=== PATIENT | female | born 1975 | race African-American/Black ===

== ENCOUNTER 2016-09-07 11:21 | Inpatient (IN) ==
[2016-09-07] MEDS ORDERED: ACETAMINOPHEN 325 MG TABLET PO PRN (13:03)
[2016-09-07] MEDS ORDERED: ONDANSETRON 4 MG/2 ML VIAL IV PRN (13:03)
[2016-09-07] MEDS ORDERED: GLUCAGON 1 MG VIAL IM PRN (13:03)
[2016-09-07] MEDS ORDERED: DEXTROSE 50% 25 GM/50 ML VIAL IV PRN (13:03)
--- NOTE | 2016-09-07 13:55 | EKG Report ---
Stationary ECG Study [facility] Test Date: 09/07/2016 1:55:47 PM Pat Name: RENETTA RIBEIRO Department: Room: 124 Gender: F Principal Research Economist: KEVIN : 1975 Requested by: Derek Valentino Order Number: [id number] Reading MD: EDUARDO NOONAN Intervals [place] Rate: 91 P: 63 IA: 141 QRS: 58 QRSD: 77 T: 97 QT: 361 QTc: 410 Interpretive Statements SINUS RHYTHM Electronically Signed On 09-08-16 11:18:14 ROUNDHOUSE FIRER/FIREMAN by EDUARDO NOONAN [email or web address]
--- NOTE | 2016-09-07 14:15 | XRay Report ---
XR chest 1V portable Indication: Shortness of breath Comparison: 21 June 2009 Findings: The heart and mediastinum are stable in size and configuration. The pulmonary vascularity is slightly increased with bilateral increased interstitial lung density. No other lung infiltrates, effusions, pneumothorax or other abnormality is demonstrated. Impression: Findings suggest mild cardiac decompensation. PROCEDURE INTERPRETED AT [facility] DEPARTMENT OF RADIOLOGY Final Report Signed by: Dr. Yemi Navas
[2016-09-07 14:29] LABS: Basophils % 0.3 % (0.0-0.8); Eosinophils # 0.8 10*3/uL (0.0-0.87); Eosinophils % 5.5 % (0.00-10.9); Hematocrit 32.2 VOL% (35.7-47.0); Hemoglobin 10.1 GM/DL (12.0-16.0); Immature Granulocytes % 0.6 %; Immature Granulocytes Absolute 0.08 #; Lymphocytes # 2.5 10*3/uL (1.4-4.0); Lymphocytes % 18.1 % (21.3-54.2); Mean Corpuscular HGB Conc 31.4 GM/DL (32-36); Mean Corpuscular Hemoglobin 25 PG (27-34); Mean Corpuscular Volume 80.5 FL (87-102); Mean Platelet Volume 10.4 FL (9.6-12.0); Monocytes # 0.9 10*3/uL (0.11-0.8); Monocytes % 6.6 % (1.7-12.7); Neutrophils # 9.5 10*3/uL (1.4-7.4); Neutrophils % 68.9 % (38.7-73.9); Platelet Count 279 T/CUMM (130-400); Red Cell Distribution Width 17.7 % (9.3-17.3); White Blood Count 13.7 T/CUMM (4-12)
--- NOTE | 2016-09-07 14:39 | Hospitalist History & Physical ---
<Derek Valentino - Last Filed: 09/07/16 16:48> Assessment and Plan (1) ESRD (end stage renal disease) Status: Acute Assessment and plan: Will monitor lab work. consult to renal for recs. Pt will most likely be dialyzed. Bun/creatinine 46/7.9 Current Visit: Yes (2) Hyperkalemia Status: Acute Assessment and plan: Continue to monitor labs. Pt given kayexalate at previous facility. K decreased from 6.6 to 5.1 Current Visit: Yes (3) Hypertension Status: Acute Assessment and plan: Monitor blood pressure. Start medications for treatment. Current Visit: Yes History of Present Illness Chief complaint: chronic kidney disease History of present illness: Ms. Slater is a 41 year old female Allergies Allergy/AdvReac Type Severity Reaction Status Date / Time Penicillins Allergy Severe ITCHING Verified 09/07/16 16:02 aspirin Allergy Intermediate ITCHING Verified 09/07/16 16:04 Medical,Surgical,& Family Hx - Medical History Cardio: History of: Hypertension Psychological: History of: Bipolar Disorder Neurology: History of: Migraine Endocrine: History of: Diabetes Mellitus (IDDM) Respiratory: History of: Asthma, Bronchitis Renal: No history of: Dialysis Gastrointestinal: History of: GERD Hematology: History of: Sickle Cell Disease (SICKLE CELL TRACE) - Surgical History Cardiac Surgeries: Sugical HX of: Cardiac Catheterization HEENT Surgeries: Surgical HX of: Eye Surgery (RETICAL SURGERY,LASER SURGERY) Reproductive Surgeries: Surgical HX of;: Section, Tubal Ligation Patient denies;: Breast Surgery, Dilation and Curettage, Gynecologic Surgery , Hysterectomy - Family History Family History: Reports;: Family Cancer (GRANDMOTHER), Family Diabetes (MOTHER, FATHER , DAUGHTER), Family Heart Disease (MOTHER), Family Hypertension (MOTHER, FATHER , DAUGHTER), Family Stroke (AUNT) - Social History Smoking Status: Never smoker Frequency of Alcohol Use: None Type of Drug Use: None - Gastrointestinal Gastrointestinal: Present: abdominal pain Exam - Constitutional Vitals: Period Temp Pulse Resp BP Sys/[place] Pulse Ox Last 24 Hr 22 General appearance: no acute distress, over weight - Head Head exam: Present: normal inspection, normocephalic - Eye Eye exam: Present: EOMI Pupils: Present: normal accommodation - GI/Abdominal GI/Abdominal exam: Present: normal bowel sounds, tenderness, soft - Extremities Exam Extremities exam: Present: normal capillary refill, full ROM - Neurological Exam Neurological exam: Present: alert, oriented X3 - Psychiatric Psychiatric exam: Present: normal affect, normal mood - Skin Skin exam: Present: normal color, warm, dry Results - Labs CBC & BMP: 09/07/16 14:13 09/07/16 14:13 Lab Results: I have reviewed the past 24 hour labs Quality Measures - Stroke Symptom Onset Unknown: No <Iesha Puentes - Last Filed: 09/07/16 18:00> History of Present Illness Chief complaint: chest pain History of present illness: Ms. Slater is a 41 year old female with a history of asthma, pneumonia, coronary artery disease, congestive heart failure (unknown type) and chronic kidney disease stage V presented to an outside hospital with a chief complaint of worsening chest pain 1 week. Patient reports that she is noticed that over the last week she has had intermittent sharp chest pain that lasts a few seconds. She reports that he can occur while she is resting or sleeping or when she is in the middle of activities. She says that it does wake her up from sleep. She reports that the pain is usually in the middle of her chest and radiates to her left arm most of the time. Patient reports that it is associated with shortness of breath, nausea, and diaphoresis. no vomiting. She reports it is not associated with lightheadedness or dizziness though she does report feeling that sometimes her heart races or skips a beat. Patient reports that the chest pain is relieved with a nitro patch. She reports that the chest pain worsens with movement, taking a deep breath and seems to be worse with leaning forward. It is not associated with eating. she does report a subjective fever and dry cough. She does report she has had a decreased appetite that has progressively worsened over the last month. She reports she has nausea and vomiting most of the time with eating. Yesterday afternoon, her son went to see her and brought her something to eat. She was feeling better so he left to go home she went to lie down when she developed worsening chest pain that persisted and was associated with nausea. It concerned her due to the increased intensity so she told her boyfriend who called her daughter and she was brought to the outside hospital for further evaluation and treatment. Patient denies any recent long trips. She has not had any recent surgery. She denies any lower extremity swelling. She does report that she has had some increasing in her weight. Son reports her blood sugars are usually in the 2-300s and admits to her being noncompliant with her diet and medication. She was transferred as a direct admit from the outside hospital to the ICU due to a potassium of 6 and reports of increasing respiratory distress due to shortness of breath suspected to be congestive heart failure exacerbation. We were asked to admit the patient. A 10 point review of systems was reviewed with the patient and was otherwise unremarkable. Past medical history: Congestive heart failure (type unknown) chronic kidney disease stage V, diabetes mellitus type 2, hypertension, glaucoma, cataracts, retinal detachment, coronary artery disease (mild), asthma, pneumonia, chronic UTIs, GERD, questionable hiatal hernia versus diabetic gastroparesis Past surgical history: Multiple eye laser surgeries, retinal surgery, cardiac cath, 4 Medications unknown: She gets her meds from [facility] in [facility] Allergies: Penicillin causes a rash and itch, aspirin causes an itch Family history: Parents and daughter -diabetes; parents- CHF; Mother- myocardial infarction; Social history: Patient denies any tobacco or illicit drug use. She occasionally drinks alcohol. She is single and lives alone, but her children are involved in her care. She is a full code. Physical exam: Vitals were reviewed. Patient is afebrile, BP: 162/89, HR: 86, RR: 20 sats 98% RA GEN: Patient is awake alert and oriented 3 lying in hospital bed in no acute distress HEENT: Pupils are equal round and reactive to light, extraocular muscles are intact, sclerae clear, extraocular muscles are intact, conjunctivae pink, nares are patent, no discharge or epistaxis noted. Oropharynx is clear with slightly dry mucous membranes. NECK: Supple, no lymphadenopathy or thyromegaly appreciated. No JVD. CV: Regular rate and rhythm, normal S1-S2. No obvious murmurs rubs or gallops LUNGS: Clear to auscultation bilaterally, with good aeration, nonlabored breathing noted. Slightly diminished equal breath sounds ABD: Soft, nontender, nondistended, positive bowel sounds. No organomegaly or masses appreciated though difficult to assess given her body habitus. EXT: Warm and well-perfused. No clubbing cyanosis or edema NEURO: Cranial nerves II through XII are intact. 5 out of 5 upper and lower extremities bilaterally. Normal finger nose exam. Gait was not assessed. Sensory exam was grossly intact. Labs/ investigative studies reviewed. Assessment and plan: * Hyperkalemia likely due to progressive chronic kidney disease-improved status post Kayexalate * Possible acute bronchitis versus pneumonia (bacterial /community-acquired ) possibly chest pain in a patient with known coronary artery disease * Mild congestive heart failure likely due to fluid overload due to chronic kidney disease * Chronic kidney disease stage unknown suspect stage V * Diabetes mellitus type 2 uncontrolled currently with hypoglycemia * Recurrent nausea and vomiting with leukocytosis-possibly related to diabetic gastroparesis or gastroparesis due to end-stage renal disease. Rule out pancreatitis. Rule out infection. For plans, please see the orders. Discussed with Dr. Monterroso. We will transfer to the floor since she is not severely acidotic, her potassium has improved, she does not appear to be in overt congestive heart failure, and does not appear to have uremia at this time. GI and DVT prophylaxis Exam - Constitutional Vitals: Period Temp Pulse Resp BP Sys/[place] Pulse Ox Last 24 Hr 22 Results - Labs CBC & BMP: 09/07/16 14:13 09/07/16 14:13
[2016-09-07 14:56] LABS: Alanine Aminotransferase 36 U/L (13-56); Albumin 2.2 G/DL (3.4-5.0); Alkaline Phosphatase 346 U/L (45-117); Aspartate Amino Transferase 26 U/L (0-37); Bilirubin,Total < 0.39 MG/DL (0.2-1.0); Blood Urea Nitrogen 46 MG/DL (7-18); Calcium 7.6 MG/DL (8.5-10.1); Glucose 74 MG/DL (74-106); Magnesium 2.2 MG/DL (1.8-2.4); Osmolality,Calculated 296.8 MOS/KG (273-304); Potassium 5.1 MMOL/L (3.5-5.1); Sodium 144 MMOL/L (136-145); Total Protein 5.9 G/DL (6.4-8.3)
[2016-09-07] MEDS: INSULIN LISPRO 100 UNIT/ML SUBCUT SCH ×2 (16:55→20:55)
[2016-09-07] MEDS ORDERED: ALBUTEROL 2.5 MG/3 ML NEB RESP TX PRN (17:29)
[2016-09-07] MEDS ORDERED: LEVOFLOXACIN INJ 500 MG in PREMIX 1 EACH IV SCH (17:30)
--- NOTE | 2016-09-07 18:13 | Nephrology Consult Note ---
History of Present Illness Chief complaint: Chronic kidney disease nearing end-stage History of present illness: Ms. Slater is a 41 year old female patient with history of diabetes and hypertension was admitted to the [facility] for shortness of breath nausea vomiting. At that time patient's serum creatinine was noted to be up above 6. Moreover patient's potassium was above 6.5. She has been transferred from [facility] for further management regarding her kidney disease. Patient was last seen by me over a year ago and at that time patient had significant chronic kidney disease. At present she states her breathing has improved. Blood pressure has been suboptimal. No shortness of breath or chest pain at this time. Have continued to discuss with patient about dialysis options. Allergies Allergy/AdvReac Type Severity Reaction Status Date / Time Penicillins Allergy Severe ITCHING Verified 09/07/16 16:02 aspirin Allergy Intermediate ITCHING Verified 09/07/16 16:04 Medical,Surgical,& Family Hx - Medical History Cardio: History of: Hypertension Psychological: History of: Bipolar Disorder Neurology: History of: Migraine Endocrine: History of: Diabetes Mellitus (IDDM) Respiratory: History of: Asthma, Bronchitis Renal: No history of: Dialysis Gastrointestinal: History of: GERD Hematology: History of: Sickle Cell Disease (SICKLE CELL TRACE) - Surgical History Cardiac Surgeries: Sugical HX of: Cardiac Catheterization HEENT Surgeries: Surgical HX of: Eye Surgery (RETICAL SURGERY,LASER SURGERY) Reproductive Surgeries: Surgical HX of;: Section, Tubal Ligation Patient denies;: Breast Surgery, Dilation and Curettage, Gynecologic Surgery , Hysterectomy - Family History Family History: Reports;: Family Cancer (GRANDMOTHER), Family Diabetes (MOTHER, FATHER , DAUGHTER), Family Heart Disease (MOTHER), Family Hypertension (MOTHER, FATHER , DAUGHTER), Family Stroke (AUNT) - Social History Smoking Status: Never smoker Frequency of Alcohol Use: None Type of Drug Use: None Review of Systems Constitutional: fatigue, no anorexia, no chills Cardiovascular: dyspnea, no chest pain at rest, no chest pain with activity Respiratory: dyspnea Exam - Vital Signs Vital signs: Period Temp Pulse Resp BP Sys/[place] Pulse Ox Last 24 Hr 99.0 F-99.1 F 87-93 13-29 164-181/92-103 98-99 - General Appearance General appearance: well-developed, well-nourished EENT: ATNC Neck: supple Respiratory: clear Cardiology: regular rate, regular rhythm Gastrointestinal: normoactive bowel sounds, no tenderness Integumentary: no rash Neurologic: alert and oriented x3, CN 3-12 intact Musculoskeletal: no clubbing Psychiatric: mood/affect appropriate Results - Labs CBC & BMP: 09/07/16 14:13 09/07/16 14:13 Assessment and Plan (1) Diabetes Status: Chronic Current Visit: Yes Qualifiers: Diabetes mellitus type: type 2 (2) ESRD (end stage renal disease) Status: Acute Assessment and plan: progressive renal failure. Patient will need to start dialysis. Current Visit: Yes (3) Hyperkalemia Status: Resolved Assessment and plan: This issue has now resolved Current Visit: Yes (4) Hypertension Status: Acute Assessment and plan: Clonidine 0.1mg BID Clonidine 0.1mg prn q 4 hour Current Visit: Yes Qualifiers: Hypertension type: essential hypertension Qualified Code(s): I10 - Essential (primary) hypertension (5) Hypoglycemia Status: Acute Assessment and plan: Changing IV fluids to D5 1/4 normal salin at 50cc/hr Current Visit: Yes
--- NOTE | 2016-09-07 18:14 | Ultrasound Report ---
Renal ultrasound Indication: Hydronephrosis Comparison: None available Findings: Kidneys are normal in size with increased parenchymal echogenicity. No hydronephrosis or nephrolithiasis is seen. The right renal length is 10.3 cm. The left renal length is 9.4 cm. No free fluid or other abnormality is seen. Impression: Increased parenchymal echogenicity, consistent with renal parenchymal disease. No other evidence of abnormality demonstrated. Ultrasound images stored and captured. PROCEDURE INTERPRETED AT [facility] DEPARTMENT OF RADIOLOGY Final Report Signed by: Dr. Yemi Navas
[2016-09-07] MEDS: DEXTROSE 5% NACL 0.22% 1,000 ML IV SCH (18:39)
[2016-09-07] MEDS: cloNIDine 0.1 MG TABLET PO PRN ×2 (19:15→23:18)
[2016-09-07] MEDS: ALBUTEROL 2.5 MG/3 ML NEB RESP TX SCH (19:34)
[2016-09-07 20:36] LABS: Apearance,Urine Slightly Hazy (Clear); Bacteria,Urine Occasional /HPF (Few); Bilirubin,Urine Negative (Negative); Blood, Urine Negative (Negative); Glucose,Urine (UA) 150 mg/dL (Negative); Hyaline Casts,Urine 4 /LPF (0-3); Ketones,Urine Negative (Negative); Mucus,Urine Occasional /LPF (Occasional); Nitrite,Urine Negative (Negative); Protein,Urine >=500 MG/DL; RBC,Urine 8 /HPF (0-4); Squamous Epithelial Cell,Urine Occasional /HPF (0-10); Urine Color Yellow (Yellow); Urine Urobilinogen < 2.0 EU/DL (0.2-1.0); WBC,Urine 6 /HPF (0-6)
[2016-09-07] MEDS: cloNIDine 0.1 MG TABLET PO SCH (21:04)
[2016-09-08] MEDS: ALBUTEROL 2.5 MG/3 ML NEB RESP TX SCH ×5 (01:35→23:51)
[2016-09-08] MEDS: cloNIDine 0.1 MG TABLET PO PRN (03:32)
[2016-09-08 04:57] LABS: Basophils % 0.4 % (0.0-0.8); Eosinophils # 0.7 10*3/uL (0.0-0.87); Eosinophils % 6.7 % (0.00-10.9); Hematocrit 29.8 VOL% (35.7-47.0); Hemoglobin 9.6 GM/DL (12.0-16.0); Immature Granulocytes % 0.5 %; Immature Granulocytes Absolute 0.05 #; Lymphocytes % 27.8 % (21.3-54.2); Mean Corpuscular HGB Conc 32.2 GM/DL (32-36); Mean Corpuscular Hemoglobin 25 PG (27-34); Mean Platelet Volume 10.7 FL (9.6-12.0); Monocytes # 0.9 10*3/uL (0.11-0.8); Monocytes % 8.1 % (1.7-12.7); Neutrophils # 6.1 10*3/uL (1.4-7.4); Neutrophils % 56.5 % (38.7-73.9); Platelet Count 262 T/CUMM (130-400); Red Blood Count 3.82 MC/CUMM (3.8-5.5); Red Cell Distribution Width 17.4 % (9.3-17.3); White Blood Count 10.9 T/CUMM (4-12)
[2016-09-08 05:28] LABS: Bilirubin,Total 0.7 MG/DL (0.2-1.0); Calcium 7.7 MG/DL (8.5-10.1); Osmolality,Calculated 297.7 MOS/KG (273-304); Potassium 4.7 MMOL/L (3.5-5.1); Risk Ratio 2.66; Total Protein 5.6 G/DL (6.4-8.3); VLDL CHOLESTEROL 17.6 MG/DL
[2016-09-08 06:19] LABS: Hepatitis A Ab IgM Quant 0.15 Index; Hepatitis A Ab IgM Result Negative (Negative); Hepatitis B Core IgM Quant 0.16 Index; Hepatitis B Core IgM Result Negative (Negative); Hepatitis B Surface Ag Quant < 0.10 Index; Hepatitis B Surface Ag Result Negative (Negative); Hepatitis C Virus Ab Quant 0.14 Index; Hepatitis C Virus Ab Result Negative (Negative)
--- NOTE | 2016-09-08 06:42 | Hospitalist Progress Note ---
Hospitalist: Subjective Interval history: Patient rested comfortably overnight. No fevers or chills. No chest pain or shortness of breath. No palpitations. Urinating well. Tolerating oral intake well. Exam - Constitutional Vitals: Period Temp Pulse Resp BP Sys/[place] Pulse Ox Last 24 Hr 97.6 F-99.1 F 82-95 12-29 134-181/66-103 96-100 Exam: Physical exam: GEN: Patient is awake alert and oriented 3 lying in hospital bed in no acute distress CV: Regular rate and rhythm, normal S1-S2. No obvious murmurs rubs or gallops LUNGS: Clear to auscultation bilaterally, with good aeration, nonlabored breathing noted. Slightly diminished equal breath sounds ABD: Soft, nontender, nondistended, positive bowel sounds. No organomegaly or masses appreciated though difficult to assess given her body habitus. EXT: Warm and well-perfused. No clubbing cyanosis or edema NEURO: nonfocal Results - Labs CBC & BMP: 09/08/16 03:55 09/08/16 03:55 Labs: HgbA1c 6.0 LDL 73 HDL 47 Lipase 110 TSH 2.85 Blood culture x 2- pending Reportedly cardiac markers were negative at the outside hospital. - Impressions Assessment and plan: * Chest pain in a patient with known coronary artery disease-will ask cardiology to evaluate. Her previous heart catheterization per patient revealed blood vessel that was not amendable to PCI. Continue medical management for now. Follow-up echo. * Hyperkalemia likely due to progressive chronic kidney disease-resolved status post Kayexalate. * Possible acute bronchitis versus pneumonia (bacterial /community-acquired ) possibly due to gram-negative rods, gram-positive cocci, or atypical organisms * Chronic congestive heart failure type pwyiorz-sntasp-dm echo. Strict I's and O's. Daily weights. No OLU or Arps at this time due to elevated creatinine. Initiate beta-blockers once her home meds are reevaluated * Chronic kidney disease stage unknown suspect stage V-management per renal * Diabetes mellitus type 2 controlled -I suspect most of the time patient is hypoglycemic on her current regimen as her hemoglobin A1c is less than 6 . Continue insulin sliding scale for now with Accu-Cheks before meals and at bedtime. Pending her blood sugars we may be able to discontinue the dextrose infusion. * Recurrent nausea and vomiting with leukocytosis-possibly related to diabetic gastroparesis or gastroparesis due to end-stage renal disease. Lipase was normal. Rule out infection. Follow-up blood and urine cultures. Continue empiric antibiotics. Patient awaiting bed on telemetry. Update medications once nurse receives home med list from [facility] in [place], [place]. GI and DVT prophylaxis I will be away several days. 1 of my associates will follow in my absence. - Diagnostic Findings Procedure: Chest x-ray: report reviewed by me (CXR mild cardiac decompensation) , Ultrasound: report reviewed by me (Renal U/S showed increased echogenicity) Quality Measures - Stroke Symptom Onset Unknown: No
[2016-09-08] MEDS: cloNIDine 0.1 MG TABLET PO SCH ×2 (09:14→20:48)
[2016-09-08] MEDS: INSULIN LISPRO 100 UNIT/ML SUBCUT SCH ×4 (09:16→20:48)
--- NOTE | 2016-09-08 09:53 | Nephrology Progress Note ---
Nephrology - PN: Subj Interval history: The patient appears much more comfortable at this time. No shortness of breath or chest pain. Serum creatinine is noted to be 7.7. Continuing to talk with patient about renal replacement therapy options. At this time she appears to be more resistant about dialysis. She is interested in more education. The patient is stable to go up to a regular floor. Glucoses have been running low she is on IV fluids. Exam (PN)-Nephrology - Vital Signs Vital signs: Period Temp Pulse Resp BP Sys/[place] Pulse Ox Last 24 Hr 97.6 F-99.1 F 80-95 12-29 134-181/66-103 96-100 - General Appearance General appearance: well-developed, well-nourished EENT: ATNC Neck: supple Respiratory: clear Cardiology: no edema, regular rate, regular rhythm Gastrointestinal: normoactive bowel sounds, no tenderness Neurologic: alert and oriented x3, CN 3-12 intact Musculoskeletal: no deformities, no clubbing Psychiatric: mood/affect appropriate - Lab 09/08/16 03:55 09/08/16 03:55 Most recent lab results Calcium 7.7 MG/DL (8.5-10.1) L 09/08/16 03:55 Magnesium 2.2 MG/DL (1.8-2.4) 09/07/16 14:13 Assessment and Plan (1) Diabetes Status: Chronic Current Visit: Yes Qualifiers: Diabetes mellitus type: type 2 (2) ESRD (end stage renal disease) Status: Acute Assessment and plan: progressive renal failure. Patient will need renal replacement therapy and continuing to discuss her options. Current Visit: Yes (3) Hyperkalemia Status: Resolved Assessment and plan: This issue has now resolved Current Visit: Yes (4) Hypertension Status: Acute Assessment and plan: Clonidine 0.1mg BID Clonidine 0.1mg prn q 4 hour Current Visit: Yes Qualifiers: Hypertension type: essential hypertension Qualified Code(s): I10 - Essential (primary) hypertension (5) Hypoglycemia Status: Acute Assessment and plan: Changing IV fluids to D5 1/4 normal salin at 50cc/hr Current Visit: Yes
[2016-09-08] MEDS: DEXTROSE 5% NACL 0.22% 1,000 ML IV SCH (14:40)
--- NOTE | 2016-09-08 15:39 | ECHO Report ---
Jesus Slater 09/08/2016 Exam Date: 10:07 Referring Physician: Vanessa Reyesnologist: Age: 41 Ht (in): Wt (lb): FExam Location: [facility] Gender: Echo [id number]: Diabetes, ESRD, Hyperkalemia, HTN, Indications:glycemia BP: / HR: SinusRhythm: FairTechnical Quality: IMPRESSIONS Severe concentric left ventricular hypertrophy. Left ventricular ejection fraction is estimated at 55-60 %. Normal segmental wall motion . Normal right ventricular size. Normal right atrial size. Normal left atrial size. Mildly thickened mitral valve with mild mitral regurgitation. Aortic valve sclerosis without stenosis or regurgitation. Morphologically normal tricuspid valve. Wyff-og-rqlpiqiw tricuspid valve regurgitation. Tricuspid regurgitation velocities suggest a PAP of 27.0 mmHg + RAP. Morphologically normal pulmonic valve. No pericardial effusion. Normal size aortic root and proximal ascending aorta. MEASUREMENTS (Male / Female) Normal Values 2D ECHO LV Diastolic Diameter PLAX 3.6 cm 4.2 - 5.9 / 3.9 - 5.3 cm LV Systolic Diameter PLAX 2.0 cm LV Fractional Shortening PLAX 42.9 % IVS Diastolic Thickness 1.3 cm 0.6 - 1.0 / 0.6 - 0.9 cm LVPW Diastolic Thickness 1.3 cm 0.6 - 1.0 / 0.6 - 0.9 cm RV Internal Dim ED PLAX 2.4 cm Aortic Root Diameter 2.6 cm LA Systolic Diameter LX 3.4 cm 3.0 - 4.0 / 2.7 - 3.8 cm FINDINGS Left Ventricle Severe concentric left ventricular hypertrophy. Left ventricular ejection fraction is estimated at 55-60 %. Normal segmental wall motion Right Ventricle Normal right ventricular size. Right Atrium Normal right atrial size. Left Atrium Normal left atrial size. Mitral Valve Mildly thickened mitral valve with mild mitral regurgitation. Aortic Valve Aortic valve sclerosis without stenosis or regurgitation. Tricuspid Valve Morphologically normal tricuspid valve. Ohtw-zw-grpqazpa tricuspid valve regurgitation. Tricuspid regurgitation velocities suggest a PAP of 27.0 mmHg + RAP. Pulmonic Valve Morphologically normal pulmonic valve. Pericardium No pericardial effusion. Aorta Normal size aortic root and proximal ascending aorta. Johny Webb MD (Electronically Signed) 08 September 2016 Final Date: 15:38
[2016-09-08] MEDS: ZALEPLON 5 MG CAPSULE PO PRN (20:48)
[2016-09-09] MEDS: ALBUTEROL 2.5 MG/3 ML NEB RESP TX SCH ×4 (07:20→23:58)
[2016-09-09] MEDS: INSULIN LISPRO 100 UNIT/ML SUBCUT SCH ×4 (08:19→20:57)
[2016-09-09] MEDS: cloNIDine 0.1 MG TABLET PO SCH ×2 (08:24→20:57)
[2016-09-09] MEDS: PROMETHAZINE 25 MG/1 ML VIAL IM PRN (08:25)
[2016-09-09] MEDS: DEXTROSE 5% NACL 0.22% 1,000 ML IV SCH ×2 (09:13→14:43)
--- NOTE | 2016-09-09 13:56 | Hospitalist Progress Note ---
Assessment and Plan (1) ESRD (end stage renal disease) Status: Acute Assessment and plan: The geospatial systems integrator is evaluating Mrs. Slater for renal replacement therapy. The patient has been reluctant to pursue treatment. We will discontinue Levaquin and begin meropenem to treat urinary tract infection Current Visit: Yes (2) Hypertension Status: Acute Current Visit: Yes Qualifiers: Hypertension type: essential hypertension Qualified Code(s): I10 - Essential (primary) hypertension Hospitalist: Subjective Interval history: The patient is admitted to the hospital with generalized weakness. She has stage V renal failure and has been offered hemodialysis. The patient is considering her options for renal replacement therapy. The patient has nausea today. Exam - Constitutional Vitals: Period Temp Pulse Resp BP Sys/[place] Pulse Ox Last 24 Hr 97.9 F-99.9 F 83-91 16-21 111-138/59-74 93-100 Exam: Constitutional System: Mild distress. No tremulousness. The patient is lethargic Head: Normocephalic, atraumatic. Ears, Nose and Throat System: No evidence of Otitis or Mastoiditis. No epistaxis or discharge Eyes System: Pupils equal, round, and reactive. Extraocular muscles intact. Neck: Supple, without adenopathy, No jugular venous distention. No thyromegaly , neck mass, or prior surgery apparent. Respiratory System: Chest clear to auscultation. Cardiovascular System: Heart with regular rate and rhythm. No murmur. GI System: Abdomen soft, nontender. Normoactive bowel sounds present. Musculoskeletal System: limbs with no pedal edema. Full distal pulses. Neurological System: No discernable sensory deficit. No aphasia Psychiatric System: Conversation is rational Results - Labs CBC & BMP: 09/08/16 03:55 09/08/16 03:55 Lab Results: I have reviewed the past 24 hour labs Quality Measures - Stroke Symptom Onset Unknown: No
[2016-09-09] MEDS: MEROPENEM 500 MG in SODIUM CHLORIDE 0.9% 100 ML IV SCH (14:45)
--- NOTE | 2016-09-09 14:56 | Nephrology Progress Note ---
Nephrology - PN: Subj Interval history: Patient is resting. She is visiting with family. Discussed with patient about renal replacement therapy. She voiced understanding. She is now in agreement to start dialysis. Blood pressure is better today. Will repeat BMP in a.m. Exam (PN)-Nephrology - Vital Signs Vital signs: Period Temp Pulse Resp BP Sys/[place] Pulse Ox Last 24 Hr 97.9 F-99.9 F 83-91 16-21 111-138/59-74 93-100 - General Appearance General appearance: well-developed, well-nourished EENT: ATNC Neck: supple Respiratory: clear Cardiology: regular rate, regular rhythm Gastrointestinal: normoactive bowel sounds, no tenderness, no guarding Neurologic: alert and oriented x3, CN 3-12 intact Musculoskeletal: no clubbing Psychiatric: mood/affect appropriate - Lab 09/08/16 03:55 09/08/16 03:55 Most recent lab results Calcium 7.7 MG/DL (8.5-10.1) L 09/08/16 03:55 Magnesium 2.2 MG/DL (1.8-2.4) 09/07/16 14:13 Assessment and Plan (1) Diabetes Status: Chronic Current Visit: Yes Qualifiers: Diabetes mellitus type: type 2 (2) ESRD (end stage renal disease) Status: Acute Assessment and plan: progressive renal failure. Patient will need renal replacement therapy and continuing to discuss her options. Current Visit: Yes (3) Hyperkalemia Status: Resolved Assessment and plan: This issue has now resolved Current Visit: Yes (4) Hypertension Status: Acute Assessment and plan: Clonidine 0.1mg BID Clonidine 0.1mg prn q 4 hour Current Visit: Yes Qualifiers: Hypertension type: essential hypertension Qualified Code(s): I10 - Essential (primary) hypertension (5) Hypoglycemia Status: Acute Assessment and plan: Changing IV fluids to D5 1/4 normal salin at 50cc/hr Current Visit: Yes
[2016-09-10] MEDS: PROMETHAZINE 25 MG/1 ML VIAL IM PRN (04:01)
[2016-09-10] MEDS: DEXTROSE 5% NACL 0.22% 1,000 ML IV SCH ×2 (04:01→06:28)
[2016-09-10 04:19] LABS: Basophils % 0.3 % (0.0-0.8); Eosinophils # 0.5 10*3/uL (0.0-0.87); Eosinophils % 3.8 % (0.00-10.9); Hematocrit 29.5 VOL% (35.7-47.0); Hemoglobin 9.5 GM/DL (12.0-16.0); Immature Granulocytes % 0.8 %; Lymphocytes # 2.6 10*3/uL (1.4-4.0); Lymphocytes % 19.3 % (21.3-54.2); Mean Corpuscular HGB Conc 32.2 GM/DL (32-36); Mean Corpuscular Hemoglobin 25 PG (27-34); Mean Corpuscular Volume 78.2 FL (87-102); Monocytes # 0.9 10*3/uL (0.11-0.8); Monocytes % 6.8 % (1.7-12.7); Neutrophils # 9.2 10*3/uL (1.4-7.4); Platelet Count 292 T/CUMM (130-400); Red Blood Count 3.77 MC/CUMM (3.8-5.5); White Blood Count 13.3 T/CUMM (4-12)
[2016-09-10 04:31] LABS: Partial Thromboplastin Time 29.9 SECS (0-40)
[2016-09-10 04:46] LABS: Calcium 7.7 MG/DL (8.5-10.1); Potassium 5.5 MMOL/L (3.5-5.1)
[2016-09-10 04:51] LABS: Calcium 7.7 MG/DL (8.5-10.1); Magnesium 2.4 MG/DL (1.8-2.4); Osmolality,Calculated 295.8 MOS/KG (273-304); Potassium 5.5 MMOL/L (3.5-5.1)
[2016-09-10] MEDS: ALBUTEROL 2.5 MG/3 ML NEB RESP TX SCH ×3 (08:00→20:11)
[2016-09-10] MEDS: INSULIN LISPRO 100 UNIT/ML SUBCUT SCH ×4 (08:45→20:45)
[2016-09-10] MEDS: cloNIDine 0.1 MG TABLET PO SCH ×2 (08:45→20:45)
--- NOTE | 2016-09-10 08:46 | Hospitalist Progress Note ---
Assessment and Plan (1) ESRD (end stage renal disease) Status: Acute Assessment and plan: The patient has decided to except renal replacement therapy via hemodialysis. Dr. Monterroso is arranging for dialysis access. The patient continues on Meropenem to treat urinary tract infection Current Visit: Yes (2) Hypertension Status: Acute Current Visit: Yes Qualifiers: Hypertension type: essential hypertension Qualified Code(s): I10 - Essential (primary) hypertension Hospitalist: Subjective Interval history: The patient has less nausea today. She is tolerating breakfast. The patient has no shortness of breath today. Exam - Constitutional Vitals: Period Temp Pulse Resp BP Sys/[place] Pulse Ox Last 24 Hr 96.5 F-99.6 F 86-109 18-20 113-151/59-87 94-99 Exam: Constitutional System: No distress. No tremulousness. The patient is alert. Head: Normocephalic, atraumatic. Ears, Nose and Throat System: No evidence of Otitis or Mastoiditis. No epistaxis or discharge Eyes System: Pupils equal, round, and reactive. Extraocular muscles intact. Neck: Supple, without adenopathy, No jugular venous distention. No thyromegaly , neck mass, or prior surgery apparent. Respiratory System: Chest clear to auscultation. Cardiovascular System: Heart with regular rate and rhythm. No murmur. GI System: Abdomen soft, nontender. Normoactive bowel sounds present. Musculoskeletal System: limbs with no pedal edema. Full distal pulses. Neurological System: No discernable sensory deficit. No aphasia Psychiatric System: Conversation is rational Results - Labs CBC & BMP: 09/10/16 04:07 09/10/16 04:07 Lab Results: I have reviewed the past 24 hour labs Quality Measures - Stroke Symptom Onset Unknown: No
[2016-09-10] MEDS: diphenhydrAMINE CAP 25 MG CAPSULE PO PRN ×2 (13:49→22:51)
[2016-09-10] MEDS: MEROPENEM 500 MG in SODIUM CHLORIDE 0.9% 100 ML IV SCH ×2 (14:26→14:32)
--- NOTE | 2016-09-10 18:54 | Nephrology Progress Note ---
Nephrology - PN: Subj Interval history: The patient serum creatinine remains above 8.8. Less nausea today. However renal function continues to be worse. Have discussed with patient about renal replacement therapy and she is in agreement to initiate hemodialysis. At this time will make preparations for dialysis. N.p.o. after midnight and have consulted surgery for access. Exam (PN)-Nephrology - Vital Signs Vital signs: Period Temp Pulse Resp BP Sys/[place] Pulse Ox Last 24 Hr 96.5 F-99.7 F 81-109 17-20 111-151/62-87 93-100 - General Appearance General appearance: well-developed, well-nourished EENT: ATNC Neck: supple Respiratory: clear Cardiology: no edema, regular rate, regular rhythm Gastrointestinal: normoactive bowel sounds, no tenderness Neurologic: CN 3-12 intact Musculoskeletal: no clubbing - Lab 09/10/16 04:07 09/10/16 04:07 Most recent lab results Calcium 7.7 MG/DL (8.5-10.1) L 09/10/16 04:07 Magnesium 2.4 MG/DL (1.8-2.4) 09/10/16 04:07 Assessment and Plan (1) Diabetes Status: Chronic Current Visit: Yes Qualifiers: Diabetes mellitus type: type 2 (2) ESRD (end stage renal disease) Status: Acute Assessment and plan: progressive renal failure. Patient will need renal replacement therapy and continuing to discuss her options. Patient has agreed to start dialysis. Hepatitis panel has been ordered. Current Visit: Yes (3) Hyperkalemia Status: Resolved Assessment and plan: This issue has now resolved Current Visit: Yes (4) Hypertension Status: Acute Assessment and plan: Clonidine 0.1mg BID Clonidine 0.1mg prn q 4 hour Current Visit: Yes Qualifiers: Hypertension type: essential hypertension Qualified Code(s): I10 - Essential (primary) hypertension (5) Hypoglycemia Status: Acute Assessment and plan: Changing IV fluids to D5 1/4 normal salin at 50cc/hr Current Visit: Yes
[2016-09-11] MEDS: DEXTROSE 5% NACL 0.22% 1,000 ML IV SCH ×3 (00:11→23:24)
[2016-09-11] MEDS: ALBUTEROL 2.5 MG/3 ML NEB RESP TX SCH ×4 (01:46→19:03)
--- NOTE | 2016-09-11 07:08 | General Surgery Consult Note ---
Assessment and Plan (1) ESRD (end stage renal disease) Status: Acute Assessment and plan: The patient is in need of a dialysis catheter placement to initiate hemodialysis. I have discussed the risks, benefits, and alternatives of tunneled dialysis catheter placement with the patient and her family. The expected outcomes have been reviewed. She would like to proceed with the operation and this will be scheduled for today Current Visit: Yes History of Present Illness Chief complaint: Nausea and uremic symptoms History of present illness: Ms. Slater is a 41 year old female with chronic renal failure admitted with need for dialysis initiation. I was consulted for catheter placement. The patient is not on any blood thinners and she has never had a dialysis catheter in the past. She was admitted with chest pain but also had hyperkalemia and is now in need of dialysis initiation. Home Medications Medication Instructions Recorded Confirmed Type Unable To Obtain [Unable to Obtain] 09/09/16 09/09/16 History Allergies Allergy/AdvReac Type Severity Reaction Status Date / Time Penicillins Allergy Severe ITCHING Verified 09/07/16 16:02 aspirin Allergy Intermediate ITCHING Verified 09/07/16 16:04 Medical,Surgical,& Family Hx - Medical History Cardio: History of: Hypertension Psychological: History of: Bipolar Disorder Neurology: History of: Migraine Endocrine: History of: Diabetes Mellitus (IDDM) Respiratory: History of: Asthma, Bronchitis Renal: No history of: Dialysis Gastrointestinal: History of: GERD Hematology: History of: Sickle Cell Disease (SICKLE CELL TRACE) - Surgical History Cardiac Surgeries: Sugical HX of: Cardiac Catheterization HEENT Surgeries: Surgical HX of: Eye Surgery (RETICAL SURGERY,LASER SURGERY) Reproductive Surgeries: Surgical HX of;: Section, Tubal Ligation Patient denies;: Breast Surgery, Dilation and Curettage, Gynecologic Surgery , Hysterectomy - Family History Family History: Reports;: Family Cancer (GRANDMOTHER), Family Diabetes (MOTHER, FATHER , DAUGHTER), Family Heart Disease (MOTHER), Family Hypertension (MOTHER, FATHER , DAUGHTER), Family Stroke (AUNT) - Social History Smoking Status: Never smoker Frequency of Alcohol Use: None Type of Drug Use: None - Constitutional Constitutional: Present: as per HPI - EENT Nose, mouth and throat: Present: as per HPI - Cardiovascular Cardiovascular: Present: as per HPI - Respiratory Respiratory: Present: as per HPI - Gastrointestinal Gastrointestinal: Present: as per HPI - Genitourinary Genitourinary: Present: as per HPI - Musculoskeletal Musculoskeletal: Present: as per HPI - Neurological Neurological: Present: as per HPI - Endocrine Endocrine: Present: as per HPI Hematologic/Lymphatic: Present: as per HPI Exam - Constitutional Vitals: Period Temp Pulse Resp BP Sys/[place] Pulse Ox Last 24 Hr 97.3 F-100.2 F 81-106 17-97 111-143/69-88 93-100 General appearance: no acute distress, over weight - Head Head exam: Present: normal inspection, normocephalic - Eye Eye exam: Present: EOMI Pupils: Present: VERO - ENT ENT exam: Present: normal exam Mouth exam: Present: normal external inspection, normal voice - Neck Neck exam: Present: normal inspection, trachea midline - Respiratory Respiratory exam: Present: clear to auscultation bilaterally. Absent: accessory muscle use, chest wall tenderness - Cardiovascular Cardiovascular exam: Present: RRR. Absent: systolic murmur, tachycardia - GI/Abdominal GI/Abdominal exam: Present: soft. Absent: tenderness, rebound - Extremities Exam Extremities exam: Present: normal inspection, normal capillary refill - Back Exam Back exam: Present: normal inspection - Neurological Exam Neurological exam: Present: alert, oriented X3 Speech: Present: normal - Skin Skin exam: Present: normal color, warm Quality Measures - Stroke Symptom Onset Unknown: No Results - Labs CBC & BMP: 09/10/16 04:07 09/10/16 04:07
[2016-09-11] MEDS ORDERED: CLINDAMYCIN INJ 900 MG in PREMIX 1 EACH IV ONE (07:30)
[2016-09-11] MEDS: INSULIN LISPRO 100 UNIT/ML SUBCUT SCH ×4 (07:45→20:22)
[2016-09-11 08:09] LABS: Calcium 8.1 MG/DL (8.5-10.1); Magnesium 2.6 MG/DL (1.8-2.4); Osmolality,Calculated 296.7 MOS/KG (273-304); Potassium 5.9 MMOL/L (3.5-5.1)
[2016-09-11] MEDS: cloNIDine 0.1 MG TABLET PO SCH ×2 (08:26→20:11)
[2016-09-11] MEDS ORDERED: HEPARIN 5,000 UNIT/1 ML VIAL ONE (09:33)
[2016-09-11] MEDS ORDERED: BUPIVACAINE 0.25% 50 ML VIAL ONE (09:33)
[2016-09-11] MEDS ORDERED: LIDOCAINE 2% 5 ML VIAL ONE (10:21)
[2016-09-11] MEDS ORDERED: PROPOFOL 200 MG/20 ML VIAL IV ONE (10:21)
--- NOTE | 2016-09-11 10:46 | Operative Note ---
Date of procedure: 09/11/16 Pre-op diagnosis: Renal failure Post-op diagnosis: same Procedure: Preoperative diagnosis Renal failure with need for hemodialysis access Postoperative diagnosis Same Procedures performed 1. Right internal jugular vein tunneled hemodialysis catheter placement 2. Ultrasound guidance and interpretation of images 3. Fluoroscopic guidance and interpretation of images Findings The right internal jugular vein is compressible and it was accessed for hemodialysis access. The tip of the catheter was place in the right atrium. Patient tolerated procedure well and both ports worked well. Complications none apparent Specimen None Indications Renal failure with need for access for hemodialysis Description of procedure The patient was taken to the operating room and transferred to the operating table in the supine position. Pressure points are padded and SCDs placed lower extremity. Monitored anesthesia was administered and the neck was prepped and draped sterile fashion using chloride same. Preoperative antibiotics were administered and a timeout was performed. Ultrasound was used to identify the internal jugular vein and local anesthetic was infiltrated around the vein. Local anesthetic was also administered around the planned tract site down to the anterior chest wall below the clavicle. The vein was accessed on first stick and nonpulsatile venous blood was obtained. A wire was placed using Seldinger technique. An incision was made alongside the wire using a long blade scalpel and a separate incision below the clavicle was made with an 11 blade scalpel. A 19 cm catheter was tunneled from the chest incision into the neck wound and a dilator peel-away sheath was placed over the wire. The wire and dilator was removed and the catheter was placed to the peel-away sheath. The catheter was secured in place in the right atrium on fluoroscopic images. Both returned blood easily and were flushed with heparin. The catheter was secured in place using 3-0 nylon sutures and the neck incision was closed with 3 -0 nylon suture. Sterile dressings were applied. The patient was awakened from anesthesia and transferred to recovery. Postoperative plan Begin hemodialysis and obtained chest x-ray postop Implants: 19cm tunneled dialysis catheter Anesthesia: MAC, local Surgeon / Physician: Jeffrey De Leon Estimated blood loss: minimal Specimens: none sent Condition: stable Disposition: PACU Results - Labs CBC & BMP: 09/10/16 04:07 09/11/16 07:18 Discharge Plan - Discharge Medications No Action Unable To Obtain [Unable to Obtain] - Follow Up or Referral Follow Up: Jeffrey De Leon MD [Physician] - 2 Weeks (with next available vein mapping) - Forms/Instructions
--- NOTE | 2016-09-11 11:00 | XRay Report ---
History: Dialysis catheter placement Date: 09/11/2016 at 10:41 AM Study: Chest x-ray AP portable Comparison exam: Chest x-ray September 07, 2016 There is cardiomegaly. The pulmonary vasculature is slightly prominent. There is no mediastinal mass. A right IJ dialysis access catheter is positioned with its tip at the atriocaval junction level. There is no pneumothorax. There is some suspected minimal hazy perihilar pulmonary edema. There is no significant pleural effusion. Osseous structures are unremarkable. Impression: Satisfactory positioning of the dialysis access catheter. No pneumothorax. Cardiomegaly and mild CHF PROCEDURE INTERPRETED AT [facility] DEPARTMENT OF RADIOLOGY Final Report Signed by: Dr. Mai Garland
--- NOTE | 2016-09-11 11:24 | Anesthesia ---
Anesthesia Post OP - Post Ansesthetic Evaluation Patient seen in post op: Yes Resp: within normal limits CV: within normal limits Mental: within normal limits Temp: within normal limits [id number]: within normal limits Nausea and Vomiting: within normal limits Pain: within normal limits
[2016-09-11] MEDS ORDERED: fentaNYL 100 MCG/2 ML VIAL ONE (11:27)
[2016-09-11] MEDS ORDERED: SODIUM CHLORIDE 0.9% 250 ML IV ONE (11:27)
[2016-09-11] MEDS ORDERED: SODIUM CHLORIDE 0.9% 100 ML IV ONE (11:27)
[2016-09-11] MEDS ORDERED: HEPARIN 10,000 UNIT/10 ML VIAL IV SCH (16:30)
--- NOTE | 2016-09-11 17:05 | Hospitalist Progress Note ---
Assessment and Plan (1) ESRD (end stage renal disease) Status: Acute Assessment and plan: The patient has decided to except renal replacement therapy via hemodialysis. The patient is having her first hemodialysis treatment now. Current Visit: Yes (2) Hypertension Status: Acute Current Visit: Yes Qualifiers: Hypertension type: essential hypertension Qualified Code(s): I10 - Essential (primary) hypertension Hospitalist: Subjective Interval history: Mrs. Slater had placement of tunneled vascular access catheter today. I examined her while she was on her first dialysis therapy. The patient is not complaining of shortness of breath or chest pain. Exam - Constitutional Vitals: Period Temp Pulse Resp BP Sys/[place] Pulse Ox Last 24 Hr 97.9 F-100.2 F 90-106 14-97 104-143/69-88 95-100 Exam: Constitutional System: No distress. No tremulousness. The patient is alert. Head: Normocephalic, atraumatic. Ears, Nose and Throat System: No evidence of Otitis or Mastoiditis. No epistaxis or discharge Eyes System: Pupils equal, round, and reactive. Extraocular muscles intact. Neck: Supple, without adenopathy, No jugular venous distention. No thyromegaly , neck mass, or prior surgery apparent. Respiratory System: Chest clear to auscultation. Cardiovascular System: Heart with regular rate and rhythm. No murmur. GI System: Abdomen soft, nontender. Normoactive bowel sounds present. Musculoskeletal System: limbs with no pedal edema. Full distal pulses. Neurological System: No discernable sensory deficit. No aphasia Psychiatric System: Conversation is rational Results - Labs CBC & BMP: 09/10/16 04:07 09/11/16 07:18 Lab Results: I have reviewed the past 24 hour labs Quality Measures - Stroke Symptom Onset Unknown: No Specialty Discharge - Follow Up or Referrals Follow up with: Jeffrey De Leon MD [Physician] - 2 Weeks (with next available vein mapping)
[2016-09-11] MEDS: MEROPENEM 500 MG in SODIUM CHLORIDE 0.9% 100 ML IV SCH (18:27)
--- NOTE | 2016-09-11 19:51 | Nephrology Progress Note ---
Nephrology - PN: Subj Interval history: Patient is resting comfortably. She tolerated dialysis. At this time will schedule hemodialysis tomorrow. Making preparations for outpatient hemodialysis. Exam (PN)-Nephrology - Vital Signs Vital signs: Period Temp Pulse Resp BP Sys/[place] Pulse Ox Last 24 Hr 97.9 F-98.9 F 90-108 14-97 104-152/69-86 95-100 - General Appearance General appearance: well-developed, well-nourished EENT: ATNC Neck: supple Respiratory: clear Cardiology: regular rate, regular rhythm Gastrointestinal: normoactive bowel sounds, no tenderness Neurologic: CN 3-12 intact Musculoskeletal: no clubbing - Lab 09/10/16 04:07 09/11/16 07:18 Most recent lab results Calcium 8.1 MG/DL (8.5-10.1) L 09/11/16 07:18 Magnesium 2.6 MG/DL (1.8-2.4) H 09/11/16 07:18 Assessment and Plan (1) Diabetes Status: Chronic Current Visit: Yes Qualifiers: Diabetes mellitus type: type 2 (2) ESRD (end stage renal disease) Status: Acute Assessment and plan: Initiate hemodialysis today Hepatitis panel has been ordered. Current Visit: Yes (3) Hyperkalemia Status: Resolved Assessment and plan: This issue has now resolved Current Visit: Yes (4) Hypertension Status: Acute Assessment and plan: Clonidine 0.1mg BID Clonidine 0.1mg prn q 4 hour Current Visit: Yes Qualifiers: Hypertension type: essential hypertension Qualified Code(s): I10 - Essential (primary) hypertension (5) Hypoglycemia Status: Acute Assessment and plan: Changing IV fluids to D5 1/4 normal salin at 50cc/hr Current Visit: Yes Specialty Discharge - Follow Up or Referrals Follow up with: Jeffrey D eLeon MD [Physician] - 2 Weeks (with next available vein mapping)
[2016-09-12] MEDS: ZALEPLON 5 MG CAPSULE PO PRN ×2 (01:10→20:31)
[2016-09-12] MEDS: diphenhydrAMINE CAP 25 MG CAPSULE PO PRN ×2 (01:10→15:02)
[2016-09-12] MEDS: ALBUTEROL 2.5 MG/3 ML NEB RESP TX SCH ×4 (01:49→19:13)
[2016-09-12] MEDS: INSULIN LISPRO 100 UNIT/ML SUBCUT SCH ×4 (09:17→20:32)
--- NOTE | 2016-09-12 10:20 | Hospitalist Progress Note ---
Assessment and Plan (1) ESRD (end stage renal disease) Status: Acute Assessment and plan: The patient has decided to except renal replacement therapy via hemodialysis. The patient is having her second hemodialysis treatment now. Current Visit: Yes (2) Hypertension Status: Acute Current Visit: Yes Qualifiers: Hypertension type: essential hypertension Qualified Code(s): I10 - Essential (primary) hypertension Hospitalist: Subjective Interval history: The patient is tolerating her second dialysis therapy today. The patient has no new symptoms. Exam - Constitutional Vitals: Period Temp Pulse Resp BP Sys/[place] Pulse Ox Last 24 Hr 98.1 F-100.7 F 63-116 14-22 104-152/70-86 93-100 Exam: Constitutional System: No distress. No tremulousness. The patient is alert. Head: Normocephalic, atraumatic. Ears, Nose and Throat System: No evidence of Otitis or Mastoiditis. No epistaxis or discharge Eyes System: Pupils equal, round, and reactive. Extraocular muscles intact. Neck: Supple, without adenopathy, No jugular venous distention. No thyromegaly , neck mass, or prior surgery apparent. Respiratory System: Chest clear to auscultation. Cardiovascular System: Heart with regular rate and rhythm. No murmur. GI System: Abdomen soft, nontender. Normoactive bowel sounds present. Musculoskeletal System: limbs with no pedal edema. Full distal pulses. Neurological System: No discernable sensory deficit. No aphasia Psychiatric System: Conversation is rational Results - Labs CBC & BMP: 09/10/16 04:07 09/11/16 07:18 Lab Results: I have reviewed the past 24 hour labs Quality Measures - Stroke Symptom Onset Unknown: No Specialty Discharge - Follow Up or Referrals Follow up with: Jeffrey De Leon MD [Physician] - 2 Weeks (with next available vein mapping)
[2016-09-12] MEDS ORDERED: HEPARIN 10,000 UNIT/10 ML VIAL IV SCH (10:30)
[2016-09-12] MEDS ORDERED: MORPHINE 2 MG/1 ML SYRINGE IV ONE (12:43)
[2016-09-12] MEDS: cloNIDine 0.1 MG TABLET PO SCH ×2 (13:42→20:31)
[2016-09-12] MEDS: MEROPENEM 500 MG in SODIUM CHLORIDE 0.9% 100 ML IV SCH (14:13)
--- NOTE | 2016-09-12 16:01 | Dialysis Note ---
Dialysis Note - Dialysis Note Patient seen on dialysis. Tolerating the procedure. Making preparation for outpatient hemodialysis in the [facility] dialysis unit. Blood pressure 125/ 75.
[2016-09-12] MEDS ORDERED: hydrOXYzine HCL 2 MG/ML 30 ML/BOTTLE PO PRN (18:15)
[2016-09-12] MEDS ORDERED: LORazepam 1 MG TABLET PO PRN (18:16)
[2016-09-12] MEDS: DEXTROSE 5% NACL 0.22% 1,000 ML IV SCH (18:56)
[2016-09-13] MEDS: diphenhydrAMINE CAP 25 MG CAPSULE PO PRN (00:45)
[2016-09-13] MEDS: ALBUTEROL 2.5 MG/3 ML NEB RESP TX SCH ×2 (02:54→07:43)
[2016-09-13] MEDS: cloNIDine 0.1 MG TABLET PO SCH (08:52)
[2016-09-13] MEDS: INSULIN LISPRO 100 UNIT/ML SUBCUT SCH ×3 (08:52→16:46)
[2016-09-13] MEDS: DEXTROSE 5% NACL 0.22% 1,000 ML IV SCH ×2 (12:59→15:08)
[2016-09-13] MEDS ORDERED: TRIAMCINOLONE 0.025% CREAM 15 GM TUBE TOP SCH (15:00)
--- NOTE | 2016-09-13 15:00 | Nephrology Progress Note ---
Nephrology - PN: Subj Interval history: The patient is resting. She tolerated dialysis today. She describes itching and a rash on her neck. No shortness of breath or chest pain. She will follow an outpatient hemodialysis at the [facility] dialysis unit on a Friday schedule. At this time will give benadryl 25mg po prn. Also triamcinolone cream twice daily to the neck area. Exam (PN)-Nephrology - Vital Signs Vital signs: Period Temp Pulse Resp BP Sys/[place] Pulse Ox Last 24 Hr 98.3 F-100.4 F 97-123 16-21 118-163/73-90 94-99 - General Appearance General appearance: well-developed, well-nourished EENT: ATNC Neck: supple Respiratory: clear Cardiology: no edema, regular rate, regular rhythm Gastrointestinal: normoactive bowel sounds, no tenderness Integumentary: rash (Erythema area on the neck) Neurologic: alert and oriented x3, CN 3-12 intact Psychiatric: mood/affect appropriate - Lab 09/10/16 04:07 09/11/16 07:18 Most recent lab results Calcium 8.1 MG/DL (8.5-10.1) L 09/11/16 07:18 Magnesium 2.6 MG/DL (1.8-2.4) H 09/11/16 07:18 Assessment and Plan (1) Diabetes Status: Chronic Current Visit: Yes Qualifiers: Diabetes mellitus type: type 2 (2) ESRD (end stage renal disease) Status: Acute Assessment and plan: Hepatitis panel has been ordered. Current Visit: Yes (3) Hyperkalemia Status: Resolved Assessment and plan: This issue has now resolved Current Visit: Yes (4) Hypertension Status: Acute Assessment and plan: Clonidine 0.1mg BID Clonidine 0.1mg prn q 4 hour Current Visit: Yes Qualifiers: Hypertension type: essential hypertension Qualified Code(s): I10 - Essential (primary) hypertension (5) Hypoglycemia Status: Acute Assessment and plan: Changing IV fluids to D5 1/4 normal salin at 50cc/hr Current Visit: Yes Specialty Discharge - Follow Up or Referrals Follow up with: Jeffrey De Leon MD [Physician] - 09/30/16 2:00 pm (with next available vein mapping)
--- NOTE | 2016-09-13 15:26 | Discharge Summary ---
Hospital Course - Hospital Course Hospital Course: The patient was admitted to the hospital with shortness of breath and elevated blood pressure. The patient has stage V chronic renal failure. Dr. Whyte offered her hemodialysis. A tunneled dialysis catheter was placed in the right subclavian space. The patient was started on hemodialysis and had 3 treatments prior to discharge. The patient's dialysis treatments will be arranged in [facility] on a Friday schedule. The patient will go for her first treatment in [facility] tomorrow. I reviewed the patient's plan of care with herself and her in her room before discharge. - Time spent with patient Time with patient DS: Greater than 30 minutes Diagnosis - Discharge Diagnosis (1) ESRD (end stage renal disease) Status: Chronic (2) Hypertension Status: Chronic Specialty Discharge - Follow Up or Referrals Follow up with: Jeffrey De Leon MD [Physician] - 09/30/16 2:00 pm (with next available vein mapping) Discharge Plan - Discharge Data Disposition: Disch To Home/Self Care Condition at Discharge: Stable Discharge Diet: advance to your usual diet - Discharge Medications New HYDROcodone/ACETAMIN 5-325 [[place] 5-325] 1 tablet PO Q6HR #30 tablet LORazepam TAB [Ativan Tab] 1 mg PO BID #90 tablet NIFEdipine XL TAB [Procardia Xl] 60 mg PO BID #90 tablet cloNIDine TAB [Catapres Tab] 0.1 mg PO BID #90 tablet Discontinued Insulin Aspart Prot/Asp 70/30 [NovoLOG Mix 70/30] 10 units SUBCUT QAM Valsartan [Diovan] 160 mg PO DAILY Insulin Aspart Prot/Asp 70/30 [NovoLOG Mix 70/30] 20 units SUBCUT QPM - Follow Up or Referral Follow Up: Jeffrey De Leon MD [Physician] - 09/30/16 2:00 pm (with next available vein mapping) - Forms/Instructions Exam - Constitutional Vitals: Period Temp Pulse Resp BP Sys/[place] Pulse Ox Last 24 Hr 98.3 F-100.4 F 97-123 16-21 118-163/73-90 94-99 Discharge Results Labs on day of discharge: Labs from last 24 hours 09/13/16 09/13/16 09/12/16 12:13 07:16 19:23 POC Glucose 116 H 152 H 169 H 09/12/16 16:31 POC Glucose 181 H DS: Provider Date of admission: 09/07/16 12:55 Primary care physician: Elver Mariee Attending physician on admission: Iesha Puentes MD Consults: 09/07/16 12:51 Consult to Physician [CONS] Routine Comment: Consulting Provider: Tito Monterroso Jr. 09/07/16 17:22 Consult to Pharmacy [CONS] Routine Reason for Pharmacy Consult: Adjust Meds Renal Funct 09/07/16 17:30 Consult to [facility], Educator [CONS] Routine Reason for Safety And Skill Based Pay Manager: Diabetes Education Diet 09/08/16 10:47 Consult to Dietitian [CONS] Routine Reason for Dietitian: Diet Instruction Consult Comment: Patient is to be on a renal diet 2 g sodium, 2 L fluid restriction 09/10/16 18:51 Consult to Physician [CONS] Routine Comment: Consulting Provider: Consult to Physician [CONS] Routine Comment: Dialysis catheter Consulting Provider: Jeffrey De Leon When should Consulting Provider be notified: In am Consult Notification Comment: DR. DE LEON AWARE OF CONSULT AND HAS SEEN PATIENT 09/11/16 07:05 Consult to Anesthesiology [CONS] Routine Consulting Provider: Reason for Anesthesiology: Pre-op Clearance 09/11/16 19:50 Consult to Case Mgmt/Social Srvs [CONS] Routine Reason for Case Mgmt/Social Srvs: Dialysis Discharge Planning Discharging clinician: Damian Hassan MD
[2016-09-13] MEDS: MEROPENEM 500 MG in SODIUM CHLORIDE 0.9% 100 ML IV SCH (16:11)
[2016-09-13 17:22] VITALS: BP 141/87
== END 2016-09-13 17:25 | disposition home or self-care (01) | DRG 950 ==
LOC: SUATTDRO 12:55 → N.5E 12:55 → N.CC 13:07 → N.TELES 09-08 10:45 → N.3E 09-11 11:15
PROVIDERS: ADMIT Pediatrics; ATTEND Internal Medicine

== ENCOUNTER 2017-01-05 23:44 | Inpatient (IN) ==
--- NOTE | 2017-01-06 00:29 | Emergency Department Note ---
IJohnie Emily, am scribing for, and in the presence of, Fredrick Gonzalez MD 00:25. ILisa Andrew, MD, personally performed the services described in this documentation, ascribed by Mirna Jett in my presence, and it is both accurate and complete . Arrival - Arrival Chief Complaint: Extremity Problem Stated Complaint: poss infection to dialysis graft ED Nursing Triage Note: Patient to ED via EMS from [facility] ED with c/o pain and swelling to right ext since at dialysis. Patient c/o pain to site during her last dialysis with pain worsening since. Patient was told her site was patent. Patient transferred for US of ext. Mode of Arrival: Stretcher Limitations: No Limitations Source: Patient, Significant other - History of Present Illness HPI Narrative: Pt is a 41 y/o female who came to ED with c/o right arm graft site pain s/p of dialysis since . Pt reports having site for 6-7 months under supervision of Dr. De Leon, but this was first time it was used was on . Spouse notes pt has been elevating right arm all day and crying in pain, in which barely moving arm due to intense pain. She states her arm felt like its had fever in it at graft site. Onset (ago): day(s) Consistency: constant Severity: moderate Severity scale (1-10): 5 Quality: aching Allergies/Adverse Reactions: Allergies Allergy/AdvReac Type Severity Reaction Status Date / Time Penicillins Allergy Severe ITCHING Verified 09/07/16 16:02 aspirin Allergy Intermediate ITCHING Verified 09/07/16 16:04 Home Medications: Home Medications Medication Instructions Recorded Confirmed Type cloNIDine TAB [Catapres Tab] 0.1 mg PO BID #90 tablet 09/13/16 12/13/16 Rx Calcium Acetate [Phoslo] 667 mg PO TID 12/13/16 12/13/16 History Cinacalcet [Sensipar] 30 mg PO BID 12/13/16 12/13/16 History HYDROcodone/ACETAMIN 5-325 [[place] 1 tablet PO Q4H PRN #5 tablet 12/13/16 Rx 5-325] Losartan/Hydrochlorothiazide 100 mg PO BID 12/13/16 12/13/16 History [Losartan-Hctz 100-12.5 mg Tab] Review of System - Review of System 12 point system: reviewed and no additional remarkable complaints except as stated - Review of System Constitutional: Absent: chills, fever Respiratory: Absent: respiratory distress Cardiovascular: Absent: chest pain Gastrointestinal: Absent: abdominal pain Musculoskeletal: Present: arm pain (graft in right arm is painful to touch and warm like a fever). Absent: back pain Skin: Absent: rash Neurological: Absent: headache Medical,Surgical,& Family Hx - Medical History Cardio: History of: Hypertension Psychological: History of: Bipolar Disorder Neurology: History of: Migraine No history of: Seizures HEENT: History of: Eye Problem (CATARACTS) Endocrine: No history of: Diabetes Mellitus (IDDM), Diabetes Mellitus (NIDDM), Thyroid Disorder, Endocrine Cancer, Endocrine Problems Respiratory: History of: Asthma, Bronchitis Renal: History of: Dialysis, Renal Failure Gastrointestinal: History of: GERD Musculoskeletal: Comment Only: Musculoskeletal Problems (ARTHRITIS HANDS) Hematology: History of: Sickle Cell Disease (SICKLE CELL TRACE) - Surgical History Cardiac Surgeries: Sugical HX of: Cardiac Catheterization HEENT Surgeries: Surgical HX of: Eye Surgery (RETICAL SURGERY,LASER SURGERY) Patient denies: Thyroid Surgery Reproductive Surgeries: Surgical HX of;: Section (X4), Tubal Ligation Patient denies;: Breast Surgery, Dilation and Curettage, Gynecologic Surgery , Hysterectomy - Family History Family History: Reports;: Family Cancer (GRANDMOTHER), Family Diabetes (MOTHER, FATHER , DAUGHTER), Family Heart Disease (MOTHER), Family Hypertension (MOTHER, FATHER , DAUGHTER), Family Stroke (AUNT) - Social History Smoking Status: Never smoker Frequency of Alcohol Use: None Type of Drug Use: None Marital Status: Lives With:: Spouse Functional capacity: independent ambulation Exam Vital Signs: Vital Signs Temperature 97.3 F L 01/05/17 23:51 Pulse Rate 95 H 01/05/17 23:51 Respiratory Rate 20 01/05/17 23:51 Blood Pressure 181/109 01/05/17 23:51 O2 Sat by Pulse Oximetry 100 01/05/17 23:51 - General General appearance: alert, in distress (secondary to pain) - Head Head exam: Present: atraumatic, normocephalic - Eye Eye exam: Present: PERRL, EOMI - ENT ENT exam: Present: mucous membranes moist. Absent: mucous membranes dry - Neck Neck exam: Present: full ROM. Absent: tenderness - Chest Chest inspection: Present: symmetric chest wall rise. Absent: tenderness - Respiratory Respiratory exam: Present: normal lung sounds bilaterally. Absent: respiratory distress - Cardiovascular Cardiovascular exam: Present: regular rate, normal rhythm, normal heart sounds - Extremities Exam Extremities exam: Present: full ROM, tenderness (upper right arm is erythematous and edema with significant tenderness on touch and with extension is in extreme pain; av fistula has thrill and bruit). Absent: pedal edema - Neurological Exam Neurological exam: Present: alert, oriented X3, CN II-XII intact. Absent: motor sensory deficit - Psychiatric Psychiatric exam: Present: normal affect, normal mood - Skin Skin exam: Present: warm, dry Course Course Narrative: Labs consistent with end-stage renal disease, mildly elevated CRP. Ultrasound with evidence of DVT in the proximal brachial vein in the right upper extremity. Patient discussed with hospitalist and plan for admission for further management. Results - Labs CBC & BMP: 01/06/17 00:30 01/06/17 00:30 Lab Results: I have reviewed the patients labs Labs: Laboratory Tests 01/06/17 01/06/17 00:30 00:30 WBC 10.1 RBC 3.76 L Hgb 10.5 L Hct 30.5 L MCV 81.1 L Eos % (Auto) 15.9 H [place] # (Auto) 0.9 H Eos # (Auto) 1.6 H Sodium 135 L Chloride 96 L BUN 34 H Creatinine 6.30 H BUN/Creatinine Ratio 5.00 L Glucose 340 H Alkaline Phosphatase 253 H C-Reactive Protein 5.50 H Albumin 3.0 L Globulin 4.4 H Albumin/Globulin Ratio 0.6 L - Diagnostic Findings Procedure: Ultrasound: image reviewed by me, report reviewed by me (DVT of proximal brachial vein in the right upper extremity) Disposition Clinical Impression: Deep venous thrombosis of upper extremity, ESRD (end stage renal disease) Case discussed with: patient, patient's family Disposition: Still a Patient Condition: Stable
[2017-01-06] MEDS ORDERED: MORPHINE 2 MG/1 ML SYRINGE IV STA (00:31)
[2017-01-06] MEDS ORDERED: MORPHINE 2 MG/1 ML SYRINGE ONE (01:03)
[2017-01-06 01:25] LABS: Alanine Aminotransferase 21 U/L (13-56); Alkaline Phosphatase 253 U/L (45-117); Aspartate Amino Transferase 19 U/L (0-37); Bilirubin,Total < 0.39 MG/DL (0.2-1.0); Blood Urea Nitrogen 34 MG/DL (7-18); Calcium 8.7 MG/DL (8.5-10.1); Glucose 340 MG/DL (74-106); Osmolality,Calculated 290.1 MOS/KG (273-304); Potassium 3.9 MMOL/L (3.5-5.1); Sodium 135 MMOL/L (136-145); Total Protein 7.4 G/DL (6.4-8.3)
[2017-01-06 01:29] LABS: Basophils # 0.1 10*3/uL (0.0-0.2); Basophils % 0.6 % (0.0-0.8); Eosinophils # 1.6 10*3/uL (0.0-0.87); Eosinophils % 15.9 % (0.00-10.9); Hematocrit 30.5 VOL% (35.7-47.0); Hemoglobin 10.5 GM/DL (12.0-16.0); Immature Granulocytes % 0.3 %; Immature Granulocytes Absolute 0.03 #; Lymphocytes # 3.5 10*3/uL (1.4-4.0); Lymphocytes % 34.9 % (21.3-54.2); Mean Corpuscular HGB Conc 34.4 GM/DL (32-36); Mean Corpuscular Hemoglobin 28 PG (27-34); Mean Corpuscular Volume 81.1 FL (87-102); Mean Platelet Volume 11.3 FL (9.6-12.0); Monocytes # 0.9 10*3/uL (0.11-0.8); Monocytes % 8.4 % (1.7-12.7); Neutrophils % 39.9 % (38.7-73.9); Platelet Count 248 T/CUMM (130-400); Red Blood Count 3.76 MC/CUMM (3.8-5.5); Red Cell Distribution Width 15.4 % (9.3-17.3); White Blood Count 10.1 T/CUMM (4-12)
[2017-01-06] MEDS ORDERED: GLUCAGON 1 MG VIAL IM PRN (02:23)
[2017-01-06] MEDS ORDERED: DEXTROSE 50% 25 GM/50 ML VIAL IV PRN (02:23)
[2017-01-06] MEDS ORDERED: ENOXAPARIN 80 MG/0.8 ML SYRINGE SUBCUT STA (02:25)
--- NOTE | 2017-01-06 02:30 | Hospitalist History & Physical ---
Assessment and Plan (1) Acute deep vein thrombosis (DVT) of right upper extremity Status: Acute Assessment and plan: Start Lovenox. Start Coumadin tomorrow. Consult general surgery Dr. De Leon and nephrology Dr. Monterroso Current Visit: Yes Qualifiers: Affected thrombotic vein of extremity: brachial Qualified Code(s): I82.621 - Acute embolism and thrombosis of deep veins of right upper extremity (2) ESRD (end stage renal disease) Status: Chronic Current Visit: Yes (3) Hypertension Status: Chronic Current Visit: Yes Qualifiers: Hypertension type: essential hypertension Qualified Code(s): I10 - Essential (primary) hypertension (4) Diabetes Status: Chronic Current Visit: No Qualifiers: Diabetes mellitus type: type 2 Diabetes mellitus complication status: with kidney complications Chronic kidney disease stage: on chronic dialysis History of Present Illness Chief complaint: right arm pain History of present illness: Ms. Slater is a 41 year old female that came to ED with c/o right arm graft site pain s/p of dialysis since . Pt reports having site for 6-7 months under supervision of Dr. De Leon, but this was first time it was used was on . Spouse notes pt has been elevating right arm all day and crying in pain, in which barely moving arm due to intense pain. She states her arm felt like its had fever in it at graft site. She has pain with flexion and extension of the arm. It is warm to touch. Ultrasound in the emergency department shows a DVT in the right brachial vein. Her pain began on after an attempted dialysis through her new AV fistula in the right upper extremity. Dialysis was performed through her subclavian catheter. It was not really accessed on Friday either. She has had progressively worsening pain redness swelling tenderness and warmth of the right upper extremity since . This is what prompted her to come to the emergency department tonight. 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 Home Medications Medication Instructions Recorded Confirmed Type cloNIDine TAB [Catapres Tab] 0.1 mg PO BID #90 tablet 09/13/16 12/13/16 Rx Calcium Acetate [Phoslo] 667 mg PO TID 12/13/16 12/13/16 History Cinacalcet [Sensipar] 30 mg PO BID 12/13/16 12/13/16 History HYDROcodone/ACETAMIN 5-325 [[place] 1 tablet PO Q4H PRN #5 tablet 12/13/16 Rx 5-325] Losartan/Hydrochlorothiazide 100 mg PO BID 12/13/16 12/13/16 History [Losartan-Hctz 100-12.5 mg Tab] Allergies Allergy/AdvReac Type Severity Reaction Status Date / Time Penicillins Allergy Severe ITCHING Verified 09/07/16 16:02 aspirin Allergy Intermediate ITCHING Verified 09/07/16 16:04 Medical,Surgical,& Family Hx - Medical History Cardio: History of: Hypertension Psychological: History of: Bipolar Disorder Neurology: History of: Migraine No history of: Seizures HEENT: History of: Eye Problem (CATARACTS) Endocrine: No history of: Diabetes Mellitus (IDDM), Diabetes Mellitus (NIDDM), Thyroid Disorder, Endocrine Cancer, Endocrine Problems Respiratory: History of: Asthma, Bronchitis Renal: History of: Dialysis, Renal Failure Gastrointestinal: History of: GERD Musculoskeletal: Comment Only: Musculoskeletal Problems (ARTHRITIS HANDS) Hematology: History of: Sickle Cell Disease (SICKLE CELL TRACE) - Surgical History Cardiac Surgeries: Sugical HX of: Cardiac Catheterization HEENT Surgeries: Surgical HX of: Eye Surgery (RETICAL SURGERY,LASER SURGERY) Patient denies: Thyroid Surgery Reproductive Surgeries: Surgical HX of;: Section (X4), Tubal Ligation Patient denies;: Breast Surgery, Dilation and Curettage, Gynecologic Surgery , Hysterectomy - Family History Family History: Reports;: Family Cancer (GRANDMOTHER), Family Diabetes (MOTHER, FATHER , DAUGHTER), Family Heart Disease (MOTHER), Family Hypertension (MOTHER, FATHER , DAUGHTER), Family Stroke (AUNT) - Social History Smoking Status: Never smoker Frequency of Alcohol Use: None Type of Drug Use: None Marital Status: Lives With:: Spouse Functional capacity: independent ambulation 12 point system: reviewed and no additional remarkable complaints except as stated - Musculoskeletal Musculoskeletal: Present: limited range of motion, other (right arm pain and tenderness) Exam - Constitutional Vitals: Period Temp Pulse Resp BP Sys/[place] Pulse Ox Last 24 Hr 97.3 F-97.3 F 95-95 20-20 181-181/109-109 100 Exam: Constitutional System: Moderate distress. No tremulousness. Head: Normocephalic, atraumatic. Ears, Nose and Throat System: No pain or tenderness. No epistaxis or discharge Eyes System: Pupils equal, round, and reactive. Extraocular muscles intact. Neck: Supple, without adenopathy, No jugular venous distention. No thyromegaly, neck mass, or prior surgery apparent. Respiratory System: Chest clear to auscultation. Cardiovascular System: Heart with regular rate and rhythm. No murmur. GI System: Abdomen soft, nontender. Normo active bowel sounds present. Musculoskeletal System: limbs with no pedal edema. Full distal pulses. Right upper extremity with pain and tenderness and warmth in the brachial area above the elbow. She is unable to move the arm very much and has limited range of motion with flexion and extension at the elbow. Pulses are intact at the wrist. Right hand is a little bit cooler to touch than the left. Neurological System: No discernable sensory deficit. No aphasia Psychiatric System: Conversation is rational Results - Labs CBC & BMP: 01/06/17 00:30 01/06/17 00:30 Lab Results: I have reviewed the past 24 hour labs - Diagnostic Findings Procedure: Ultrasound: image reviewed by me, report reviewed by me
[2017-01-06 02:39] LABS: Sedimentation Rate-Westergren 105 MM/HR (0-20)
[2017-01-06] MEDS ORDERED: ENOXAPARIN 60 MG/0.6 ML SYRINGE ONE (02:48)
[2017-01-06] MEDS ORDERED: MORPHINE 2 MG/1 ML SYRINGE IV SCH (03:00)
[2017-01-06 05:06] LABS: Band Neutrophils 2 % (0-10); Eosinophils 18 % (0-10); Lymphocytes 30 % (20-55); Segmented Neutrophils 39 % (50-85); Total Cells Counted 100
[2017-01-06 05:07] LABS: Hypochromasia 2+; Platelet Estimate Normal; Target Cells 1+
--- NOTE | 2017-01-06 06:16 | Ultrasound Report ---
US venous doppler UE RT Indication: Cellulitis versus abscess versus graft problem. Comparison: None. Technique: Using a transcutaneous probe, grayscale, color Doppler, and spectral Doppler images of the right upper extremity venous structures were captured and stored. Images both with compression and no compression were obtained where possible. The right internal jugular vein and subclavian vein were additionally interrogated. Findings: The proximal brachial vein appears to be occluded. Otherwise the interrogated venous segments demonstrate no evidence of abnormal compression, diminished color flow, or abnormality of spectral flow. Impression: 1. Occluding thrombus is demonstrated within the upper right arm. This lies within the proximal right brachial vein. Critical findings were relayed to the ordering physician at the time of exam. 01/06/2017 6:12 AM PROCEDURE INTERPRETED AT [facility] DEPARTMENT OF RADIOLOGY Final Report Signed by: Dr. Amrit Bowden
--- NOTE | 2017-01-06 07:56 | Event Note ---
Patient has been examined and chart reviewed. 41-year-old female admitted by Dr. Jensen last night after having right pain status post dialysis since . She was found to have acute DVT and is now being admitted for anticoagulation. Nephrology and general surgery have been consulted. Agree with assessment and plans.
[2017-01-06 08:19] LABS: PT Patient Result 10.3 SECS
[2017-01-06] MEDS ORDERED: hydroCHLOROthiazide 12.5 MG CAPSULE PO SCH (09:00)
[2017-01-06] MEDS: INSULIN LISPRO 100 UNIT/ML SUBCUT SCH ×4 (09:35→21:33)
[2017-01-06] MEDS: CINACALCET 30 MG TABLET PO SCH ×2 (09:36→20:41)
[2017-01-06] MEDS: CALCIUM ACETATE 667 MG CAPSULE PO SCH ×3 (09:36→20:41)
[2017-01-06] MEDS: cloNIDine 0.1 MG TABLET PO SCH ×2 (09:36→20:44)
[2017-01-06] MEDS: LOSARTAN 50 MG TABLET PO SCH ×2 (09:36→20:40)
[2017-01-06] MEDS ORDERED: IRON SUCROSE 100 MG/5 ML VIAL IV SCH (11:00)
[2017-01-06] MEDS ORDERED: HEPARIN 10,000 UNIT/10 ML VIAL IV SCH (11:00)
--- NOTE | 2017-01-06 12:33 | General Surgery Consult Note ---
Assessment and Plan (1) AV fistula Status: Acute Assessment and plan: It sounds as though the fistula was stuck in a way that caused infiltration and bleeding around the fistula. This will need to rest now for several weeks. Continue using dialysis catheter for now. Continue arm elevation and pain management. Do not stick fistula until I approve of using it again. Current Visit: Yes History of Present Illness Chief complaint: Right arm swelling History of present illness: Ms. Slater is a 41 year old female with right upper arm AV fistula that has infiltrated and also a right brachial vein thrombus who was admitted for pain control overnight. She has a dialysis catheter this working well. Last week they try to access her fistula for the first time and cause significant pain and swelling. Home Medications Medication Instructions Recorded Confirmed Type cloNIDine TAB [Catapres Tab] 0.1 mg PO BID #90 tablet 09/13/16 01/06/17 Rx Calcium Acetate [Phoslo] 667 mg PO TID 12/13/16 01/06/17 History Losartan/Hydrochlorothiazide 100 mg PO DAILY 12/13/16 01/06/17 History [Losartan-Hctz 100-12.5 mg Tab] Allergies Allergy/AdvReac Type Severity Reaction Status Date / Time Penicillins Allergy Severe ITCHING Verified 01/06/17 04:06 aspirin Allergy Intermediate ITCHING Verified 01/06/17 04:06 Medical,Surgical,& Family Hx - Medical History Cardio: History of: Hypertension Psychological: History of: Bipolar Disorder Neurology: History of: Migraine No history of: Seizures HEENT: History of: Eye Problem (CATARACTS) Endocrine: No history of: Diabetes Mellitus (IDDM), Diabetes Mellitus (NIDDM), Thyroid Disorder, Endocrine Cancer, Endocrine Problems Respiratory: History of: Asthma, Bronchitis Renal: History of: Dialysis, Renal Failure Gastrointestinal: History of: GERD Musculoskeletal: Comment Only: Musculoskeletal Problems (ARTHRITIS HANDS) Hematology: History of: Sickle Cell Disease (SICKLE CELL TRACE) - Surgical History Cardiac Surgeries: Sugical HX of: Cardiac Catheterization HEENT Surgeries: Surgical HX of: Eye Surgery (RETICAL SURGERY,LASER SURGERY) Patient denies: Thyroid Surgery Reproductive Surgeries: Surgical HX of;: Section (X4), Tubal Ligation Patient denies;: Breast Surgery, Dilation and Curettage, Gynecologic Surgery , Hysterectomy - Family History Family History: Reports;: Family Cancer (GRANDMOTHER), Family Diabetes (MOTHER, FATHER , DAUGHTER), Family Heart Disease (MOTHER), Family Hypertension (MOTHER, FATHER , DAUGHTER), Family Stroke (AUNT) - Social History Smoking Status: Never smoker Frequency of Alcohol Use: None Type of Drug Use: None - Constitutional Constitutional: Present: as per HPI - EENT Nose, mouth and throat: Present: as per HPI - Cardiovascular Cardiovascular: Present: as per HPI - Respiratory Respiratory: Present: as per HPI - Gastrointestinal Gastrointestinal: Present: as per HPI - Genitourinary Genitourinary: Present: as per HPI - Musculoskeletal Musculoskeletal: Present: as per HPI - Neurological Neurological: Present: as per HPI - Endocrine Endocrine: Present: as per HPI Hematologic/Lymphatic: Present: as per HPI Exam - Constitutional Vitals: Period Temp Pulse Resp BP Sys/[place] Pulse Ox Last 24 Hr 97.3 F-98.0 F 90-97 16-20 128-181/67-115 100-100 General appearance: no acute distress, over weight - Head Head exam: Present: normal inspection, normocephalic - Eye Eye exam: Present: EOMI Pupils: Present: VERO - ENT ENT exam: Present: normal exam Mouth exam: Present: normal external inspection, normal voice - Neck Neck exam: Present: normal inspection, trachea midline - Respiratory Respiratory exam: Present: clear to auscultation bilaterally, accessory muscle use - Cardiovascular Cardiovascular exam: Present: RRR. Absent: systolic murmur, tachycardia - GI/Abdominal GI/Abdominal exam: Present: normal bowel sounds, soft. Absent: tenderness, rebound - Extremities Exam Extremities exam: Present: other (swelling and hematoma of the right upper arm. There is still a good thrill in the fistula) - Back Exam Back exam: Present: normal inspection - Neurological Exam Neurological exam: Present: alert, oriented X3 Speech: Present: normal - Skin Skin exam: Present: normal color, warm Results - Labs CBC & BMP: 01/06/17 00:30 01/06/17 00:30
[2017-01-06] MEDS ORDERED: WARFARIN 5 MG TABLET PO ONE (17:00)
[2017-01-06] MEDS: MORPHINE 2 MG/1 ML SYRINGE IV PRN ×2 (17:08→23:17)
[2017-01-06] MEDS: ONDANSETRON 4 MG/2 ML VIAL IV PRN (17:15)
--- NOTE | 2017-01-06 18:24 | Nephrology Consult Note ---
History of Present Illness Chief complaint: End-stage renal disease History of present illness: Ms. Slater is a 41 year old female with history of ESRD due to HTN and DM who currently dialyzes at the [employer]. She presented with right arm pain and swelling. She did have the AV fistula infiltrated when it was cannulated last week. She developed pain and swelling. On evaluation in the emergency department where she was found to a DVT in the extremity. She has started on coumadin. Nephrology has been consulted for renal issues. Home Medications Medication Instructions Recorded Confirmed Type cloNIDine TAB [Catapres Tab] 0.1 mg PO BID #90 tablet 09/13/16 01/06/17 Rx Calcium Acetate [Phoslo] 667 mg PO TID 12/13/16 01/06/17 History Losartan/Hydrochlorothiazide 100 mg PO DAILY 12/13/16 01/06/17 History [Losartan-Hctz 100-12.5 mg Tab] Allergies Allergy/AdvReac Type Severity Reaction Status Date / Time Penicillins Allergy Severe ITCHING Verified 01/06/17 04:06 aspirin Allergy Intermediate ITCHING Verified 01/06/17 04:06 Medical,Surgical,& Family Hx - Medical History Cardio: History of: Hypertension Psychological: History of: Bipolar Disorder Neurology: History of: Migraine No history of: Seizures HEENT: History of: Eye Problem (CATARACTS) Endocrine: No history of: Diabetes Mellitus (IDDM), Diabetes Mellitus (NIDDM), Thyroid Disorder, Endocrine Cancer, Endocrine Problems Respiratory: History of: Asthma, Bronchitis Renal: History of: Dialysis, Renal Failure Gastrointestinal: History of: GERD Musculoskeletal: Comment Only: Musculoskeletal Problems (ARTHRITIS HANDS) Hematology: History of: Sickle Cell Disease (SICKLE CELL TRACE) - Surgical History Cardiac Surgeries: Sugical HX of: Cardiac Catheterization HEENT Surgeries: Surgical HX of: Eye Surgery (RETICAL SURGERY,LASER SURGERY) Patient denies: Thyroid Surgery Reproductive Surgeries: Surgical HX of;: Section (X4), Tubal Ligation Patient denies;: Breast Surgery, Dilation and Curettage, Gynecologic Surgery , Hysterectomy - Family History Family History: Reports;: Family Cancer (GRANDMOTHER), Family Diabetes (MOTHER, FATHER , DAUGHTER), Family Heart Disease (MOTHER), Family Hypertension (MOTHER, FATHER , DAUGHTER), Family Stroke (AUNT) - Social History Smoking Status: Never smoker Frequency of Alcohol Use: None Type of Drug Use: None Review of Systems Constitutional: fatigue, no chills Cardiovascular: no dyspnea, no dyspnea on exertion Respiratory: no cough, no dyspnea Exam - Vital Signs Vital signs: Period Temp Pulse Resp BP Sys/[place] Pulse Ox Last 24 Hr 97.3 F-98.0 F 85-97 16-20 123-181/67-115 96-100 - General Appearance General appearance: well-developed, well-nourished EENT: ATNC Neck: supple Respiratory: clear Cardiology: no edema, regular rate, regular rhythm Gastrointestinal: normoactive bowel sounds, no tenderness Neurologic: no focal deficit, alert and oriented x3 Musculoskeletal: deformities Psychiatric: mood/affect appropriate Results - Labs CBC & BMP: 01/06/17 00:30 01/06/17 00:30 Assessment and Plan (1) ESRD (end stage renal disease) Status: Chronic Assessment and plan: Continue with scheduled hemodialysis. Current Visit: Yes (2) Diabetes Status: Chronic Assessment and plan: Continue with scheduled medicine. Current Visit: No Qualifiers: Diabetes mellitus type: type 2 Diabetes mellitus complication status: with kidney complications Chronic kidney disease stage: on chronic dialysis (3) Deep venous thrombosis of upper extremity Status: Acute Assessment and plan: Patient on coumadin Current Visit: Yes (4) Acute deep vein thrombosis (DVT) of right upper extremity Status: Acute Current Visit: Yes Qualifiers: Affected thrombotic vein of extremity: brachial Qualified Code(s): I82.621 - Acute embolism and thrombosis of deep veins of right upper extremity (5) AV fistula Status: Acute Current Visit: Yes
[2017-01-07] MEDS: MORPHINE 2 MG/1 ML SYRINGE IV PRN (04:21)
--- NOTE | 2017-01-07 07:16 | Hospitalist Progress Note ---
Assessment and Plan (1) ESRD (end stage renal disease) Status: Chronic Assessment and plan: Initiation of dialysis in September with construction of a right arm vascular access in December. Current Visit: Yes (2) Acute deep vein thrombosis (DVT) of right upper extremity Status: Acute Assessment and plan: Brachial vein thrombosis Current Visit: Yes Qualifiers: Affected thrombotic vein of extremity: brachial Qualified Code(s): I82.621 - Acute embolism and thrombosis of deep veins of right upper extremity (3) Diabetes Status: Chronic Current Visit: No Qualifiers: Diabetes mellitus type: type 2 Diabetes mellitus complication status: with kidney complications Chronic kidney disease stage: on chronic dialysis Hospitalist: Subjective Interval history: 41-year-old female with history of hypertension and diabetes who presented in September with end-stage renal disease. A right-sided tunnel catheter was constructed at the time and dialysis initiated; patient subsequently had a right upper extremity dialysis access constructed. Apparently on initiation of dialysis through this site bleeding was encountered with subsequent arm swelling and pain. DVT scan demonstrates clot present in the right upper extremity. She has been evaluated by surgery recommended resting the site and anticoagulation. Dialysis has been performed without difficulty through the tunneled catheter on the right side. Vital signs are stable overnight she is afebrile. She continues to have significant discomfort in the right upper extremity associated with swelling extending from the hand to the mid humeral area Exam - Constitutional Vitals: Period Temp Pulse Resp BP Sys/[place] Pulse Ox Last 24 Hr 97.5 F-99.4 F 85-106 18-20 110-161/67-81 94-99 General appearance: over weight - Respiratory Respiratory exam: Present: clear to auscultation bilaterally. Absent: rales, rhonchi, wheezes - Cardiovascular Cardiovascular exam: Present: regular rate and rhythm - GI/Abdominal GI/Abdominal exam: Present: normal bowel sounds - Extremities Exam Extremities exam: Present: other (Swelling with limitation of motion right upper extremity). Absent: edema - Neurological Exam Neurological exam: Present: alert, oriented X3 Results - Labs CBC & BMP: 01/06/17 00:30 01/06/17 00:30
[2017-01-07] MEDS: ONDANSETRON 4 MG/2 ML VIAL IV PRN ×3 (08:15→21:14)
[2017-01-07] MEDS: INSULIN LISPRO 100 UNIT/ML SUBCUT SCH ×4 (08:16→21:06)
[2017-01-07] MEDS: LOSARTAN 50 MG TABLET PO SCH ×2 (08:17→21:05)
[2017-01-07] MEDS: CINACALCET 30 MG TABLET PO SCH ×2 (08:17→21:05)
[2017-01-07] MEDS: CALCIUM ACETATE 667 MG CAPSULE PO SCH ×3 (08:17→21:04)
[2017-01-07] MEDS: cloNIDine 0.1 MG TABLET PO SCH ×2 (08:17→21:04)
[2017-01-07] MEDS ORDERED: MORPHINE 2 MG/1 ML SYRINGE IV PRN (09:15)
--- NOTE | 2017-01-07 09:17 | Nephrology Progress Note ---
Nephrology - PN: Subj Interval history: The patient continues to complain of left arm pain. She states she did not get much rest last night. Exam (PN)-Nephrology - Vital Signs Vital signs: Period Temp Pulse Resp BP Sys/[place] Pulse Ox Last 24 Hr 97.6 F-99.5 F 85-106 18-24 110-161/74-81 94-99 - General Appearance General appearance: well-developed, well-nourished EENT: ATNC Neck: supple Respiratory: clear Cardiology: regular rate, regular rhythm Gastrointestinal: normoactive bowel sounds, no tenderness Integumentary: no rash Neurologic: alert and oriented x3 Psychiatric: mood/affect appropriate - Lab 01/06/17 00:30 01/06/17 00:30 Most recent lab results Calcium 8.7 MG/DL (8.5-10.1) 01/06/17 00:30 Assessment and Plan (1) ESRD (end stage renal disease) Status: Chronic Assessment and plan: Continue with scheduled hemodialysis. Current Visit: Yes (2) Diabetes Status: Chronic Assessment and plan: Continue with scheduled medicine. Current Visit: No Qualifiers: Diabetes mellitus type: type 2 Diabetes mellitus complication status: with kidney complications Chronic kidney disease stage: on chronic dialysis (3) Deep venous thrombosis of upper extremity Status: Acute Assessment and plan: Patient on coumadin Pain in the right arm. Adjust pain medications. Current Visit: Yes (4) Acute deep vein thrombosis (DVT) of right upper extremity Status: Acute Current Visit: Yes Qualifiers: Affected thrombotic vein of extremity: brachial Qualified Code(s): I82.621 - Acute embolism and thrombosis of deep veins of right upper extremity (5) AV fistula Status: Acute Current Visit: Yes
[2017-01-07] MEDS ORDERED: HEPARIN 5,000 UNIT/1 ML VIAL IV ONE (11:21)
[2017-01-07] MEDS: PANTOPRAZOLE 40 MG TABLET PO SCH ×2 (11:24→21:04)
[2017-01-07] MEDS: HEPARIN DRIP 25,000 UNITS/500 ML PREMIX IV SCH (12:10)
[2017-01-07] MEDS: WARFARIN 5 MG TABLET PO SCH (18:09)
[2017-01-08 04:37] LABS: PT Patient Result 10.7 SECS
--- NOTE | 2017-01-08 06:57 | Hospitalist Progress Note ---
Assessment and Plan (1) ESRD (end stage renal disease) Status: Chronic Assessment and plan: Initiation of dialysis in September with construction of a right arm vascular access in December. Current Visit: Yes (2) Acute deep vein thrombosis (DVT) of right upper extremity Status: Acute Assessment and plan: Brachial vein thrombosis Current Visit: Yes Qualifiers: Affected thrombotic vein of extremity: brachial Qualified Code(s): I82.621 - Acute embolism and thrombosis of deep veins of right upper extremity (3) Diabetes Status: Chronic Current Visit: No Qualifiers: Diabetes mellitus type: type 2 Diabetes mellitus complication status: with kidney complications Chronic kidney disease stage: on chronic dialysis Hospitalist: Subjective Interval history: 41-year-old female hypertensive diabetic who presented in September with end-stage renal disease. She had a right sided tunneled cath and in December construction of a vascular access in the right upper extremity. Vascular ultrasound suggest thrombus within the brachial vein and clinical examination demonstrated substantial swelling in the extremity. She has been seen by surgery and nephrology with initiation of anticoagulation. The right arm swelling has diminished significantly in the last 24 hours she continues to have substantial pain. She reported yesterday the onset of nausea associated with reflux type symptoms with chronic history of gastroesophageal reflux disease. She states that she has not been able to eat due to the nausea and is occasionally vomited. She is unable to localize the discomfort precisely but appears to be primarily epigastric and right upper quadrant. She has been using morphine for the arm pain. Her initial level of panel was unremarkable. She reports her gallbladder is intact. Overnight the patient's vital signs were stable with exception of a temperature of 100 orally although she has not been eating her capillary blood glucose remains adequate. Exam - Constitutional Vitals: Period Temp Pulse Resp BP Sys/[place] Pulse Ox Last 24 Hr 98.4 F-101.3 F 98-105 16-24 108-141/61-80 94-97 General appearance: over weight - Respiratory Respiratory exam: Present: clear to auscultation bilaterally. Absent: rales, rhonchi, wheezes - Cardiovascular Cardiovascular exam: Present: regular rate and rhythm - GI/Abdominal GI/Abdominal exam: Present: normal bowel sounds. Absent: distended, guarding, Marin's sign, tenderness - Extremities Exam Extremities exam: Present: other (Decrease swelling of the forearm and hand. Access bruit strong). Absent: edema - Neurological Exam Neurological exam: Present: alert, oriented X3 Results - Labs CBC & BMP: 01/06/17 00:30 01/06/17 00:30 Labs: aPTT being adjusted by protocol INR 1.0 (day 2 of Coumadin)
--- NOTE | 2017-01-08 08:04 | General Surgery Progress Note ---
Assessment and Plan (1) AV fistula Status: Acute Assessment and plan: Continue to rest right upper arm AV fistula. There is no evidence of infection. Hospitalists are working up some abdominal pain. I will continue to follow per Current Visit: Yes Subjective Patient reports: Present: no new complaints, still having pain, fever Exam - Constitutional Vitals: Period Temp Pulse Resp BP Sys/[place] Pulse Ox Last 24 Hr 98.4 F-101.3 F 98-103 16-20 108-137/61-80 94-97 General appearance: no acute distress, over weight - Head Head exam: Present: normal inspection, normocephalic - Eye Eye exam: Present: EOMI Pupils: Present: VERO - ENT ENT exam: Present: normal exam Mouth exam: Present: normal external inspection, normal voice - Neck Neck exam: Present: normal inspection, trachea midline - Respiratory Respiratory exam: Present: clear to auscultation bilaterally. Absent: accessory muscle use, chest wall tenderness - Cardiovascular Cardiovascular exam: Present: RRR. Absent: systolic murmur, tachycardia - GI/Abdominal GI/Abdominal exam: Present: tenderness, soft - Extremities Exam Extremities exam: Present: normal capillary refill, other (There is swelling of the right upper arm but no redness or warmth or evidence of infection.) - Neurological Exam Neurological exam: Present: alert, oriented X3 Speech: Present: normal - Skin Skin exam: Present: normal color, warm Results - Labs CBC & BMP: 01/06/17 00:30 01/06/17 00:30
--- NOTE | 2017-01-08 08:27 | Ultrasound Report ---
US gallbladder Indication: Emesis Comparison: None. Technique: Using transcutaneous probe, ultrasound imaging of the right upper quadrant was performed. Ultrasound images were captured and stored. Imaged structures include the liver, gallbladder, pancreas, right kidney, aorta, and inferior vena cava. Findings: Right hepatic lobe measures 18 cm in craniocaudal dimension. Echotexture is isoechoic to the right renal cortex. The correct direction of color flow is noted within the interrogated portal venous segments. Gallbladder demonstrates no significant abnormality. The common bile duct is normal in size measuring 4.9 mm. The pancreas demonstrates no significant abnormality. The right kidney measures 9.2 cm in craniocaudal dimension and is otherwise unremarkable. Aorta and inferior vena cava are not included on this study secondary to bowel gas. Impression: 1. No findings are present to suggest etiology of emesis. 01/08/2017 8:13 AM PROCEDURE INTERPRETED AT [facility] DEPARTMENT OF RADIOLOGY Final Report Signed by: Dr. Amrit Bowden
[2017-01-08] MEDS: LOSARTAN 50 MG TABLET PO SCH ×2 (08:47→20:29)
[2017-01-08] MEDS: cloNIDine 0.1 MG TABLET PO SCH ×2 (08:47→20:29)
[2017-01-08] MEDS: CINACALCET 30 MG TABLET PO SCH ×2 (08:47→20:29)
[2017-01-08] MEDS: CALCIUM ACETATE 667 MG CAPSULE PO SCH ×3 (08:47→20:29)
[2017-01-08] MEDS: ONDANSETRON 4 MG/2 ML VIAL IV PRN ×3 (08:48→20:28)
[2017-01-08] MEDS: PANTOPRAZOLE 40 MG TABLET PO SCH ×2 (08:48→20:29)
[2017-01-08] MEDS: INSULIN LISPRO 100 UNIT/ML SUBCUT SCH ×4 (08:48→22:11)
[2017-01-08] MEDS: HEPARIN DRIP 25,000 UNITS/500 ML PREMIX IV SCH (11:38)
[2017-01-08 13:26] LABS: Basophils # 0.1 10*3/uL (0.0-0.2); Basophils % 0.7 % (0.0-0.8); Eosinophils # 1.7 10*3/uL (0.0-0.87); Eosinophils % 13.8 % (0.00-10.9); Hematocrit 31.4 VOL% (35.7-47.0); Hemoglobin 10.9 GM/DL (12.0-16.0); Immature Granulocytes % 0.2 %; Immature Granulocytes Absolute 0.03 #; Lymphocytes # 4.2 10*3/uL (1.4-4.0); Lymphocytes % 34.3 % (21.3-54.2); Mean Corpuscular HGB Conc 34.7 GM/DL (32-36); Mean Corpuscular Hemoglobin 28 PG (27-34); Mean Corpuscular Volume 80.5 FL (87-102); Monocytes # 0.8 10*3/uL (0.11-0.8); Monocytes % 6.5 % (1.7-12.7); Neutrophils # 5.5 10*3/uL (1.4-7.4); Neutrophils % 44.5 % (38.7-73.9); Platelet Count 270 T/CUMM (130-400); Red Cell Distribution Width 15.4 % (9.3-17.3); White Blood Count 12.3 T/CUMM (4-12)
[2017-01-08 13:53] LABS: Atypical Lymphocytes Few; Eosinophils 7 % (0-10); Hypochromasia Slight; Lymphocytes 35 % (20-55); Platelet Estimate Adequate; Segmented Neutrophils 50 % (50-85); Total Cells Counted 100
[2017-01-08 13:56] LABS: Albumin 2.9 G/DL (3.4-5.0); Bilirubin,Total 0.4 MG/DL (0.2-1.0); Calcium 8.4 MG/DL (8.5-10.1); Osmolality,Calculated 273.7 MOS/KG (273-304); Potassium 4.3 MMOL/L (3.5-5.1); Total Protein 7.6 G/DL (6.4-8.3)
--- NOTE | 2017-01-08 15:28 | CT Report ---
History: Fever and abdominal pain Date: 01/08/2017 Study: CT abdomen and pelvis with and without IV contrast Comparison exam: No previous similar CT available for comparison Technique: Spiral CT sections were obtained from the lung bases to the pubic symphysis following oral contrast and before and after 100 mL Omnipaque [address] exam was performed using one or more of the following dose reduction techniques: Automated exposure control, adjustment of the mA and/or kV according to patient size, or use of iterative reconstruction technique. CT abdomen: The partially visualized lung bases are clear except for some mild dependent atelectasis. There is mild cardiomegaly. There is no evidence of pneumoperitoneum. The liver, bile ducts, contracted gallbladder, spleen, pancreas, and adrenal glands are normal in appearance. There is no focal renal mass. The patient is on dialysis. There is some mild renal excretion without hydronephrosis. There is no aortic aneurysm. There is no evidence of pneumoperitoneum. There is some mild diffuse prominence of the wall of the colon extending from the hepatic flexure level to the distal most colon. Some of this could be artifactual in nature related to lack of colonic distention, though mild colitis is suspected. There is no abnormal pericolonic inflammation or abscess. There is no norma bowel obstruction. The appendix is not seen, though no gross secondary evidence of appendicitis is identified. There is no intra-abdominal abscess. CT pelvis: There is some mild nonspecific diffuse prominence of the uterus. There is no pelvic abscess or definite abnormal pelvic fluid collection. Impression: Mild diffuse prominence of the wall of the colon from the hepatic flexure level to the distalmost colon suggests potential low-grade colitis. There is no abscess or abnormal pericolonic inflammation. No significant findings otherwise PROCEDURE INTERPRETED AT [facility] DEPARTMENT OF RADIOLOGY Final Report Signed by: Dr. Mai Garland
[2017-01-08] MEDS ORDERED: LEVOFLOXACIN INJ 500 MG in PREMIX 1 EACH IV ONE (15:33)
--- NOTE | 2017-01-08 15:37 | Event Note ---
Patient gallbladder ultrasound showed no evidence of stones or cholecystitis. CT scan of the abdomen demonstrates thickening of the colon in a pattern suggestive of low-grade colitis. We will initiate renally adjusted Levaquin along with metronidazole coverage. Her white count is minimally elevated reflective primarily lymphocytosis her hemoglobin is stable and the remainder of her laboratory tests are appropriate for her level of renal dysfunction.
[2017-01-08] MEDS: metroNIDAZOLE INJ 500 MG in PREMIX 1 EACH IV SCH (16:33)
--- NOTE | 2017-01-08 16:40 | Nephrology Progress Note ---
Nephrology - PN: Subj Interval history: Patient is resting no acute changes. Continuing to rest her AV fistula. No fevers or chills. Will continue with schedule hemodialysis for this patient. Exam (PN)-Nephrology - Vital Signs Vital signs: Period Temp Pulse Resp BP Sys/[place] Pulse Ox Last 24 Hr 99.3 F-101.3 F 90-101 16-20 108-169/61-77 93-98 - General Appearance General appearance: well-developed, well-nourished EENT: ATNC, PERRL Neck: supple Respiratory: clear Cardiology: regular rate, regular rhythm Gastrointestinal: normoactive bowel sounds, no tenderness Integumentary: no rash Neurologic: alert and oriented x3 Musculoskeletal: no deformities, no clubbing Psychiatric: mood/affect appropriate - Lab 01/08/17 13:12 01/08/17 13:12 Most recent lab results Calcium 8.4 MG/DL (8.5-10.1) L 01/08/17 13:12 Assessment and Plan (1) ESRD (end stage renal disease) Status: Chronic Assessment and plan: Continue with scheduled hemodialysis. Current Visit: Yes (2) Diabetes Status: Chronic Assessment and plan: Continue with scheduled medicine. Current Visit: No Qualifiers: Diabetes mellitus type: type 2 Diabetes mellitus complication status: with kidney complications Chronic kidney disease stage: on chronic dialysis (3) Deep venous thrombosis of upper extremity Status: Acute Assessment and plan: Patient on coumadin Pain in the right arm. Adjust pain medications. Current Visit: Yes (4) Acute deep vein thrombosis (DVT) of right upper extremity Status: Acute Current Visit: Yes Qualifiers: Affected thrombotic vein of extremity: brachial Qualified Code(s): I82.621 - Acute embolism and thrombosis of deep veins of right upper extremity (5) AV fistula Status: Acute Current Visit: Yes
[2017-01-08] MEDS: WARFARIN 5 MG TABLET PO SCH (17:50)
[2017-01-09] MEDS: metroNIDAZOLE INJ 500 MG in PREMIX 1 EACH IV SCH ×3 (00:45→15:34)
[2017-01-09 03:27] LABS: INR 1.1; PT Patient Result 11.6 SECS
[2017-01-09] MEDS: ONDANSETRON 4 MG/2 ML VIAL IV PRN ×2 (06:12→12:45)
[2017-01-09] MEDS: HEPARIN DRIP 25,000 UNITS/500 ML PREMIX IV SCH ×2 (06:21→19:00)
--- NOTE | 2017-01-09 06:50 | Hospitalist Progress Note ---
Assessment and Plan (1) ESRD (end stage renal disease) Status: Chronic Assessment and plan: Initiation of dialysis in September with construction of a right arm vascular access in December. Current Visit: Yes (2) Acute deep vein thrombosis (DVT) of right upper extremity Status: Acute Assessment and plan: Brachial vein thrombosis Current Visit: Yes Qualifiers: Affected thrombotic vein of extremity: brachial Qualified Code(s): I82.621 - Acute embolism and thrombosis of deep veins of right upper extremity (3) Diabetes Status: Chronic Current Visit: No Qualifiers: Diabetes mellitus type: type 2 Diabetes mellitus complication status: with kidney complications Chronic kidney disease stage: on chronic dialysis (4) Colitis Status: Acute Assessment and plan: Diagnoses based on GI upset with diffuse abdominal pain and CT scanning showing colonic thickening. Atypically there is been no diarrhea. Antibiotic coverage initiated 08 January Current Visit: Yes Hospitalist: Subjective Interval history: 41-year-old female with hypertension and diabetes presented in September with end- stage renal disease. A right sided tunneled catheter was placed in December she underwent construction of vascular access in the right upper extremity. Initial use of the access in the right upper extremity was complicated by swelling. Ultrasound demonstrated brachial vein thrombosis proximally without extension. She has been initiated on anticoagulation with Coumadin begun with heparin coverage. Patient developed fever and diffuse abdominal discomfort associated with nausea and eventually vomiting. She had no diarrhea. Her gallbladder ultrasound was negative for cholecystitis however abdominal CT scanning showed colonic wall thickening suggestive of colitis. She was initiated on renal dose Levaquin along with metronidazole on 08 January. Overnight her vital signs been stable she continues afebrile for the last 48 hours. She continues to have nausea with occasional emesis, no diarrhea, and continuing nonlocalized abdominal pain. The swelling in her right upper extremity continues to resolve. Exam - Constitutional Vitals: Period Temp Pulse Resp BP Sys/[place] Pulse Ox Last 24 Hr 99.2 F-100.5 F 90-97 16-20 114-169/60-77 93-98 General appearance: over weight - Respiratory Respiratory exam: Present: clear to auscultation bilaterally. Absent: rales, rhonchi, wheezes - Cardiovascular Cardiovascular exam: Present: regular rate and rhythm - GI/Abdominal GI/Abdominal exam: Present: normal bowel sounds, tenderness. Absent: distended , rebound - Extremities Exam Extremities exam: Present: other (Improve range of motion at right elbow reduce overall swelling). Absent: edema - Neurological Exam Neurological exam: Present: alert, oriented X3 Results - Labs CBC & BMP: 01/09/17 01:31 01/08/17 13:12 Labs: INR 1.1 (day 3 of Coumadin)
--- NOTE | 2017-01-09 09:51 | General Surgery Progress Note ---
Assessment and Plan (1) AV fistula Status: Acute Assessment and plan: Continue to rest right upper arm AV fistula. Hospitalist is treating the patient for colitis. I agree with current management. I will continue to follow Current Visit: Yes Subjective Patient reports: Present: no new complaints, still having pain, pain is less, nausea, fever. Absent: vomiting Narrative: CT scan demonstrated colitis Exam - Constitutional Vitals: Period Temp Pulse Resp BP Sys/[place] Pulse Ox Last 24 Hr 97.8 F-100.5 F 87-97 16-20 114-137/60-75 93-98 General appearance: no acute distress, over weight - Head Head exam: Present: normal inspection, normocephalic - Eye Eye exam: Present: EOMI Pupils: Present: VERO - ENT ENT exam: Present: normal exam Mouth exam: Present: normal external inspection, normal voice - Neck Neck exam: Present: normal inspection, trachea midline - Respiratory Respiratory exam: Present: clear to auscultation bilaterally. Absent: accessory muscle use, chest wall tenderness - Cardiovascular Cardiovascular exam: Present: RRR. Absent: systolic murmur, tachycardia - GI/Abdominal GI/Abdominal exam: Present: tenderness, soft. Absent: rebound - Extremities Exam Extremities exam: Present: normal capillary refill, other (Upper arm right side swelling is decreased. Good thrill in the fistula. No erythema or warmth) - Neurological Exam Neurological exam: Present: alert, oriented X3 Speech: Present: normal Results - Labs CBC & BMP: 01/09/17 01:31 01/08/17 13:12 - Diagnostic Findings Procedure: CT Abdomen and Pelvis: image reviewed by me, report reviewed by me
[2017-01-09] MEDS: INSULIN LISPRO 100 UNIT/ML SUBCUT SCH ×4 (09:54→22:50)
[2017-01-09] MEDS: PANTOPRAZOLE 40 MG TABLET PO SCH ×2 (12:24→20:08)
[2017-01-09] MEDS: CALCIUM ACETATE 667 MG CAPSULE PO SCH ×5 (12:25→20:08)
[2017-01-09] MEDS: CINACALCET 30 MG TABLET PO SCH ×2 (12:25→20:08)
[2017-01-09] MEDS: LOSARTAN 50 MG TABLET PO SCH ×2 (12:26→20:08)
[2017-01-09] MEDS: cloNIDine 0.1 MG TABLET PO SCH ×2 (12:27→20:08)
[2017-01-09] MEDS ORDERED: METOPROLOL TARTRATE 50 MG TABLET PO ONE (14:44)
--- NOTE | 2017-01-09 15:23 | Nephrology Progress Note ---
Nephrology - PN: Subj Interval history: Patient is resting at this time. Family members are at the bedside. She still complains of right arm pain but is trying to move the arm more today. Exam (PN)-Nephrology - Vital Signs Vital signs: Period Temp Pulse Resp BP Sys/[place] Pulse Ox Last 24 Hr 97.8 F-100.5 F 87-96 16-20 127-142/56-75 95-99 - General Appearance General appearance: well-developed, well-nourished EENT: ATNC Neck: supple Respiratory: clear Cardiology: regular rate, regular rhythm Gastrointestinal: normoactive bowel sounds, no tenderness, no guarding Neurologic: alert and oriented x3 Musculoskeletal: no clubbing Psychiatric: mood/affect appropriate - Lab 01/09/17 01:31 01/08/17 13:12 Most recent lab results Calcium 8.4 MG/DL (8.5-10.1) L 01/08/17 13:12 Assessment and Plan (1) ESRD (end stage renal disease) Status: Chronic Assessment and plan: Continue with scheduled hemodialysis. Current Visit: Yes (2) Diabetes Status: Chronic Assessment and plan: Continue with scheduled medicine. Current Visit: No Qualifiers: Diabetes mellitus type: type 2 Diabetes mellitus complication status: with kidney complications Chronic kidney disease stage: on chronic dialysis (3) Deep venous thrombosis of upper extremity Status: Acute Assessment and plan: Patient on coumadin Pain in the right arm. Adjust pain medications. Current Visit: Yes (4) Acute deep vein thrombosis (DVT) of right upper extremity Status: Acute Current Visit: Yes Qualifiers: Affected thrombotic vein of extremity: brachial Qualified Code(s): I82.621 - Acute embolism and thrombosis of deep veins of right upper extremity (5) AV fistula Status: Acute Current Visit: Yes
[2017-01-09] MEDS: LEVOFLOXACIN INJ 250 MG in PREMIX 1 EACH IV SCH (16:50)
[2017-01-09] MEDS: WARFARIN 5 MG TABLET PO SCH (17:55)
[2017-01-09] MEDS ORDERED: BISACODYL 10 MG SUPP RECTAL PRN (19:54)
[2017-01-09] MEDS: PROMETHAZINE 25 MG/1 ML VIAL IM PRN (20:13)
[2017-01-10] MEDS: metroNIDAZOLE INJ 500 MG in PREMIX 1 EACH IV SCH ×3 (01:14→16:51)
[2017-01-10] MEDS: PROMETHAZINE 25 MG/1 ML VIAL IM PRN (03:51)
[2017-01-10 06:54] LABS: INR 1.3; PT Patient Result 13.4 SECS
[2017-01-10] MEDS: INSULIN LISPRO 100 UNIT/ML SUBCUT SCH ×4 (09:25→20:33)
[2017-01-10] MEDS: LOSARTAN 50 MG TABLET PO SCH ×2 (09:26→20:32)
[2017-01-10] MEDS: PANTOPRAZOLE 40 MG TABLET PO SCH ×2 (09:26→20:33)
[2017-01-10] MEDS: cloNIDine 0.1 MG TABLET PO SCH ×2 (09:26→20:33)
[2017-01-10] MEDS: CINACALCET 30 MG TABLET PO SCH ×2 (09:26→20:32)
[2017-01-10] MEDS: CALCIUM ACETATE 667 MG CAPSULE PO SCH ×3 (09:26→20:33)
[2017-01-10] MEDS: HEPARIN DRIP 25,000 UNITS/500 ML PREMIX IV SCH (10:19)
--- NOTE | 2017-01-10 11:17 | Nephrology Progress Note ---
Nephrology - PN: Subj Interval history: The patient mentions that she has some abdominal tightening and cramping. She did have a bowel movement last night. Her abdomen is soft no guarding or rebound. No fevers or chills. Her INR is not quite therapeutic. Coumadin is being adjusted. Exam (PN)-Nephrology - Vital Signs Vital signs: Period Temp Pulse Resp BP Sys/[place] Pulse Ox Last 24 Hr 98.7 F-101.4 F 84-101 18-20 114-151/56-83 92-99 - General Appearance General appearance: well-developed, well-nourished EENT: ATNC Neck: supple Respiratory: clear Cardiology: regular rate, regular rhythm Gastrointestinal: normoactive bowel sounds, no tenderness Neurologic: alert and oriented x3 Musculoskeletal: no deformities (Right AV fistula in place), warmth Psychiatric: mood/affect appropriate - Lab 01/10/17 06:33 01/08/17 13:12 Most recent lab results Calcium 8.4 MG/DL (8.5-10.1) L 01/08/17 13:12 Assessment and Plan (1) ESRD (end stage renal disease) Status: Chronic Assessment and plan: Continue with scheduled hemodialysis. Current Visit: Yes (2) Diabetes Status: Chronic Assessment and plan: Continue with scheduled medicine. Current Visit: No Qualifiers: Diabetes mellitus type: type 2 Diabetes mellitus complication status: with kidney complications Chronic kidney disease stage: on chronic dialysis (3) Deep venous thrombosis of upper extremity Status: Acute Assessment and plan: Patient on coumadin Pain in the right arm. Adjust pain medications. Current Visit: Yes (4) Acute deep vein thrombosis (DVT) of right upper extremity Status: Acute Assessment and plan: Coumadin therapy is being adjusted.. Agree with Lovenox subcu twice daily. Current Visit: Yes Qualifiers: Affected thrombotic vein of extremity: brachial Qualified Code(s): I82.621 - Acute embolism and thrombosis of deep veins of right upper extremity (5) AV fistula Status: Acute Current Visit: Yes (6) Abdominal cramping Status: Acute Assessment and plan: Which could be from gas pain. Simethicone 80 mg 3 times daily as needed Current Visit: Yes
--- NOTE | 2017-01-10 11:44 | Hospitalist Progress Note ---
Assessment and Plan (1) Colitis Status: Acute Assessment and plan: 1)colitis- causing abdominal pain. CT scan showed colitis. No diarrhea. On antibiotics day 2. Last fever was yesterday evening. 2)Clot in fistula- on IV heparin- PTTs restarted this morning. On coumadin day 4 today with increase in INR to 1.3 this morning. Discuss anticoagulation with Dr Monterroso- consider change to Eliquis and stopping IV heparin and coumadin. 3)DM-glucose 154-218- continue current doses of insulin 4)ESRD- HD is T//FRI. Current Visit: Yes (2) Acute deep vein thrombosis (DVT) of right upper extremity Status: Acute Current Visit: Yes Qualifiers: Affected thrombotic vein of extremity: brachial Qualified Code(s): I82.621 - Acute embolism and thrombosis of deep veins of right upper extremity (3) ESRD (end stage renal disease) Status: Chronic Current Visit: Yes (4) Hypertension Status: Chronic Current Visit: Yes Qualifiers: Hypertension type: essential hypertension Qualified Code(s): I10 - Essential (primary) hypertension (5) Diabetes Status: Chronic Current Visit: No Qualifiers: Diabetes mellitus type: type 2 Diabetes mellitus complication status: with kidney complications Chronic kidney disease stage: on chronic dialysis Hospitalist: Subjective Interval history: Mrs Slater continues to have nausea and vomiting and complains of abdominal pain. She has not had hematemesis or blood in her stool. She is taking a clear diet. She tells me her forearm is less swollen, but her upper arm has not changed much. Exam - Constitutional Vitals: Period Temp Pulse Resp BP Sys/[place] Pulse Ox Last 24 Hr 98.7 F-101.4 F 84-101 18-20 114-151/56-83 92-99 General appearance: normal weight, no acute distress - Eye Eye exam: Present: EOMI. Absent: scleral icterus - Respiratory Respiratory exam: Present: clear to auscultation bilaterally - Cardiovascular Cardiovascular exam: Present: regular rate and rhythm - GI/Abdominal GI/Abdominal exam: Present: normal bowel sounds, tenderness (generalized tenderness, no rebound or guarding. ), soft - Extremities Exam Extremities exam: Absent: edema - Neurological Exam Neurological exam: Present: alert, oriented X3 - Skin Skin exam: Present: warm, dry Results - Labs CBC & BMP: 01/10/17 06:33 01/08/17 13:12 Lab Results: I have reviewed the past 24 hour labs
--- NOTE | 2017-01-10 14:19 | General Surgery Progress Note ---
Assessment and Plan (1) AV fistula Status: Acute Assessment and plan: Continue to rest right upper arm AV fistula. Hospitalist is treating the patient for colitis. I agree with current management. I will continue to follow Current Visit: Yes Subjective Patient reports: Present: no new complaints, still having pain, pain is less, nausea, fever. Absent: vomiting Narrative: Patient had a temperature to 101.4 last night around 6 PM. She has been afebrile since then. She still having nausea and some abdominal cramping pain. Her arm feels much better today. Exam - Constitutional Vitals: Period Temp Pulse Resp BP Sys/[place] Pulse Ox Last 24 Hr 98.7 F-101.4 F 84-101 18-20 114-151/58-83 92-97 General appearance: no acute distress, over weight - Head Head exam: Present: normal inspection, normocephalic - Eye Eye exam: Present: EOMI Pupils: Present: VERO - ENT ENT exam: Present: normal exam Mouth exam: Present: normal external inspection, normal voice - Neck Neck exam: Present: normal inspection, trachea midline - Respiratory Respiratory exam: Present: clear to auscultation bilaterally. Absent: accessory muscle use, chest wall tenderness - Cardiovascular Cardiovascular exam: Present: RRR. Absent: systolic murmur, tachycardia - GI/Abdominal GI/Abdominal exam: Present: normal bowel sounds, tenderness, soft. Absent: distended, guarding, rebound - Extremities Exam Extremities exam: Present: other (The right arm continues to improve with decreased swelling and decreased tenderness. There is no erythema or warmth.) - Back Exam Back exam: Present: normal inspection - Neurological Exam Neurological exam: Present: alert, oriented X3 Speech: Present: normal - Skin Skin exam: Present: normal color, warm Results - Labs CBC & BMP: 01/10/17 06:33 01/08/17 13:12
[2017-01-10] MEDS: ENOXAPARIN 80 MG/0.8 ML SYRINGE SUBCUT SCH (16:51)
[2017-01-10] MEDS: WARFARIN 5 MG TABLET PO SCH (17:40)
[2017-01-10] MEDS ORDERED: WARFARIN 5 MG TABLET PO ONE (18:00)
[2017-01-11] MEDS: metroNIDAZOLE INJ 500 MG in PREMIX 1 EACH IV SCH ×3 (00:19→17:42)
[2017-01-11 04:19] LABS: Basophils % 0.4 % (0.0-0.8); Eosinophils # 1.6 10*3/uL (0.0-0.87); Eosinophils % 18.3 % (0.00-10.9); Hematocrit 28.3 VOL% (35.7-47.0); Hemoglobin 9.8 GM/DL (12.0-16.0); Immature Granulocytes % 0.4 %; Immature Granulocytes Absolute 0.04 #; Lymphocytes # 3.2 10*3/uL (1.4-4.0); Lymphocytes % 36.1 % (21.3-54.2); Mean Corpuscular HGB Conc 34.6 GM/DL (32-36); Mean Corpuscular Hemoglobin 28 PG (27-34); Mean Corpuscular Volume 79.7 FL (87-102); Mean Platelet Volume 10.7 FL (9.6-12.0); Monocytes % 11.5 % (1.7-12.7); Neutrophils % 33.3 % (38.7-73.9); Platelet Count 281 T/CUMM (130-400); Red Blood Count 3.55 MC/CUMM (3.8-5.5); Red Cell Distribution Width 15.3 % (9.3-17.3); White Blood Count 8.9 T/CUMM (4-12)
[2017-01-11 04:44] LABS: Osmolality,Calculated 273.7 MOS/KG (273-304); Potassium 4.8 MMOL/L (3.5-5.1)
[2017-01-11 04:52] LABS: Anisocytosis 1+; Eosinophils 11 % (0-10); Lymphocytes 40 % (20-55); Platelet Estimate Normal; Segmented Neutrophils 41 % (50-85); Total Cells Counted 100
[2017-01-11] MEDS ORDERED: ACETAMINOPHEN 500 MG TABLET PO ONE (08:22)
[2017-01-11] MEDS: INSULIN LISPRO 100 UNIT/ML SUBCUT SCH ×4 (08:28→20:18)
--- NOTE | 2017-01-11 08:30 | Hospitalist Progress Note ---
Assessment and Plan - Time spent with patient Time spent with patient: Less than 30 minutes (1) Acute deep vein thrombosis (DVT) of right upper extremity Status: Acute Assessment and plan: Continuing anticoagulation. INR pending. Current Visit: Yes Qualifiers: Affected thrombotic vein of extremity: brachial Qualified Code(s): I82.621 - Acute embolism and thrombosis of deep veins of right upper extremity (2) Colitis Status: Acute Assessment and plan: Continues to have low-grade fevers and having diffuse abdominal discomfort. Will continue IV antibiotics and ask GI to evaluate and give any further recommendations. Current Visit: Yes (3) ESRD (end stage renal disease) Status: Chronic Assessment and plan: Nephrology continuing to see and assist with her hemodialysis. Current Visit: Yes (4) Diabetes Status: Chronic Assessment and plan: Blood sugars are well controlled. Continue current regimen. Current Visit: No Qualifiers: Diabetes mellitus type: type 2 Diabetes mellitus complication status: with kidney complications Chronic kidney disease stage: on chronic dialysis (5) Hypertension Status: Chronic Assessment and plan: Blood pressure is stable. Continue current regimen. Current Visit: Yes Qualifiers: Hypertension type: essential hypertension Qualified Code(s): I10 - Essential (primary) hypertension Hospitalist: Subjective Interval history: Chart reviewed and patient examined. Ms. Slater primarily complains of diffuse abdominal pain today. She states that she had some mild diarrhea last night and has continuous nausea with intermittent emesis. CT scan on 01/08 revealed mild diffuse prominence of the wall the colon from the hepatic flexure to the distal colon suggestive of low-grade colitis. Exam - Constitutional Vitals: Period Temp Pulse Resp BP Sys/[place] Pulse Ox Last 24 Hr 98.2 F-100.2 F 80-92 18-22 106-134/60-70 92-96 General appearance: mild distress - Head Head exam: Present: normocephalic, atraumatic - Eye Eye exam: Present: EOMI Pupils: Present: VERO - ENT ENT exam: Present: normal exam - Neck Neck exam: Present: normal inspection - Respiratory Respiratory exam: Present: clear to auscultation bilaterally. Absent: rales, rhonchi, wheezes - Cardiovascular Cardiovascular exam: Present: regular rate and rhythm. Absent: tachycardia - GI/Abdominal GI/Abdominal exam: Present: normal bowel sounds, tenderness (Diffusely tender without rebound), soft. Absent: mass, rebound - Extremities Exam Extremities exam: Absent: calf tenderness, edema - Back Exam Back exam: Present: normal inspection - Neurological Exam Neurological exam: Present: alert, oriented X3, CN II-XII intact. Absent: motor sensory deficit - Psychiatric Psychiatric exam: Present: normal affect, normal mood. Absent: agitated, anxious - Skin Skin exam: Present: warm, dry Results - Labs CBC & BMP: 01/11/17 03:00 01/11/17 03:00 Lab Results: I have reviewed the past 24 hour labs
--- NOTE | 2017-01-11 08:46 | EKG Report ---
Stationary ECG Study [facility] Test Date: 01/11/2017 8:46:40 AM Pat Name: RENETTA RIBEIRO Department: Room: 420 Gender: F Purchasing Officer: KEVIN : 1975 Requested by: Coleen Begum Order Number: [id number] Reading MD: IVAN CARR Intervals [place] Rate: 92 P: 46 UT: 139 QRS: 35 QRSD: 91 T: 72 QT: 377 QTc: 427 Interpretive Statements SINUS RHYTHM NONSPECIFIC T-WAVE ABNORMALITY Electronically Signed On 01-11-17 10:14:21 CDT by IVAN CARR [email or web address]
[2017-01-11] MEDS: CALCIUM ACETATE 667 MG CAPSULE PO SCH ×3 (08:49→17:43)
[2017-01-11] MEDS: LOSARTAN 50 MG TABLET PO SCH ×2 (08:49→20:23)
[2017-01-11] MEDS: cloNIDine 0.1 MG TABLET PO SCH ×2 (08:50→20:23)
[2017-01-11] MEDS: PANTOPRAZOLE 40 MG TABLET PO SCH ×2 (08:50→20:23)
[2017-01-11] MEDS: CINACALCET 30 MG TABLET PO SCH (08:50)
[2017-01-11] MEDS: MORPHINE 2 MG/1 ML SYRINGE IV PRN ×2 (08:50→13:54)
--- NOTE | 2017-01-11 10:01 | Nephrology Progress Note ---
Nephrology - PN: Subj Interval history: Patient complains of abdominal pain and cramping. She also reports some nausea and vomiting yesterday. The patient's last bowel movement was 1-2 days ago with a suppository. Review of systems pulmonary she denies shortness of breath Physical exam general the patient is seen on hemodialysis, she is tolerating this well, her abdomen is soft she has some mild tenderness to palpation on the left side Assessment/plan 1. End-stage renal disease-we will continue her present dialysis 2. Colitis-patient's on Levaquin and Flagyl she was started on the Flagyl about 3 days ago and the Levaquin 2 days ago, I am going to hold her Sensipar as this can contribute to abdominal complaints 3. AV fistula hematoma-patient is now dialyzing through a neck catheter 4. Secondary hyperparathyroidism see #2 above Exam (PN)-Nephrology - Vital Signs Vital signs: Period Temp Pulse Resp BP Sys/[place] Pulse Ox Last 24 Hr 98.2 F-100.2 F 80-92 18-22 106-134/60-70 92-96 - Lab 01/11/17 03:00 01/11/17 03:00 Most recent lab results Calcium 7.0 MG/DL (8.5-10.1) L 01/11/17 03:00
[2017-01-11] MEDS: ONDANSETRON 4 MG/2 ML VIAL IV PRN ×2 (10:28→20:24)
--- NOTE | 2017-01-11 11:44 | General Surgery Progress Note ---
Assessment and Plan (1) AV fistula Status: Acute Assessment and plan: Continue to rest right upper arm AV fistula. Current Visit: Yes (2) Abdominal pain Status: Acute Assessment and plan: This patient is not responding to antibiotic therapy so I am going to repeat a CT scan with p.o. and IV contrast today. Current Visit: Yes Subjective Patient reports: Present: no new complaints, still having pain, nausea, vomiting , fever Narrative: The patient is still having low-grade fevers and her abdominal pain is worsening today. Exam - Constitutional Vitals: Period Temp Pulse Resp BP Sys/[place] Pulse Ox Last 24 Hr 98.2 F-100.2 F 80-92 18-22 106-134/60-70 92-96 General appearance: no acute distress, over weight - Head Head exam: Present: normal inspection, normocephalic - Eye Eye exam: Present: EOMI Pupils: Present: VERO - ENT ENT exam: Present: normal exam Mouth exam: Present: normal external inspection, normal voice - Neck Neck exam: Present: normal inspection, trachea midline - Respiratory Respiratory exam: Present: clear to auscultation bilaterally. Absent: accessory muscle use, chest wall tenderness - Cardiovascular Cardiovascular exam: Present: RRR. Absent: systolic murmur, tachycardia - GI/Abdominal GI/Abdominal exam: Present: hypoactive bowel sounds, tenderness (Diffuse crampy abdominal tenderness with no peritoneal signs.), soft. Absent: guarding, rebound - Extremities Exam Extremities exam: Present: normal inspection, normal capillary refill - Back Exam Back exam: Present: normal inspection - Neurological Exam Neurological exam: Present: alert, oriented X3 Speech: Present: normal - Skin Skin exam: Present: normal color, warm Results - Labs CBC & BMP: 01/11/17 03:00 01/11/17 03:00
--- NOTE | 2017-01-11 11:57 | Gastrointestinal Consult Note ---
Assessment and Plan - Time spent with patient Time spent with patient: Greater than 30 minutes (1) Abdominal pain Status: Acute Current Visit: Yes (2) Abnormal findings on diagnostic imaging of digestive system Status: Acute Current Visit: Yes (3) Other specified counseling Status: Acute Current Visit: Yes History of Present Illness History of present illness: Ms. Slater is a 41 year old female Home Medications Medication Instructions Recorded Confirmed Type cloNIDine TAB [Catapres Tab] 0.1 mg PO BID #90 tablet 09/13/16 01/06/17 Rx Calcium Acetate [Phoslo] 667 mg PO TID 12/13/16 01/06/17 History Losartan/Hydrochlorothiazide 100 mg PO DAILY 12/13/16 01/06/17 History [Losartan-Hctz 100-12.5 mg Tab] Allergies Allergy/AdvReac Type Severity Reaction Status Date / Time Penicillins Allergy Severe ITCHING Verified 01/06/17 04:06 aspirin Allergy Intermediate ITCHING Verified 01/06/17 04:06 Medical,Surgical,& Family Hx - Medical History Cardio: History of: Hypertension Psychological: History of: Bipolar Disorder Neurology: History of: Migraine No history of: Seizures HEENT: History of: Eye Problem (CATARACTS) Endocrine: No history of: Diabetes Mellitus (IDDM), Diabetes Mellitus (NIDDM), Thyroid Disorder, Endocrine Cancer, Endocrine Problems Respiratory: History of: Asthma, Bronchitis Renal: History of: Dialysis, Renal Failure Gastrointestinal: History of: GERD Musculoskeletal: Comment Only: Musculoskeletal Problems (ARTHRITIS HANDS) Hematology: History of: Sickle Cell Disease (SICKLE CELL TRACE) - Surgical History Cardiac Surgeries: Sugical HX of: Cardiac Catheterization HEENT Surgeries: Surgical HX of: Eye Surgery (RETICAL SURGERY,LASER SURGERY) Patient denies: Thyroid Surgery Reproductive Surgeries: Surgical HX of;: Section (X4), Tubal Ligation Patient denies;: Breast Surgery, Dilation and Curettage, Gynecologic Surgery , Hysterectomy - Family History Family History: Reports;: Family Cancer (GRANDMOTHER), Family Diabetes (MOTHER, FATHER , DAUGHTER), Family Heart Disease (MOTHER), Family Hypertension (MOTHER, FATHER , DAUGHTER), Family Stroke (AUNT) - Social History Smoking Status: Never smoker Frequency of Alcohol Use: None Type of Drug Use: None Exam - Constitutional Vitals: Period Temp Pulse Resp BP Sys/[place] Pulse Ox Last 24 Hr 98.2 F-100.2 F 80-92 18- 106-134/60-70 92-96 Results - Labs CBC & BMP: 01/11/17 03:00 01/11/17 03:00 Note Addendum: PLEASE NOTE -- automatic citation of patient information is unavoidable in this electronic note. I have made a reasonable effort to review the information cited , but it is not a part of my evaluation, impression, or recommendation unless specifically discussed in the dictated text that follows. As well, voice recognition software was used in the creation of this clinical note. Reasonable effort was made to identify and correct gross errors. Despite proofreading, errors in office coordinator may be present, including nonsense verbiage at times. If you encounter such an error, please contact me at [phone] for discussion and correction. -- Khris Chief complaint: abdominal pain History of present illness: This is a new patient, a 41-year-old female seen by consultation for evaluation of abdominal pain in the setting of low-grade fever. The patient is admitted to the hospitalist service under the care of Dr. Krishnamurthy with a primary diagnosis of acute deep venous thrombosis of the right upper extremity. The patient was admitted on January 06 with primary complaint of pain at the site of a right arm dialysis fistula since her preceding dialysis session. Evaluation at that time revealed the deep venous thrombosis and she was admitted for treatment of same. She has been complaining of nausea with occasional vomiting as well as epigastric and right upper quadrant abdominal pain and it has been noted that she has a history of gastroesophageal reflux disease. She reports this has been going on to varying degrees over the past several months. Right upper quadrant ultrasound showed no evidence of biliary disease and CT of the abdomen (January 08) revealed evidence of colonic thickening/ inflammation of the transverse and entire left colon. She has been started empirically on enteric spectrum antibiotic coverage but continues to report abdominal discomfort. She is not taking much food. She has no bowel movements documented but does report some loose stool without blood, mucus, or us. She notes nausea when she tries to eat but is not having vomiting at present. She has history of chronic kidney disease requiring dialysis. Patient denies night sweats, rigors, headache, dizziness, neck pain, visual changes, redness of the eyes, dysphagia, odynophagia, difficulty chewing, chest pain, shortness of breath, weight loss, hematemesis, diarrhea, hematochezia, melena, proctalgia, constipation, dysuria, skin changes, temperature regulation issues, flushing, easy bleeding/bruising, mental status change, numbness/ weakness in the extremities, yellowing of the eyes/skin, cutaneous eruptions, and other complaints in general. Review of systems: 12 point review of systems was negative except as documented above. Outpatient medications: Phoslo losartan/hydrochlorothiazide, Catapres Inpatient medications: Dulcolax, Hipolito, Catapres, Lovenox, heparin, [place], Humalog, levofloxacin, Cozaar, metronidazole, morphine sulfate, Zofran, Protonix , Phenergen, simethicone, Coumadin Past Medical History: hypertension, bipolar disorder, migraine, asthma, bronchitis, analysis, failure, gastroesophageal reflux disease, sickle-cell trait, section times for, cardiac catheterization without obstructive disease Social history: negative tobacco. Negative alcohol Family history: no gastrointestinal cancers Physical examination: Vital Signs: Current vital signs reviewed and documented above. General Appearance: lying in bed. Accompanied by family. No acute distress. Head: Normocephalic. Neck: Palpation of the neck revealed no abnormalities. Eyes: No scleral icterus. No scleral injection. No conjunctival pallor. Oral Cavity: Odor of breath was normal. No drooling was observed. Lips showed no abnormalities. Floor of the mouth showed no abnormalities. Pharynx: Oropharynx was normal. Lungs: Respiration rhythm and depth was normal. Cardiovascular: Heart rate and rhythm were normal. No murmurs were appreciated. Abdomen: abdomen was equivocal/minimally distended. Abdominal palpation revealed minimal tenderness and no hepatosplenomegaly. Ascites was not discovered. Abdominal auscultation revealed positive bowel sounds. Musculoskeletal System: Musculoskeletal system was grossly normal. Neurological: level of consciousness was normal. Speech was normal. Skin: General appearance was normal. Color and pigmentation were normal. No skin lesions. Laboratory: white blood count 8.9, hemoglobin 9.8, hematocrit 28.3, platelets 281, ALT 29, AST 32, alkaline phosphatase 223, total protein 7.6, albumin 2.9, total bilirubin 0.4, INR 1.3, PT 13.4 Microbiology: stool culture negative at 12 hours, Clostridium difficile toxin assay negative, blood cultures x2 negative at 1 day Radiology: -- CT of the abdomen and pelvis, January 08, 2017 -- mild diffuse prominence of the wall of the: from the hepatic flexure level to the rectum suggests potential low -grade colitis; no abscess or abnormal. Colonic information; no significant finding otherwise -- CT of the abdomen and pelvis, January 11, 2017: improved large intestine findings ; prominent bilateral canal veins Impressions: 1. Abdominal pain -- the patient has radiologic evidence of infectious/ inflammatory colitis. The differential diagnosis also includes inflammatory bowel disease proper, ischemic colitis, and others. With anorexia and nausea, peptic ulcer, pancreatic or biliary disease, and others are considered. Continued antibiotic and otherwise supportive care is reasonable. Should symptoms progress, we will need to consider endoscopic evaluation. General surgery is on board, is performing daily abdominal exams, and has reviewed radiologic results with no surgical indication identified to date and I agree with same. 2. Abnormal imaging of the large intestine -- radiologic findings nonspecific but suggests the possibility of infectious/inflammatory colitis. Microbiology has been negative to date but this is common as the studies are poorly sensitive , typically (with the exception of C. diff assay). Continued antibiotic is reasonable. If the patient does not improve, and upper endoscopy and colonoscopy may be indicated. 3. Other specified counseling -- The patient was seen for greater than 30 minutes. The patient was counseled for greater than 50% of this time regarding differential diagnosis, likely diagnosis, diagnostic and therapeutic alternatives, risks/benefits/alternatives of medications and procedures, and plan of care generally. The patient expressed understanding and wishes to proceed. Recommendations: -- continue serial abdominal examination -- continued antibiotic is reasonable -- upper endoscopy and colonoscopy may be indicated depending on clinical progress -- thank you for this consultation. We will follow with you.
--- NOTE | 2017-01-11 15:40 | CT Report ---
CT of the abdomen and pelvis with oral and intravenous contrast. 100 cc Omni 350. Axial images were obtained with sagittal and coronal reconstructions. Indication: Generalized abdominal pain. Colitis. Comparison is made to a recent previous exam of January 08, 2017. The heart is borderline enlarged. Mild hypoaeration is seen at the lung bases. No pericardial or pleural effusion is noted. Small hiatal hernia is present. The liver is normal in size and density. No focal liver lesions are identified. There is no intrahepatic biliary ductal dilatation. The gastric contour is normal. The loops of small intestine are not dilated. The terminal ileum and appendix present a normal appearance. The colon is not dilated. Minimal if any persistent colonic wall thickening seen. No inflammatory changes around the colon. No abscess collection. The uterus is displaced to the right. There are small vessels demonstrating enhancement on the venous phase of postcontrast, all along the gonadal veins, but on the delayed images, the veins appear to be patent. There are shotty lymph nodes present in the periaortic region, particularly along the left. The pancreas is normal in size and configuration. The adrenal glands appear normal. There is no splenic enlargement. No renal abnormality is seen. The kidneys are low normal in size. The abdominal aorta is of normal caliber. There is no free fluid in the pelvis. There is air in the vagina. Small lymph nodes are seen in the inguinal regions. Injection granulomas at both hips. Impression: 1. Mild basilar hypoaeration. Mild heart enlargement, stable. 2. Findings of colitis show interval improvement. 3. Shotty periaortic lymph nodes, stable. 4. The gonadal veins are bilaterally prominent, and there may be some collateral formation, but no definite evidence of thrombosis. This is similar to the previous study. The CT exam was performed using one or more of the following dose reduction techniques: Automated exposure control, adjustment of the mA and/or kV according to patient size, or use of iterative reconstruction technique. PROCEDURE INTERPRETED AT [facility] DEPARTMENT OF RADIOLOGY Final Report Signed by: Dr. Zoey Mckeon
[2017-01-11] MEDS: ENOXAPARIN 80 MG/0.8 ML SYRINGE SUBCUT SCH (17:42)
[2017-01-11] MEDS: WARFARIN 5 MG TABLET PO SCH (17:43)
[2017-01-11] MEDS: LEVOFLOXACIN INJ 250 MG in PREMIX 1 EACH IV SCH (20:24)
[2017-01-12] MEDS: metroNIDAZOLE INJ 500 MG in PREMIX 1 EACH IV SCH ×4 (00:08→23:38)
[2017-01-12 06:57] LABS: PT Patient Result 33.7 SECS
[2017-01-12 08:15] LABS: Hepatitis A Ab IgM Quant 0.06 Index; Hepatitis A Ab IgM Result Negative (Negative); Hepatitis B Core IgM Quant 0.16 Index; Hepatitis B Core IgM Result Negative (Negative); Hepatitis B Surface Ag Quant 0.33 Index; Hepatitis B Surface Ag Result Negative (Negative); Hepatitis C Virus Ab Quant 0.03 Index; Hepatitis C Virus Ab Result Negative (Negative)
[2017-01-12] MEDS: LOSARTAN 50 MG TABLET PO SCH ×2 (08:59→20:43)
[2017-01-12] MEDS: cloNIDine 0.1 MG TABLET PO SCH ×2 (08:59→20:43)
[2017-01-12] MEDS: PANTOPRAZOLE 40 MG TABLET PO SCH ×2 (08:59→20:43)
[2017-01-12] MEDS: INSULIN LISPRO 100 UNIT/ML SUBCUT SCH ×4 (08:59→20:43)
[2017-01-12] MEDS: CALCIUM ACETATE 667 MG CAPSULE PO SCH ×3 (08:59→18:01)
--- NOTE | 2017-01-12 08:59 | Hospitalist Progress Note ---
Assessment and Plan - Time spent with patient Time spent with patient: Less than 30 minutes (1) Acute deep vein thrombosis (DVT) of right upper extremity Status: Acute Assessment and plan: Continuing anticoagulation. INR pending. 01/12/17: INR is now 3.0. Will discontinue Lovenox and continue to follow until stable. Current Visit: Yes Qualifiers: Affected thrombotic vein of extremity: brachial Qualified Code(s): I82.621 - Acute embolism and thrombosis of deep veins of right upper extremity (2) Colitis Status: Acute Assessment and plan: Continues to have low-grade fevers and having diffuse abdominal discomfort. Will continue IV antibiotics and ask GI to evaluate and give any further recommendations. 01/12/17: She continues to have diffuse abdominal discomfort. Follow-up CT scan results as noted. Will continue IV hydration, IV antibiotics and await further recommendations from general surgery and GI. Current Visit: Yes (3) ESRD (end stage renal disease) Status: Chronic Assessment and plan: Nephrology continuing to see and assist with her hemodialysis. Current Visit: Yes (4) Diabetes Status: Chronic Assessment and plan: Blood sugars are well controlled. Continue current regimen. Current Visit: No Qualifiers: Diabetes mellitus type: type 2 Diabetes mellitus complication status: with kidney complications Chronic kidney disease stage: on chronic dialysis (5) Hypertension Status: Chronic Assessment and plan: Blood pressure is stable. Continue current regimen. Current Visit: Yes Qualifiers: Hypertension type: essential hypertension Qualified Code(s): I10 - Essential (primary) hypertension Hospitalist: Subjective Interval history: Ms. Slater still complains of abdominal discomfort. She has some nausea and gagging but denies any emesis. She denies any diarrhea. She has been followed by both general surgery and GI. Exam - Constitutional Vitals: Period Temp Pulse Resp BP Sys/[place] Pulse Ox Last 24 Hr 98.8 F-99.9 F 89-96 16-22 103-118/63-85 94-98 General appearance: mild distress - Head Head exam: Present: normocephalic, atraumatic - Eye Eye exam: Present: EOMI Pupils: Present: VERO - ENT ENT exam: Present: normal exam - Neck Neck exam: Present: normal inspection - Respiratory Respiratory exam: Present: clear to auscultation bilaterally. Absent: rales, rhonchi, wheezes - Cardiovascular Cardiovascular exam: Present: regular rate and rhythm. Absent: tachycardia - GI/Abdominal GI/Abdominal exam: Present: normal bowel sounds, tenderness (Diffusely tender without rebound or guarding), soft. Absent: guarding, mass, rebound - Extremities Exam Extremities exam: Absent: calf tenderness, edema - Neurological Exam Neurological exam: Present: alert, oriented X3, CN II-XII intact. Absent: motor sensory deficit - Psychiatric Psychiatric exam: Present: normal affect, normal mood. Absent: agitated, anxious - Skin Skin exam: Present: warm, dry. Absent: rash Results - Labs CBC & BMP: 01/11/17 03:00 01/11/17 03:00 Lab Results: I have reviewed the past 24 hour labs
--- NOTE | 2017-01-12 09:23 | General Surgery Progress Note ---
Assessment and Plan (1) AV fistula Status: Acute Assessment and plan: Continue to rest right upper arm AV fistula. Current Visit: Yes (2) Abdominal pain Status: Acute Assessment and plan: Continue antibiotics for colitis. GI is following. Current Visit: Yes Subjective Patient reports: Present: no new complaints, still having pain, nausea, fever ( Low-grade temps overnight) Narrative: Repeat CT scan yesterday showed interval improvement of colitis. Exam - Constitutional Vitals: Period Temp Pulse Resp BP Sys/[place] Pulse Ox Last 24 Hr 98.8 F-99.9 F 89-96 16-22 103-118/63-85 94-98 General appearance: no acute distress, over weight - Head Head exam: Present: normal inspection, normocephalic - Eye Eye exam: Present: EOMI Pupils: Present: VERO - ENT ENT exam: Present: normal exam Mouth exam: Present: normal external inspection, normal voice - Neck Neck exam: Present: normal inspection, trachea midline - Respiratory Respiratory exam: Present: clear to auscultation bilaterally. Absent: accessory muscle use, chest wall tenderness - Cardiovascular Cardiovascular exam: Present: RRR. Absent: systolic murmur, tachycardia - GI/Abdominal GI/Abdominal exam: Present: normal bowel sounds, tenderness, soft. Absent: guarding, rebound - Extremities Exam Extremities exam: Present: normal capillary refill, other (Right arm swelling is improving. There is still a palpable thrill. No evidence of infection in the right upper arm) - Back Exam Back exam: Present: normal inspection - Neurological Exam Neurological exam: Present: alert, oriented X3 Speech: Present: normal - Skin Skin exam: Present: normal color, warm Results - Labs CBC & BMP: 01/11/17 03:00 01/11/17 03:00 - Diagnostic Findings Procedure: CT Abdomen and Pelvis: image reviewed by me, report reviewed by me ( Interval improvement in thickening of the colon)
--- NOTE | 2017-01-12 10:01 | Nephrology Progress Note ---
Nephrology - PN: Subj Interval history: Patient continues to complain of abdominal pain. Review of systems pulmonary she denies shortness of breath Physical exam general the patient mild to moderate distress, extremities reveal no pitting edema Assessment/plan 1. End-stage renal disease-we will continue hemodialysis 2. Abdominal pain-patient has findings consistent with colitis she is getting IV antibiotics for this will continue this. Concerning is that she still continues to have a low-grade fever. Patient's white blood cell count is in the normal range. 3. Secondary hyperparathyroidism 4. AV fistula hematoma Exam (PN)-Nephrology - Vital Signs Vital signs: Period Temp Pulse Resp BP Sys/[place] Pulse Ox Last 24 Hr 98.8 F-99.9 F 89-96 16-22 103-118/63-85 94-98 - Lab 01/11/17 03:00 01/11/17 03:00 Most recent lab results Calcium 7.0 MG/DL (8.5-10.1) L 01/11/17 03:00
--- NOTE | 2017-01-12 11:40 | Gastrointestinal Progress Note ---
Assessment and Plan - Time spent with patient Time spent with patient: Greater than 30 minutes (1) Abdominal pain Status: Acute Current Visit: Yes (2) Abnormal findings on diagnostic imaging of digestive system Status: Acute Current Visit: Yes (3) Other specified counseling Status: Acute Current Visit: Yes Gastroenterology - PN: Subj Interval history: PLEASE NOTE -- automatic citation of patient information is unavoidable in this electronic note. I have made a reasonable effort to review the information cited , but it is not a part of my evaluation, impression, or recommendation unless specifically discussed in the dictated text that follows. As well, voice recognition software was used in the creation of this clinical note. Reasonable effort was made to identify and correct gross errors. Despite proofreading, errors in distribution center administrator may be present, including nonsense verbiage at times. If you encounter such an error, please contact me at [phone] for discussion and correction. -- Khris Chief complaint: abdominal pain History of present illness: This is a follow-up patient, a 41-year-old female seen for evaluation of abdominal pain. The patient reports continued pain as previously described. She is taking very little oral nutrition. She has no bowel movements documented. Review of systems: 12 point review of systems was negative except as documented above. Inpatient medications: Dulcolax, Phoslo, Catapres, Lovenox, heparin, [place], Humalog, levofloxacin, Cozaar, metronidazole, morphine sulfate, Zofran, Protonix , Phenergen, simethicone, Coumadin Physical examination: Vital Signs: Current vital signs reviewed and documented above. General Appearance: lying in bed. Accompanied by family. No acute distress. Head: Normocephalic. Neck: Palpation of the neck revealed no abnormalities. Eyes: No scleral icterus. No scleral injection. No conjunctival pallor. Oral Cavity: Odor of breath was normal. No drooling was observed. Lips showed no abnormalities. Floor of the mouth showed no abnormalities. Pharynx: Oropharynx was normal. Lungs: Respiration rhythm and depth was normal. Cardiovascular: Heart rate and rhythm were normal. No murmurs were appreciated. Abdomen: abdomen was equivocal/minimally distended. Abdominal palpation revealed minimal tenderness and no hepatosplenomegaly. Ascites was not discovered. Abdominal auscultation revealed positive bowel sounds. Musculoskeletal System: Musculoskeletal system was grossly normal. Neurological: level of consciousness was normal. Speech was normal. Skin: General appearance was normal. Color and pigmentation were normal. No skin lesions. Laboratory: white blood count 8.9, hemoglobin 9.8, hematocrit 28.3, platelets 281 Microbiology: stool culture negative, Clostridium difficile toxin assay negative , blood cultures x2 negative at 3 days Radiology: -- CT of the abdomen and pelvis, January 08, 2017 -- mild diffuse prominence of the wall of the: from the hepatic flexure level to the rectum suggests potential low -grade colitis; no abscess no significant finding otherwise -- CT of the abdomen and pelvis, January 11, 2017: improved large intestine findings ; prominent bilateral canal veins Impressions: 1. Abdominal pain -- the patient has continued symptoms as previously described. She has good bowel sounds and is passing flatus so ileus seems less likely. General surgery has been following with no indication of surgical disease identified. We will try a bowel prep this evening and proceed with colonoscopy tomorrow for further evaluation. Continued antibiotic is reasonable. Otherwise continue supportive care. 2. Abnormal imaging of the large intestine -- proceed with colonoscopy as discussed above. 3. Other specified counseling -- The patient was seen for 30 minutes. The patient was counseled for greater than 50% of this time regarding differential diagnosis, likely diagnosis, diagnostic and therapeutic alternatives, risks/ benefits/alternatives of medications and procedures, and plan of care generally. The patient expressed understanding and wishes to proceed. Recommendations: -- continue serial abdominal examination -- continued antibiotic is reasonable -- I will schedule colonoscopy for tomorrow. -- Upper endoscopy may be indicated if no finding on colonoscopy -- thank you for this consultation. Dr. Castellanos will assume G.I. care for this patient tomorrow. Exam (Progress Note) - Constitutional Vitals: Period Temp Pulse Resp BP Sys/[place] Pulse Ox Last 24 Hr 98.8 F-99.9 F 89-96 16-22 103-118/63-85 94-98 Results - Labs CBC & BMP: 01/11/17 03:00 01/11/17 03:00 Note Addendum: Reviewed
[2017-01-12] MEDS ORDERED: BISACODYL 5 MG TABLET PO ONE (12:00)
[2017-01-12] MEDS: MORPHINE 2 MG/1 ML SYRINGE IV PRN ×2 (12:00→16:13)
[2017-01-12] MEDS: ONDANSETRON 4 MG/2 ML VIAL IV PRN ×2 (16:13→20:52)
[2017-01-12] MEDS ORDERED: POLYETHYLENE GLYCOL POWDER 255 GM BOTTLE PO ONE (18:00)
[2017-01-12] MEDS: WARFARIN 5 MG TABLET PO SCH (18:01)
[2017-01-12 18:19] LABS: Apearance,Urine CLOUDY (Clear); Bacteria,Urine Many /HPF (Few); Bilirubin,Urine Negative (Negative); Blood, Urine Small mg/dL (Negative); Glucose,Urine (UA) Negative (Negative); Ketones,Urine Negative (Negative); Mucus,Urine Many /LPF (Occasional); Nitrite,Urine Negative (Negative); Protein,Urine >=500 MG/DL; RBC,Urine 22 /HPF (0-4); Urine Color Amber (Yellow); Urine Specific Gravity 1.017 (1.001-1.035); Urine Urobilinogen < 2.0 EU/DL (0.2-1.0); WBC,Urine 1389 /HPF (0-6)
[2017-01-12] MEDS ORDERED: AZTREONAM 1,000 MG in SODIUM CHLORIDE 0.9% 100 ML IV ONE (21:00)
[2017-01-12] MEDS ORDERED: MAGNESIUM CITRATE 300 ML BOTTLE PO ONE (23:16)
[2017-01-13 05:48] LABS: Basophils % 0.4 % (0.0-0.8); Eosinophils % 9.6 % (0.00-10.9); Hematocrit 28.7 VOL% (35.7-47.0); Hemoglobin 9.9 GM/DL (12.0-16.0); Immature Granulocytes % 0.4 %; Immature Granulocytes Absolute 0.04 #; Lymphocytes # 2.2 10*3/uL (1.4-4.0); Lymphocytes % 22.1 % (21.3-54.2); Mean Corpuscular HGB Conc 34.5 GM/DL (32-36); Mean Corpuscular Hemoglobin 28 PG (27-34); Mean Corpuscular Volume 80.6 FL (87-102); Mean Platelet Volume 10.5 FL (9.6-12.0); Monocytes % 10.2 % (1.7-12.7); Neutrophils # 5.7 10*3/uL (1.4-7.4); Neutrophils % 57.3 % (38.7-73.9); Platelet Count 299 T/CUMM (130-400); Red Blood Count 3.56 MC/CUMM (3.8-5.5); Red Cell Distribution Width 15.2 % (9.3-17.3); White Blood Count 9.9 T/CUMM (4-12)
[2017-01-13 06:03] LABS: INR 3.4
[2017-01-13 06:04] LABS: PT Patient Result 38.8 SECS
[2017-01-13] MEDS ORDERED: POLYETHYLENE GLYCOL POWDER 255 GM BOTTLE PO ONE (08:24)
[2017-01-13] MEDS: metroNIDAZOLE INJ 500 MG in PREMIX 1 EACH IV SCH ×2 (08:29→16:09)
[2017-01-13] MEDS: CALCIUM ACETATE 667 MG CAPSULE PO SCH ×3 (08:30→17:15)
[2017-01-13] MEDS: LOSARTAN 50 MG TABLET PO SCH ×2 (08:30→20:52)
[2017-01-13] MEDS: cloNIDine 0.1 MG TABLET PO SCH ×2 (08:31→23:19)
[2017-01-13] MEDS: PANTOPRAZOLE 40 MG TABLET PO SCH ×2 (08:31→20:52)
[2017-01-13] MEDS: INSULIN LISPRO 100 UNIT/ML SUBCUT SCH ×4 (08:33→23:19)
[2017-01-13] MEDS: AZTREONAM 500 MG in SODIUM CHLORIDE 0.9% 100 ML IV SCH ×2 (09:11→20:53)
--- NOTE | 2017-01-13 09:29 | Gastrointestinal Progress Note ---
<Elise Weaverher Courtney - Last Filed: 01/13/17 09:26> Assessment and Plan (1) Abdominal pain Status: Acute Assessment and plan: 01/13-abdominal pain with CT of abdomen with contrast noted with internal improvement of colitis. Poor nutritional intake and continued upper quadrant abdominal pain with negative gallbladder ultrasound. Continue clear liquid diet and hold on continued bowel prep at this time due to elevated INR. Plan an addendum to follow Dr. Castellanos. Current Visit: Yes Gastroenterology - PN: Subj Interval history: CC: Abdominal pain Patient is seen, awake and alert, complaining of upper abdominal pain this morning. She has a very poor appetite with limited oral intake. She was scheduled for colonoscopy this morning however her prep was incomplete but upon further investigation patient noted to continue to be on Coumadin at this time with last dose last night. INR is noted to be at 3.4 as well. She has a history of a DVT with occluding thrombus in the right upper arm within the proximal right brachial vein. Colonoscopy will be placed on hold at this time due to elevated INR and continued anticoagulant therapy. Abdomen is soft, tender to upper quadrant. Patient also noted to be running a temp of 101.7. No leukocytosis noted at present time. Urine C&S is noted be pending as well. ROS: Denies shortness of breath or chest pain Exam (Progress Note) - Constitutional Vitals: Period Temp Pulse Resp BP Sys/[place] Pulse Ox Last 24 Hr 98.5 F-101.7 F 16-101 8-20 110-179/64-86 92-99 General appearance: normal weight, no acute distress - Head Head exam: Present: normal inspection, normocephalic - Eye Eye exam: Present: other (Lids and conjunctive are unremarkable). Absent: scleral icterus - ENT ENT exam: Present: normal exam, normal oropharynx - Neck Neck exam: Present: normal inspection - Respiratory Respiratory exam: Present: clear to auscultation bilaterally. Absent: rales, rhonchi, wheezes - Cardiovascular Cardiovascular exam: Present: regular rate and rhythm. Absent: diastolic murmur , JVD, systolic murmur - GI/Abdominal GI/Abdominal exam: Present: normal bowel sounds, tenderness (Upper quadrant), soft. Absent: ascites, distended, mass, organomegaly - Extremities Exam Extremities exam: Present: normal inspection, full ROM - Back Exam Back exam: Present: normal inspection - Neurological Exam Neurological exam: Present: alert, oriented X3 - Psychiatric Psychiatric exam: Present: normal affect, normal mood - Skin Skin exam: Present: normal color, warm, dry Results - Labs CBC & BMP: 01/13/17 04:32 01/11/17 03:00 Lab Results: I have reviewed the past 24 hour labs - Diagnostic Findings Procedure: CT Abdomen and Pelvis: report reviewed by me <Poncho Castellanos - Last Filed: 01/13/17 18:26> Exam (Progress Note) - Constitutional Vitals: Period Temp Pulse Resp BP Sys/[place] Pulse Ox Last 24 Hr 98.3 F-101.7 F 92-101 8-20 108-179/66-86 92-99 Results - Labs CBC & BMP: 01/13/17 10:00 01/11/17 03:00
--- NOTE | 2017-01-13 09:30 | Hospitalist Progress Note ---
Assessment and Plan (1) ESRD (end stage renal disease) Status: Chronic Assessment and plan: Continue with scheduled hemodialysis. Plan for hemodialysis today today in preparation for colonoscopy scheduled for tomorrow. Current Visit: Yes (2) Diabetes Status: Chronic Assessment and plan: Continue with scheduled medicine. Current Visit: No Qualifiers: Diabetes mellitus type: type 2 Diabetes mellitus complication status: with kidney complications Chronic kidney disease stage: on chronic dialysis (3) Deep venous thrombosis of upper extremity Status: Acute Assessment and plan: Patient on coumadin Pain in the right arm. Adjust pain medications. Current Visit: Yes (4) Acute deep vein thrombosis (DVT) of right upper extremity Status: Acute Assessment and plan: Coumadin therapy is being adjusted. INR is therapeutic. Current Visit: Yes Qualifiers: Affected thrombotic vein of extremity: brachial Qualified Code(s): I82.621 - Acute embolism and thrombosis of deep veins of right upper extremity (5) AV fistula Status: Acute Current Visit: Yes (6) Abdominal cramping Status: Acute Assessment and plan: Which could be from gas pain. Colonoscopy scheduled. Current Visit: Yes (7) Fever Status: Acute Current Visit: Yes Hospitalist: Subjective Interval history: The patient continues to have fevers greater than 101. She still describes abdominal discomfort. She did have a CT: That shows improving colitis. She remains on broad-spectrum antibiotics that also includes metronidazole. She is scheduled for colonoscopy on tomorrow. Moreover, patient's INR is therapeutic for her DVT noted in her right upper arm. Today she will undergo hemodialysis. Follow-up blood cultures. Chest x-ray. As well as an echocardiogram given the continued temperature spikes. Exam - Constitutional Vitals: Period Temp Pulse Resp BP Sys/[place] Pulse Ox Last 24 Hr 98.5 F-101.7 F 16-101 8-20 110-179/64-86 92-99 General appearance: normal weight - Head Head exam: Present: normal inspection - ENT ENT exam: Present: normal exam - Respiratory Respiratory exam: Present: clear to auscultation bilaterally - Cardiovascular Cardiovascular exam: Present: regular rate and rhythm - GI/Abdominal GI/Abdominal exam: Present: normal bowel sounds - Extremities Exam Extremities exam: Present: normal inspection - Neurological Exam Neurological exam: Present: alert, oriented X3, CN II-XII intact - Psychiatric Psychiatric exam: Present: normal affect Results - Labs CBC & BMP: 01/13/17 04:32 01/11/17 03:00
[2017-01-13] MEDS: ACETAMINOPHEN 325 MG TABLET PO PRN (10:05)
[2017-01-13 10:11] LABS: Basophils % 0.3 % (0.0-0.8); Eosinophils # 0.7 10*3/uL (0.0-0.87); Eosinophils % 5.6 % (0.00-10.9); Hematocrit 24.2 VOL% (35.7-47.0); Hemoglobin 8.4 GM/DL (12.0-16.0); Immature Granulocytes % 0.6 %; Immature Granulocytes Absolute 0.08 #; Lymphocytes # 2.2 10*3/uL (1.4-4.0); Mean Corpuscular HGB Conc 34.7 GM/DL (32-36); Mean Corpuscular Hemoglobin 28 PG (27-34); Mean Corpuscular Volume 80.1 FL (87-102); Monocytes # 1.2 10*3/uL (0.11-0.8); Neutrophils # 8.6 10*3/uL (1.4-7.4); Neutrophils % 67.5 % (38.7-73.9); Platelet Count 260 T/CUMM (130-400); Red Blood Count 3.02 MC/CUMM (3.8-5.5); Red Cell Distribution Width 15.5 % (9.3-17.3); White Blood Count 12.8 T/CUMM (4-12)
--- NOTE | 2017-01-13 13:31 | Dialysis Note ---
Dialysis Note - Dialysis Note Patient seen on dialysis tolerated procedure no acute changes. Blood pressure 90/50.
--- NOTE | 2017-01-13 14:54 | XRay Report ---
Exam: XR chest portable Indication: Fever Comparison study: 09/11/2016 radiograph Findings: Right chest dialysis catheter is in similar position. The heart, mediastinum and bony structures are stable from prior. There is no focal consolidation, pneumothorax or pleural effusion identified. Impression: Right-sided dialysis catheter again noted in similar position. Similar mild cardiomegaly. Otherwise, no active disease. PROCEDURE INTERPRETED AT [facility] DEPARTMENT OF RADIOLOGY Final Report Signed by: Nasir Rutherford
[2017-01-13] MEDS: HEPARIN DRIP 25,000 UNITS/500 ML PREMIX IV SCH (16:13)
--- NOTE | 2017-01-13 16:30 | ECHO Report ---
Jesus Slater Exam Date: 01/13/2017 09:45 Referring Physician: Technologist: Collette Reeves Age: 41 Ht (in): 62 Wt (lb): 163 Gender: F Exam Location: [facility] Echo Indications: Diabetes, acute DVT, ESRD, HTN BP: 152 / 83 HR: 101 Rhythm: Sinus tachycardia Technical Quality: Technically difficult study IMPRESSIONS 1. Left ventricle is normal size with mild concentric left ventricular hypertrophy. Ejection fraction is 60%. 2. Other cardiac chambers are normal size. 3. Aortic valve is mildly sclerotic but with normal Doppler. 4. Mitral valve is minimally thickened with normal Doppler. 5. Right-sided valves are anatomically function normal. MEASUREMENTS (Male / Female) Normal Values 2D ECHO LV Diastolic Diameter PLAX 3.5 cm 4.2 - 5.9 / 3.9 - 5.3 cm LV Systolic Diameter PLAX 1.6 cm LV Fractional Shortening PLAX 53.9 % IVS Diastolic Thickness 1.4 cm 0.6 - 1.0 / 0.6 - 0.9 cm LVPW Diastolic Thickness 1.0 cm 0.6 - 1.0 / 0.6 - 0.9 cm RV Internal Dim ED PLAX 2.3 cm Aortic Root Diameter 2.3 cm LA Systolic Diameter LX 2.8 cm 3.0 - 4.0 / 2.7 - 3.8 cm DOPPLER TR Peak Velocity 257.0 cm/s TR Peak Gradient 26.4 mmHg FINDINGS Left Ventricle Normal left ventricular cavity size. Mild concentric left ventricular hypertrophy. Left ventricular ejection fraction is estimated at 60 %. Right Ventricle Normal right ventricular size. Right Atrium The right atrium is normal size. Left Atrium Normal left atrial size. Mitral Valve Mitral valve may be minimally thickened with trace regurgitation. Aortic Valve Aortic valve sclerosis without stenosis or regurgitation. Probably tricuspid structure. Tricuspid Valve Morphologically normal tricuspid valve. Trace tricuspid valve regurgitation. Tricuspid regurgitation velocities suggest a PAP of 31- 36 mmHg. Pulmonic Valve Morphologically normal pulmonic valve. Trace pulmonary valve regurgitation. Pericardium No pericardial effusion. Aorta Normal size aortic root and proximal ascending aorta. Riley Malagon MD (Electronically Signed) Final Date: 13 January 2017 16:30
[2017-01-13] MEDS: LEVOFLOXACIN INJ 250 MG in PREMIX 1 EACH IV SCH (20:48)
[2017-01-14] MEDS: metroNIDAZOLE INJ 500 MG in PREMIX 1 EACH IV SCH ×3 (00:09→16:50)
[2017-01-14] MEDS: MORPHINE 2 MG/1 ML SYRINGE IV PRN ×3 (03:35→21:26)
--- NOTE | 2017-01-14 07:04 | Hospitalist Progress Note ---
Assessment and Plan (1) ESRD (end stage renal disease) Status: Chronic Assessment and plan: Initiation of dialysis in September with construction of a right arm vascular access in December. Current Visit: Yes (2) Acute deep vein thrombosis (DVT) of right upper extremity Status: Acute Assessment and plan: Brachial vein thrombosis. Significant improvement in physical examination. Current Visit: Yes Qualifiers: Affected thrombotic vein of extremity: brachial Qualified Code(s): I82.621 - Acute embolism and thrombosis of deep veins of right upper extremity (3) Diabetes Status: Chronic Current Visit: No Qualifiers: Diabetes mellitus type: type 2 Diabetes mellitus complication status: with kidney complications Chronic kidney disease stage: on chronic dialysis (4) Colitis Status: Acute Assessment and plan: Diagnoses based on GI upset with diffuse abdominal pain and CT scanning showing colonic thickening. Antibiotic coverage initiated 08 January with follow-up CT scan demonstrating slight improvement though she continues febrile with significant abdominal complaints. Current Visit: Yes Hospitalist: Subjective Interval history: 41-year-old female with hypertension diabetes who presented in September with end- stage renal disease. She had a right-sided tunnel catheter placed. In December she had a right sided vascular access constructed. Initial use of the vascular access caused swelling with ultrasound demonstrating a brachial vein thrombosis. She was hospitalized placed on a heparin and Coumadin. Her INR became therapeutic however in the interval she began to complain of nausea, vomiting with diffuse abdominal pain. Gallbladder ultrasound was negative, CT scan of the abdomen demonstrated thickening of colon wall in a pattern suggestive of colitis. The patient was febrile and was placed on antibiotics at that time. She has continued to have anorexia, vomiting and abdominal pain. She has had small-volume bowel movements. A repeat CT scan shows slight improvement although patient continues to have temperatures between 100.5 and 101.5. Chest x-rays demonstrated no infiltrate. An echocardiogram was unremarkable. She is been placed back on heparin and Coumadin is held and she is anticipated for colonoscopy. Today her symptoms are largely unchanged. Inspection of her right arm shows substantial improvement since I had seen her last on 09 January. Exam - Constitutional Vitals: Period Temp Pulse Resp BP Sys/[place] Pulse Ox Last 24 Hr 97.9 F-101.7 F 95-101 18-20 90-152/54-83 95-99 General appearance: over weight - Respiratory Respiratory exam: Present: clear to auscultation bilaterally. Absent: rales, rhonchi, wheezes - Cardiovascular Cardiovascular exam: Present: regular rate and rhythm - GI/Abdominal GI/Abdominal exam: Present: tenderness (Diffusely). Absent: normal bowel sounds , distended, rebound - Extremities Exam Extremities exam: Absent: edema - Neurological Exam Neurological exam: Present: alert, oriented X3 Results - Labs CBC & BMP: 01/14/17 07:30 01/14/17 07:30
[2017-01-14 07:42] LABS: Basophils # 0.1 10*3/uL (0.0-0.2); Eosinophils # 1.6 10*3/uL (0.0-0.87); Hemoglobin 9.8 GM/DL (12.0-16.0); Mean Corpuscular Hemoglobin 28 PG (27-34)
[2017-01-14 07:54] LABS: Basophils % 0.4 % (0.0-0.8); Eosinophils % 6.5 % (0.00-10.9); Immature Granulocytes % 0.8 %; Lymphocytes # 3.4 10*3/uL (1.4-4.0); Mean Corpuscular HGB Conc 33.8 GM/DL (32-36); Mean Corpuscular Volume 81.5 FL (87-102); Mean Platelet Volume 10.8 FL (9.6-12.0); Monocytes # 1.7 10*3/uL (0.11-0.8); Neutrophils # 17.5 10*3/uL (1.4-7.4); Neutrophils % 71.3 % (38.7-73.9); Platelet Count 337 T/CUMM (130-400); Red Blood Count 3.56 MC/CUMM (3.8-5.5); Red Cell Distribution Width 15.7 % (9.3-17.3); White Blood Count 24.5 T/CUMM (4-12)
[2017-01-14 08:05] LABS: Band Neutrophils 3 % (0-10); Eosinophils 14 % (0-10); Lymphocytes 14 % (20-55); Segmented Neutrophils 66 % (50-85); Total Cells Counted 100
[2017-01-14 08:06] LABS: Hypochromasia 1+; Microcytosis Slight; Platelet Estimate Normal
[2017-01-14 08:07] LABS: INR 4.2
[2017-01-14 08:10] LABS: PT Patient Result 48.8 SECS
[2017-01-14] MEDS: LOSARTAN 50 MG TABLET PO SCH ×2 (08:37→21:25)
[2017-01-14] MEDS: CALCIUM ACETATE 667 MG CAPSULE PO SCH ×3 (08:38→18:13)
[2017-01-14] MEDS: INSULIN LISPRO 100 UNIT/ML SUBCUT SCH ×4 (08:38→23:20)
[2017-01-14] MEDS: PANTOPRAZOLE 40 MG TABLET PO SCH ×2 (08:38→21:25)
[2017-01-14] MEDS: cloNIDine 0.1 MG TABLET PO SCH ×2 (08:38→23:20)
[2017-01-14 08:48] LABS: Calcium 7.3 MG/DL (8.5-10.1); Osmolality,Calculated 275.2 MOS/KG (273-304); Potassium 4.8 MMOL/L (3.5-5.1)
[2017-01-14] MEDS: AZTREONAM 500 MG in SODIUM CHLORIDE 0.9% 100 ML IV SCH ×2 (09:44→21:24)
--- NOTE | 2017-01-14 10:15 | Gastrointestinal Progress Note ---
<OwenAngi Courtney - Last Filed: 01/14/17 10:11> Assessment and Plan (1) Abdominal pain Status: Acute Assessment and plan: 01/14-continues to be febrile, elevation in WBCs. INR elevated at 4.2. Coumadin discontinued and heparin drip has been started. Plan an addendum to follow by Dr. Castellanos. 01/13-abdominal pain with CT of abdomen with contrast noted with internal improvement of colitis. Poor nutritional intake and continued upper quadrant abdominal pain with negative gallbladder ultrasound. Continue clear liquid diet and hold on continued bowel prep at this time due to elevated INR. Plan an addendum to follow Dr. Castellanos. Current Visit: Yes Gastroenterology - PN: Subj Interval history: CC: Abdominal pain Patient is seen, awake however somewhat lethargic today. She states she is not feeling well and did not rest overnight. Her Coumadin has been discontinued at this time and she has been started on a heparin drip for her DVT. INR is elevated today at 4.2. She is also noted to have an elevation in her WBCs at 24 ,000 up from 12,000 on yesterday. Abdomen is soft, tender to palpation. She has continued to run fever overnight up to 101.7. She had an echocardiogram on yesterday which was unremarkable. Urine culture was noted to be positive for gram-negative rods however this is still pending with the final report. Preliminary blood cultures are negative at this time. ROS: Denies shortness of breath or chest pain Exam (Progress Note) - Constitutional Vitals: Period Temp Pulse Resp BP Sys/[place] Pulse Ox Last 24 Hr 97.9 F-100.4 F 95-101 14-20 90-143/54-66 95-99 General appearance: normal weight, no acute distress - Head Head exam: Present: normal inspection, normocephalic - Eye Eye exam: Present: other (Lids and conjunctivae unremarkable). Absent: scleral icterus - ENT ENT exam: Present: normal exam, normal oropharynx - Neck Neck exam: Present: normal inspection - Respiratory Respiratory exam: Present: clear to auscultation bilaterally. Absent: rales, rhonchi, wheezes - Cardiovascular Cardiovascular exam: Present: regular rate and rhythm. Absent: diastolic murmur , JVD, systolic murmur - GI/Abdominal GI/Abdominal exam: Present: normal bowel sounds, tenderness, soft. Absent: ascites, distended, mass, organomegaly - Extremities Exam Extremities exam: Present: normal inspection, full ROM - Back Exam Back exam: Present: normal inspection - Neurological Exam Neurological exam: Present: alert, oriented X3 - Psychiatric Psychiatric exam: Present: normal affect, normal mood - Skin Skin exam: Present: normal color, warm, dry Results - Labs CBC & BMP: 01/14/17 07:30 01/14/17 07:30 Lab Results: I have reviewed the past 24 hour labs <Poncho Castellanos - Last Filed: 01/14/17 11:54> Exam (Progress Note) - Constitutional Vitals: Period Temp Pulse Resp BP Sys/[place] Pulse Ox Last 24 Hr 97.9 F-100.4 F 95-101 14-20 90-143/54-66 95-99 Results - Labs CBC & BMP: 01/14/17 07:30 01/14/17 07:30
[2017-01-14] MEDS ORDERED: HYOSCYAMINE 0.125 MG TABLET PO PRN (13:16)
[2017-01-14] MEDS: ACETAMINOPHEN 325 MG TABLET PO PRN (13:17)
--- NOTE | 2017-01-14 17:14 | Infectious Disease Consult ---
Assessment and Plan (1) Acute deep vein thrombosis (DVT) of right upper extremity Status: Acute Current Visit: Yes Qualifiers: Affected thrombotic vein of extremity: brachial Qualified Code(s): I82.621 - Acute embolism and thrombosis of deep veins of right upper extremity (2) Colitis Status: Acute Assessment and plan: 1 stool sample was negative for C. difficile. We should send 2 more samples. She is on empiric Flagyl which I agree with. Current Visit: Yes (3) Fever Status: Acute Assessment and plan: Not sure the cause of the fever and leukocytosis, she does have diarrhea and abdominal pains or colitis is a possibility. Initial blood cultures were negative and repeat from yesterday are pending. No evidence of pneumonia and chest x-ray. She does seem to not have a urinary tract infection. Recommendations: I agree with current empiric antibiotics. Will follow cultures and adjust accordingly. Thank you very much for the consult. Will follow. Current Visit: Yes (4) ESRD (end stage renal disease) Status: Chronic Current Visit: Yes (5) Hypertension Status: Chronic Current Visit: Yes Qualifiers: Hypertension type: essential hypertension Qualified Code(s): I10 - Essential (primary) hypertension (6) Diabetes Status: Chronic Current Visit: No Qualifiers: Diabetes mellitus type: type 2 Diabetes mellitus complication status: with kidney complications Chronic kidney disease stage: on chronic dialysis History of Present Illness Chief complaint: Fever History of present illness: Ms. Slater is a 41 year old female presented 8 days ago with pain and swelling to the right. This started after they used her AV fistula for the first time. She was diagnosed with a DVT in the right arm. Since admission the patient has been having on and off fever. She has been progressively weak and barely able to sit up in the bed. She still having a lot of diarrhea for the past several days and some abdominal pain however no nausea or vomiting. She she has been having a wet cough but not much sputum production. No pleuritic chest pain. Because of the persisting fevers and the fact that her white blood cell count has doubled to 24 today I am asked to assist with management. She has been on Flagyl for the diarrhea and also levofloxacin and aztreonam because of gram negative rods in her urine culture, ID pending. Home Medications Medication Instructions Recorded Confirmed Type cloNIDine TAB [Catapres Tab] 0.1 mg PO BID #90 tablet 09/13/16 01/06/17 Rx Calcium Acetate [Phoslo] 667 mg PO TID 12/13/16 01/06/17 History Losartan/Hydrochlorothiazide 100 mg PO DAILY 12/13/16 01/06/17 History [Losartan-Hctz 100-12.5 mg Tab] Allergies Allergy/AdvReac Type Severity Reaction Status Date / Time Penicillins Allergy Severe ITCHING Verified 01/06/17 04:06 aspirin Allergy Intermediate ITCHING Verified 01/06/17 04:06 12 point system: reviewed and no additional remarkable complaints except as stated (Per HPI) Medical,Surgical,& Family Hx - Medical History Cardio: History of: Hypertension Psychological: History of: Bipolar Disorder Neurology: History of: Migraine No history of: Seizures HEENT: History of: Eye Problem (CATARACTS) Endocrine: No history of: Diabetes Mellitus (IDDM), Diabetes Mellitus (NIDDM), Thyroid Disorder, Endocrine Cancer, Endocrine Problems Respiratory: History of: Asthma, Bronchitis Renal: History of: Dialysis, Renal Failure Gastrointestinal: History of: GERD Musculoskeletal: Comment Only: Musculoskeletal Problems (ARTHRITIS HANDS) Hematology: History of: Sickle Cell Disease (SICKLE CELL TRACE) - Surgical History Cardiac Surgeries: Sugical HX of: Cardiac Catheterization HEENT Surgeries: Surgical HX of: Eye Surgery (RETICAL SURGERY,LASER SURGERY) Patient denies: Thyroid Surgery Reproductive Surgeries: Surgical HX of;: Section (X4), Tubal Ligation Patient denies;: Breast Surgery, Dilation and Curettage, Gynecologic Surgery , Hysterectomy - Family History Family History: Reports;: Family Cancer (GRANDMOTHER), Family Diabetes (MOTHER, FATHER , DAUGHTER), Family Heart Disease (MOTHER), Family Hypertension (MOTHER, FATHER , DAUGHTER), Family Stroke (AUNT) - Social History Smoking Status: Never smoker Frequency of Alcohol Use: None Type of Drug Use: None Infectious Disease Exam H&P - Constitutional Vitals: Vital Signs Temp Pulse Resp BP Pulse Ox 100.1 F H 92 H 18 110/61 97 01/14/17 16:00 01/14/17 16:00 01/14/17 16:00 01/14/17 16:00 01/14/17 16:00 Intake and Output 01/14/17 01/14/17 01/14/17 07:59 15:59 23:59 Intake Total 343 / 343 100 / 100 100 / 100 Output Total 150 / 150 Balance 193 / 193 100 / 100 100 / 100 Intake: IV 343 / 343 100 / 100 100 / 100 Azactam 500 mg In Ns 100 100 / 100 ml @ 200 mls/hr IV Q12H BARBARA Rx#:[id number] Heparin Drip 25,000 Units 243 / 243 0 / 0 /500 ml25,000 units In 500 ml @ 18 UNITS/KG/HR 26.715 mls/hr IV TITRATE BARBARA Rx#:[id number] Flagyl Inj 500 mg In 100 / 100 100 / 100 Premix 1 Each @ 100 mls/ hr IV Q8H BARBARA Rx#: [id number] Output: Urine 150 / 150 Other: Voiding Method Indwelling Catheter Indwelling Catheter # Bowel Movements 0 Exam: General: Patient looks ill HEENT: Mucous membranes pink and moist, anicteric acyanotic, VERO, no oropharyngeal exudates Neck: Supple, no thyroid gland enlargement Respiratory system: Breath sounds a bit harsh, no crepitations or wheezes Cardiovascular: Normal S1 and S2, no murmurs appreciated Abdomen: Normal bowel sounds, soft mildly tender throughout, no organomegaly or mass Genitourinary: No suprapubic pain or bladder distention, clear urine from [place] catheter Extremities: no edema of legs, mild edema right upper extremity Skin: No rash Reports - Labs CBC & BMP: 01/14/17 07:30 01/14/17 07:30 Labs: Laboratory Results - last 24 hr 01/13/17 01/13/17 01/14/17 18:50 22:08 07:13 WBC RBC Hgb Hct MCV MCH MCHC RDW Plt Count MPV Neut % (Auto) Lymph % (Auto) [place] % (Auto) Eos % (Auto) Baso % (Auto) Neut # (Auto) Lymph # (Auto) [place] # (Auto) Eos # (Auto) Baso # (Auto) Total Counted Immature Gran % Nucleated RBC % Immature Gran # Segmented Neutrophils Band Neutrophils Lymphocytes Monocytes Eosinophils Nucleated RBCs # Platelet Estimate Hypochromasia Microcytosis INR PT Patient/Control Mix Circ Anticoag PTT > 320.0 H* D Sodium Potassium Chloride Carbon Dioxide Anion Gap BUN Creatinine GFR Calculation BUN/Creatinine Ratio Glucose POC Glucose 189 H 188 H Calculated Osmolality Calcium 01/14/17 01/14/17 01/14/17 07:30 07:30 07:30 WBC 24.5 H D RBC 3.56 L Hgb 9.8 L Hct 29.0 L MCV 81.5 L MCH 28 MCHC 33.8 RDW 15.7 Plt Count 337 D MPV 10.8 Neut % (Auto) 71.3 Lymph % (Auto) 14.0 L [place] % (Auto) 7.0 Eos % (Auto) 6.5 Baso % (Auto) 0.4 Neut # (Auto) 17.5 H Lymph # (Auto) 3.4 [place] # (Auto) 1.7 H Eos # (Auto) 1.6 H Baso # (Auto) 0.1 Total Counted 100 Immature Gran % 0.8 Nucleated RBC % 0.0 Immature Gran # 0.20 Segmented Neutrophils 66 Band Neutrophils 3 Lymphocytes 14 L Monocytes 3 Eosinophils 14 H Nucleated RBCs # 0.00 Platelet Estimate Normal Hypochromasia 1+ Microcytosis Slight INR 4.2 PT Patient/Control Mix 48.8 D Circ Anticoag PTT 189.3 H* D Sodium Potassium Chloride Carbon Dioxide Anion Gap BUN Creatinine GFR Calculation BUN/Creatinine Ratio Glucose POC Glucose Calculated Osmolality Calcium 01/14/17 01/14/17 01/14/17 07:30 11:49 15:55 WBC RBC Hgb Hct MCV MCH MCHC RDW Plt Count MPV Neut % (Auto) Lymph % (Auto) [place] % (Auto) Eos % (Auto) Baso % (Auto) Neut # (Auto) Lymph # (Auto) [place] # (Auto) Eos # (Auto) Baso # (Auto) Total Counted Immature Gran % Nucleated RBC % Immature Gran # Segmented Neutrophils Band Neutrophils Lymphocytes Monocytes Eosinophils Nucleated RBCs # Platelet Estimate Hypochromasia Microcytosis INR PT Patient/Control Mix Circ Anticoag PTT Sodium 134 L Potassium 4.8 Chloride 99 Carbon Dioxide 23 Anion Gap 16.8 H BUN 24 H Creatinine 7.60 H GFR Calculation 7 BUN/Creatinine Ratio 3.00 L Glucose 171 H POC Glucose 240 H 135 H Calculated Osmolality 275.2 Calcium 7.3 L - Reports Microbiology: Microbiology 01/12/17 Unknown Urine Culture - Preliminary Urine,Voided Gram Negative Rods 01/13/17 09:39 Blood Culture - Preliminary Blood No growth at 1 day 01/13/17 09:39 Blood Culture - Preliminary Blood No growth at 1 day 01/08/17 13:13 Blood Culture - Final Blood No growth at 5 days 01/08/17 13:13 Blood Culture - Final Blood No growth at 5 days - Diagnostic Findings Procedure: Chest x-ray: report reviewed by me (No acute pathology)
--- NOTE | 2017-01-14 17:20 | Nephrology Progress Note ---
Nephrology - PN: Subj Interval history: Patient continues to have temperature spikes. On broad-spectrum antibiotics. She is scheduled for colonoscopy later this week. Exam (PN)-Nephrology - Vital Signs Vital signs: Period Temp Pulse Resp BP Sys/[place] Pulse Ox Last 24 Hr 97.9 F-101.3 F 92-101 14-20 90-143/54-68 95-99 - General Appearance General appearance: well-developed, well-nourished, fatigue EENT: ATNC Neck: supple Respiratory: clear Cardiology: no edema, regular rate, regular rhythm Gastrointestinal: normoactive bowel sounds, no tenderness, no guarding Neurologic: alert and oriented x3 Musculoskeletal: no deformities Psychiatric: mood/affect appropriate - Lab 01/14/17 07:30 01/14/17 07:30 Most recent lab results Calcium 7.3 MG/DL (8.5-10.1) L 01/14/17 07:30 Assessment and Plan (1) ESRD (end stage renal disease) Status: Chronic Assessment and plan: Continue with scheduled hemodialysis. Current Visit: Yes (2) Diabetes Status: Chronic Assessment and plan: Continue with scheduled medicine. Current Visit: No Qualifiers: Diabetes mellitus type: type 2 Diabetes mellitus complication status: with kidney complications Chronic kidney disease stage: on chronic dialysis (3) Deep venous thrombosis of upper extremity Status: Acute Assessment and plan: Patient is now on heparin therapy in preparation for colonoscopy later this week. Pain in the right arm. Adjust pain medications. Current Visit: Yes (4) Acute deep vein thrombosis (DVT) of right upper extremity Status: Acute Assessment and plan: Coumadin therapy is being adjusted. INR is therapeutic. Current Visit: Yes Qualifiers: Affected thrombotic vein of extremity: brachial Qualified Code(s): I82.621 - Acute embolism and thrombosis of deep veins of right upper extremity (5) AV fistula Status: Acute Current Visit: Yes (6) Abdominal cramping Status: Acute Assessment and plan: Which could be from gas pain. Colonoscopy scheduled. Current Visit: Yes (7) Fever Status: Acute Current Visit: Yes
[2017-01-14] MEDS: HEPARIN DRIP 25,000 UNITS/500 ML PREMIX IV SCH (17:47)
[2017-01-15] MEDS: metroNIDAZOLE INJ 500 MG in PREMIX 1 EACH IV SCH ×4 (00:11→23:54)
[2017-01-15] MEDS: ACETAMINOPHEN 325 MG TABLET PO PRN (03:26)
--- NOTE | 2017-01-15 07:12 | Hospitalist Progress Note ---
Assessment and Plan (1) ESRD (end stage renal disease) Status: Chronic Assessment and plan: Initiation of dialysis in September with construction of a right arm vascular access in December. Current Visit: Yes (2) Acute deep vein thrombosis (DVT) of right upper extremity Status: Acute Assessment and plan: Brachial vein thrombosis. Significant improvement in physical examination. Current Visit: Yes Qualifiers: Affected thrombotic vein of extremity: brachial Qualified Code(s): I82.621 - Acute embolism and thrombosis of deep veins of right upper extremity (3) Diabetes Status: Chronic Current Visit: No Qualifiers: Diabetes mellitus type: type 2 Diabetes mellitus complication status: with kidney complications Chronic kidney disease stage: on chronic dialysis (4) Colitis Status: Acute Assessment and plan: Diagnoses based on GI upset with diffuse abdominal pain and CT scanning showing colonic thickening. Antibiotic coverage initiated 08 January with follow-up CT scan demonstrating slight improvement though she continues febrile with significant abdominal complaints. Blood cultures have been repeated with follow -up C. difficile stool specimens. Current Visit: Yes Hospitalist: Subjective Interval history: 41-year-old female initiated on hemodialysis after presentation with end-stage renal disease in September of this year. Initially she had a right sided tunneled catheter placed in December underwent a right sided vascular access construction. The tunneled catheter is left in place and with the first effort using her access device swelling was encountered at this site. Ultrasound demonstrated a brachial vein thrombosis. She was hospitalized with initiation of anticoagulation. Following hospitalization she developed a fever associated with abdominal pain nausea and severe anorexia. Gallbladder ultrasound was negative for cholecystitis. CT scan showed area of focal colitis. She was initiated on antibiotics on January 08 with renally adjusted Levaquin and Flagyl. Initial stools were negative for C. difficile. Blood cultures were negative. Urine specimen is reported to show a gram-negative rola however sensitivities and identifications are pending. A follow-up CT scan of the abdomen showed some improvement in the focal colitis. The patient however has continued to be symptomatic with abdominal pain anorexia vomiting. In addition she has had consistent fever. She has been seen by gastroenterology Coumadin has been held but not reversed and she has been reinitiated on heparin infusion. She continues to have a prolonged PTT as on the previous course of heparin treatment. Last evening temperature maximum was 102.4. Chest x-ray done on the showed no infiltrates patient's oxygen saturations have been stable. This morning she is somewhat sedated apparently a combination of pain medication and antiemetics. She does arouse with mild stimulation. Other than the temperature elevation overnight vital signs are stable. She has been recultured by infectious disease and antibiotics are unchanged. Exam - Constitutional Vitals: Period Temp Pulse Resp BP Sys/[place] Pulse Ox Last 24 Hr 99 F-102.4 F 92-110 14-20 91-161/42-82 90-99 General appearance: over weight - Respiratory Respiratory exam: Present: clear to auscultation bilaterally, other (Reduced tidal volume). Absent: rales, rhonchi, wheezes - Cardiovascular Cardiovascular exam: Present: regular rate and rhythm, systolic murmur (1/6 basilar flow murmur) - GI/Abdominal GI/Abdominal exam: Present: hypoactive bowel sounds. Absent: ascites, distended , rebound - Extremities Exam Extremities exam: Present: other (Right upper extremity swelling has decreased.) . Absent: edema - Neurological Exam Neurological exam: Absent: alert Results - Labs CBC & BMP: 01/14/17 07:30 01/14/17 07:30
[2017-01-15 07:41] LABS: INR 4.3
[2017-01-15 07:44] LABS: PT Patient Result 50.5 SECS
[2017-01-15] MEDS: INSULIN LISPRO 100 UNIT/ML SUBCUT SCH ×4 (08:33→20:51)
[2017-01-15] MEDS: LOSARTAN 50 MG TABLET PO SCH ×2 (08:33→20:51)
[2017-01-15] MEDS: cloNIDine 0.1 MG TABLET PO SCH ×2 (08:33→20:51)
[2017-01-15] MEDS: PANTOPRAZOLE 40 MG TABLET PO SCH ×2 (08:33→20:51)
[2017-01-15] MEDS: CALCIUM ACETATE 667 MG CAPSULE PO SCH ×3 (08:33→16:33)
--- NOTE | 2017-01-15 09:25 | Event Note ---
There does not appear to be any surgical intervention for this patient. Do not use fistula until all of her acute issues have resolved and I see her back in clinic. Please call back with any further questions per
--- NOTE | 2017-01-15 10:35 | Gastrointestinal Progress Note ---
<Angi Weaver Courtney - Last Filed: 01/15/17 10:32> Assessment and Plan (1) Abdominal pain Status: Acute Assessment and plan: 01/15-continued fever overnight. INR remains elevated at 4.3. No complaints of abdominal pain today. Continue to monitor at present time. Plan an addendum to follow by Dr. Castellanos. 01/14-continues to be febrile, elevation in WBCs. INR elevated at 4.2. Coumadin discontinued and heparin drip has been started. Plan an addendum to follow by Dr. Castellanos. 01/13-abdominal pain with CT of abdomen with contrast noted with internal improvement of colitis. Poor nutritional intake and continued upper quadrant abdominal pain with negative gallbladder ultrasound. Continue clear liquid diet and hold on continued bowel prep at this time due to elevated INR. Plan an addendum to follow Dr. Castellanos. Current Visit: Yes Gastroenterology - PN: Subj Interval history: CC: Abdominal pain Patient is seen in dialysis, is complaining of leg pain today. Denies any abdominal pain at present time. Denies any nausea or vomiting. Her INR remains elevated at 4.3. She is also noted to have ran a temp of 102.[address] Wiggins with ID is following patient at present time. No repeat WBCs noted today. She is taking in small amounts of her diet at present time. Final UA report is still pending. Abdomen is soft, nontender. ROS: Denies shortness of breath or chest pain Exam (Progress Note) - Constitutional Vitals: Period Temp Pulse Resp BP Sys/[place] Pulse Ox Last 24 Hr 99 F-102.4 F 92-110 14-20 91-161/42-82 90-99 General appearance: normal weight, no acute distress - Head Head exam: Present: normal inspection, normocephalic - Eye Eye exam: Present: other (Lids and conjunctive are unremarkable). Absent: scleral icterus - ENT ENT exam: Present: normal exam, normal oropharynx - Neck Neck exam: Present: normal inspection - Respiratory Respiratory exam: Present: clear to auscultation bilaterally. Absent: rales, rhonchi, wheezes - Cardiovascular Cardiovascular exam: Present: regular rate and rhythm. Absent: diastolic murmur , JVD, systolic murmur - GI/Abdominal GI/Abdominal exam: Present: normal bowel sounds, soft. Absent: ascites, distended, mass, organomegaly, tenderness - Extremities Exam Extremities exam: Present: normal inspection, full ROM - Back Exam Back exam: Present: normal inspection - Neurological Exam Neurological exam: Present: alert, oriented X3 - Psychiatric Psychiatric exam: Present: normal affect, normal mood - Skin Skin exam: Present: normal color, warm, dry Results - Labs CBC & BMP: 01/14/17 07:30 01/14/17 07:30 Lab Results: I have reviewed the past 24 hour labs <Poncho Castellanos - Last Filed: 01/15/17 18:48> Exam (Progress Note) - Constitutional Vitals: Period Temp Pulse Resp BP Sys/[place] Pulse Ox Last 24 Hr 99 F-102.4 F 96-116 14-20 91-161/42-82 90-100 Results - Labs CBC & BMP: 01/14/17 07:30 01/14/17 07:30
--- NOTE | 2017-01-15 11:28 | Infectious Disease Progress ---
Assessment and Plan (1) Acute deep vein thrombosis (DVT) of right upper extremity Status: Acute Current Visit: Yes Qualifiers: Affected thrombotic vein of extremity: brachial Qualified Code(s): I82.621 - Acute embolism and thrombosis of deep veins of right upper extremity (2) Colitis Status: Acute Assessment and plan: 1 stool sample was negative for C. difficile. FU with 2 more samples. Continue empiric Flagyl. Current Visit: Yes (3) Fever Status: Acute Assessment and plan: So far I do not see an obvious cause for the fever and leukocytosis. No obvious infection at the moment. I wonder if it could be a reaction to the DVT. Recommendations: Continue empiric antibiotics. I am going to do an JEY screen in case this is some rheumatologic problem. Current Visit: Yes (4) ESRD (end stage renal disease) Status: Chronic Current Visit: Yes (5) Hypertension Status: Chronic Current Visit: Yes Qualifiers: Hypertension type: essential hypertension Qualified Code(s): I10 - Essential (primary) hypertension (6) Diabetes Status: Chronic Current Visit: No Qualifiers: Diabetes mellitus type: type 2 Diabetes mellitus complication status: with kidney complications Chronic kidney disease stage: on chronic dialysis Infectious Disease - PN: Subj Interval history: Patient was seen on dialysis, she says she still feeling ill however no abdominal pain today. She spiked more than 102 early this morning. Her main complaint today is pain in her legs. Infectious Disease Exam (PN) - Constitutional Vitals: Temp Pulse Resp BP Pulse Ox 99.1 F 97 H 14 104/58 90 L 01/15/17 07:45 01/15/17 07:45 01/15/17 07:45 01/15/17 07:45 01/15/17 04:30 General appearance: normal weight, no acute distress Exam: General appearance: Chronically ill looking patient, on dialysis - Eye Eye exam: Present: EOMI. no icterus Pupils: Present: VERO - ENT ENT exam: Vision exudates on tongue and on buccal mucosa - Respiratory Respiratory exam: vesicular BS, no crepitations or wheezes - Cardiovascular Cardiovascular exam: regular rate and rhythm, no murmurs - GI/Abdominal GI/Abdominal exam: normal bowel sounds, soft, non-tender, no organomegaly or mass - Extremities Exam Extremities exam: no edema - Skin Skin exam: no rash Results - Labs CBC & BMP: 01/14/17 07:30 01/14/17 07:30 Lab Results: I have reviewed the past 24 hour labs (Repeat blood cultures no growth at day 1)
--- NOTE | 2017-01-15 12:47 | Dialysis Note ---
Dialysis Note - Dialysis Note Patient seen on dialysis. She is tolerating the procedure. Blood pressures 104 /58. Cardiovascular regular rate. Lungs are clear to auscultation. Abdomen is soft.
--- NOTE | 2017-01-15 12:49 | Event Note ---
Patient's urine specimen has returned with E. coli. The organism is resistant to Levaquin however it is covered by Azactam which have been initiated for fever on 13 January. Overall it may be advisable to simply reverse her INR either with use of Coumadin antagonist or potentially infusion of clotting factor preparation to allow evaluation of her colon.
[2017-01-15] MEDS: AZTREONAM 500 MG in SODIUM CHLORIDE 0.9% 100 ML IV SCH ×2 (13:10→20:59)
[2017-01-15] MEDS: MORPHINE 2 MG/1 ML SYRINGE IV PRN ×2 (13:17→19:44)
[2017-01-15] MEDS: FLUCONAZOLE 100 MG TABLET PO SCH (13:56)
[2017-01-15] MEDS: HEPARIN DRIP 25,000 UNITS/500 ML PREMIX IV SCH (15:31)
[2017-01-15] MEDS: LEVOFLOXACIN INJ 250 MG in PREMIX 1 EACH IV SCH (16:31)
[2017-01-16] MEDS: MORPHINE 2 MG/1 ML SYRINGE IV PRN ×3 (01:10→13:10)
[2017-01-16 06:07] LABS: INR 4.4
[2017-01-16 06:08] LABS: PT Patient Result 51.1 SECS
[2017-01-16] MEDS ORDERED: PHYTONADIONE 10 MG/1 ML AMP SUBCUT ONE (07:50)
--- NOTE | 2017-01-16 07:56 | Hospitalist Progress Note ---
Assessment and Plan (1) ESRD (end stage renal disease) Status: Chronic Assessment and plan: Initiation of dialysis in September with construction of a right arm vascular access in December. Current Visit: Yes (2) Acute deep vein thrombosis (DVT) of right upper extremity Status: Acute Assessment and plan: Brachial vein thrombosis. Significant improvement in physical examination. Current Visit: Yes Qualifiers: Affected thrombotic vein of extremity: brachial Qualified Code(s): I82.621 - Acute embolism and thrombosis of deep veins of right upper extremity (3) Diabetes Status: Chronic Current Visit: No Qualifiers: Diabetes mellitus type: type 2 Diabetes mellitus complication status: with kidney complications Chronic kidney disease stage: on chronic dialysis (4) Colitis Status: Acute Assessment and plan: Diagnoses based on GI upset with diffuse abdominal pain and CT scanning showing colonic thickening. Antibiotic coverage initiated 08 January with follow-up CT scan demonstrating slight improvement though she continues febrile with significant abdominal complaints. Blood cultures have been repeated with follow -up C. difficile stool specimens. The patient's fever appears to be responding to the Azactam suggesting that it may be have originated from an active urinary tract infection (pyelonephritis). Current Visit: Yes Hospitalist: Subjective Interval history: 41-year-old female initiated on hemodialysis after presentation with end-stage renal disease in September 2016. She had an initial right-sided tunnel catheter placed and in December underwent a right sided vascular access placement. Her tunneled catheter had been used for dialysis and is been left in place. The first effort using her vascular access resulting swelling at the site of puncture. Ultrasound demonstrated a brachial vein thrombosis. She was hospitalized with initiation of anticoagulation. Following hospitalization the patient developed fever associated with abdominal pain nausea and anorexia. Gallbladder ultrasound was negative for cholecystitis CT scan of the abdomen showed an area of focal colitis. On January 08 she was initiated on Levaquin and Flagyl for the CT findings. She did develop diarrhea with stools negative for CT C. difficile. Blood cultures were negative. The patient had a urine specimen obtained on the following a recurrence of fever and this grew a broadly sensitive E. coli which was however resistant to fluoroquinolones. On the Azactam had been added to her regimen. During the first portion of her hospital stay she had been successfully anticoagulated with Coumadin this was held but INR is continued elevated. Heparin was substituted concurrent with the therapeutic INR. She was seen by gastroenterology, nephrology, surgery , and infectious disease. She apparently has been afebrile over the last 24 hours. Her vital signs are stable. I spoke at length yesterday with patient's father regarding transfer to higher level of care. I am explained the hospital course assessment of consult etc. They still desire consideration of transfer. As per gastroenterology we will need to reverse the patient's Coumadin continuing heparin for her thrombosis with interruption of the heparin infusion to allow colonoscopy. Exam - Constitutional Vitals: Period Temp Pulse Resp BP Sys/[place] Pulse Ox Last 24 Hr 99.1 F-99.9 F 98-116 10-20 121-150/62-85 95-100 General appearance: over weight - Respiratory Respiratory exam: Present: clear to auscultation bilaterally. Absent: rales, rhonchi, wheezes - Cardiovascular Cardiovascular exam: Present: regular rate and rhythm - GI/Abdominal GI/Abdominal exam: Present: normal bowel sounds, tenderness. Absent: distended , rebound - Extremities Exam Extremities exam: Present: other (Induration over the right arm dialysis access stable, bruit present.). Absent: edema - Neurological Exam Neurological exam: Present: alert, oriented X3 - Psychiatric Psychiatric exam: Present: depressed Results - Labs CBC & BMP: 01/14/17 07:30 01/14/17 07:30
[2017-01-16] MEDS: metroNIDAZOLE INJ 500 MG in PREMIX 1 EACH IV SCH ×2 (08:59→16:58)
[2017-01-16] MEDS: INSULIN LISPRO 100 UNIT/ML SUBCUT SCH ×4 (09:00→21:38)
[2017-01-16] MEDS: LOSARTAN 50 MG TABLET PO SCH ×2 (09:00→21:14)
[2017-01-16] MEDS: PANTOPRAZOLE 40 MG TABLET PO SCH ×2 (09:00→21:14)
[2017-01-16] MEDS: FLUCONAZOLE 100 MG TABLET PO SCH (09:01)
[2017-01-16] MEDS: CALCIUM ACETATE 667 MG CAPSULE PO SCH ×3 (09:01→16:58)
[2017-01-16] MEDS: cloNIDine 0.1 MG TABLET PO SCH ×2 (09:02→21:29)
--- NOTE | 2017-01-16 09:43 | Gastrointestinal Progress Note ---
<Angi Weaver Courtney - Last Filed: 01/16/17 09:41> Assessment and Plan (1) Abdominal pain Status: Acute Assessment and plan: 01/16-febrile overnight. INR holding at 4.4. Noted E. coli on UA. Tolerating small amounts of clear liquids. No complaints of abdominal pain. Continue to monitor present time. Plan an addendum to follow Dr. Castellanos. 01/15-continued fever overnight. INR remains elevated at 4.3. No complaints of abdominal pain today. Continue to monitor at present time. Plan an addendum to follow by Dr. Castellanos. 01/14-continues to be febrile, elevation in WBCs. INR elevated at 4.2. Coumadin discontinued and heparin drip has been started. Plan an addendum to follow by Dr. Castellanos. 01/13-abdominal pain with CT of abdomen with contrast noted with internal improvement of colitis. Poor nutritional intake and continued upper quadrant abdominal pain with negative gallbladder ultrasound. Continue clear liquid diet and hold on continued bowel prep at this time due to elevated INR. Plan an addendum to follow Dr. Castellanos. Current Visit: Yes Gastroenterology - PN: Subj Interval history: CC: Abdominal pain Patient is seen, awake and alert with son at bedside. He continues to complain of pain in her legs and feet which she reports as being a sharp stabbing sensation. She states she feels that she get up in a chair that this would improve. Her INR remains elevated at this time at 4.4. UTI noted to grow out E. coli. She continues to run low-grade fever at this time overnight. She denies any abdominal pain, nausea vomiting and is tolerating small amounts for clear liquid diet. Abdomen is soft, nontender. ROS: Denies shortness of breath or chest pain Exam (Progress Note) - Constitutional Vitals: Period Temp Pulse Resp BP Sys/[place] Pulse Ox Last 24 Hr 99.1 F-99.9 F 98-116 10-20 121-150/62-85 95-100 General appearance: normal weight, no acute distress - Head Head exam: Present: normal inspection, normocephalic - Eye Eye exam: Present: other (Lids and conjunctive are unremarkable). Absent: scleral icterus - ENT ENT exam: Present: normal exam, normal oropharynx - Neck Neck exam: Present: normal inspection - Respiratory Respiratory exam: Present: clear to auscultation bilaterally. Absent: rales, rhonchi, wheezes - Cardiovascular Cardiovascular exam: Present: regular rate and rhythm. Absent: diastolic murmur , JVD, systolic murmur - GI/Abdominal GI/Abdominal exam: Present: normal bowel sounds, soft. Absent: ascites, distended, mass, organomegaly, tenderness - Extremities Exam Extremities exam: Present: normal inspection, full ROM - Back Exam Back exam: Present: normal inspection - Neurological Exam Neurological exam: Present: alert, oriented X3 - Psychiatric Psychiatric exam: Present: normal affect, normal mood - Skin Skin exam: Present: normal color, warm, dry Results - Labs CBC & BMP: 01/14/17 07:30 01/14/17 07:30 Lab Results: I have reviewed the past 24 hour labs <Poncho Castellanos - Last Filed: 01/16/17 11:46> Exam (Progress Note) - Constitutional Vitals: Period Temp Pulse Resp BP Sys/[place] Pulse Ox Last 24 Hr 99.1 F-100.4 F 98-116 10-20 121-150/62-85 95-100 Results - Labs CBC & BMP: 01/14/17 07:30 01/14/17 07:30
[2017-01-16] MEDS: AZTREONAM 500 MG in SODIUM CHLORIDE 0.9% 100 ML IV SCH (10:33)
--- NOTE | 2017-01-16 16:29 | Nephrology Progress Note ---
Nephrology - PN: Subj Interval history: She was moved to an ICU this afternoon. She has been hemodynamically stable. INR noted to be 4. Exam (PN)-Nephrology - Vital Signs Vital signs: Period Temp Pulse Resp BP Sys/[place] Pulse Ox Last 24 Hr 99.1 F-100.4 F 98-107 10-20 110-139/62-85 95-99 - General Appearance General appearance: well-developed, well-nourished EENT: ATNC Neck: supple Respiratory: clear Cardiology: no edema, regular rate, regular rhythm Gastrointestinal: normoactive bowel sounds, no tenderness, no guarding Neurologic: alert and oriented x3 Musculoskeletal: no clubbing Psychiatric: mood/affect appropriate - Lab 01/14/17 07:30 01/14/17 07:30 Most recent lab results Calcium 7.3 MG/DL (8.5-10.1) L 01/14/17 07:30 Assessment and Plan (1) ESRD (end stage renal disease) Status: Chronic Assessment and plan: Continue with scheduled hemodialysis. Current Visit: Yes (2) Diabetes Status: Chronic Assessment and plan: Continue with scheduled medicine. Current Visit: No Qualifiers: Diabetes mellitus type: type 2 Diabetes mellitus complication status: with kidney complications Chronic kidney disease stage: on chronic dialysis (3) Deep venous thrombosis of upper extremity Status: Acute Assessment and plan: Patient is now on heparin therapy in preparation for colonoscopy later this week. Pain in the right arm. Adjust pain medications. Current Visit: Yes (4) Acute deep vein thrombosis (DVT) of right upper extremity Status: Acute Assessment and plan: Patient is now on heparin therapy. Current Visit: Yes Qualifiers: Affected thrombotic vein of extremity: brachial Qualified Code(s): I82.621 - Acute embolism and thrombosis of deep veins of right upper extremity (5) AV fistula Status: Acute Current Visit: Yes (6) Abdominal cramping Status: Acute Current Visit: Yes (7) Fever Status: Acute Current Visit: Yes
--- NOTE | 2017-01-16 17:00 | Infectious Disease Progress ---
Assessment and Plan (1) Acute deep vein thrombosis (DVT) of right upper extremity Status: Acute Current Visit: Yes Qualifiers: Affected thrombotic vein of extremity: brachial Qualified Code(s): I82.621 - Acute embolism and thrombosis of deep veins of right upper extremity (2) Colitis Status: Acute Assessment and plan: 1 stool sample was negative for C. difficile. Testing of 2 more samples pending. Continue empiric Flagyl. Current Visit: Yes (3) Fever Status: Acute Assessment and plan: The only infection we have found so far is UTI due to E. coli. Fever curve trending down. Her JEY screen came back negative. Recommendations: Because she did not have a life-threatening allergy to penicillin, she told me it caused itching, I am going to change from aztreonam to cefazolin, renally dose of 500 mg IV daily this will treat the E. coli isolated from her urine. Current Visit: Yes (4) ESRD (end stage renal disease) Status: Chronic Current Visit: Yes (5) Hypertension Status: Chronic Current Visit: Yes Qualifiers: Hypertension type: essential hypertension Qualified Code(s): I10 - Essential (primary) hypertension (6) Diabetes Status: Chronic Current Visit: No Qualifiers: Diabetes mellitus type: type 2 Diabetes mellitus complication status: with kidney complications Chronic kidney disease stage: on chronic dialysis (7) Oral candidiasis Status: Acute Current Visit: Yes Infectious Disease - PN: Subj Interval history: Patient transferred to ICU this afternoon as the nurses did not like how she looked, she was quite drowsy and just very ill looking however not hemodynamically unstable. Her T-max today was 100.4. When I saw her this afternoon her main complaint was pain at the bottom of her feet. She also had mild abdominal pain but she said that was improved. It is that she was getting a lot of morphine and that may have been making her more drowsy than normal. Infectious Disease Exam (PN) - Constitutional Vitals: Temp Pulse Resp BP Pulse Ox 100.4 F H 98 H 16 115/74 98 01/16/17 11:31 01/16/17 14:00 01/16/17 14:00 01/16/17 14:00 01/16/17 14:00 General appearance: normal weight, no acute distress Exam: General appearance: Chronically ill looking patient, however she looks slightly better today may be because she was not as drowsy as yesterday. - Eye Eye exam: Present: EOMI. no icterus Pupils: Present: VERO - ENT ENT exam: White exudates on tongue and on buccal mucosa improved since yesterday - Respiratory Respiratory exam: vesicular BS, no crepitations or wheezes - Cardiovascular Cardiovascular exam: regular rate and rhythm, no murmurs - GI/Abdominal GI/Abdominal exam: normal bowel sounds, soft, non-tender, no organomegaly or mass - Extremities Exam Extremities exam: Mild to moderate right upper extremity edema, so felt to AV fistula in right arm, no leg edema - Skin Skin exam: no rash Results - Labs CBC & BMP: 01/14/17 07:30 01/14/17 07:30 Lab Results: I have reviewed the past 24 hour labs (Relatively sensitive E. coli cultured from urine, blood cultures remain negative)
[2017-01-16] MEDS: metroNIDAZOLE 250 MG TABLET PO SCH (22:49)
[2017-01-17 04:20] LABS: Basophils # 0.1 10*3/uL (0.0-0.2); Basophils % 0.3 % (0.0-0.8); Eosinophils # 2.3 10*3/uL (0.0-0.87); Eosinophils % 12.7 % (0.00-10.9); Hematocrit 26.4 VOL% (35.7-47.0); Hemoglobin 8.8 GM/DL (12.0-16.0); Immature Granulocytes % 1.4 %; Immature Granulocytes Absolute 0.25 #; Lymphocytes # 3.2 10*3/uL (1.4-4.0); Lymphocytes % 18.4 % (21.3-54.2); Mean Corpuscular HGB Conc 33.3 GM/DL (32-36); Mean Corpuscular Hemoglobin 27 PG (27-34); Mean Corpuscular Volume 81.5 FL (87-102); Mean Platelet Volume 10.4 FL (9.6-12.0); Monocytes # 1.5 10*3/uL (0.11-0.8); Monocytes % 8.7 % (1.7-12.7); Neutrophils # 10.3 10*3/uL (1.4-7.4); Neutrophils % 58.5 % (38.7-73.9); Platelet Count 387 T/CUMM (130-400); Red Blood Count 3.24 MC/CUMM (3.8-5.5); Red Cell Distribution Width 15.5 % (9.3-17.3); White Blood Count 17.7 T/CUMM (4-12)
[2017-01-17 04:36] LABS: INR 1.4; PT Patient Result 14.8 SECS
[2017-01-17 05:43] LABS: Eosinophils 11 % (0-10); Lymphocytes 18 % (20-55); Platelet Estimate Normal; Segmented Neutrophils 65 % (50-85); Total Cells Counted 100
[2017-01-17 05:44] LABS: Anisocytosis Slight; Microcytosis Slight
[2017-01-17] MEDS: metroNIDAZOLE 250 MG TABLET PO SCH ×4 (05:46→23:36)
[2017-01-17 06:12] LABS: Calcium 8.1 MG/DL (8.5-10.1); Magnesium 2.7 MG/DL (1.8-2.4); Osmolality,Calculated 270.8 MOS/KG (273-304); Potassium 4.4 MMOL/L (3.5-5.1)
[2017-01-17] MEDS: INSULIN LISPRO 100 UNIT/ML SUBCUT SCH ×4 (09:35→21:26)
[2017-01-17] MEDS: CALCIUM ACETATE 667 MG CAPSULE PO SCH ×3 (09:35→16:43)
[2017-01-17] MEDS: LOSARTAN 50 MG TABLET PO SCH ×2 (09:36→20:25)
[2017-01-17] MEDS: FLUCONAZOLE 100 MG TABLET PO SCH (09:36)
[2017-01-17] MEDS: PANTOPRAZOLE 40 MG TABLET PO SCH ×2 (09:36→20:25)
[2017-01-17] MEDS: cloNIDine 0.1 MG TABLET PO SCH ×2 (09:36→20:25)
--- NOTE | 2017-01-17 11:06 | Ultrasound Report ---
Exam: US venous doppler LE BI Indication: Leg pain Date: 01/17/2017 9:12 AM Findings: Grayscale color flow duplex/Doppler imaging and spectral analysis waveform imaging was performed with real-time ultrasound with image stored and captured. The right common femoral, superficial femoral, popliteal saphenous veins are patent with normal augmentation and compression. There is no evidence of popliteal or Massey's cyst. Normal wave form analysis present. Normal color flow The left common femoral, superficial femoral, popliteal saphenous veins are patent with normal augmentation and compression. There is no evidence of popliteal or Massey's cyst. Normal wave form analysis present. Normal color flow Impression: 1. No DVT PROCEDURE INTERPRETED AT [facility] DEPARTMENT OF RADIOLOGY Final Report Signed by: Dr. Miki Balderrama
--- NOTE | 2017-01-17 11:38 | Infectious Disease Progress ---
Assessment and Plan (1) Acute deep vein thrombosis (DVT) of right upper extremity Status: Acute Current Visit: Yes Qualifiers: Affected thrombotic vein of extremity: brachial Qualified Code(s): I82.621 - Acute embolism and thrombosis of deep veins of right upper extremity (2) Colitis Status: Acute Assessment and plan: 1 stool sample was negative for C. difficile. Testing of 2 more samples ordered but not yet done. Continue empiric Flagyl. Current Visit: Yes (3) Fever Status: Acute Assessment and plan: The only infection we have found so far is UTI due to E. coli. Patient afebrile for 48 hours. She is tolerating cefazolin without any allergic reaction. Overall she is looks better more alert and I think part of it is because she is off the morphine. Recommendations: Continue cefazolin for a few more days for the UTI Current Visit: Yes (4) ESRD (end stage renal disease) Status: Chronic Current Visit: Yes (5) Hypertension Status: Chronic Current Visit: Yes Qualifiers: Hypertension type: essential hypertension Qualified Code(s): I10 - Essential (primary) hypertension (6) Diabetes Status: Chronic Current Visit: No Qualifiers: Diabetes mellitus type: type 2 Diabetes mellitus complication status: with kidney complications Chronic kidney disease stage: on chronic dialysis (7) Oral candidiasis Status: Acute Assessment and plan: Resolved. Complete 3 days of fluconazole therapy. Current Visit: Yes Infectious Disease - PN: Subj Interval history: No acute issues overnight, has been hemodynamically stable. She has not had fever for over 48 hours. She admits that she is feeling better today and she was met watching TV. Tolerated some breakfast, less nausea and abdominal pain and diarrhea. No allergic reaction with the cefazolin started last evening. Infectious Disease Exam (PN) - Constitutional Vitals: Temp Pulse Resp BP Pulse Ox 97.5 F L 98 H 15 143/85 98 01/17/17 08:00 01/17/17 08:00 01/17/17 08:00 01/17/17 08:00 01/17/17 08:00 General appearance: normal weight, no acute distress Exam: General appearance: Patient more alert and interactive but still chronically ill looking. She was met watching TV - Eye Eye exam: Present: EOMI. no icterus Pupils: Present: VERO - ENT ENT exam: White exudates on tongue and on buccal mucosa resolved - Respiratory Respiratory exam: vesicular BS, no crepitations or wheezes - Cardiovascular Cardiovascular exam: regular rate and rhythm, no murmurs - GI/Abdominal GI/Abdominal exam: normal bowel sounds, soft, non-tender, no organomegaly or mass - Extremities Exam Extremities exam: Mild to moderate right upper extremity edema, so felt to AV fistula in right arm, no leg edema - Skin Skin exam: no rash Results - Labs CBC & BMP: 01/17/17 02:57 01/17/17 02:57 Lab Results: I have reviewed the past 24 hour labs (Blood cultures remain negative)
[2017-01-17] MEDS: ENOXAPARIN 80 MG/0.8 ML SYRINGE SUBCUT SCH ×2 (12:27→23:36)
--- NOTE | 2017-01-17 12:50 | Nephrology Progress Note ---
Nephrology - PN: Subj Interval history: The patient is sitting up in bed resting comfortably. No fevers, no chills.. Cultures have been reviewed. She complains of weakness and unable to walk. Physical therapy consult. Plan for dialysis today. Exam (PN)-Nephrology - Vital Signs Vital signs: Period Temp Pulse Resp BP Sys/[place] Pulse Ox Last 24 Hr 97.3 F-98.1 F 90-105 6-23 109-172/70-98 93-100 - General Appearance General appearance: well-developed, well-nourished EENT: ATNC Cardiology: no edema, regular rate, regular rhythm Gastrointestinal: normoactive bowel sounds, no tenderness Neurologic: alert and oriented x3, CN 3-12 intact Musculoskeletal: no clubbing Psychiatric: mood/affect appropriate, cooperative - Lab 01/17/17 02:57 01/17/17 02:57 Most recent lab results Calcium 8.1 MG/DL (8.5-10.1) L 01/17/17 02:57 Magnesium 2.7 MG/DL (1.8-2.4) H 01/17/17 02:57 Assessment and Plan (1) ESRD (end stage renal disease) Status: Chronic Assessment and plan: Continue with scheduled hemodialysis. Current Visit: Yes (2) Diabetes Status: Chronic Assessment and plan: Continue with scheduled medicine. Current Visit: No Qualifiers: Diabetes mellitus type: type 2 Diabetes mellitus complication status: with kidney complications Chronic kidney disease stage: on chronic dialysis (3) Deep venous thrombosis of upper extremity Status: Acute Assessment and plan: Patient is now on heparin therapy in preparation for colonoscopy later this week. Pain in the right arm. Adjust pain medications. Current Visit: Yes (4) Acute deep vein thrombosis (DVT) of right upper extremity Status: Acute Assessment and plan: Patient is now on heparin therapy. Current Visit: Yes Qualifiers: Affected thrombotic vein of extremity: brachial Qualified Code(s): I82.621 - Acute embolism and thrombosis of deep veins of right upper extremity (5) AV fistula Status: Acute Current Visit: Yes (6) Abdominal cramping Status: Acute Assessment and plan: Which could be from gas pain. Colonoscopy scheduled. Current Visit: Yes (7) Fever Status: Acute Current Visit: Yes
--- NOTE | 2017-01-17 14:11 | Hospitalist Progress Note ---
Assessment and Plan (1) Deep venous thrombosis of upper extremity Status: Acute Assessment and plan: The patient will restart Lovenox today to maintain therapeutic anticoagulation. I will restart Coumadin and recheck INR tomorrow. The patient is now on cefazolin to treat E. coli urinary tract infection. Current Visit: Yes (2) ESRD (end stage renal disease) Status: Chronic Current Visit: Yes (3) AV fistula Status: Acute Current Visit: Yes (4) Abdominal cramping Status: Acute Current Visit: Yes Hospitalist: Subjective Interval history: The patient is resting quietly in bed today. INR is unusually low at 1.4. Lovenox has been reinitiated and we will give a dose of Coumadin this afternoon. Fluctuation is apparently on account of discontinuing Levaquin. The patient has some complaint of generalized pain but is more alert while taking less morphine. Exam - Constitutional Vitals: Period Temp Pulse Resp BP Sys/[place] Pulse Ox Last 24 Hr 97.3 F-98.1 F 90-105 6-23 109-172/70-98 93-100 Exam: Constitutional System: No distress. No tremulousness. Lethargic but awakens easily Head: Normocephalic, atraumatic. Ears, Nose and Throat System: No evidence of Otitis or Mastoiditis. No epistaxis or discharge Eyes System: Pupils equal, round, and reactive. Extraocular muscles intact. Neck: Supple, without adenopathy, No jugular venous distention. No thyromegaly , neck mass Respiratory System: Chest clear to auscultation. Cardiovascular System: Heart with regular rate and rhythm. No murmur. GI System: Abdomen soft, nontender. Normo active bowel sounds present. Results - Labs CBC & BMP: 01/17/17 02:57 01/17/17 02:57 Lab Results: I have reviewed the past 24 hour labs Labs: INR 1.4
[2017-01-17] MEDS: NIFEdipine 10 MG CAPSULE PO PRN (17:59)
[2017-01-17] MEDS ORDERED: WARFARIN 5 MG TABLET PO SCH (18:00)
[2017-01-17] MEDS: ONDANSETRON 4 MG/2 ML VIAL IV PRN (19:27)
[2017-01-17] MEDS: PROMETHAZINE 25 MG/1 ML VIAL IM PRN (20:25)
[2017-01-18 04:49] LABS: Basophils # 0.1 10*3/uL (0.0-0.2); Basophils % 0.5 % (0.0-0.8); Eosinophils # 2.1 10*3/uL (0.0-0.87); Eosinophils % 12.6 % (0.00-10.9); Hematocrit 28.9 VOL% (35.7-47.0); Hemoglobin 9.8 GM/DL (12.0-16.0); Immature Granulocytes % 1.9 %; Immature Granulocytes Absolute 0.31 #; Lymphocytes # 3.4 10*3/uL (1.4-4.0); Mean Corpuscular HGB Conc 33.9 GM/DL (32-36); Mean Corpuscular Hemoglobin 28 PG (27-34); Mean Corpuscular Volume 81.2 FL (87-102); Monocytes # 1.1 10*3/uL (0.11-0.8); Monocytes % 6.5 % (1.7-12.7); Neutrophils # 9.4 10*3/uL (1.4-7.4); Neutrophils % 57.5 % (38.7-73.9); Platelet Count 473 T/CUMM (130-400); Red Blood Count 3.56 MC/CUMM (3.8-5.5); Red Cell Distribution Width 15.1 % (9.3-17.3); White Blood Count 16.4 T/CUMM (4-12)
[2017-01-18 05:10] LABS: INR 1.1; PT Patient Result 12.1 SECS
[2017-01-18 05:46] LABS: Calcium 8.1 MG/DL (8.5-10.1); Eosinophils 20 % (0-10); Hypochromasia 1+; Lymphocytes 19 % (20-55); Microcytosis 1+; Osmolality,Calculated 280.5 MOS/KG (273-304); Potassium 4.3 MMOL/L (3.5-5.1); Segmented Neutrophils 57 % (50-85); Total Cells Counted 100
[2017-01-18] MEDS: metroNIDAZOLE 250 MG TABLET PO SCH ×4 (06:12→23:19)
[2017-01-18] MEDS: cloNIDine 0.1 MG TABLET PO SCH ×2 (08:14→20:53)
[2017-01-18] MEDS: LOSARTAN 50 MG TABLET PO SCH ×2 (08:14→20:51)
[2017-01-18] MEDS: CALCIUM ACETATE 667 MG CAPSULE PO SCH ×3 (08:14→17:05)
[2017-01-18] MEDS: PANTOPRAZOLE 40 MG TABLET PO SCH ×2 (08:15→20:53)
[2017-01-18] MEDS: INSULIN LISPRO 100 UNIT/ML SUBCUT SCH ×4 (08:19→20:54)
--- NOTE | 2017-01-18 12:28 | Hospitalist Progress Note ---
Assessment and Plan (1) Deep venous thrombosis of upper extremity Status: Acute Assessment and plan: The patient will continue Lovenox today to maintain therapeutic anticoagulation. Coumadin continues at 3 mg daily. Will recheck INR tomorrow and discontinue Lovenox when INR is greater than 2. The patient is being treated for E. coli urinary tract infection with sepsis alone. Current Visit: Yes (2) ESRD (end stage renal disease) Status: Chronic Current Visit: Yes (3) AV fistula Status: Acute Current Visit: Yes (4) Abdominal cramping Status: Acute Current Visit: Yes Hospitalist: Subjective Interval history: The patient is resting quietly in bed today. She does not complain of shortness of breath or angina. The patient does have bilateral lower extremity discomfort consistent with diabetic neuropathic pain. Exam - Constitutional Vitals: Period Temp Pulse Resp BP Sys/[place] Pulse Ox Last 24 Hr 97.8 F-98.6 F 86-105 10-18 96-193/74-104 97-100 Exam: Constitutional System: No distress. No tremulousness. Lethargic but awakens easily Head: Normocephalic, atraumatic. Ears, Nose and Throat System: No evidence of Otitis or Mastoiditis. No epistaxis or discharge Eyes System: Pupils equal, round, and reactive. Extraocular muscles intact. Neck: Supple, without adenopathy, No jugular venous distention. No thyromegaly , neck mass Respiratory System: Chest clear to auscultation. Cardiovascular System: Heart with regular rate and rhythm. No murmur. GI System: Abdomen soft, nontender. Normo active bowel sounds present. Results - Labs CBC & BMP: 01/18/17 04:28 01/18/17 04:28 Lab Results: I have reviewed the past 24 hour labs Labs: INR 1.1
--- NOTE | 2017-01-18 12:48 | Nephrology Progress Note ---
Nephrology - PN: Subj Interval history: The patient is resting no acute changes. She is now on Lovenox for anticoagulation therapy. Last INR was 1.4. She is scheduled for colonoscopy on Friday. She tolerated dialysis on yesterday. Exam (PN)-Nephrology - Vital Signs Vital signs: Period Temp Pulse Resp BP Sys/[place] Pulse Ox Last 24 Hr 97.8 F-98.6 F 86-105 10-18 96-193/74-104 97-100 - General Appearance General appearance: well-developed, well-nourished EENT: ATNC Neck: supple Respiratory: clear Cardiology: regular rate, regular rhythm Gastrointestinal: normoactive bowel sounds, no tenderness, no guarding Neurologic: alert and oriented x3 Musculoskeletal: no clubbing Psychiatric: mood/affect appropriate - Lab 01/18/17 04:28 01/18/17 04:28 Most recent lab results Calcium 8.1 MG/DL (8.5-10.1) L 01/18/17 04:28 Magnesium 3.0 MG/DL (1.8-2.4) H 01/18/17 04:28 Assessment and Plan (1) ESRD (end stage renal disease) Status: Chronic Assessment and plan: Continue with scheduled hemodialysis. Current Visit: Yes (2) Diabetes Status: Chronic Assessment and plan: Continue with scheduled medicine. Current Visit: No Qualifiers: Diabetes mellitus type: type 2 Diabetes mellitus complication status: with kidney complications Chronic kidney disease stage: on chronic dialysis (3) Deep venous thrombosis of upper extremity Status: Acute Assessment and plan: On Lovenox 80 subcu daily. Current Visit: Yes (4) Acute deep vein thrombosis (DVT) of right upper extremity Status: Acute Current Visit: Yes Qualifiers: Affected thrombotic vein of extremity: brachial Qualified Code(s): I82.621 - Acute embolism and thrombosis of deep veins of right upper extremity (5) AV fistula Status: Acute Current Visit: Yes (6) Abdominal cramping Status: Acute Assessment and plan: Which could be from gas pain. Colonoscopy scheduled. Current Visit: Yes (7) Fever Status: Acute Current Visit: Yes
[2017-01-18] MEDS: MORPHINE 2 MG/1 ML SYRINGE IV PRN (20:54)
[2017-01-19] MEDS: ENOXAPARIN 80 MG/0.8 ML SYRINGE SUBCUT SCH ×2 (02:24→23:05)
[2017-01-19 05:01] LABS: Basophils # 0.1 10*3/uL (0.0-0.2); Basophils % 0.5 % (0.0-0.8); Hematocrit 26.1 VOL% (35.7-47.0); Hemoglobin 8.9 GM/DL (12.0-16.0); Immature Granulocytes % 2.2 %; Immature Granulocytes Absolute 0.38 #; Lymphocytes # 2.8 10*3/uL (1.4-4.0); Lymphocytes % 16.6 % (21.3-54.2); Mean Corpuscular HGB Conc 34.1 GM/DL (32-36); Mean Corpuscular Hemoglobin 27 PG (27-34); Mean Corpuscular Volume 80.3 FL (87-102); Mean Platelet Volume 10.1 FL (9.6-12.0); Monocytes # 1.5 10*3/uL (0.11-0.8); Monocytes % 8.9 % (1.7-12.7); Neutrophils # 10.1 10*3/uL (1.4-7.4); Neutrophils % 59.8 % (38.7-73.9); Platelet Count 476 T/CUMM (130-400); Red Blood Count 3.25 MC/CUMM (3.8-5.5); Red Cell Distribution Width 15.3 % (9.3-17.3); White Blood Count 16.9 T/CUMM (4-12)
[2017-01-19 05:19] LABS: INR 1.1; PT Patient Result 11.9 SECS
[2017-01-19] MEDS: MORPHINE 2 MG/1 ML SYRINGE IV PRN (05:19)
[2017-01-19] MEDS: metroNIDAZOLE 250 MG TABLET PO SCH ×4 (05:19→23:05)
[2017-01-19 05:35] LABS: Calcium 8.3 MG/DL (8.5-10.1); Magnesium 3.2 MG/DL (1.8-2.4); Osmolality,Calculated 282.5 MOS/KG (273-304); Potassium 4.8 MMOL/L (3.5-5.1)
[2017-01-19 05:44] LABS: Band Neutrophils 2 % (0-10); Eosinophils 14 % (0-10); Lymphocytes 17 % (20-55); Metamyelocytes 2 %; Platelet Estimate Increased; Segmented Neutrophils 60 % (50-85); Total Cells Counted 100
--- NOTE | 2017-01-19 09:02 | Nephrology Progress Note ---
Nephrology - PN: Subj Interval history: The patient is resting comfortably. She states feels a little bit better today. Her main complaint is weakness in her legs. No fevers or chills. Exam (PN)-Nephrology - Vital Signs Vital signs: Period Temp Pulse Resp BP Sys/[place] Pulse Ox Last 24 Hr 96.9 F-98.7 F 89-101 8-23 98-152/71-94 89-100 - General Appearance General appearance: well-developed, well-nourished EENT: ATNC Neck: supple Respiratory: clear Cardiology: no edema, regular rate, regular rhythm Gastrointestinal: normoactive bowel sounds, no tenderness Integumentary: no rash Neurologic: alert and oriented x3 Musculoskeletal: no clubbing Psychiatric: mood/affect appropriate - Lab 01/19/17 04:28 01/19/17 04:28 Most recent lab results Calcium 8.3 MG/DL (8.5-10.1) L 01/19/17 04:28 Magnesium 3.2 MG/DL (1.8-2.4) H 01/19/17 04:28 Assessment and Plan (1) ESRD (end stage renal disease) Status: Chronic Assessment and plan: Continue with scheduled hemodialysis. Current Visit: Yes (2) Diabetes Status: Chronic Assessment and plan: Continue with scheduled medicine. Current Visit: No Qualifiers: Diabetes mellitus type: type 2 Diabetes mellitus complication status: with kidney complications Chronic kidney disease stage: on chronic dialysis (3) Deep venous thrombosis of upper extremity Status: Acute Assessment and plan: On Lovenox 80 subcu daily. Current Visit: Yes (4) Acute deep vein thrombosis (DVT) of right upper extremity Status: Acute Current Visit: Yes Qualifiers: Affected thrombotic vein of extremity: brachial Qualified Code(s): I82.621 - Acute embolism and thrombosis of deep veins of right upper extremity (5) AV fistula Status: Acute Current Visit: Yes (6) Abdominal cramping Status: Acute Assessment and plan: Which could be from gas pain. Colonoscopy scheduled. Current Visit: Yes (7) Fever Status: Acute Current Visit: Yes
[2017-01-19] MEDS: CALCIUM ACETATE 667 MG CAPSULE PO SCH ×3 (10:05→17:28)
[2017-01-19] MEDS: PANTOPRAZOLE 40 MG TABLET PO SCH ×2 (10:05→20:28)
[2017-01-19] MEDS: LOSARTAN 50 MG TABLET PO SCH ×2 (10:06→20:28)
[2017-01-19] MEDS: INSULIN LISPRO 100 UNIT/ML SUBCUT SCH ×4 (10:06→20:45)
[2017-01-19] MEDS: cloNIDine 0.1 MG TABLET PO SCH ×2 (10:06→20:28)
--- NOTE | 2017-01-19 12:36 | Hospitalist Progress Note ---
Assessment and Plan (1) Deep venous thrombosis of upper extremity Status: Acute Assessment and plan: The patient will continue Lovenox today to maintain therapeutic anticoagulation. Coumadin continues at 3 mg daily. Will recheck INR tomorrow and discontinue Lovenox when INR is greater than 2. The patient is being treated for E. coli urinary tract infection with sepsis alone. Current Visit: Yes (2) ESRD (end stage renal disease) Status: Chronic Current Visit: Yes (3) AV fistula Status: Acute Current Visit: Yes (4) Abdominal cramping Status: Acute Current Visit: Yes Hospitalist: Subjective Interval history: The patient is more awake today than she was in the last 2 examinations Siad. The patient complains of lower extremity pain and weakness consistent with diabetic neuropathy. The patient's pain has been treated with morphine the last couple of days. The patient's oral sedatives were discontinued a few days ago secondary to drowsiness. The patient has improved and is now ready to restart Neurontin Exam - Constitutional Vitals: Period Temp Pulse Resp BP Sys/[place] Pulse Ox Last 24 Hr 96.9 F-98.7 F 89-103 8-23 98-152/68-94 89-100 Exam: Constitutional System: No distress. No tremulousness. Lethargic but awakens easily Head: Normocephalic, atraumatic. Ears, Nose and Throat System: No evidence of Otitis or Mastoiditis. No epistaxis or discharge Eyes System: Pupils equal, round, and reactive. Extraocular muscles intact. Neck: Supple, without adenopathy, No jugular venous distention. No thyromegaly , neck mass Respiratory System: Chest clear to auscultation. Cardiovascular System: Heart with regular rate and rhythm. No murmur. GI System: Abdomen soft, nontender. Normo active bowel sounds present. Results - Labs CBC & BMP: 01/19/17 04:28 01/19/17 04:28 Lab Results: I have reviewed the past 24 hour labs
[2017-01-19] MEDS: GABAPENTIN 100 MG CAPSULE PO SCH ×2 (15:48→20:28)
[2017-01-20] MEDS: metroNIDAZOLE 250 MG TABLET PO SCH ×4 (04:51→23:03)
[2017-01-20 05:18] LABS: Basophils # 0.1 10*3/uL (0.0-0.2); Basophils % 0.4 % (0.0-0.8); Eosinophils # 2.1 10*3/uL (0.0-0.87); Eosinophils % 14.8 % (0.00-10.9); Hematocrit 26.3 VOL% (35.7-47.0); Hemoglobin 9.1 GM/DL (12.0-16.0); Immature Granulocytes % 2.7 %; Immature Granulocytes Absolute 0.38 #; Lymphocytes # 2.8 10*3/uL (1.4-4.0); Lymphocytes % 19.4 % (21.3-54.2); Mean Corpuscular HGB Conc 34.6 GM/DL (32-36); Mean Corpuscular Hemoglobin 28 PG (27-34); Mean Corpuscular Volume 81.2 FL (87-102); Mean Platelet Volume 9.7 FL (9.6-12.0); Monocytes # 1.3 10*3/uL (0.11-0.8); Monocytes % 9.1 % (1.7-12.7); Neutrophils # 7.7 10*3/uL (1.4-7.4); Neutrophils % 53.6 % (38.7-73.9); Platelet Count 467 T/CUMM (130-400); Red Blood Count 3.24 MC/CUMM (3.8-5.5); Red Cell Distribution Width 15.2 % (9.3-17.3); White Blood Count 14.2 T/CUMM (4-12)
[2017-01-20 05:30] LABS: INR 1.1; PT Patient Result 11.2 SECS
[2017-01-20 05:46] LABS: Band Neutrophils 2 % (0-10); Eosinophils 15 % (0-10); Hypochromasia Slight; Lymphocytes 18 % (20-55); Platelet Estimate Adequate; Segmented Neutrophils 56 % (50-85); Total Cells Counted 100
[2017-01-20 05:47] LABS: Microcytosis Slight
[2017-01-20 05:56] LABS: Calcium 7.7 MG/DL (8.5-10.1); Magnesium 3.2 MG/DL (1.8-2.4); Osmolality,Calculated 285.5 MOS/KG (273-304); Potassium 4.9 MMOL/L (3.5-5.1)
[2017-01-20] MEDS ORDERED: cefTRIAXone 1,000 MG in SODIUM CHLORIDE 0.9% 100 ML IV SCH (08:00)
--- NOTE | 2017-01-20 08:33 | XRay Report ---
History is bilateral rhonchi Comparison 01/13/2017 The heart is at the upper range normal in size. Right central line is present There has been development of mildly increasing patchy and stranding opacities in the right lung base. No left lung infiltrates seen Impression: Mildly increasing patchy right basilar infiltrate/atelectasis. Follow-up suggested PROCEDURE INTERPRETED AT [facility] DEPARTMENT OF RADIOLOGY Final Report Signed by: Dr. Rae Mckeon
[2017-01-20] MEDS: CALCIUM ACETATE 667 MG CAPSULE PO SCH ×3 (08:41→18:02)
[2017-01-20] MEDS ORDERED: AZITHROMYCIN INJ 500 MG in SODIUM CHLORIDE 0.9% 250 ML IV SCH (09:00)
[2017-01-20] MEDS: PANTOPRAZOLE 40 MG TABLET PO SCH ×2 (09:59→23:03)
[2017-01-20] MEDS: cloNIDine 0.1 MG TABLET PO SCH ×2 (09:59→23:03)
[2017-01-20] MEDS: GABAPENTIN 100 MG CAPSULE PO SCH ×2 (09:59→23:03)
[2017-01-20] MEDS: LOSARTAN 50 MG TABLET PO SCH ×2 (09:59→23:03)
--- NOTE | 2017-01-20 10:42 | Hospitalist Progress Note ---
Assessment and Plan (1) RLL pneumonia Status: Acute Assessment and plan: Defer to Dr. Wiggins, hospital acquired, callie started Current Visit: Yes (2) ESRD (end stage renal disease) Status: Chronic Assessment and plan: dialysis friday, and friday Current Visit: Yes (3) Hypertension Status: Chronic Assessment and plan: controlled Current Visit: Yes Qualifiers: Hypertension type: essential hypertension Qualified Code(s): I10 - Essential (primary) hypertension (4) Diabetes Status: Chronic Assessment and plan: BS not well controlled Current Visit: No Qualifiers: Diabetes mellitus type: type 2 Diabetes mellitus complication status: with kidney complications Chronic kidney disease stage: on chronic dialysis (5) Acute deep vein thrombosis (DVT) of right upper extremity Status: Acute Assessment and plan: still subtherapeutic, coumadin on hold due to need for colonoscopy Current Visit: Yes Qualifiers: Affected thrombotic vein of extremity: brachial Qualified Code(s): I82.621 - Acute embolism and thrombosis of deep veins of right upper extremity (6) Colitis Status: Acute Assessment and plan: colonoscopy on Friday, cont bossman and Dr. Emanuel moss Current Visit: Yes Hospitalist: Subjective Interval history: Patient is having difficulties clearing her secretions. Chest x-ray suggests she has pneumonia. We have started her on antibiotics and will be giving her DuoNeb Exam - Constitutional Vitals: Period Temp Pulse Resp BP Sys/[place] Pulse Ox Last 24 Hr 97.3 F-98.9 F 85-103 8-19 112-164/77-115 96-100 Exam: Heart Rate-[RRR] Lungs-[bilateral rhonchi] GI-[+bs soft, NT] Ext-[no edema] Neuro [Motor 5/5], alittle confused psych [depressed mood and affect] General [no acute distress] Results - Labs CBC & BMP: 01/20/17 05:08 01/20/17 05:08 Lab Results: I have reviewed the past 24 hour labs Labs: Blood cultures 2 negative no growth. Urine culture growing E. coli from the ninth. Stool was negative for C. difficile. INR 1.1 - Diagnostic Findings Procedure: Chest x-ray: report reviewed by me (Right lower lobe pneumonia)
[2017-01-20] MEDS: ALBUTEROL/IPRATROPIUM 3 ML NEB RESP TX SCH ×3 (11:25→19:43)
[2017-01-20] MEDS: INSULIN LISPRO 100 UNIT/ML SUBCUT SCH ×4 (11:30→23:17)
--- NOTE | 2017-01-20 11:33 | Gastrointestinal Progress Note ---
<Angi Weaver Courtney - Last Filed: 01/20/17 11:31> Assessment and Plan (1) Abdominal pain Status: Acute Assessment and plan: 01/20-INR 1.1, no further abd pain. Afebrile and WBC trending downward. Plan and addendum to follow by Dr Castellanos. 01/16-febrile overnight. INR holding at 4.4. Noted E. coli on UA. Tolerating small amounts of clear liquids. No complaints of abdominal pain. Continue to monitor present time. Plan an addendum to follow Dr. Castellanos. 01/15-continued fever overnight. INR remains elevated at 4.3. No complaints of abdominal pain today. Continue to monitor at present time. Plan an addendum to follow by Dr. Castellanos. 01/14-continues to be febrile, elevation in WBCs. INR elevated at 4.2. Coumadin discontinued and heparin drip has been started. Plan an addendum to follow by Dr. Castellanos. 01/13-abdominal pain with CT of abdomen with contrast noted with internal improvement of colitis. Poor nutritional intake and continued upper quadrant abdominal pain with negative gallbladder ultrasound. Continue clear liquid diet and hold on continued bowel prep at this time due to elevated INR. Plan an addendum to follow Dr. Castellanos. Current Visit: Yes Gastroenterology - PN: Subj Interval history: CC: Abd pain Pt is seen, more awake and alert today. She states she is no longer having any abdominal pain and is tolerating some of her diet. She has not had a bowel movement in a couple of days however she is eating small amounts only. She is now afebrile and her leukocytosis is improving. Her INR is now at 1.1. Discussed with Dr Garcia and she is going to restart Coumadin at this time if no colonoscopy is to be pursued. Abdomen is soft, nontender. ROS: Denies SOB or chest pain Exam (Progress Note) - Constitutional Vitals: Period Temp Pulse Resp BP Sys/[place] Pulse Ox Last 24 Hr 97.3 F-98.9 F 85-99 8-19 112-164/77-115 96-100 General appearance: normal weight, no acute distress - Head Head exam: Present: normal inspection, normocephalic - Eye Eye exam: Present: other (lids and conjunctiva unremarakble). Absent: scleral icterus - ENT ENT exam: Present: normal exam, normal oropharynx - Neck Neck exam: Present: normal inspection - Respiratory Respiratory exam: Present: clear to auscultation bilaterally. Absent: rales, rhonchi, wheezes - Cardiovascular Cardiovascular exam: Present: regular rate and rhythm. Absent: diastolic murmur , JVD, systolic murmur - GI/Abdominal GI/Abdominal exam: Present: normal bowel sounds, soft. Absent: ascites, distended, mass, organomegaly, tenderness - Extremities Exam Extremities exam: Present: normal inspection, full ROM - Back Exam Back exam: Present: normal inspection - Neurological Exam Neurological exam: Present: alert, oriented X3 - Psychiatric Psychiatric exam: Present: normal affect, normal mood - Skin Skin exam: Present: normal color, warm, dry Results - Labs CBC & BMP: 01/20/17 05:08 01/20/17 05:08 Lab Results: I have reviewed the past 24 hour labs <Poncho Castellanos - Last Filed: 01/20/17 20:25> Exam (Progress Note) - Constitutional Vitals: Period Temp Pulse Resp BP Sys/[place] Pulse Ox Last 24 Hr 98.3 F-98.6 F 85-99 - 115-164/74-115 97-100 Results - Labs CBC & BMP: 01/20/17 05:08 01/20/17 05:08
[2017-01-20] MEDS ORDERED: BISACODYL 5 MG TABLET PO ONE (12:00)
--- NOTE | 2017-01-20 12:01 | Infectious Disease Progress ---
Assessment and Plan (1) Acute deep vein thrombosis (DVT) of right upper extremity Status: Acute Current Visit: Yes Qualifiers: Affected thrombotic vein of extremity: brachial Qualified Code(s): I82.621 - Acute embolism and thrombosis of deep veins of right upper extremity (2) Colitis Status: Acute Assessment and plan: No evidence of C. difficile; diarrhea resolved with empiric Flagyl. Can complete 10 days total of therapy. Current Visit: Yes (3) Fever Status: Acute Assessment and plan: The only infection we have found is UTI due to E. coli. Patient afebrile for 4 days and overall she looks much better, starting to get stronger. She has been on antibiotics for weight based cover the E. coli. Recommendations: Discontinue cefazolin I will sign off now. Call again prn. Discussed with Dr. Garcia Current Visit: Yes (4) ESRD (end stage renal disease) Status: Chronic Current Visit: Yes (5) Hypertension Status: Chronic Current Visit: Yes Qualifiers: Hypertension type: essential hypertension Qualified Code(s): I10 - Essential (primary) hypertension (6) Diabetes Status: Chronic Current Visit: No Qualifiers: Diabetes mellitus type: type 2 Diabetes mellitus complication status: with kidney complications Chronic kidney disease stage: on chronic dialysis (7) Oral candidiasis Status: Acute Assessment and plan: Resolved. Current Visit: Yes Infectious Disease - PN: Subj Interval history: Patient feeling better overall, she is happy that she is unable to move her legs. She no longer has diarrhea or abdominal pain and is eating normally. No significant cough or shortness of breath. She has been afebrile for 4 days. Infectious Disease Exam (PN) - Constitutional Vitals: Temp Pulse Resp BP Pulse Ox 98.6 F 89 12 143/87 100 01/20/17 04:00 01/20/17 11:31 01/20/17 11:31 01/20/17 06:00 01/20/17 11:31 General appearance: normal weight, no acute distress Exam: General appearance: Comfortable watching TV - Eye Eye exam: Present: EOMI. no icterus Pupils: Present: VERO - ENT ENT exam: No exudates orally - Respiratory Respiratory exam: vesicular BS, no crepitations or wheezes - Cardiovascular Cardiovascular exam: regular rate and rhythm, no murmurs - GI/Abdominal GI/Abdominal exam: normal bowel sounds, soft, non-tender, no organomegaly or mass - Extremities Exam Extremities exam: Mild to moderate right upper extremity edema, so felt to AV fistula in right arm, no leg edema - Skin Skin exam: no rash Results - Labs CBC & BMP: 01/20/17 05:08 01/20/17 05:08 Lab Results: I have reviewed the past 24 hour labs (Stool 2 negative for C. difficile, blood cultures on the 10th negative) - Diagnostic Findings Procedure: Chest x-ray: image reviewed by me, report reviewed by me (No consolidation appreciated)
--- NOTE | 2017-01-20 14:05 | Case Mgmt Physician Query Form ---
TB Signs and Symptoms Screening ([place]) INSTRUCTIONS: To be completed annually on residents/staff with a significant Tuberculin Skin Test (TST) upon admission/hire or a prior significant TST. To be completed on all staff at hire. Please respond to each listed symptom with an (X) in either the "YES" or "NO" box. Do you currently have any of the following symptoms: YES NO ( ) (x ) A cough If yes, is it: ( ) Productive ( ) Non- productive ( ) ( x) Hemoptysis (spitting up blood) ( ) ( x) Chest pains ( ) ( x) Weight Loss ( ) (x ) Fever ( ) ( ) Night Sweats (x ) ( ) Weakness ( ) ( x) Loss of Appetite ( ) ( x) Difficulty Breathing If you answered YES" to any of the above questions, how long have symptoms been present? Comments: If you have any questions, please contact me. Thank you, Amy Sanchez RN, [facility] Case Management Department Office Voice Mail: [phone] [email or web address]
--- NOTE | 2017-01-20 14:27 | Nephrology Progress Note ---
Nephrology - PN: Subj Interval history: The patient is resting comfortably. She is undergoing physical therapy. No other acute changes. No fevers or chills. She appears to be in a good mood today. Exam (PN)-Nephrology - Vital Signs Vital signs: Period Temp Pulse Resp BP Sys/[place] Pulse Ox Last 24 Hr 97.3 F-98.6 F 85-99 8-19 112-164/79-115 98-100 - General Appearance General appearance: well-developed, well-nourished EENT: ATNC Neck: supple Respiratory: clear Cardiology: regular rate, regular rhythm Gastrointestinal: normoactive bowel sounds, no tenderness, no guarding Neurologic: alert and oriented x3 Musculoskeletal: no clubbing Psychiatric: mood/affect appropriate - Lab 01/20/17 05:08 01/20/17 05:08 Most recent lab results Calcium 7.7 MG/DL (8.5-10.1) L 01/20/17 05:08 Magnesium 3.2 MG/DL (1.8-2.4) H 01/20/17 05:08 Assessment and Plan (1) ESRD (end stage renal disease) Status: Chronic Assessment and plan: Continue with scheduled hemodialysis. Current Visit: Yes (2) Diabetes Status: Chronic Current Visit: No Qualifiers: Diabetes mellitus type: type 2 Diabetes mellitus complication status: with kidney complications Chronic kidney disease stage: on chronic dialysis (3) Deep venous thrombosis of upper extremity Status: Acute Assessment and plan: On Lovenox 80 subcu daily. Current Visit: Yes (4) Acute deep vein thrombosis (DVT) of right upper extremity Status: Acute Assessment and plan: Patient is now on heparin therapy. Current Visit: Yes Qualifiers: Affected thrombotic vein of extremity: brachial Qualified Code(s): I82.621 - Acute embolism and thrombosis of deep veins of right upper extremity (5) AV fistula Status: Acute Current Visit: Yes (6) Abdominal cramping Status: Acute Assessment and plan: Which could be from gas pain. Colonoscopy scheduled. Current Visit: Yes (7) Fever Status: Resolved Current Visit: Yes
[2017-01-20] MEDS ORDERED: TUBERCULIN SKIN TEST 0.1 ML SYRINGE INTRADERM ONE (14:30)
[2017-01-20] MEDS ORDERED: POLYETHYLENE GLYCOL POWDER 255 GM BOTTLE PO ONE (18:00)
[2017-01-20] MEDS: MORPHINE 2 MG/1 ML SYRINGE IV PRN (19:30)
[2017-01-20] MEDS ORDERED: MAGNESIUM CITRATE 300 ML BOTTLE PO ONE (21:00)
[2017-01-21] MEDS: ALBUTEROL/IPRATROPIUM 3 ML NEB RESP TX SCH ×7 (00:11→23:10)
[2017-01-21] MEDS ORDERED: LABETALOL 20 MG/4 ML SYRINGE IV PRN (00:21)
[2017-01-21 04:22] LABS: INR 1.1; PT Patient Result 11.4 SECS
[2017-01-21] MEDS: metroNIDAZOLE 250 MG TABLET PO SCH ×4 (05:56→23:23)
[2017-01-21] MEDS: INSULIN LISPRO 100 UNIT/ML SUBCUT SCH ×4 (07:30→21:11)
[2017-01-21] MEDS: LOSARTAN 50 MG TABLET PO SCH ×2 (08:28→20:52)
[2017-01-21] MEDS: cloNIDine 0.1 MG TABLET PO SCH ×2 (08:28→20:53)
--- NOTE | 2017-01-21 08:28 | Case Mgmt Physician Query Form ---
LONG STAY PHYSICIAN RECERTIFICATION *This form is to be completed for all Medicare patients before they reach day 20 of their hospitalization. Please complete each section as appropriate.* I certify that hospitalization, and continued hospitalization, for this patient is medically necessary as follows: 1) Reasons of either continued hospitalization of the patient for medical treatment or medically required diagnostic study or special or unusual services for cost outlier cases are as follows: 2) Estimated time patient will need to remain in hospital: 3) Plan for Post Hospital Care: ( ) Home with Primary Care Follow up ( ) Home with Home Health Follow up ( x) LTACH/ Acute Care Rehab/ SNF/Fpc ( ) Other: If you have any questions, please contact me. Thank you, Rae Heredia RN Case Management P: [phone] F [phone] E: [email or web address]
[2017-01-21] MEDS: GABAPENTIN 100 MG CAPSULE PO SCH ×2 (08:29→20:52)
[2017-01-21] MEDS: CALCIUM ACETATE 667 MG CAPSULE PO SCH ×3 (08:29→16:58)
[2017-01-21] MEDS: PANTOPRAZOLE 40 MG TABLET PO SCH ×2 (08:29→20:53)
[2017-01-21] MEDS: NIFEdipine 10 MG CAPSULE PO PRN (09:55)
[2017-01-21] MEDS ORDERED: BISACODYL 5 MG TABLET PO ONE ×2 (12:00→16:00)
--- NOTE | 2017-01-21 12:04 | Gastrointestinal Progress Note ---
<Angi Weaver Courtney - Last Filed: 01/21/17 12:02> Assessment and Plan (1) Abdominal pain Status: Acute Assessment and plan: 01/21-no changes in INR present, remains at 1.1. Poor prep therefore colonoscopy rescheduled to tomorrow. Continue prep after dialysis. Plan an addendum to follow by Dr. Castellanos. 01/20-INR 1.1, no further abd pain. Afebrile and WBC trending downward. Plan and addendum to follow by Dr Castellanos. 01/16-febrile overnight. INR holding at 4.4. Noted E. coli on UA. Tolerating small amounts of clear liquids. No complaints of abdominal pain. Continue to monitor present time. Plan an addendum to follow Dr. Castellanos. 01/15-continued fever overnight. INR remains elevated at 4.3. No complaints of abdominal pain today. Continue to monitor at present time. Plan an addendum to follow by Dr. Castellanos. 01/14-continues to be febrile, elevation in WBCs. INR elevated at 4.2. Coumadin discontinued and heparin drip has been started. Plan an addendum to follow by Dr. Castellanos. 01/13-abdominal pain with CT of abdomen with contrast noted with internal improvement of colitis. Poor nutritional intake and continued upper quadrant abdominal pain with negative gallbladder ultrasound. Continue clear liquid diet and hold on continued bowel prep at this time due to elevated INR. Plan an addendum to follow Dr. Castellanos. Current Visit: Yes Gastroenterology - PN: Subj Interval history: CC: Abdominal pain Patient is seen, awake and alert, during dialysis. She was scheduled for colonoscopy today and she did complete her prep on yesterday however she continues to have poor results from this. At this time we will plan to reschedule her colonoscopy to tomorrow. She denies any abdominal pain, nausea or vomiting. Abdomen is soft, nontender. INR remains at 1.1. ROS: Denies shortness of breath or chest pain Exam (Progress Note) - Constitutional Vitals: Period Temp Pulse Resp BP Sys/[place] Pulse Ox Last 24 Hr 97.4 F-98.3 F 86-103 8-19 154-175/91-105 96-100 General appearance: normal weight, no acute distress - Head Head exam: Present: normal inspection, normocephalic - Eye Eye exam: Present: other (Lids and conjunctivae are unremarkable). Absent: scleral icterus - ENT ENT exam: Present: normal exam, normal oropharynx - Neck Neck exam: Present: normal inspection - Respiratory Respiratory exam: Present: clear to auscultation bilaterally. Absent: rales, rhonchi, wheezes - Cardiovascular Cardiovascular exam: Present: regular rate and rhythm. Absent: diastolic murmur , JVD, systolic murmur - GI/Abdominal GI/Abdominal exam: Present: normal bowel sounds, soft. Absent: ascites, distended, mass, organomegaly, tenderness - Extremities Exam Extremities exam: Present: normal inspection, full ROM - Back Exam Back exam: Present: normal inspection - Neurological Exam Neurological exam: Present: alert, oriented X3 - Psychiatric Psychiatric exam: Present: normal affect, normal mood - Skin Skin exam: Present: normal color, warm, dry Results - Labs CBC & BMP: 01/20/17 05:08 01/20/17 05:08 Lab Results: I have reviewed the past 24 hour labs <Poncho Csatellanos - Last Filed: 01/21/17 17:01> Exam (Progress Note) - Constitutional Vitals: Period Temp Pulse Resp BP Sys/[place] Pulse Ox Last 24 Hr 97.4 F-97.6 F 86-103 8-19 114-175/67-105 95-100 Results - Labs CBC & BMP: 01/20/17 05:08 01/20/17 05:08
[2017-01-21] MEDS: ONDANSETRON 4 MG/2 ML VIAL IV PRN (12:50)
[2017-01-21] MEDS: MORPHINE 2 MG/1 ML SYRINGE IV PRN ×3 (13:18→20:53)
--- NOTE | 2017-01-21 13:36 | Dialysis Note ---
Dialysis Note - Dialysis Note The patient is seen on dialysis. She is tolerated the procedure. Did have some nausea vomiting earlier. Strive material removed 2-1/2 L today. Cardiovascular is regular rate. Lungs are clear. Abdomen is soft.
--- NOTE | 2017-01-21 15:55 | Hospitalist Progress Note ---
Assessment and Plan (1) Acute deep vein thrombosis (DVT) of right upper extremity Status: Acute Assessment and plan: still subtherapeutic on coumadin , lovenox 80 mg SQ times one Current Visit: Yes Qualifiers: Affected thrombotic vein of extremity: brachial Qualified Code(s): I82.621 - Acute embolism and thrombosis of deep veins of right upper extremity (2) ESRD (end stage renal disease) Status: Chronic Assessment and plan: dialysis friday, and friday Current Visit: Yes (3) Hypertension Status: Chronic Assessment and plan: controlled Current Visit: Yes Qualifiers: Hypertension type: essential hypertension Qualified Code(s): I10 - Essential (primary) hypertension (4) Diabetes Status: Chronic Assessment and plan: BS not well controlled, only on clears, ISC only Current Visit: No Qualifiers: Diabetes mellitus type: type 2 Diabetes mellitus complication status: with kidney complications Chronic kidney disease stage: on chronic dialysis (5) Colitis Status: Acute Assessment and plan: colonoscopy on friday, cont flagyl for a total of ten days, colonoscopy in am Current Visit: Yes (6) Anemia Status: Acute Assessment and plan: hgb stable at 9.1, protonix 40 mg po bid Current Visit: Yes Hospitalist: Subjective Interval history: nursing did not administer colon prep yesterday, will attempt colonoscopy tomorrow. Dr. Wiggins has signed off. dialysis today Exam - Constitutional Vitals: Period Temp Pulse Resp BP Sys/[place] Pulse Ox Last 24 Hr 97.4 F-98.3 F 86-103 8-19 114-175/67-105 95-100 Exam: Heart Rate-[RRR] Lungs-[alittle rhonchi GI-[+bs soft, NT] Ext-[no edema] Neuro [Motor 5/5] alert and oriented times2 psych [depressed mood and affect] General [no acute distress] Results - Labs CBC & BMP: 01/20/17 05:08 01/20/17 05:08 Lab Results: I have reviewed the past 24 hour labs Labs: blood cx times 2 negative
[2017-01-21] MEDS ORDERED: TUBERCULIN SKIN TEST 0.1 ML SYRINGE INTRADERM ONE ×2 (15:59→16:00)
[2017-01-21] MEDS ORDERED: MAGNESIUM CITRATE 300 ML BOTTLE PO ONE ×2 (16:00→18:45)
[2017-01-21] MEDS ORDERED: ENOXAPARIN 80 MG/0.8 ML SYRINGE SUBCUT SCH (16:30)
[2017-01-21] MEDS ORDERED: POLYETHYLENE GLYCOL POWDER 255 GM BOTTLE PO ONE (18:00)
[2017-01-22] MEDS: MORPHINE 2 MG/1 ML SYRINGE IV PRN ×2 (01:56→05:01)
[2017-01-22] MEDS: ALBUTEROL/IPRATROPIUM 3 ML NEB RESP TX SCH ×6 (03:30→23:51)
[2017-01-22] MEDS: ACETAMINOPHEN 325 MG TABLET PO PRN (04:16)
[2017-01-22] MEDS: metroNIDAZOLE 250 MG TABLET PO SCH ×4 (04:16→22:08)
[2017-01-22] MEDS ORDERED: MAGNESIUM CITRATE 300 ML BOTTLE PO ONE (06:00)
--- NOTE | 2017-01-22 08:57 | Gastrointestinal Progress Note ---
<Angi Weaver Courtney - Last Filed: 01/22/17 08:55> Assessment and Plan (1) Abdominal pain Status: Acute Assessment and plan: 01/22-no reports of pain at present time. Unable to tolerate further prep. Colonoscopy canceled for today. Plan an addendum follow Dr. Castellanos peer 01/21-no changes in INR present, remains at 1.1. Poor prep therefore colonoscopy rescheduled to tomorrow. Continue prep after dialysis. Plan an addendum to follow by Dr. Castellanos. 01/20-INR 1.1, no further abd pain. Afebrile and WBC trending downward. Plan and addendum to follow by Dr Castellanos. 01/16-febrile overnight. INR holding at 4.4. Noted E. coli on UA. Tolerating small amounts of clear liquids. No complaints of abdominal pain. Continue to monitor present time. Plan an addendum to follow Dr. Castellanos. 01/15-continued fever overnight. INR remains elevated at 4.3. No complaints of abdominal pain today. Continue to monitor at present time. Plan an addendum to follow by Dr. Castellanos. 01/14-continues to be febrile, elevation in WBCs. INR elevated at 4.2. Coumadin discontinued and heparin drip has been started. Plan an addendum to follow by Dr. Castellanos. 01/13-abdominal pain with CT of abdomen with contrast noted with internal improvement of colitis. Poor nutritional intake and continued upper quadrant abdominal pain with negative gallbladder ultrasound. Continue clear liquid diet and hold on continued bowel prep at this time due to elevated INR. Plan an addendum to follow Dr. Castellanos. Current Visit: Yes Gastroenterology - PN: Subj Interval history: CC: Abdominal pain Patient is seen, somewhat lethargic this morning. She is reported to have spiked a temperature overnight at 101. She is having increasing complaints of left leg pain and inability to move this. Nursing staff states there are discussed this with patient's hospitalist today. Patient was unable to tolerate the second day of her prep therefore colonoscopy has been canceled at this time. Patient complains of generalized pain this morning. Abdomen soft, nontender. ROS: Denies shortness of breath or chest pain Exam (Progress Note) - Constitutional Vitals: Period Temp Pulse Resp BP Sys/[place] Pulse Ox Last 24 Hr 97.4 F-101.0 F 90-115 12-18 98-131/57-79 91-100 General appearance: normal weight, no acute distress - Head Head exam: Present: normal inspection, normocephalic - Eye Eye exam: Present: other (Lids and conjunctive are unremarkable). Absent: scleral icterus - ENT ENT exam: Present: normal exam, normal oropharynx - Neck Neck exam: Present: normal inspection - Respiratory Respiratory exam: Present: clear to auscultation bilaterally. Absent: rales, rhonchi, wheezes - Cardiovascular Cardiovascular exam: Present: regular rate and rhythm. Absent: diastolic murmur , JVD, systolic murmur - GI/Abdominal GI/Abdominal exam: Present: normal bowel sounds, soft. Absent: ascites, distended, mass, organomegaly, tenderness - Extremities Exam Extremities exam: Present: normal inspection - Back Exam Back exam: Present: normal inspection - Neurological Exam Neurological exam: Present: alert, oriented X3 - Psychiatric Psychiatric exam: Present: other - Skin Skin exam: Present: normal color, warm, dry Results - Labs CBC & BMP: 01/20/17 05:08 01/20/17 05:08 Lab Results: I have reviewed the past 24 hour labs <Poncho Castellanos - Last Filed: 01/22/17 17:30> Exam (Progress Note) - Constitutional Vitals: Period Temp Pulse Resp BP Sys/[place] Pulse Ox Last 24 Hr 98.4 F-101.0 F 90-115 12-18 92-130/41-71 91-100 Results - Labs CBC & BMP: 01/22/17 09:11 01/20/17 05:08
[2017-01-22] MEDS ORDERED: ENOXAPARIN 80 MG/0.8 ML SYRINGE SUBCUT SCH (09:00)
[2017-01-22 09:20] LABS: Basophils # 0.1 10*3/uL (0.0-0.2); Basophils % 0.4 % (0.0-0.8); Eosinophils # 0.9 10*3/uL (0.0-0.87); Eosinophils % 5.5 % (0.00-10.9); Hematocrit 26.4 VOL% (35.7-47.0); Hemoglobin 9.1 GM/DL (12.0-16.0); Immature Granulocytes % 1.5 %; Immature Granulocytes Absolute 0.24 #; Lymphocytes # 2.3 10*3/uL (1.4-4.0); Lymphocytes % 14.8 % (21.3-54.2); Mean Corpuscular HGB Conc 34.5 GM/DL (32-36); Mean Corpuscular Hemoglobin 28 PG (27-34); Mean Corpuscular Volume 80.2 FL (87-102); Mean Platelet Volume 9.2 FL (9.6-12.0); Monocytes # 1.4 10*3/uL (0.11-0.8); Monocytes % 8.9 % (1.7-12.7); Neutrophils # 10.8 10*3/uL (1.4-7.4); Neutrophils % 68.9 % (38.7-73.9); Platelet Count 496 T/CUMM (130-400); Red Blood Count 3.29 MC/CUMM (3.8-5.5); Red Cell Distribution Width 15.6 % (9.3-17.3); White Blood Count 15.6 T/CUMM (4-12)
[2017-01-22] MEDS: INSULIN LISPRO 100 UNIT/ML SUBCUT SCH ×3 (09:49→22:03)
[2017-01-22] MEDS: PANTOPRAZOLE 40 MG TABLET PO SCH ×2 (09:51→22:08)
[2017-01-22] MEDS: cloNIDine 0.1 MG TABLET PO SCH ×2 (09:51→22:08)
[2017-01-22] MEDS: CALCIUM ACETATE 667 MG CAPSULE PO SCH ×3 (09:51→18:12)
[2017-01-22] MEDS: LOSARTAN 50 MG TABLET PO SCH ×2 (09:51→22:08)
[2017-01-22] MEDS: GABAPENTIN 100 MG CAPSULE PO SCH ×2 (09:51→22:07)
[2017-01-22] MEDS ORDERED: POLYETHYLENE GLYCOL POWDER 255 GM BOTTLE PO ONE (12:16)
--- NOTE | 2017-01-22 14:31 | Nephrology Progress Note ---
Nephrology - PN: Subj Interval history: Patient seen on hemodialysis, she is tolerating this well however she is very chronically ill-appearing at this time. She complains of leg pain today. Will continue her HD treatment unchanged. Exam (PN)-Nephrology - Vital Signs Vital signs: Period Temp Pulse Resp BP Sys/[place] Pulse Ox Last 24 Hr 97.4 F-101.0 F 90-115 12-18 92-131/41-79 91-100 - Lab 01/22/17 09:11 01/20/17 05:08 Most recent lab results Calcium 7.7 MG/DL (8.5-10.1) L 01/20/17 05:08 Magnesium 3.2 MG/DL (1.8-2.4) H 01/20/17 05:08
[2017-01-22] MEDS: ONDANSETRON 4 MG/2 ML VIAL IV PRN (18:15)
--- NOTE | 2017-01-22 18:23 | Hospitalist Progress Note ---
Assessment and Plan (1) ESRD (end stage renal disease) Status: Chronic Current Visit: Yes (2) Hypertension Status: Chronic Current Visit: Yes Qualifiers: Hypertension type: essential hypertension Qualified Code(s): I10 - Essential (primary) hypertension (3) Diabetes Status: Chronic Current Visit: No Qualifiers: Diabetes mellitus type: type 2 Diabetes mellitus complication status: with kidney complications Chronic kidney disease stage: on chronic dialysis (4) Acute deep vein thrombosis (DVT) of right upper extremity Status: Acute Current Visit: Yes Qualifiers: Affected thrombotic vein of extremity: brachial Qualified Code(s): I82.621 - Acute embolism and thrombosis of deep veins of right upper extremity (5) Colitis Status: Acute Current Visit: Yes (6) Anemia Status: Acute Current Visit: Yes Hospitalist: Subjective Interval history: Patient is more lethargic today. She is complaining of low back pain and left leg pain. Unable to prep for colonoscopy overnight, the plan is now for colonoscopy tomorrow. HD today. Will obtain xrays. She was a little more awake this evening after HD this evening. Exam - Constitutional Vitals: Period Temp Pulse Resp BP Sys/[place] Pulse Ox Last 24 Hr 98.4 F-101.0 F 90-115 12-18 92-130/41-71 91-100 General appearance: normal weight - Head Head exam: Present: normocephalic, atraumatic - Eye Eye exam: Present: EOMI Pupils: Present: VERO - ENT ENT exam: Present: normal exam - Neck Neck exam: Present: normal inspection - Respiratory Respiratory exam: Present: clear to auscultation bilaterally - Cardiovascular Cardiovascular exam: Present: regular rate and rhythm - GI/Abdominal GI/Abdominal exam: Present: normal bowel sounds, soft. Absent: tenderness, rebound - Extremities Exam Extremities exam: Present: normal inspection - Back Exam Back exam: Present: normal inspection - Neurological Exam Neurological exam: Present: alert, oriented X3 - Psychiatric Psychiatric exam: Present: normal affect, normal mood - Skin Skin exam: Present: warm, intact Results - Labs CBC & BMP: 01/22/17 09:11 01/20/17 05:08
[2017-01-23] MEDS: ALBUTEROL/IPRATROPIUM 3 ML NEB RESP TX SCH ×6 (03:24→23:10)
--- NOTE | 2017-01-23 06:39 | XRay Report ---
Left hip, 2 views History is a left hip pain Mild vascular calcifications present No acute fracture or dislocation is seen Impression: Mild vascular calcifications PROCEDURE INTERPRETED AT [facility] DEPARTMENT OF RADIOLOGY Final Report Signed by: Dr. Rae Mckeon
[2017-01-23] MEDS: metroNIDAZOLE 250 MG TABLET PO SCH ×4 (06:48→22:00)
[2017-01-23] MEDS ORDERED: SODIUM CHLORIDE 0.9% 1,000 ML IV SCH (08:00)
[2017-01-23 08:12] LABS: Basophils # 0.1 10*3/uL (0.0-0.2); Basophils % 0.5 % (0.0-0.8); Eosinophils # 1.2 10*3/uL (0.0-0.87); Eosinophils % 7.7 % (0.00-10.9); Hematocrit 26.1 VOL% (35.7-47.0); Hemoglobin 8.8 GM/DL (12.0-16.0); Immature Granulocytes % 1.4 %; Immature Granulocytes Absolute 0.23 #; Lymphocytes # 2.5 10*3/uL (1.4-4.0); Lymphocytes % 15.4 % (21.3-54.2); Mean Corpuscular HGB Conc 33.7 GM/DL (32-36); Mean Corpuscular Hemoglobin 28 PG (27-34); Mean Corpuscular Volume 82.1 FL (87-102); Mean Platelet Volume 9.4 FL (9.6-12.0); Monocytes # 1.5 10*3/uL (0.11-0.8); Monocytes % 9.3 % (1.7-12.7); Neutrophils # 10.6 10*3/uL (1.4-7.4); Neutrophils % 65.7 % (38.7-73.9); Platelet Count 515 T/CUMM (130-400); Red Blood Count 3.18 MC/CUMM (3.8-5.5); Red Cell Distribution Width 15.7 % (9.3-17.3); White Blood Count 16.1 T/CUMM (4-12)
[2017-01-23] MEDS: INSULIN LISPRO 100 UNIT/ML SUBCUT SCH ×4 (08:13→22:25)
[2017-01-23 08:43] LABS: Calcium 8.3 MG/DL (8.5-10.1); Magnesium 2.9 MG/DL (1.8-2.4); Osmolality,Calculated 269.4 MOS/KG (273-304); Potassium 4.3 MMOL/L (3.5-5.1)
--- NOTE | 2017-01-23 09:06 | XRay Report ---
XR thoracic spine, 2V ap/lat; XR lumbar spine AP/LAT, 2 views Clinical Information: Upper and lower back pain Comparison: None Findings: Vertebral body heights and alignment are within normal limits. Intervertebral disc spaces are generally maintained at all levels. Prevertebral soft tissues appear normal. There is no acute fracture or subluxation identified. No suspicious osseous or soft tissue lesions are identified. Right chest dialysis catheter noted in place. Impression: No acute fracture or subluxation in the thoracic/lumbar spine. PROCEDURE INTERPRETED AT [facility] [place] DEPARTMENT OF RADIOLOGY Final Report Signed by: Nasir Rutherford
--- NOTE | 2017-01-23 10:08 | XRay Report ---
XR XR knee 2V LT Clinical Information: pain Comparison: None available Findings: There is no acute fracture or focal soft tissue abnormality identified. Visualized knee joint space appears relatively preserved. Multifocal atherosclerotic plaque noted throughout the vasculature. Impression: No acute findings. PROCEDURE INTERPRETED AT [facility] DEPARTMENT OF RADIOLOGY Final Report Signed by: Nasir Rutherford
--- NOTE | 2017-01-23 10:51 | History and Physical Update ---
History and Physical Update - Physical Exam Mental Status: alert and oriented Heart: regular rate and rhythm Lung: clear to auscultation Abdomen: within normal limits Vitals: within normal limits
--- NOTE | 2017-01-23 10:54 | Operative Note ---
Date of procedure: 01/23/17 Pre-op diagnosis: Abnormal CT with possible colitis Procedure: Colonoscopy 41-year-old female with abnormal CT question of colitis scope is been delayed due to coagulopathy and difficulty in obtaining prep she is now for colonoscopy to further evaluate. She has had a febrile hospital course complicated by UTI. She is now for colonoscopy for the above. Informed symptoms obtained the patient She was sedated with MAC anesthesia per anesthesia protocol. Patient was placed in the left lateral decubitus position digital exam revealed no rectal masses. The Olympus flexible video colonoscope was inserted into the anal canal advanced under direct vision to level the cecum. Findings: Prep fair with residual stool predominant the right colon Withdrawal time 8 minutes Findings Cecum-identify by ileocecal valve appendiceal orifice no polyps or masses are seen no colitis identified. Exam limited to some degree by less than ideal prep. Terminal ileum-normal Ascending colon-normal exam limited by less than ideal prep Transverse colon-normal Descending colon-normal Sigmoid colon-normal Rectum-normal to direct retroflexed views. The procedure terminated placed our procedure well she is discharged recovery in good condition. Postop diagnosis: 1. Essentially normal colonoscopy with limitation of prep. Specifically no colitis or mass lesions were identified. Presumptively her prior CT findings related to pseudomembranous colitis which appears to been effectively treated. I will sign off call if we can be of further assistance. Anesthesia: MAC Surgeon / Physician: Poncho Castellanos Estimated blood loss: none Specimens: none sent Condition: stable Disposition: post procedure unit Results - Labs CBC & BMP: 01/23/17 07:50 01/23/17 07:50 Discharge Plan - Discharge Medications No Action cloNIDine TAB [Catapres Tab] 0.1 mg PO BID #90 tablet Calcium Acetate [Phoslo] 667 mg PO TID Losartan/Hydrochlorothiazide [Losartan-Hctz 100-12.5 mg Tab] 100 mg PO DAILY - Follow Up or Referral - Forms/Instructions
[2017-01-23] MEDS: ENOXAPARIN 80 MG/0.8 ML SYRINGE SUBCUT SCH (11:53)
[2017-01-23] MEDS: LOSARTAN 50 MG TABLET PO SCH ×2 (11:53→21:58)
[2017-01-23] MEDS: CALCIUM ACETATE 667 MG CAPSULE PO SCH ×3 (11:54→16:32)
[2017-01-23] MEDS: cloNIDine 0.1 MG TABLET PO SCH ×2 (11:54→21:58)
[2017-01-23] MEDS: GABAPENTIN 100 MG CAPSULE PO SCH ×2 (11:56→21:58)
[2017-01-23] MEDS: PANTOPRAZOLE 40 MG TABLET PO SCH ×2 (12:07→21:58)
--- NOTE | 2017-01-23 12:16 | Nephrology Progress Note ---
Nephrology - PN: Subj Interval history: Patient complains of left leg pain. Review of systems pulmonary she denies shortness of breath Physical exam general the patient's chronically ill-appearing, she moves her lower extremities weakly she has great difficulty moving her left leg Assessment/plan 1. Febrile illness-this patient's temperature was 101 yesterday , she seems to be deteriorating further I am going to give her a dose of vancomycin and see about getting her HD catheter out tomorrow 2. End-stage renal disease-continue HD support 3. Deep venous thrombosis in her right arm continue anticoagulation Exam (PN)-Nephrology - Vital Signs Vital signs: Period Temp Pulse Resp BP Sys/[place] Pulse Ox Last 24 Hr 98.1 F-100.0 F 98-119 12-20 89-158/53-96 90-100 - Lab 01/23/17 07:50 01/23/17 07:50 Most recent lab results Calcium 8.3 MG/DL (8.5-10.1) L 01/23/17 07:50 Magnesium 2.9 MG/DL (1.8-2.4) H 01/23/17 07:50
[2017-01-23] MEDS ORDERED: VANCOMYCIN INJ 1,000 MG in SODIUM CHLORIDE 0.9% 250 ML IV ONE (12:30)
--- NOTE | 2017-01-23 13:50 | Hospitalist Progress Note ---
Assessment and Plan (1) ESRD (end stage renal disease) Status: Chronic Assessment and plan: Nephrology managing Current Visit: Yes (2) Hypertension Status: Chronic Assessment and plan: Losartan and clonidine Current Visit: Yes Qualifiers: Hypertension type: essential hypertension Qualified Code(s): I10 - Essential (primary) hypertension (3) Diabetes Status: Chronic Assessment and plan: SSI Current Visit: No Qualifiers: Diabetes mellitus type: type 2 Diabetes mellitus complication status: with kidney complications Chronic kidney disease stage: on chronic dialysis (4) Acute deep vein thrombosis (DVT) of right upper extremity Status: Acute Assessment and plan: Lovenox Current Visit: Yes Qualifiers: Affected thrombotic vein of extremity: brachial Qualified Code(s): I82.621 - Acute embolism and thrombosis of deep veins of right upper extremity (5) Colitis Status: Acute Assessment and plan: Continue flagyl Colonoscopy today Current Visit: Yes (6) Anemia Status: Acute Assessment and plan: Stable Most likely of chronic disease 2/2 ESRD Current Visit: Yes Hospitalist: Subjective Interval history: No acute events overnight. Patient still drowsy but will wake up and answer questions. She is oriented x4. Today she reports that her left leg pain is localized to her knee. On exam her left knee is very slightly warm and swollen. Not extremely impressive but will consult ortho to see if it's possible to tap. Her ESR and CRP have also increased since admission. Blood cultures have been repeated. Dr. Romero plans to have her tunnelled HD catheter removed tomorrow. Exam - Constitutional Vitals: Period Temp Pulse Resp BP Sys/[place] Pulse Ox Last 24 Hr 98.1 F-100.0 F 98-119 12-20 89-158/53-96 90-100 General appearance: over weight - Head Head exam: Present: normocephalic, atraumatic - Eye Eye exam: Present: EOMI Pupils: Present: VERO - ENT ENT exam: Present: normal exam - Neck Neck exam: Present: normal inspection - Respiratory Respiratory exam: Present: clear to auscultation bilaterally. Absent: rhonchi, wheezes - Cardiovascular Cardiovascular exam: Present: regular rate and rhythm - GI/Abdominal GI/Abdominal exam: Present: normal bowel sounds, soft. Absent: tenderness, rebound - Extremities Exam Extremities exam: Present: normal inspection - Back Exam Back exam: Present: normal inspection - Neurological Exam Neurological exam: Present: alert, oriented X3 - Psychiatric Psychiatric exam: Present: normal affect, normal mood - Skin Skin exam: Present: warm, intact Results - Labs CBC & BMP: 01/23/17 07:50 01/23/17 07:50
--- NOTE | 2017-01-23 14:22 | Anesthesia Post-Op ---
Anesthesia Post OP - Post Ansesthetic Evaluation Patient seen in post op: Yes Resp: within normal limits CV: within normal limits Mental: within normal limits Temp: within normal limits [id number]: within normal limits Nausea and Vomiting: within normal limits Pain: within normal limits
--- NOTE | 2017-01-23 14:28 | XRay Report ---
History is follow-up infiltrates with fever Comparison 01/20/2017 The heart is mildly enlarged with a dialysis catheter present No pneumothorax or confluent infiltrates seen. Minimal right basilar infiltrates have improved in the interval. Very minimal stranding opacities remain in the lung bases. Impression: Near complete resolution of prior mild patchy right basilar infiltrates PROCEDURE INTERPRETED AT [facility] DEPARTMENT OF RADIOLOGY Final Report Signed by: Dr. Rae Mckeon
--- NOTE | 2017-01-23 18:52 | Orthopedic Consult Note ---
History of Present Illness Chief complaint: Left knee pain History of present illness: Ms. Slater is a 41 year old female on the medical service with history of several days of left knee pain she reportedly is nonambulator at this point due to illness related to her dialysis she is on hemodialysis and has had a recent occlusion. Reportedly at home she was minimal household ambulator there has been no history of any fall or other trauma when asked to evaluate regarding left knee pain Examination sedated black female she tolerates gentle range of motion with the left lower extremity extremity including the left knee to about 90 of passive flexion I do not appreciate an effusion there is no erythema no warmth no prepatellar swelling ligamentously her knee is stable is no pain approximately hip distally up to febrile ankle radiographs multiple views left knee I do not see any bony changes no soft tissue swelling or effusion no arthritis Impression left knee pain Plan I do not see any acute process clinically no infectious process and recommend continued mobilization nursing reports that she is gotten better and tolerating PT program within the last day or 2 I would continue with that ice of the modalities as needed for any change in condition for free let us know Home Medications Medication Instructions Recorded Confirmed Type cloNIDine TAB [Catapres Tab] 0.1 mg PO BID #90 tablet 09/13/16 01/06/17 Rx Calcium Acetate [Phoslo] 667 mg PO TID 12/13/16 01/06/17 History Losartan/Hydrochlorothiazide 100 mg PO DAILY 12/13/16 01/06/17 History [Losartan-Hctz 100-12.5 mg Tab] Allergies Allergy/AdvReac Type Severity Reaction Status Date / Time Penicillins Allergy Severe ITCHING Verified 01/06/17 04:06 aspirin Allergy Intermediate ITCHING Verified 01/06/17 04:06 Medical,Surgical,& Family Hx - Medical History Cardio: History of: Hypertension Psychological: History of: Bipolar Disorder Neurology: History of: Migraine No history of: Seizures HEENT: History of: Eye Problem (CATARACTS) Endocrine: No history of: Diabetes Mellitus (IDDM), Diabetes Mellitus (NIDDM), Thyroid Disorder, Endocrine Cancer, Endocrine Problems Respiratory: History of: Asthma, Bronchitis Renal: History of: Dialysis, Renal Failure Gastrointestinal: History of: GERD Musculoskeletal: Comment Only: Musculoskeletal Problems (ARTHRITIS HANDS) Hematology: History of: Sickle Cell Disease (SICKLE CELL TRACE) - Surgical History Cardiac Surgeries: Sugical HX of: Cardiac Catheterization HEENT Surgeries: Surgical HX of: Eye Surgery (RETICAL SURGERY,LASER SURGERY) Patient denies: Thyroid Surgery Reproductive Surgeries: Surgical HX of;: Section (X4), Tubal Ligation Patient denies;: Breast Surgery, Dilation and Curettage, Gynecologic Surgery , Hysterectomy - Family History Family History: Reports;: Family Cancer (GRANDMOTHER), Family Diabetes (MOTHER, FATHER , DAUGHTER), Family Heart Disease (MOTHER), Family Hypertension (MOTHER, FATHER , DAUGHTER), Family Stroke (AUNT) - Social History Smoking Status: Never smoker Frequency of Alcohol Use: None Type of Drug Use: None Exam - Constitutional Vitals: Period Temp Pulse Resp BP Sys/[place] Pulse Ox Last 24 Hr 97.6 F-100.0 F 101-118 12-20 89-158/53-96 90-100 Results - Labs CBC & BMP: 01/23/17 07:50 01/23/17 07:50
[2017-01-23] MEDS: ACETAMINOPHEN 325 MG TABLET PO PRN (21:59)
[2017-01-24] MEDS: ALBUTEROL/IPRATROPIUM 3 ML NEB RESP TX SCH ×6 (03:00→23:08)
[2017-01-24] MEDS: metroNIDAZOLE 250 MG TABLET PO SCH ×4 (04:27→22:43)
[2017-01-24 06:11] LABS: Basophils # 0.1 10*3/uL (0.0-0.2); Basophils % 0.5 % (0.0-0.8); Eosinophils # 1.7 10*3/uL (0.0-0.87); Hemoglobin 8.6 GM/DL (12.0-16.0); Immature Granulocytes % 1.4 %; Immature Granulocytes Absolute 0.22 #; Lymphocytes # 3.1 10*3/uL (1.4-4.0); Lymphocytes % 20.3 % (21.3-54.2); Mean Corpuscular HGB Conc 33.1 GM/DL (32-36); Mean Corpuscular Hemoglobin 28 PG (27-34); Mean Corpuscular Volume 83.1 FL (87-102); Mean Platelet Volume 9.8 FL (9.6-12.0); Monocytes # 1.5 10*3/uL (0.11-0.8); Monocytes % 9.4 % (1.7-12.7); Neutrophils # 8.9 10*3/uL (1.4-7.4); Neutrophils % 57.4 % (38.7-73.9); Platelet Count 519 T/CUMM (130-400); Red Blood Count 3.13 MC/CUMM (3.8-5.5); Red Cell Distribution Width 15.6 % (9.3-17.3); White Blood Count 15.5 T/CUMM (4-12)
[2017-01-24 06:35] LABS: Eosinophils 11 % (0-10); Hypochromasia 1+; Lymphocytes 17 % (20-55); Metamyelocytes 1 %; Microcytosis Slight; Platelet Estimate Increased; Segmented Neutrophils 63 % (50-85); Total Cells Counted 100
[2017-01-24 06:40] LABS: Calcium 8.6 MG/DL (8.5-10.1); Magnesium 3.1 MG/DL (1.8-2.4); Osmolality,Calculated 275.4 MOS/KG (273-304)
[2017-01-24] MEDS: cloNIDine 0.1 MG TABLET PO SCH ×2 (08:33→20:05)
[2017-01-24] MEDS: INSULIN LISPRO 100 UNIT/ML SUBCUT SCH ×4 (08:33→20:49)
[2017-01-24] MEDS: CALCIUM ACETATE 667 MG CAPSULE PO SCH ×3 (08:33→17:07)
[2017-01-24] MEDS: ENOXAPARIN 80 MG/0.8 ML SYRINGE SUBCUT SCH (08:34)
[2017-01-24] MEDS: GABAPENTIN 100 MG CAPSULE PO SCH (08:34)
[2017-01-24] MEDS: PANTOPRAZOLE 40 MG TABLET PO SCH ×2 (08:34→20:05)
[2017-01-24] MEDS: LOSARTAN 50 MG TABLET PO SCH ×2 (08:34→20:05)
--- NOTE | 2017-01-24 08:36 | Orthopedic Progress Note ---
Orthopedics - Subjective Interval history: More alert this morning complaining of pain more proximal in the thigh tolerating general range of motion about the left hip and knee active assistive knee range of motion about 60 appreciate no effusion or point tenderness Encouraged her to continue with PT no see any operative or infectious etiology at this time Exam - Constitutional Vitals: Period Temp Pulse Resp BP Sys/[place] Pulse Ox Last 24 Hr 97.6 F-100.7 F 101-115 12-21 117-158/65-96 91-100 Results - Labs CBC & BMP: 01/24/17 05:04 01/24/17 05:04
--- NOTE | 2017-01-24 10:48 | Nephrology Progress Note ---
Nephrology - PN: Subj Interval history: Patient is talking a little bit more strongly today. She however continues to have complaints of lower extremity weakness and today he is complaining of some shakes in her upper extremities as well as some weakness in them as well. Review of systems pulmonary she denies shortness of breath Physical exam general the patient weakly raised her arms a little bit when asked to squeeze my fingers with her hand she did not do hardly anything, her upper extremities kind of have a week wavy shape to them when she tries to move. Assessment/plan 1. End-stage renal disease-we will plan on dialyzing the patient today and I believe it is worthwhile to take her catheter out. We will continue vancomycin IV. 2. 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 3. Febrile illness-patient continues to have a low-grade fever with a temp of around 100.7 maximally in the past 24 hours. We will continue vancomycin. Exam (PN)-Nephrology - Vital Signs Vital signs: Period Temp Pulse Resp BP Sys/[place] Pulse Ox Last 24 Hr 97.6 F-100.7 F 101-115 12-21 117-148/65-79 91-100 - Lab 01/24/17 05:04 01/24/17 05:04 Most recent lab results Calcium 8.6 MG/DL (8.5-10.1) 01/24/17 05:04 Magnesium 3.1 MG/DL (1.8-2.4) H 01/24/17 05:04
--- NOTE | 2017-01-24 11:20 | Dialysis Note ---
Dialysis Note - Dialysis Note Patient is seen on hemodialysis, she is tolerating this well will continue her treatment unchanged.
--- NOTE | 2017-01-24 14:28 | Neurology Consult Note ---
History of Present Illness History of present illness: Ms. Slater is a 41 year old female presented admitted with pain and swelling to the right arm. This started after they used her AV fistula for the first time. She was diagnosed with a DVT in the right arm. Since admission the patient has been having on and off fever. She has been progressively weak and barely able to sit up in the bed. Her primary complaint is generalized pain more so in the left leg than the right leg. Arms are hurting too but they are not as bad as the lower extremities. She has been treated empirically for sepsis and urinary tract infection. She is crying constantly because of the severe pain. She denies any speech difficulties, swallowing difficulties or breathing problems. She is able to resist on the manual muscle testing to a certain extent. Home Medications Medication Instructions Recorded Confirmed Type cloNIDine TAB [Catapres Tab] 0.1 mg PO BID #90 tablet 09/13/16 01/06/17 Rx Calcium Acetate [Phoslo] 667 mg PO TID 12/13/16 01/06/17 History Losartan/Hydrochlorothiazide 100 mg PO DAILY 12/13/16 01/06/17 History [Losartan-Hctz 100-12.5 mg Tab] Allergies Allergy/AdvReac Type Severity Reaction Status Date / Time Penicillins Allergy Severe ITCHING Verified 01/06/17 04:06 aspirin Allergy Intermediate ITCHING Verified 01/06/17 04:06 12 point system: reviewed and no additional remarkable complaints except as stated Medical,Surgical,& Family Hx - Medical History Cardio: History of: Hypertension Psychological: History of: Bipolar Disorder Neurology: History of: Migraine No history of: Seizures HEENT: History of: Eye Problem (CATARACTS) Endocrine: No history of: Diabetes Mellitus (IDDM), Diabetes Mellitus (NIDDM), Thyroid Disorder, Endocrine Cancer, Endocrine Problems Respiratory: History of: Asthma, Bronchitis Renal: History of: Dialysis, Renal Failure Gastrointestinal: History of: GERD Musculoskeletal: Comment Only: Musculoskeletal Problems (ARTHRITIS HANDS) Hematology: History of: Sickle Cell Disease (SICKLE CELL TRACE) - Surgical History Cardiac Surgeries: Sugical HX of: Cardiac Catheterization HEENT Surgeries: Surgical HX of: Eye Surgery (RETICAL SURGERY,LASER SURGERY) Patient denies: Thyroid Surgery Reproductive Surgeries: Surgical HX of;: Section (X4), Tubal Ligation Patient denies;: Breast Surgery, Dilation and Curettage, Gynecologic Surgery , Hysterectomy - Family History Family History: Reports;: Family Cancer (GRANDMOTHER), Family Diabetes (MOTHER, FATHER , DAUGHTER), Family Heart Disease (MOTHER), Family Hypertension (MOTHER, FATHER , DAUGHTER), Family Stroke (AUNT) - Social History Smoking Status: Never smoker Frequency of Alcohol Use: None Type of Drug Use: None Exam - Constitutional Vitals: Period Temp Pulse Resp BP Sys/[place] Pulse Ox Last 24 Hr 97.6 F-100.7 F 101-115 16-21 124-145/65-79 94-100 Exam: GENERAL: Patient is in no acute distress. NECK: Neck is supple. There is no JVD. No carotid bruits present. No thyroid masses. CVS: First and second heart sounds are normal. There is no S3 present. Regular rate and rhythm. RESPIRATORY: Lungs are clear to auscultation without any rales or rhonchi. ABDOMEN: Soft and non-tender. Bowel sounds are present. There is no hepatosplenomegaly. EXT: There is no palpable edema. Peripheral pulses are present. Skin: No rashes Central Nervous system: General: Alert, awake and Oriented x 3 Speech: Fluent Comprehension: Intact and normal Facial expressions: Normal Cranial Nerves: CN1/Olfactory: Normal CN II/ Optic: Normal, Visual Mcguire unreliable CN III, and : VERO & EOMI CN V: Normal & intact CN VII: face is symmetric CNVIII: Normal CN XI/X/XI/XII: Intact and Normal Motor: Bulk and Tone is normal. Strength in the right 2-3/5 Strength in the left 2-3/5 Sensory: Cannot be assessed with the reliability Reflexes: 2+ and symmetrical Cerebellar function: Cannot be assessed Toes: Equivocal Gait: Cannot be assessed Results - Labs CBC & BMP: 01/24/17 05:04 01/24/17 05:04 Assessment and Plan (1) Generalized weakness Status: Acute Assessment and plan: It looks like she is weak probably because of significant pain all over. Source and etiology of her pain is not clear. However I do not see any evidence of inflammatory neuropathy such as Guillain-Muñoz syndrome or CIDP. Reflexes are still brisk. She denies any neck pain. I doubt there is any central nervous system pathology either however I will go ahead and do an MRI of the brain to look for a tiny stroke in the thalamic region which can cause post stroke pain. She is unable to give me much strength in the left side because of the pain. LP is not indicated. We will try Rachel bell Current Visit: Yes
[2017-01-24] MEDS: PREGABALIN 100 MG CAPSULE PO SCH ×2 (15:17→20:05)
--- NOTE | 2017-01-24 15:26 | Hospitalist Progress Note ---
Assessment and Plan (1) ESRD (end stage renal disease) Status: Chronic Assessment and plan: Nephrology managing Current Visit: Yes (2) Hypertension Status: Chronic Assessment and plan: Losartan and clonidine Current Visit: Yes Qualifiers: Hypertension type: essential hypertension Qualified Code(s): I10 - Essential (primary) hypertension (3) Diabetes Status: Chronic Assessment and plan: SSI Current Visit: No Qualifiers: Diabetes mellitus type: type 2 Diabetes mellitus complication status: with kidney complications Chronic kidney disease stage: on chronic dialysis (4) Acute deep vein thrombosis (DVT) of right upper extremity Status: Acute Assessment and plan: Lovenox Current Visit: Yes Qualifiers: Affected thrombotic vein of extremity: brachial Qualified Code(s): I82.621 - Acute embolism and thrombosis of deep veins of right upper extremity (5) Colitis Status: Acute Assessment and plan: Continue flagyl Colonoscopy 01/23/17 was essentially normal Current Visit: Yes (6) Anemia Status: Acute Assessment and plan: Stable Most likely of chronic disease 2/2 ESRD Current Visit: Yes (7) Leukocytosis Status: Acute Current Visit: Yes (8) Fever Status: Acute Current Visit: Yes (9) Weakness Status: Acute Assessment and plan: Generalized but with associated LLE pain Neurology was consulted. Current Visit: Yes Hospitalist: Subjective Interval history: Febrile to 100.7 overnight. This afternoon she is more awake than previously. She reports that she was very weak earlier with tremors of her upper extremities. This is now resolved. She continues to complain of left leg pain, now saying in her thigh area. Everyday the point of this pain has been different but always the left leg. Patient continues to intermittently have low grade fevers. She has a leukocytosis which is relatively unchanged. Elevated CRP and ESR. No overt signs of infection. No point tenderness of her back or her left leg. Currently being treated for colitis with flagyl, this seems improved. Earlier in admission treated for E.coli urine culture. She has had multiple negative blood cultures, most recently yesterday. Blood clots can cause fever, but does not really explain the leukocytosis. Agree with the vancomycin for now. Exam - Constitutional Vitals: Period Temp Pulse Resp BP Sys/[place] Pulse Ox Last 24 Hr 97.6 F-100.7 F 101-115 16-21 124-145/65-79 94-100 General appearance: over weight - Head Head exam: Present: normocephalic, atraumatic - Eye Eye exam: Present: EOMI Pupils: Present: VERO - ENT ENT exam: Present: normal exam - Neck Neck exam: Present: normal inspection - Respiratory Respiratory exam: Present: clear to auscultation bilaterally. Absent: rhonchi, wheezes - Cardiovascular Cardiovascular exam: Present: regular rate and rhythm - GI/Abdominal GI/Abdominal exam: Present: normal bowel sounds, soft. Absent: tenderness, rebound - Extremities Exam Extremities exam: Present: normal inspection - Back Exam Back exam: Present: normal inspection - Neurological Exam Neurological exam: Present: alert, oriented X3 - Psychiatric Psychiatric exam: Present: normal affect, normal mood - Skin Skin exam: Present: warm, intact Results - Labs CBC & BMP: 01/24/17 05:04 01/24/17 05:04
[2017-01-24] MEDS ORDERED: VANCOMYCIN INJ 1,250 MG in SODIUM CHLORIDE 0.9% 250 ML IV ONE (15:30)
--- NOTE | 2017-01-24 17:01 | Magnetic Resonance Report ---
MRI brain without contrast Indication: Left-sided weakness Comparison: None available Technique: Axial sagittal and coronal imaging of the brain is performed without contrast. T1, T2, FLAIR and diffusion weighted sequences are performed. Findings: There is restricted diffusion present within the corpus callosum both anteriorly centrally and posteriorly. Posteriorly this is more prominent to the left of midline. This has corresponding T2 signal hyperintensity present. No evidence of intracranial hemorrhage, mass, mass effect or midline shift is seen. The brain parenchyma has normal signal and differentiation. The ventricles and cisterns are appropriate in caliber. Posterior fossa, mid brain and pituitary gland appear within normal limits. No evidence of cranial or skull base abnormality seen. Impression: Areas of restricted diffusion within the corpus callosum as described above, nonspecific in appearance. PROCEDURE INTERPRETED AT [facility] DEPARTMENT OF RADIOLOGY Final Report Signed by: Dr. Yemi Navas
--- NOTE | 2017-01-24 18:44 | Operative Note ---
Date of procedure: 01/24/17 Pre-op diagnosis: Possible infected dialysis catheter Post-op diagnosis: same Procedure: Preoperative diagnosis Possible infected dialysis catheter Postoperative diagnosis Same Procedures performed Removal of tunneled hemodialysis catheter Findings There is no purulence of the catheter and the cuff was well incorporated into the subcutaneous tissues. The catheter tip was sent for culture. Complications None apparent Specimen Catheter tip for culture Blood loss Minimal Anesthesia Local Indications Possible infected dialysis catheter Description of procedure The patient was placed in supine position in her hospital bed. Local anesthetic was administered around the catheter site after the wound was cleaned with Betadine. Scalpel was used to free up the cuff and subcutaneous tissues and the catheter was removed intact. The tip of the catheter was sent sterilely to the lab for culture. Pressure was held until bleeding stopped and sterile dressings were applied. Patient tolerated the procedure well. Postoperative plan Follow-up cultures Replace hemodialysis catheter next week Anesthesia: local Surgeon / Physician: Jeffrey De Leon Estimated blood loss: minimal Specimens: other (catheter tip for culture) Condition: stable Disposition: PACU Results - Labs CBC & BMP: 01/24/17 05:04 01/24/17 05:04 Discharge Plan - Discharge Medications No Action cloNIDine TAB [Catapres Tab] 0.1 mg PO BID #90 tablet Calcium Acetate [Phoslo] 667 mg PO TID Losartan/Hydrochlorothiazide [Losartan-Hctz 100-12.5 mg Tab] 100 mg PO DAILY - Follow Up or Referral - Forms/Instructions
[2017-01-25] MEDS: ALBUTEROL/IPRATROPIUM 3 ML NEB RESP TX SCH ×6 (03:43→23:51)
[2017-01-25] MEDS: metroNIDAZOLE 250 MG TABLET PO SCH ×4 (05:21→22:39)
[2017-01-25 06:16] LABS: Basophils # 0.1 10*3/uL (0.0-0.2); Basophils % 0.8 % (0.0-0.8); Eosinophils # 1.9 10*3/uL (0.0-0.87); Eosinophils % 14.6 % (0.00-10.9); Hematocrit 26.5 VOL% (35.7-47.0); Hemoglobin 8.9 GM/DL (12.0-16.0); Immature Granulocytes % 1.2 %; Immature Granulocytes Absolute 0.16 #; Lymphocytes # 2.5 10*3/uL (1.4-4.0); Lymphocytes % 18.6 % (21.3-54.2); Mean Corpuscular HGB Conc 33.6 GM/DL (32-36); Mean Corpuscular Hemoglobin 28 PG (27-34); Mean Corpuscular Volume 82.6 FL (87-102); Mean Platelet Volume 9.4 FL (9.6-12.0); Monocytes # 1.2 10*3/uL (0.11-0.8); Monocytes % 8.7 % (1.7-12.7); Neutrophils # 7.4 10*3/uL (1.4-7.4); Neutrophils % 56.1 % (38.7-73.9); Platelet Count 477 T/CUMM (130-400); Red Blood Count 3.21 MC/CUMM (3.8-5.5); Red Cell Distribution Width 15.1 % (9.3-17.3); White Blood Count 13.2 T/CUMM (4-12)
[2017-01-25 06:46] LABS: Calcium 8.9 MG/DL (8.5-10.1); Magnesium 2.7 MG/DL (1.8-2.4); Osmolality,Calculated 271.5 MOS/KG (273-304); Potassium 4.4 MMOL/L (3.5-5.1)
[2017-01-25 07:47] LABS: Eosinophils 5 % (0-10); Hypochromasia 2+; Lymphocytes 18 % (20-55); Microcytosis 1+; Myelocytes 1 %; Platelet Estimate Increased; Segmented Neutrophils 65 % (50-85); Total Cells Counted 100
[2017-01-25] MEDS: INSULIN LISPRO 100 UNIT/ML SUBCUT SCH ×4 (08:48→20:28)
[2017-01-25] MEDS: PANTOPRAZOLE 40 MG TABLET PO SCH ×2 (08:49→20:28)
[2017-01-25] MEDS: SIMETHICONE CHEW 80 MG TABLET PO PRN (08:49)
[2017-01-25] MEDS: LOSARTAN 50 MG TABLET PO SCH ×2 (08:49→20:29)
[2017-01-25] MEDS: CALCIUM ACETATE 667 MG CAPSULE PO SCH ×3 (08:50→17:26)
[2017-01-25] MEDS: ENOXAPARIN 80 MG/0.8 ML SYRINGE SUBCUT SCH (08:50)
[2017-01-25] MEDS: PREGABALIN 100 MG CAPSULE PO SCH ×2 (08:50→20:28)
[2017-01-25] MEDS: cloNIDine 0.1 MG TABLET PO SCH ×2 (08:51→20:29)
--- NOTE | 2017-01-25 10:40 | Hospitalist Progress Note ---
Assessment and Plan (1) ESRD (end stage renal disease) Status: Chronic Assessment and plan: Nephrology managing Current Visit: Yes (2) Hypertension Status: Chronic Assessment and plan: Losartan and clonidine Her blood pressure is very labile Current Visit: Yes Qualifiers: Hypertension type: essential hypertension Qualified Code(s): I10 - Essential (primary) hypertension (3) Diabetes Status: Chronic Assessment and plan: SSI Current Visit: No Qualifiers: Diabetes mellitus type: type 2 Diabetes mellitus complication status: with kidney complications Chronic kidney disease stage: on chronic dialysis (4) Acute deep vein thrombosis (DVT) of right upper extremity Status: Acute Assessment and plan: Lovenox for now Current Visit: Yes Qualifiers: Affected thrombotic vein of extremity: brachial Qualified Code(s): I82.621 - Acute embolism and thrombosis of deep veins of right upper extremity (5) Colitis Status: Acute Assessment and plan: Continue flagyl Colonoscopy 01/23/17 was essentially normal Current Visit: Yes (6) Anemia Status: Acute Assessment and plan: Stable Most likely of chronic disease 2/2 ESRD Current Visit: Yes (7) Leukocytosis Status: Acute Assessment and plan: Down some today Current Visit: Yes (8) Fever Status: Acute Assessment and plan: Afebrile for 24 hours Current Visit: Yes (9) Weakness Status: Acute Assessment and plan: Generalized but with associated LLE pain Neurology was consulted. Current Visit: Yes Hospitalist: Subjective Interval history: No acute events overnight. Afebrile since yesterday. Awake and alert this morning. Eating better per family member in room. Today she is mainly complaining of back pain. Tunnel cath was removed yesterday. White count is down a little today. Exam - Constitutional Vitals: Period Temp Pulse Resp BP Sys/[place] Pulse Ox Last 24 Hr 98 F-99 F 80-112 17-20 96-117/61-78 92-99 General appearance: over weight - Head Head exam: Present: normocephalic, atraumatic - Eye Eye exam: Present: EOMI Pupils: Present: VERO - ENT ENT exam: Present: normal exam - Neck Neck exam: Present: normal inspection - Respiratory Respiratory exam: Present: clear to auscultation bilaterally. Absent: rhonchi, wheezes - Cardiovascular Cardiovascular exam: Present: regular rate and rhythm - GI/Abdominal GI/Abdominal exam: Present: normal bowel sounds, soft. Absent: tenderness, rebound - Extremities Exam Extremities exam: Present: normal inspection - Back Exam Back exam: Present: normal inspection - Neurological Exam Neurological exam: Present: alert, oriented X3 - Psychiatric Psychiatric exam: Present: normal affect, normal mood - Skin Skin exam: Present: warm, intact Results - Labs CBC & BMP: 01/25/17 05:43 01/25/17 05:43
--- NOTE | 2017-01-25 11:26 | Neurology Progress Note ---
Neurology - PN : Subjective Interval history: Patient seems to be doing better today than yesterday. Pain is a little better but still there. Etiology of pain is not clear. Lyrica seems to be helping. Will check for rheumatological disorder Exam (Progress Note) - Constitutional Vitals: Period Temp Pulse Resp BP Sys/[place] Pulse Ox Last 24 Hr 98 F-99 F 80-112 17-20 96-117/61-78 92-100 Exam: GENERAL: Patient is in no acute distress. NECK: Neck is supple. There is no JVD. No carotid bruits present. No thyroid masses. CVS: First and second heart sounds are normal. There is no S3 present. Regular rate and rhythm. RESPIRATORY: Lungs are clear to auscultation without any rales or rhonchi. ABDOMEN: Soft and non-tender. Bowel sounds are present. There is no hepatosplenomegaly. EXT: There is no palpable edema. Peripheral pulses are present. Skin: No rashes Central Nervous system: General: Alert, awake and Oriented x 3 Speech: Fluent Comprehension: Intact and normal Facial expressions: Normal Cranial Nerves: CN1/Olfactory: Normal CN II/ Optic: Normal, Visual Mcguire unreliable CN III, and : VERO & EOMI CN V: Normal & intact CN VII: face is symmetric CNVIII: Normal CN XI/X/XI/XII: Intact and Normal Motor: Bulk and Tone is normal. Strength in the right 2-3/5 Strength in the left 2-3/5 Sensory: Cannot be assessed with the reliability Reflexes: 2+ and symmetrical Cerebellar function: Cannot be assessed Toes: Equivocal Gait: Cannot be assessed Results - Labs CBC & BMP: 01/25/17 05:43 01/25/17 05:43 Assessment and Plan (1) Generalized weakness Status: Acute Assessment and plan: Check CRP, CPK, aldolase, RA, W ESR Continue Lyrica 100 mg twice a day for now Consult PT and OT Current Visit: Yes
--- NOTE | 2017-01-25 12:15 | Nephrology Progress Note ---
Nephrology - PN: Subj Interval history: PT states pain improved a little. Afebrile last 24h. Peripheral eosinophilia 14% . Exam (PN)-Nephrology - Vital Signs Vital signs: Period Temp Pulse Resp BP Sys/[place] Pulse Ox Last 24 Hr 98 F-99 F 80-112 17-20 96-117/61-78 92-100 - General Appearance General appearance: well-developed, well-nourished, chronically ill EENT: ATNC, PERRL, mucous membranes dry, hearing intact, vision intact Neck: no JVD, no thyromegaly Respiratory: no kyphosis, clear Cardiology: no murmurs, no rub Gastrointestinal: normoactive bowel sounds, no tenderness Integumentary: no rash, warm and dry Neurologic: no focal deficit, no asterixis, alert and oriented x3 Musculoskeletal: no deformities, no erythema Psychiatric: mood/affect appropriate, cooperative - Lab 01/25/17 05:43 01/25/17 05:43 Most recent lab results Calcium 8.9 MG/DL (8.5-10.1) 01/25/17 05:43 Magnesium 2.7 MG/DL (1.8-2.4) H 01/25/17 05:43 Assessment and Plan (1) Peripheral eosinophilia Problem details: Can be seen with collagen vascular dz such as Churg ezra. Status: Acute Assessment and plan: Check JEY, ANCA, complements. Churg ezra can have positive ANCA (60%). If positive, consider treatment with high dose steroids. 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 Current Visit: Yes (2) ESRD (end stage renal disease) on dialysis Problem details: Tolerated routine CHD yesterday without complications. Status : Acute Assessment and plan: Next scheduled routine CHD on Friday. Current Visit: Yes (3) Anemia Status: Acute Current Visit: Yes (4) Generalized weakness Status: Acute Current Visit: Yes (5) Leukocytosis Status: Acute Current Visit: Yes (6) Fever Status: Acute Current Visit: Yes (7) Weakness Status: Acute Current Visit: Yes (8) Acute deep vein thrombosis (DVT) of right upper extremity Status: Acute Current Visit: Yes Qualifiers: Affected thrombotic vein of extremity: brachial Qualified Code(s): I82.621 - Acute embolism and thrombosis of deep veins of right upper extremity
[2017-01-25 12:32] LABS: Rheumatoid Factor < 15 IU/ML (<15)
[2017-01-26] MEDS: ALBUTEROL/IPRATROPIUM 3 ML NEB RESP TX SCH ×5 (03:11→19:32)
[2017-01-26] MEDS: metroNIDAZOLE 250 MG TABLET PO SCH ×4 (04:03→23:21)
[2017-01-26 07:17] LABS: Basophils # 0.1 10*3/uL (0.0-0.2); Basophils % 0.4 % (0.0-0.8); Eosinophils # 2.1 10*3/uL (0.0-0.87); Eosinophils % 16.7 % (0.00-10.9); Hematocrit 25.2 VOL% (35.7-47.0); Hemoglobin 8.1 GM/DL (12.0-16.0); Immature Granulocytes % 0.9 %; Immature Granulocytes Absolute 0.11 #; Lymphocytes # 2.3 10*3/uL (1.4-4.0); Mean Corpuscular HGB Conc 32.1 GM/DL (32-36); Mean Corpuscular Hemoglobin 27 PG (27-34); Mean Corpuscular Volume 83.2 FL (87-102); Mean Platelet Volume 9.9 FL (9.6-12.0); Monocytes % 7.8 % (1.7-12.7); Neutrophils # 7.1 10*3/uL (1.4-7.4); Neutrophils % 56.2 % (38.7-73.9); Platelet Count 475 T/CUMM (130-400); Red Blood Count 3.03 MC/CUMM (3.8-5.5); Red Cell Distribution Width 15.4 % (9.3-17.3); White Blood Count 12.6 T/CUMM (4-12)
[2017-01-26 07:39] LABS: Calcium 8.3 MG/DL (8.5-10.1); Magnesium 3.2 MG/DL (1.8-2.4); Osmolality,Calculated 282.1 MOS/KG (273-304); Potassium 4.6 MMOL/L (3.5-5.1)
[2017-01-26] MEDS: INSULIN LISPRO 100 UNIT/ML SUBCUT SCH ×4 (08:01→20:31)
[2017-01-26 09:18] LABS: Eosinophils 16 % (0-10); Hypochromasia 2+; Lymphocytes 11 % (20-55); Microcytosis 1+; Platelet Estimate Increased; Segmented Neutrophils 65 % (50-85); Total Cells Counted 100
[2017-01-26] MEDS: CALCIUM ACETATE 667 MG CAPSULE PO SCH ×3 (09:18→16:06)
[2017-01-26] MEDS: cloNIDine 0.1 MG TABLET PO SCH ×2 (09:18→20:26)
[2017-01-26] MEDS: LOSARTAN 50 MG TABLET PO SCH ×2 (09:18→20:25)
[2017-01-26] MEDS: PANTOPRAZOLE 40 MG TABLET PO SCH ×2 (09:19→20:26)
[2017-01-26] MEDS: PREGABALIN 100 MG CAPSULE PO SCH ×3 (09:19→21:08)
[2017-01-26] MEDS: ENOXAPARIN 80 MG/0.8 ML SYRINGE SUBCUT SCH (09:19)
--- NOTE | 2017-01-26 12:00 | Hospitalist Progress Note ---
Assessment and Plan (1) ESRD (end stage renal disease) Status: Chronic Assessment and plan: Nephrology managing Current Visit: Yes (2) Hypertension Status: Chronic Assessment and plan: Losartan and clonidine Her blood pressure is very labile Low this morning, but better on next check Now hypotensive Will stop her blood pressure medications Current Visit: Yes Qualifiers: Hypertension type: essential hypertension Qualified Code(s): I10 - Essential (primary) hypertension (3) Diabetes Status: Chronic Assessment and plan: SSI Current Visit: No Qualifiers: Diabetes mellitus type: type 2 Diabetes mellitus complication status: with kidney complications Chronic kidney disease stage: on chronic dialysis (4) Acute deep vein thrombosis (DVT) of right upper extremity Status: Acute Assessment and plan: Lovenox for now Current Visit: Yes Qualifiers: Affected thrombotic vein of extremity: brachial Qualified Code(s): I82.621 - Acute embolism and thrombosis of deep veins of right upper extremity (5) Colitis Status: Acute Assessment and plan: Continue flagyl Colonoscopy 01/23/17 was essentially normal Current Visit: Yes (6) Anemia Status: Acute Assessment and plan: Stable Most likely of chronic disease 2/2 ESRD Current Visit: Yes (7) Leukocytosis Status: Acute Assessment and plan: Continues to improve Current Visit: Yes (8) Fever Status: Acute Assessment and plan: Afebrile for 48 hours Current Visit: Yes (9) Weakness Status: Acute Assessment and plan: Generalized but with associated LLE pain Neurology was consulted, no evidence of stroke CRP has dropped from 12.7 to 1.71 ESR is essentially unchanged JEY earlier in admission was negative Being worked up for Churg Phyllis, ANCA pending Current Visit: Yes Hospitalist: Subjective Interval history: No acute events overnight. She did experience some oozing from the site of her catheter removal. This morning her blood pressure was recorded as 81/44 but improved to 104/73. Patient drowsy this am, but will wake up and answer all of my questions appropriately. Oriented x3. Reports that back pain is resolved. Still complaining of left leg pain. I do not see her most recent UA in the system, but her urine culture is growing gram positive cocci. She is on vancomycin already. Catheter tip with no growth at 24 hours. Exam - Constitutional Vitals: Period Temp Pulse Resp BP Sys/[place] Pulse Ox Last 24 Hr 98.2 F-99.2 F 72-111 15-20 81-137/41-86 91-100 General appearance: over weight - Head Head exam: Present: normocephalic, atraumatic - Eye Eye exam: Present: EOMI Pupils: Present: VERO - ENT ENT exam: Present: normal exam - Neck Neck exam: Present: normal inspection - Respiratory Respiratory exam: Present: clear to auscultation bilaterally. Absent: rhonchi, wheezes - Cardiovascular Cardiovascular exam: Present: regular rate and rhythm - GI/Abdominal GI/Abdominal exam: Present: normal bowel sounds, soft. Absent: tenderness, rebound - Extremities Exam Extremities exam: Present: normal inspection - Back Exam Back exam: Present: normal inspection - Neurological Exam Neurological exam: Present: alert, oriented X3 - Psychiatric Psychiatric exam: Present: normal affect, normal mood - Skin Skin exam: Present: warm, intact Results - Labs CBC & BMP: 01/26/17 05:28 01/26/17 05:28
--- NOTE | 2017-01-26 12:29 | Nephrology Progress Note ---
Nephrology - PN: Subj Interval history: Pt states she feels better this am. RIJ HD catheter removal site with continued bleeding requiring sandbag placement. Exam (PN)-Nephrology - Vital Signs Vital signs: Period Temp Pulse Resp BP Sys/[place] Pulse Ox Last 24 Hr 97.8 F-99.2 F 72-111 15-20 81-105/41-73 91-100 - General Appearance General appearance: well-developed, chronically ill EENT: ATNC, PERRL, mucous membranes dry, hearing intact, vision intact Neck: no JVD, no thyromegaly Respiratory: no kyphosis, clear Cardiology: no murmurs, no rub Gastrointestinal: normoactive bowel sounds, no tenderness Integumentary: no rash, warm and dry Neurologic: no focal deficit, no asterixis Musculoskeletal: no deformities, no erythema Psychiatric: mood/affect appropriate, cooperative - Lab 01/26/17 05:28 01/26/17 05:28 Most recent lab results Calcium 8.3 MG/DL (8.5-10.1) L 01/26/17 05:28 Magnesium 3.2 MG/DL (1.8-2.4) H 01/26/17 05:28 Assessment and Plan (1) Peripheral eosinophilia Problem details: Can be seen with collagen vascular dz such as Churg ezra. Status: Acute Assessment and plan: Check JEY, ANCA, complements. Churg ezra can have positive ANCA (60%). If positive, consider treatment with high dose steroids. 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 Current Visit: Yes (2) ESRD (end stage renal disease) on dialysis Problem details: Tolerated routine CHD yesterday without complications. Status : Acute Assessment and plan: Next scheduled routine CHD on Friday after placement of HD catheter. Current Visit: Yes (3) Anemia Status: Acute Current Visit: Yes (4) Generalized weakness Status: Acute Current Visit: Yes (5) Leukocytosis Status: Acute Current Visit: Yes (6) Fever Status: Acute Current Visit: Yes (7) Weakness Status: Acute Current Visit: Yes (8) Acute deep vein thrombosis (DVT) of right upper extremity Status: Acute Current Visit: Yes Qualifiers: Affected thrombotic vein of extremity: brachial Qualified Code(s): I82.621 - Acute embolism and thrombosis of deep veins of right upper extremity
--- NOTE | 2017-01-26 13:19 | Neurology Progress Note ---
Neurology - PN : Subjective Interval history: Patient is a still extremely weak and hurting in the lower extremities more than upper extremities. CRP and ESR are markedly high. CPK is borderline high. Aldolase is a still pending. I am concerned about possible rheumatological cause of the pain. RA factor is negative. Exam (Progress Note) - Constitutional Vitals: Period Temp Pulse Resp BP Sys/[place] Pulse Ox Last 24 Hr 97.8 F-99.2 F 72-111 15-20 81-105/41-73 91-100 Exam: GENERAL: Patient is in no acute distress. NECK: Neck is supple. There is no JVD. No carotid bruits present. No thyroid masses. CVS: First and second heart sounds are normal. There is no S3 present. Regular rate and rhythm. RESPIRATORY: Lungs are clear to auscultation without any rales or rhonchi. ABDOMEN: Soft and non-tender. Bowel sounds are present. There is no hepatosplenomegaly. EXT: There is no palpable edema. Peripheral pulses are present. Skin: No rashes Central Nervous system: General: Alert, awake and Oriented x 3 Speech: Fluent Comprehension: Intact and normal Facial expressions: Normal Cranial Nerves: CN1/Olfactory: Normal CN II/ Optic: Normal, Visual Mcguire unreliable CN III, and : VERO & EOMI CN V: Normal & intact CN VII: face is symmetric CNVIII: Normal CN XI/X/XI/XII: Intact and Normal Motor: Bulk and Tone is normal. Strength in the right 2-3/5 Strength in the left 2-3/5 Sensory: Cannot be assessed with the reliability Reflexes: 2+ and symmetrical Cerebellar function: Cannot be assessed Toes: Equivocal Gait: Cannot be assessed Results - Labs CBC & BMP: 01/26/17 05:28 01/26/17 05:28 Assessment and Plan (1) Generalized weakness Status: Acute Assessment and plan: Continue Lyrica at the same dose Check uric acid level Add small dose of prednisone 10 mg twice a day Current Visit: Yes
[2017-01-26] MEDS: predniSONE 10 MG TABLET PO SCH ×2 (13:45→20:26)
[2017-01-27] MEDS: ALBUTEROL/IPRATROPIUM 3 ML NEB RESP TX SCH ×7 (00:02→23:57)
[2017-01-27] MEDS: metroNIDAZOLE 250 MG TABLET PO SCH ×3 (04:02→17:32)
[2017-01-27 07:18] LABS: Basophils # 0.1 10*3/uL (0.0-0.2); Basophils % 0.4 % (0.0-0.8); Eosinophils % 8.1 % (0.00-10.9); Hematocrit 24.4 VOL% (35.7-47.0); Hemoglobin 8.2 GM/DL (12.0-16.0); Immature Granulocytes % 0.8 %; Immature Granulocytes Absolute 0.09 #; Lymphocytes # 1.5 10*3/uL (1.4-4.0); Lymphocytes % 12.3 % (21.3-54.2); Mean Corpuscular HGB Conc 33.6 GM/DL (32-36); Mean Corpuscular Hemoglobin 27 PG (27-34); Mean Corpuscular Volume 81.3 FL (87-102); Mean Platelet Volume 9.6 FL (9.6-12.0); Monocytes # 0.7 10*3/uL (0.11-0.8); Monocytes % 5.5 % (1.7-12.7); Neutrophils # 8.7 10*3/uL (1.4-7.4); Neutrophils % 72.9 % (38.7-73.9); Platelet Count 446 T/CUMM (130-400); Red Cell Distribution Width 15.3 % (9.3-17.3); White Blood Count 11.9 T/CUMM (4-12)
[2017-01-27 07:45] LABS: Calcium 8.4 MG/DL (8.5-10.1); Magnesium 3.5 MG/DL (1.8-2.4); Osmolality,Calculated 282.7 MOS/KG (273-304)
[2017-01-27 07:52] LABS: Potassium 6.3 MMOL/L (3.5-5.1)
[2017-01-27] MEDS: ACETAMINOPHEN 325 MG TABLET PO PRN ×2 (08:56→17:41)
[2017-01-27] MEDS: PANTOPRAZOLE 40 MG TABLET PO SCH ×2 (08:57→20:31)
[2017-01-27] MEDS: PREGABALIN 100 MG CAPSULE PO SCH ×2 (08:57→20:31)
[2017-01-27] MEDS: predniSONE 10 MG TABLET PO SCH ×2 (08:58→20:31)
[2017-01-27] MEDS ORDERED: LIDOCAINE/PRILOCAINE CREAM 5 GM TUBE TOP ONE (09:18)
--- NOTE | 2017-01-27 10:14 | Event Note ---
The patient is in need of dialysis today. Her fistula appears to have healed well on her right arm so we will go ahead and try to use this prior to placing another catheter. Please call back with further questions.
[2017-01-27] MEDS: INSULIN LISPRO 100 UNIT/ML SUBCUT SCH ×4 (11:58→21:18)
[2017-01-27] MEDS: CALCIUM ACETATE 667 MG CAPSULE PO SCH ×3 (11:59→17:32)
[2017-01-27] MEDS: cloNIDine 0.1 MG TABLET PO SCH ×2 (11:59→20:31)
[2017-01-27] MEDS: LOSARTAN 50 MG TABLET PO SCH ×2 (11:59→20:30)
--- NOTE | 2017-01-27 11:59 | Dialysis Note ---
Dialysis Note - Dialysis Note Patient seen on dialysis. She is tolerating the procedure. Blood pressure 154/94. Cardiovascular regular rate. Lungs clear to auscultation. Abdomen is soft.
[2017-01-27] MEDS: ENOXAPARIN 80 MG/0.8 ML SYRINGE SUBCUT SCH (12:02)
[2017-01-27] MEDS ORDERED: VANCOMYCIN INJ 500 MG in SODIUM CHLORIDE 0.9% 100 ML IV PRN (15:00)
--- NOTE | 2017-01-27 16:25 | Neurology Progress Note ---
Neurology - PN : Subjective Interval history: Patient reported that she feels about the same however she looks better. All the workup so far is negative except high ESR and CRP. Uric acid level is normal. We will perform nerve conduction study and EMG to look for myositis. Exam (Progress Note) - Constitutional Vitals: Period Temp Pulse Resp BP Sys/[place] Pulse Ox Last 24 Hr 97.3 F-98.8 F 92-109 16-21 106-154/59-94 91-100 Exam: GENERAL: Patient is in no acute distress. NECK: Neck is supple. There is no JVD. No carotid bruits present. No thyroid masses. CVS: First and second heart sounds are normal. There is no S3 present. Regular rate and rhythm. RESPIRATORY: Lungs are clear to auscultation without any rales or rhonchi. ABDOMEN: Soft and non-tender. Bowel sounds are present. There is no hepatosplenomegaly. EXT: There is no palpable edema. Peripheral pulses are present. Skin: No rashes Central Nervous system: General: Alert, awake and Oriented x 3 Speech: Fluent Comprehension: Intact and normal Facial expressions: Normal Cranial Nerves: CN1/Olfactory: Normal CN II/ Optic: Normal, Visual Mcguire unreliable CN III, and : VERO & EOMI CN V: Normal & intact CN VII: face is symmetric CNVIII: Normal CN XI/X/XI/XII: Intact and Normal Motor: Bulk and Tone is normal. Strength in the right 2-3/5 Strength in the left 2-3/5 Sensory: Cannot be assessed with the reliability Reflexes: 2+ and symmetrical Cerebellar function: Cannot be assessed Toes: Equivocal Gait: Cannot be assessed Results - Labs CBC & BMP: 01/27/17 06:36 01/27/17 06:36 Assessment and Plan (1) Generalized weakness Status: Acute Assessment and plan: Continue Lyrica at the same dose NCS/EMG Current Visit: Yes
--- NOTE | 2017-01-27 16:42 | Hospitalist Progress Note ---
Assessment and Plan (1) ESRD (end stage renal disease) Status: Chronic Assessment and plan: Nephrology managing Current Visit: Yes (2) Hypertension Status: Chronic Assessment and plan: Losartan and clonidine Her blood pressure is very labile Will stop her blood pressure medications Current Visit: Yes Qualifiers: Hypertension type: essential hypertension Qualified Code(s): I10 - Essential (primary) hypertension (3) Diabetes Status: Chronic Assessment and plan: SSI Current Visit: No Qualifiers: Diabetes mellitus type: type 2 Diabetes mellitus complication status: with kidney complications Chronic kidney disease stage: on chronic dialysis (4) Acute deep vein thrombosis (DVT) of right upper extremity Status: Acute Assessment and plan: Lovenox for now. She is doing better. Would like to maybe discharge her on a noac. Current Visit: Yes Qualifiers: Affected thrombotic vein of extremity: brachial Qualified Code(s): I82.621 - Acute embolism and thrombosis of deep veins of right upper extremity (5) Colitis Status: Acute Assessment and plan: Continue flagyl Colonoscopy 01/23/17 was essentially normal Current Visit: Yes (6) Anemia Status: Acute Assessment and plan: Stable Most likely of chronic disease 2/2 ESRD Current Visit: Yes (7) Leukocytosis Status: Acute Assessment and plan: Continues to improve Current Visit: Yes (8) Fever Status: Acute Assessment and plan: Afebrile for 48 hours Current Visit: Yes (9) Weakness Status: Acute Assessment and plan: Generalized but with associated LLE pain Neurology was consulted, no evidence of stroke CRP has dropped from 12.7 to 1.71 ESR is essentially unchanged JEY earlier in admission was negative Obtaining eeg and nerve conduction studies Being worked up for Churg Phyllis, ANCA pending Current Visit: Yes Hospitalist: Subjective Interval history: Patient looks much better today, much more awake. She is telling me which [facility] she [facility] to go [facility]. She continues to complain of left leg pain. Exam - Constitutional Vitals: Period Temp Pulse Resp BP Sys/[place] Pulse Ox Last 24 Hr 97.3 F-98.8 F 92-109 16-21 106-154/59-94 91-100 General appearance: over weight - Head Head exam: Present: normocephalic, atraumatic - Eye Eye exam: Present: EOMI Pupils: Present: VERO - ENT ENT exam: Present: normal exam - Neck Neck exam: Present: normal inspection - Respiratory Respiratory exam: Present: clear to auscultation bilaterally. Absent: rhonchi, wheezes - Cardiovascular Cardiovascular exam: Present: regular rate and rhythm - GI/Abdominal GI/Abdominal exam: Present: normal bowel sounds, soft. Absent: tenderness, rebound - Extremities Exam Extremities exam: Present: normal inspection - Back Exam Back exam: Present: normal inspection - Neurological Exam Neurological exam: Present: alert, oriented X3 - Psychiatric Psychiatric exam: Present: normal affect, normal mood - Skin Skin exam: Present: warm, intact Results - Labs CBC & BMP: 01/27/17 06:36 01/27/17 06:36
[2017-01-27] MEDS ORDERED: VANCOMYCIN INJ 500 MG in SODIUM CHLORIDE 0.9% 100 ML IV ONE (21:00)
[2017-01-28] MEDS: metroNIDAZOLE 250 MG TABLET PO SCH ×3 (00:56→12:22)
[2017-01-28] MEDS: ALBUTEROL/IPRATROPIUM 3 ML NEB RESP TX SCH ×6 (03:36→23:56)
[2017-01-28 06:08] LABS: Basophils % 0.1 % (0.0-0.8); Eosinophils % 0.1 % (0.00-10.9); Hematocrit 23.2 VOL% (35.7-47.0); Hemoglobin 7.8 GM/DL (12.0-16.0); Immature Granulocytes Absolute 0.09 #; Mean Corpuscular HGB Conc 33.6 GM/DL (32-36); Mean Corpuscular Hemoglobin 28 PG (27-34); Mean Corpuscular Volume 81.7 FL (87-102); Mean Platelet Volume 9.9 FL (9.6-12.0); Monocytes # 0.4 10*3/uL (0.11-0.8); Monocytes % 4.4 % (1.7-12.7); Neutrophils # 7.1 10*3/uL (1.4-7.4); Neutrophils % 82.4 % (38.7-73.9); Platelet Count 415 T/CUMM (130-400); Red Blood Count 2.84 MC/CUMM (3.8-5.5); Red Cell Distribution Width 15.2 % (9.3-17.3); White Blood Count 8.6 T/CUMM (4-12)
[2017-01-28 06:45] LABS: Calcium 8.1 MG/DL (8.5-10.1); Magnesium 3.1 MG/DL (1.8-2.4); Osmolality,Calculated 287.8 MOS/KG (273-304)
[2017-01-28 06:53] LABS: Potassium 6.2 MMOL/L (3.5-5.1)
[2017-01-28] MEDS: INSULIN LISPRO 100 UNIT/ML SUBCUT SCH ×4 (07:39→21:38)
[2017-01-28] MEDS: INSULIN NPH 100 UNIT/ML SUBCUT SCH ×2 (07:40→16:22)
[2017-01-28] MEDS: CALCIUM ACETATE 667 MG CAPSULE PO SCH ×3 (10:51→16:23)
[2017-01-28] MEDS: predniSONE 10 MG TABLET PO SCH ×2 (10:52→21:37)
[2017-01-28] MEDS: cloNIDine 0.1 MG TABLET PO SCH ×2 (10:52→21:38)
[2017-01-28] MEDS: LOSARTAN 50 MG TABLET PO SCH ×2 (10:52→21:37)
[2017-01-28] MEDS: PREGABALIN 100 MG CAPSULE PO SCH ×2 (10:53→21:38)
[2017-01-28] MEDS: ENOXAPARIN 80 MG/0.8 ML SYRINGE SUBCUT SCH (10:53)
[2017-01-28] MEDS: PANTOPRAZOLE 40 MG TABLET PO SCH ×2 (10:53→21:38)
[2017-01-28 13:39] LABS: Myeloperoxidase Antibody < 0.2 U
--- NOTE | 2017-01-28 15:11 | Hospitalist Progress Note ---
Assessment and Plan (1) ESRD (end stage renal disease) Status: Chronic Assessment and plan: Nephrology managing Current Visit: Yes (2) Hypertension Status: Chronic Assessment and plan: Losartan and clonidine Her blood pressure is very labile Will stop her blood pressure medications Current Visit: Yes Qualifiers: Hypertension type: essential hypertension Qualified Code(s): I10 - Essential (primary) hypertension (3) Diabetes Status: Chronic Assessment and plan: SSI Appetite has increased, will add basal insulin Current Visit: No Qualifiers: Diabetes mellitus type: type 2 Diabetes mellitus complication status: with kidney complications Chronic kidney disease stage: on chronic dialysis (4) Acute deep vein thrombosis (DVT) of right upper extremity Status: Acute Assessment and plan: Lovenox for now. She is doing better. Would like to maybe discharge her on a noac. Current Visit: Yes Qualifiers: Affected thrombotic vein of extremity: brachial Qualified Code(s): I82.621 - Acute embolism and thrombosis of deep veins of right upper extremity (5) Colitis Status: Acute Assessment and plan: Stop flagyl Colonoscopy 01/23/17 was essentially normal Current Visit: Yes (6) Anemia Status: Acute Assessment and plan: Most likely of chronic disease 2/2 ESRD H/H trending down, will check in am Might require a blood transfusion on HD Current Visit: Yes (7) Leukocytosis Status: Acute Assessment and plan: Continues to improve Current Visit: Yes (8) Fever Status: Resolved Assessment and plan: Afebrile Current Visit: Yes (9) Weakness Status: Acute Assessment and plan: Generalized but with associated LLE pain Neurology was consulted, no evidence of stroke CRP has dropped from 12.7 to 1.71 ESR is essentially unchanged JEY earlier in admission was negative Obtaining eeg and nerve conduction studies Being worked up for Churg Phyllis, ANCA pending Current Visit: Yes Hospitalist: Subjective Interval history: No acute events overnight. Patient continues to look well. EMG and nerve conduction study pending. Urine culture growing VRE. If she continues on this current path, she might be able to go to the [facility] later this week. Exam - Constitutional Vitals: Period Temp Pulse Resp BP Sys/[place] Pulse Ox Last 24 Hr 96.3 F-99.0 F 78-106 16-20 148-167/77-97 94-100 General appearance: over weight - Head Head exam: Present: atraumatic, other (left facial droop) - Eye Eye exam: Present: EOMI Pupils: Present: VERO - ENT ENT exam: Present: normal exam - Neck Neck exam: Present: normal inspection - Respiratory Respiratory exam: Present: clear to auscultation bilaterally - Cardiovascular Cardiovascular exam: Present: regular rate and rhythm - GI/Abdominal GI/Abdominal exam: Present: normal bowel sounds, soft. Absent: tenderness, rebound - Extremities Exam Extremities exam: Present: normal inspection - Back Exam Back exam: Present: normal inspection - Neurological Exam Neurological exam: Present: alert, oriented X3 - Psychiatric Psychiatric exam: Present: normal affect, normal mood - Skin Skin exam: Present: warm, intact Results - Labs CBC & BMP: 01/28/17 05:16 01/28/17 05:16
--- NOTE | 2017-01-28 15:12 | Neurology Progress Note ---
Neurology - PN : Subjective Interval history: Patient seems to be doing about the same. She has developed clearly more right lower motor neuron type facial weakness. Still extremely weak. Exam (Progress Note) - Constitutional Vitals: Period Temp Pulse Resp BP Sys/[place] Pulse Ox Last 24 Hr 96.3 F-99.0 F 78-106 16-20 148-167/77-97 94-100 Exam: GENERAL: Patient is in no acute distress. NECK: Neck is supple. There is no JVD. No carotid bruits present. No thyroid masses. CVS: First and second heart sounds are normal. There is no S3 present. Regular rate and rhythm. RESPIRATORY: Lungs are clear to auscultation without any rales or rhonchi. ABDOMEN: Soft and non-tender. Bowel sounds are present. There is no hepatosplenomegaly. EXT: There is no palpable edema. Peripheral pulses are present. Skin: No rashes Central Nervous system: General: Alert, awake and Oriented x 3 Speech: Fluent Comprehension: Intact and normal Facial expressions: Normal Cranial Nerves: CN1/Olfactory: Normal CN II/ Optic: Normal, Visual Mcguire unreliable CN III, and : VERO & EOMI CN V: Normal & intact CN VII: Right lower motor neuron type facial weak CNVIII: Normal CN XI/X/XI/XII: Intact and Normal Motor: Bulk and Tone is normal. Strength in the right 2-3/5 Strength in the left 2-3/5 Sensory: Cannot be assessed with the reliability Reflexes: 2+ and symmetrical Cerebellar function: Cannot be assessed Toes: Equivocal Gait: Cannot be assessed Results - Labs CBC & BMP: 01/28/17 05:16 01/28/17 05:16 Assessment and Plan (1) Generalized weakness Status: Acute Assessment and plan: Continue Lyrica at the same dose NCS/EMG is pending Current Visit: Yes (2) Right-sided Krishnamurthy's palsy Status: Acute Assessment and plan: Rule out autoimmune disorder and vasculitis. Plan is to do a spinal tap in the morning Current Visit: Yes
[2017-01-28 15:17] LABS: Amorphous Crystals,Urine Few /HPF (Few); Apearance,Urine CLOUDY (Clear); Bacteria,Urine Many /HPF (Few); Bilirubin,Urine Negative (Negative); Blood, Urine Moderate mg/dL (Negative); Glucose,Urine (UA) 50 mg/dL (Negative); Ketones,Urine Negative (Negative); Nitrite,Urine Negative (Negative); Protein,Urine >=500 MG/DL; Squamous Epithelial Cell,Urine Occasional /HPF (0-10); Urine Specific Gravity 1.013 (1.001-1.035); Urine Urobilinogen < 2.0 EU/DL (0.2-1.0); WBC,Urine 20 /HPF (0-6)
[2017-01-28 15:18] LABS: Urine Color Yellow (Yellow)
[2017-01-28] MEDS: POLYETHYLENE GLYCOL POWDER 17 GM PACK PO SCH (16:23)
--- NOTE | 2017-01-28 16:32 | Infectious Disease Progress ---
Assessment and Plan (1) Acute deep vein thrombosis (DVT) of right upper extremity Status: Acute Current Visit: Yes Qualifiers: Affected thrombotic vein of extremity: brachial Qualified Code(s): I82.621 - Acute embolism and thrombosis of deep veins of right upper extremity (2) Colitis Status: Acute Assessment and plan: Reportedly she fell and had colonoscopy and it was negative. Current Visit: Yes (3) Fever Status: Resolved Assessment and plan: Possible autoimmune disease. No severe infections identified on the positive urine cultures. Treatment as below. Current Visit: Yes (4) ESRD (end stage renal disease) Status: Chronic Current Visit: Yes (5) Hypertension Status: Chronic Current Visit: Yes Qualifiers: Hypertension type: essential hypertension Qualified Code(s): I10 - Essential (primary) hypertension (6) Diabetes Status: Chronic Current Visit: No Qualifiers: Diabetes mellitus type: type 2 Diabetes mellitus complication status: with kidney complications Chronic kidney disease stage: on chronic dialysis (7) Oral candidiasis Status: Acute Assessment and plan: Resolved. Current Visit: Yes (8) UTI (urinary tract infection) Status: Acute Assessment and plan: Urine analysis today had some pyuria mild. Recommend agents: Discontinue vancomycin and start daptomycin renally dosed at 4 mg/kg every 48 hours and I will treat for 7 days. Thank you for asked me to see the patient again. Will follow. Current Visit: Yes Infectious Disease - PN: Subj Interval history: Asked to see patient again because of a positive urine culture VRE. The patient has not really had any urinary symptoms. A urine analysis was not done at the time of the urine culture. Today she had an and out catheterization done to obtain this urine specimen for UA and 500 mils of urine were obtained. The urine was mostly clear but towards and it was quite cloudy. Patient has not had any fever for the past 4 days but she continues to have neurological complaints including weakness of her leg and today there is left-sided facial weakness. She has been on vancomycin since several days because of concern for an infected hemodialysis catheter but that was removed and the tip cultured negative. They started using her fistula this week. Infectious Disease Exam (PN) - Constitutional Vitals: Temp Pulse Resp BP Pulse Ox 97.6 F 103 H 20 124/78 96 01/28/17 15:00 01/28/17 15:00 01/28/17 15:01/28/17 15:17 15:00 General appearance: over weight Exam: General appearance: Chronically ill looking, obvious right-sided facial weakness - Eye Eye exam: Present: EOMI. no icterus Pupils: Present: VERO - ENT ENT exam: No exudates orally - Respiratory Respiratory exam: vesicular BS, no crepitations or wheezes - Cardiovascular Cardiovascular exam: regular rate and rhythm, no murmurs - GI/Abdominal GI/Abdominal exam: normal bowel sounds, soft, non-tender, no organomegaly or mass, scant cloudy urine from Willett catheter - Extremities Exam Extremities exam: Mild peripheral edema - Skin Skin exam: no rash Results - Labs CBC & BMP: 01/28/17 05:16 01/28/17 05:16 Lab Results: I have reviewed the past 24 hour labs
[2017-01-28] MEDS: SIMETHICONE CHEW 80 MG TABLET PO PRN (21:37)
[2017-01-28] MEDS: LACTULOSE 20 GM/30 ML UDCUP PO PRN (21:38)
[2017-01-29] MEDS: ALBUTEROL/IPRATROPIUM 3 ML NEB RESP TX SCH ×6 (03:39→23:45)
[2017-01-29 07:54] LABS: Basophils % 0.2 % (0.0-0.8); Eosinophils # 0.2 10*3/uL (0.0-0.87); Hemoglobin 8.5 GM/DL (12.0-16.0); Immature Granulocytes % 0.8 %; Immature Granulocytes Absolute 0.09 #; Lymphocytes # 1.3 10*3/uL (1.4-4.0); Mean Corpuscular Hemoglobin 28 PG (27-34); Mean Corpuscular Volume 82.5 FL (87-102); Mean Platelet Volume 9.9 FL (9.6-12.0); Monocytes # 0.5 10*3/uL (0.11-0.8); Neutrophils # 9.1 10*3/uL (1.4-7.4); Platelet Count 446 T/CUMM (130-400); Red Blood Count 3.03 MC/CUMM (3.8-5.5); Red Cell Distribution Width 15.5 % (9.3-17.3); White Blood Count 11.2 T/CUMM (4-12)
[2017-01-29 08:20] LABS: Calcium 8.3 MG/DL (8.5-10.1); Magnesium 3.3 MG/DL (1.8-2.4); Osmolality,Calculated 286.8 MOS/KG (273-304)
[2017-01-29 08:26] LABS: Potassium 6.2 MMOL/L (3.5-5.1)
[2017-01-29] MEDS: INSULIN LISPRO 100 UNIT/ML SUBCUT SCH ×4 (09:03→22:09)
[2017-01-29] MEDS: INSULIN NPH 100 UNIT/ML SUBCUT SCH ×2 (09:04→16:30)
[2017-01-29] MEDS: PANTOPRAZOLE 40 MG TABLET PO SCH ×2 (09:04→22:11)
[2017-01-29] MEDS: LOSARTAN 50 MG TABLET PO SCH ×2 (09:04→22:11)
[2017-01-29] MEDS: predniSONE 10 MG TABLET PO SCH ×2 (09:04→22:11)
[2017-01-29] MEDS: CALCIUM ACETATE 667 MG CAPSULE PO SCH ×3 (09:04→16:30)
[2017-01-29] MEDS: cloNIDine 0.1 MG TABLET PO SCH ×2 (09:04→22:11)
[2017-01-29] MEDS: PREGABALIN 100 MG CAPSULE PO SCH ×2 (09:04→22:11)
[2017-01-29] MEDS: POLYETHYLENE GLYCOL POWDER 17 GM PACK PO SCH (09:04)
--- NOTE | 2017-01-29 11:57 | Infectious Disease Progress ---
Assessment and Plan (1) Acute deep vein thrombosis (DVT) of right upper extremity Status: Acute Current Visit: Yes Qualifiers: Affected thrombotic vein of extremity: brachial Qualified Code(s): I82.621 - Acute embolism and thrombosis of deep veins of right upper extremity (2) Colitis Status: Ruled-out Assessment and plan: Reportedly she fell and had colonoscopy and it was negative. Current Visit: Yes (3) Fever Status: Resolved Assessment and plan: Possible autoimmune disease. No severe infections identified. She has only had positive urine cultures. Treatment as below. Current Visit: Yes (4) ESRD (end stage renal disease) Status: Chronic Current Visit: Yes (5) Hypertension Status: Chronic Current Visit: Yes Qualifiers: Hypertension type: essential hypertension Qualified Code(s): I10 - Essential (primary) hypertension (6) Diabetes Status: Chronic Current Visit: No Qualifiers: Diabetes mellitus type: type 2 Diabetes mellitus complication status: with kidney complications Chronic kidney disease stage: on chronic dialysis (7) Oral candidiasis Status: Resolved Assessment and plan: Resolved. Current Visit: Yes (8) UTI (urinary tract infection) Status: Acute Assessment and plan: Due to VRE Recommend agents: Continue daptomycin, 6 more days of therapy to go. Current Visit: Yes Infectious Disease - PN: Subj Interval history: Patient was seen on dialysis. She complains of pains in her legs left more than right. Still with right-sided facial weakness. No fever. Infectious Disease Exam (PN) - Constitutional Vitals: Temp Pulse Resp BP Pulse Ox 97.2 F L 98 H 20 151/89 91 L 01/29/17 07:50 01/29/17 07:50 01/29/17 07:50 01/29/17 07:50 01/29/17 07:50 General appearance: over weight Exam: General appearance: Chronically ill looking, uncomfortable from pain, right- sided facial weakness - Eye Eye exam: Present: EOMI. no icterus Pupils: Present: VERO - ENT ENT exam: No exudates orally - Respiratory Respiratory exam: vesicular BS, no crepitations or wheezes - Cardiovascular Cardiovascular exam: regular rate and rhythm, no murmurs - GI/Abdominal GI/Abdominal exam: normal bowel sounds, soft, non-tender, no organomegaly or mass, today crystal-clear urine from Willett catheter - Extremities Exam Extremities exam: No leg edema but tenderness to the left leg on palpation - Skin Skin exam: no rash Results - Labs CBC & BMP: 01/29/17 07:24 01/29/17 07:24 Lab Results: I have reviewed the past 24 hour labs (Repeat urine culture with [facility]'s)
--- NOTE | 2017-01-29 12:48 | Dialysis Note ---
Dialysis Note - Dialysis Note Pt. seen on HD, tolerating well except c/o pain in her leg. Continue tx unchanged.
--- NOTE | 2017-01-29 15:47 | Neurology Progress Note ---
Neurology - PN : Subjective Interval history: Patient seems to be doing about the same. Is still hurting primary in the left leg. No clear etiology known. LP is a still pending. Exam (Progress Note) - Constitutional Vitals: Period Temp Pulse Resp BP Sys/[place] Pulse Ox Last 24 Hr 97.2 F-97.9 F 83-99 16-20 119-153/51-89 91-99 Exam: GENERAL: Patient is in no acute distress. NECK: Neck is supple. There is no JVD. No carotid bruits present. No thyroid masses. CVS: First and second heart sounds are normal. There is no S3 present. Regular rate and rhythm. RESPIRATORY: Lungs are clear to auscultation without any rales or rhonchi. ABDOMEN: Soft and non-tender. Bowel sounds are present. There is no hepatosplenomegaly. EXT: There is no palpable edema. Peripheral pulses are present. Skin: No rashes Central Nervous system: General: Alert, awake and Oriented x 3 Speech: Fluent Comprehension: Intact and normal Facial expressions: Normal Cranial Nerves: CN1/Olfactory: Normal CN II/ Optic: Normal, Visual Mcguire unreliable CN III, and : VERO & EOMI CN V: Normal & intact CN VII: Right lower motor neuron type facial weak CNVIII: Normal CN XI/X/XI/XII: Intact and Normal Motor: Bulk and Tone is normal. Strength in the right 2-3/5 Strength in the left 2-3/5 Sensory: Cannot be assessed with the reliability Reflexes: 2+ and symmetrical Cerebellar function: Cannot be assessed Toes: Equivocal Gait: Cannot be assessed Results - Labs CBC & BMP: 01/29/17 07:24 01/29/17 07:24 Assessment and Plan (1) Generalized weakness Status: Acute Assessment and plan: Continue Lyrica at the same dose NCS/EMG is pending LP is pending Current Visit: Yes (2) Right-sided Krishnamurthy's palsy Status: Acute Assessment and plan: Rule out autoimmune disorder and vasculitis. LP is pending Current Visit: Yes
--- NOTE | 2017-01-29 15:51 | Hospitalist Progress Note ---
Assessment and Plan (1) ESRD (end stage renal disease) Status: Chronic Assessment and plan: Nephrology managing Current Visit: Yes (2) Hypertension Status: Chronic Assessment and plan: Losartan and clonidine Her blood pressure is very labile Will stop her blood pressure medications Current Visit: Yes Qualifiers: Hypertension type: essential hypertension Qualified Code(s): I10 - Essential (primary) hypertension (3) Diabetes Status: Chronic Assessment and plan: SSI Appetite has increased, will add basal insulin Current Visit: No Qualifiers: Diabetes mellitus type: type 2 Diabetes mellitus complication status: with kidney complications Chronic kidney disease stage: on chronic dialysis (4) Acute deep vein thrombosis (DVT) of right upper extremity Status: Acute Assessment and plan: Lovenox for now. She is doing better. Would like to maybe discharge her on a noac. Current Visit: Yes Qualifiers: Affected thrombotic vein of extremity: brachial Qualified Code(s): I82.621 - Acute embolism and thrombosis of deep veins of right upper extremity (5) Colitis Status: Ruled-out Assessment and plan: Stop flagyl Colonoscopy 01/23/17 was essentially normal Current Visit: Yes (6) Anemia Status: Acute Assessment and plan: Most likely of chronic disease 2/2 ESRD Stable Current Visit: Yes (7) Leukocytosis Status: Resolved Assessment and plan: Continues to improve Current Visit: Yes (8) Fever Status: Resolved Assessment and plan: Afebrile Current Visit: Yes (9) Weakness Status: Acute Assessment and plan: Generalized but with associated LLE pain Neurology was consulted, no evidence of stroke CRP has dropped from 12.7 to 1.71 ESR is essentially unchanged JEY earlier in admission was negative Obtaining eeg and nerve conduction studies LP pending Being worked up for Churg Phyllis, ANCA pending Current Visit: Yes Hospitalist: Subjective Interval history: No acute events overnight. Patient sleepy after HD. Seen working with OT. Still with left leg pain. Exam - Constitutional Vitals: Period Temp Pulse Resp BP Sys/[place] Pulse Ox Last 24 Hr 97.2 F-97.9 F 83-99 16-20 119-153/51-89 91-99 General appearance: over weight - Head Head exam: Present: normocephalic, atraumatic - Eye Eye exam: Present: EOMI Pupils: Present: VERO - ENT ENT exam: Present: normal exam - Neck Neck exam: Present: normal inspection - Respiratory Respiratory exam: Present: clear to auscultation bilaterally. Absent: rhonchi, wheezes - Cardiovascular Cardiovascular exam: Present: regular rate and rhythm - GI/Abdominal GI/Abdominal exam: Present: normal bowel sounds, soft. Absent: tenderness, rebound - Extremities Exam Extremities exam: Present: normal inspection - Back Exam Back exam: Present: normal inspection - Neurological Exam Neurological exam: Present: alert, oriented X3 - Psychiatric Psychiatric exam: Present: normal affect, normal mood - Skin Skin exam: Present: warm, intact Results - Labs CBC & BMP: 01/29/17 07:24 01/29/17 07:24
[2017-01-29] MEDS: PROMETHAZINE 25 MG/1 ML VIAL IM PRN (17:35)
--- NOTE | 2017-01-29 17:58 | Magnetic Resonance Report ---
History: Severe left leg pain Date: 01/29/2017 Study: MRI lumbar spine without contrast Comparison exam: No previous The lumbar spine was imaged in the sagittal and axial planes on a 1.5 Bozena magnet without IV contrast. Sequences include T1, T2, and STIR images. There is no compression fracture or spondylolisthesis. Lumbar discs are well-maintained in height and signal. There is a 4 mm lobular hyperintense T1 and T2 hemangioma within the T12 vertebral body. The conus medullaris terminates at the mid to lower L1 level and is without gross mass lesion. There is no focal disc protrusion. There is no high-grade spinal or neural foraminal stenosis. There is mild ligament flavum and facet hypertrophy in the mid to lower lumbar spine. Impression: No acute process. No significant spinal or neural foraminal stenosis PROCEDURE INTERPRETED AT [facility] DEPARTMENT OF RADIOLOGY Final Report Signed by: Dr. Mai Garland
[2017-01-30] MEDS: ALBUTEROL/IPRATROPIUM 3 ML NEB RESP TX SCH ×6 (02:58→23:36)
[2017-01-30 06:26] LABS: Basophils # 0.1 10*3/uL (0.0-0.2); Basophils % 0.4 % (0.0-0.8); Eosinophils # 0.3 10*3/uL (0.0-0.87); Eosinophils % 1.8 % (0.00-10.9); Hematocrit 23.5 VOL% (35.7-47.0); Hemoglobin 7.9 GM/DL (12.0-16.0); Immature Granulocytes % 0.8 %; Immature Granulocytes Absolute 0.11 #; Lymphocytes # 1.4 10*3/uL (1.4-4.0); Lymphocytes % 9.7 % (21.3-54.2); Mean Corpuscular HGB Conc 33.6 GM/DL (32-36); Mean Corpuscular Hemoglobin 27 PG (27-34); Mean Corpuscular Volume 81.6 FL (87-102); Mean Platelet Volume 10.1 FL (9.6-12.0); Monocytes # 0.7 10*3/uL (0.11-0.8); Monocytes % 4.9 % (1.7-12.7); Neutrophils % 82.4 % (38.7-73.9); Platelet Count 417 T/CUMM (130-400); Red Blood Count 2.88 MC/CUMM (3.8-5.5); Red Cell Distribution Width 15.8 % (9.3-17.3); White Blood Count 14.5 T/CUMM (4-12)
[2017-01-30 07:00] LABS: Calcium 8.1 MG/DL (8.5-10.1); Magnesium 2.9 MG/DL (1.8-2.4); Osmolality,Calculated 275.9 MOS/KG (273-304); Potassium 5.6 MMOL/L (3.5-5.1)
[2017-01-30] MEDS: CALCIUM ACETATE 667 MG CAPSULE PO SCH ×3 (08:21→16:57)
[2017-01-30] MEDS: INSULIN LISPRO 100 UNIT/ML SUBCUT SCH ×4 (08:21→20:54)
[2017-01-30] MEDS: INSULIN NPH 100 UNIT/ML SUBCUT SCH ×2 (08:21→16:57)
[2017-01-30] MEDS: LOSARTAN 50 MG TABLET PO SCH ×2 (08:37→20:55)
[2017-01-30] MEDS: predniSONE 10 MG TABLET PO SCH ×2 (08:37→20:55)
[2017-01-30] MEDS: PREGABALIN 100 MG CAPSULE PO SCH ×2 (08:37→20:55)
[2017-01-30] MEDS: cloNIDine 0.1 MG TABLET PO SCH ×2 (08:37→20:55)
[2017-01-30] MEDS: POLYETHYLENE GLYCOL POWDER 17 GM PACK PO SCH (08:37)
[2017-01-30] MEDS: PANTOPRAZOLE 40 MG TABLET PO SCH ×2 (08:37→20:55)
--- NOTE | 2017-01-30 09:01 | Neurology Progress Note ---
Neurology - PN : Subjective Interval history: Seems to be doing about the same. No new problems reported. Still having pain in the left leg. MRI of the LS spine reveals no significant acute or chronic abnormalities. Spinal tap is pending. Exam (Progress Note) - Constitutional Vitals: Period Temp Pulse Resp BP Sys/[place] Pulse Ox Last 24 Hr 97.3 F-99.8 F 82-116 18-20 113-160/64-106 95-100 Exam: GENERAL: Patient is in no acute distress. NECK: Neck is supple. There is no JVD. No carotid bruits present. No thyroid masses. CVS: First and second heart sounds are normal. There is no S3 present. Regular rate and rhythm. RESPIRATORY: Lungs are clear to auscultation without any rales or rhonchi. ABDOMEN: Soft and non-tender. Bowel sounds are present. There is no hepatosplenomegaly. EXT: There is no palpable edema. Peripheral pulses are present. Skin: No rashes Central Nervous system: General: Alert, awake and Oriented x 3 Speech: Fluent Comprehension: Intact and normal Facial expressions: Normal Cranial Nerves: CN1/Olfactory: Normal CN II/ Optic: Normal, Visual Mcguire unreliable CN III, and : VERO & EOMI CN V: Normal & intact CN VII: Right lower motor neuron type facial weak CNVIII: Normal CN XI/X/XI/XII: Intact and Normal Motor: Bulk and Tone is normal. Strength in the right 2-3/5 Strength in the left 2-3/5 Sensory: Cannot be assessed with the reliability Reflexes: 2+ and symmetrical Cerebellar function: Cannot be assessed Toes: Equivocal Gait: Cannot be assessed Results - Labs CBC & BMP: 01/30/17 05:05 01/30/17 05:05 Assessment and Plan (1) Generalized weakness Status: Acute Assessment and plan: Continue Lyrica at the same dose NCS/EMG is pending MRI LS spine is negative. LP is pending Current Visit: Yes (2) Right-sided Krishnamurthy's palsy Status: Acute Assessment and plan: Rule out autoimmune disorder and vasculitis. LP is pending Current Visit: Yes
[2017-01-30 10:39] LABS: Lymphocytes,CSF 100 %; Red Blood Cell,CSF 2 C/CUMM; White Blood Cell,CSF 2 C/CUMM
[2017-01-30 10:40] LABS: Appearance,CSF Clear
--- NOTE | 2017-01-30 10:58 | Post Interventional Procedure ---
Pre-op diagnosis: generalized weakness and villalpando's palsy Post-op diagnosis: same Procedure: lumbar puncture Contrast: none Flouroscopy: 17 seconds Radiologist: Nasir Rutherford Anesthesia: local Specimens: other (10 mL clear CSF) Estimated blood loss: none Complications: none Condition: stable Description/Findings: opening pressure 14 cm H2O patient tolerated well Assessment and Plan - Time spent with patient Time spent with patient: Less than 30 minutes
--- NOTE | 2017-01-30 11:01 | Interventional Radiology Rpt ---
Procedure: IR lumbar puncture diagnostic Clinical history: 41-year-old female with generalized weakness and Krishnamurthy's palsy. Procedure: Informed consent was obtained prior to procedure. Formal timeout was performed. Maximum sterile barrier technique was employed. The patient was placed prone on the fluoroscopy table. The low back was prepped and draped in a sterile fashion. A midline lumbar puncture was then performed at the L2-L3 interspace using a 20-gauge spinal needle. Fluoroscopic guidance was used and a captured image documents the needle position. An opening pressure of 14 cm water was obtained. Subsequently, 10 milliliters of clear, colorless CSF was withdrawn and sent to laboratory. The spinal needle was removed and a bandage placed the puncture site. Fluoroscopy time: 17 seconds. Consultations: None. Impression: Technically successful diagnostic lumbar puncture as described. PROCEDURE INTERPRETED AT [facility] DEPARTMENT OF RADIOLOGY Final Report Signed by: Nasir Rutherford
--- NOTE | 2017-01-30 13:31 | Hospitalist Progress Note ---
Assessment and Plan (1) ESRD (end stage renal disease) Status: Chronic Assessment and plan: Nephrology managing Current Visit: Yes (2) Hypertension Status: Chronic Assessment and plan: Losartan and clonidine Her blood pressure is very labile Will stop her blood pressure medications Current Visit: Yes Qualifiers: Hypertension type: essential hypertension Qualified Code(s): I10 - Essential (primary) hypertension (3) Diabetes Status: Chronic Assessment and plan: SSI Appetite has increased, will add basal insulin Current Visit: No Qualifiers: Diabetes mellitus type: type 2 Diabetes mellitus complication status: with kidney complications Chronic kidney disease stage: on chronic dialysis (4) Acute deep vein thrombosis (DVT) of right upper extremity Status: Acute Assessment and plan: Lovenox for now. She is doing better. Would like to maybe discharge her on a noac. Current Visit: Yes Qualifiers: Affected thrombotic vein of extremity: brachial Qualified Code(s): I82.621 - Acute embolism and thrombosis of deep veins of right upper extremity (5) Colitis Status: Ruled-out Assessment and plan: Stop flagyl Colonoscopy 01/23/17 was essentially normal Current Visit: Yes (6) Anemia Status: Acute Assessment and plan: Most likely of chronic disease 2/2 ESRD Will recheck, might need to be transfused on HD tomorrow. Current Visit: Yes (7) Leukocytosis Status: Resolved Assessment and plan: Continues to improve Current Visit: Yes (8) Fever Status: Resolved Assessment and plan: Afebrile Current Visit: Yes (9) Weakness Status: Acute Assessment and plan: Generalized but with associated LLE pain Neurology was consulted, no evidence of stroke CRP has dropped from 12.7 to 1.71 ESR is essentially unchanged JEY earlier in admission was negative Obtaining eeg and nerve conduction studies LP today Being worked up for Churg Phyllis, ANCA pending Current Visit: Yes Hospitalist: Subjective Interval history: No acute events overnight. Patient is awake and alert this afternoon. Says that she feels better but her left leg pain is unchanged. Exam - Constitutional Vitals: Period Temp Pulse Resp BP Sys/[place] Pulse Ox Last 24 Hr 97.3 F-99.8 F 80-116 18-20 113-192/64-107 95-100 General appearance: over weight - Head Head exam: Present: normocephalic, atraumatic - Eye Eye exam: Present: EOMI Pupils: Present: VERO - ENT ENT exam: Present: normal exam - Neck Neck exam: Present: normal inspection - Respiratory Respiratory exam: Present: clear to auscultation bilaterally. Absent: wheezes - Cardiovascular Cardiovascular exam: Present: regular rate and rhythm - GI/Abdominal GI/Abdominal exam: Present: normal bowel sounds, soft - Extremities Exam Extremities exam: Present: normal inspection - Back Exam Back exam: Present: normal inspection - Neurological Exam Neurological exam: Present: alert, oriented X3 - Psychiatric Psychiatric exam: Present: normal affect, normal mood - Skin Skin exam: Present: warm, intact Results - Labs CBC & BMP: 01/30/17 05:05 01/30/17 05:05
[2017-01-30] MEDS ORDERED: LIDOCAINE/PRILOCAINE CREAM 5 GM TUBE TOP ONE (15:55)
[2017-01-30] MEDS ORDERED: LIDOCAINE/PRILOCAINE CREAM 5 GM TUBE TOP PRN (16:35)
--- NOTE | 2017-01-30 16:35 | Infectious Disease Progress ---
Assessment and Plan (1) Acute deep vein thrombosis (DVT) of right upper extremity Status: Acute Current Visit: Yes Qualifiers: Affected thrombotic vein of extremity: brachial Qualified Code(s): I82.621 - Acute embolism and thrombosis of deep veins of right upper extremity (2) Fever Status: Resolved Assessment and plan: resolved. Patient had obtained and is negative for infection with only 2 white blood cells in the spinal fluid, low protein, high glucose. Current Visit: Yes (3) ESRD (end stage renal disease) Status: Chronic Current Visit: Yes (4) Hypertension Status: Chronic Current Visit: Yes Qualifiers: Hypertension type: essential hypertension Qualified Code(s): I10 - Essential (primary) hypertension (5) Diabetes Status: Chronic Current Visit: No Qualifiers: Diabetes mellitus type: type 2 Diabetes mellitus complication status: with kidney complications Chronic kidney disease stage: on chronic dialysis (6) Oral candidiasis Status: Resolved Assessment and plan: Resolved. Current Visit: Yes (7) UTI (urinary tract infection) Status: Acute Assessment and plan: Due to VRE Recommend agents: Continue daptomycin, 5 more days of therapy to go. Current Visit: Yes Infectious Disease - PN: Subj Interval history: Patient seen and examined this morning. She just come back from LP procedure and was a bit drowsy. She has not had fever. Complained still of pain in her legs and she still has right-sided facial weakness. Infectious Disease Exam (PN) - Constitutional Vitals: Temp Pulse Resp BP Pulse Ox 97.8 F 89 18 192/104 98 01/30/17 11:45 01/30/17 15:54 01/30/17 15:54 01/30/17 11:45 01/30/17 15:54 General appearance: over weight Exam: General appearance: Chronically ill looking, a bit drowsy but arousable, right- sided facial weakness - Eye Eye exam: Present: EOMI. no icterus Pupils: Present: VERO - ENT ENT exam: No exudates orally - Respiratory Respiratory exam: vesicular BS, no crepitations or wheezes - Cardiovascular Cardiovascular exam: regular rate and rhythm, no murmurs - GI/Abdominal GI/Abdominal exam: normal bowel sounds, soft, non-tender, no organomegaly or mass, today crystal-clear urine from Willett catheter - Extremities Exam Extremities exam: No leg edema but tenderness to the left leg on palpation - Skin Skin exam: no rash Results - Labs CBC & BMP: 01/30/17 05:05 01/30/17 05:05 Lab Results: I have reviewed the past 24 hour labs
--- NOTE | 2017-01-30 21:05 | Nephrology Progress Note ---
Nephrology - PN: Subj Interval history: The patient is resting comfortably. She is visiting with her family. No acute changes. Exam (PN)-Nephrology - Vital Signs Vital signs: Period Temp Pulse Resp BP Sys/[place] Pulse Ox Last 24 Hr 97.3 F-98.5 F 80-104 18-20 113-192/64-107 96-100 - General Appearance General appearance: well-developed, chronically ill, fatigue Respiratory: clear Cardiology: regular rate, regular rhythm Gastrointestinal: normoactive bowel sounds Neurologic: alert and oriented x3 - Lab 01/30/17 05:05 01/30/17 05:05 Most recent lab results Calcium 8.1 MG/DL (8.5-10.1) L 01/30/17 05:05 Magnesium 2.9 MG/DL (1.8-2.4) H 01/30/17 05:05 Assessment and Plan (1) ESRD (end stage renal disease) Status: Chronic Assessment and plan: Continue with scheduled hemodialysis. Current Visit: Yes (2) Diabetes Status: Chronic Assessment and plan: Continue with scheduled medicine. Current Visit: No Qualifiers: Diabetes mellitus type: type 2 Diabetes mellitus complication status: with kidney complications Chronic kidney disease stage: on chronic dialysis (3) Deep venous thrombosis of upper extremity Status: Acute Current Visit: Yes (4) Acute deep vein thrombosis (DVT) of right upper extremity Status: Acute Current Visit: Yes Qualifiers: Affected thrombotic vein of extremity: brachial Qualified Code(s): I82.621 - Acute embolism and thrombosis of deep veins of right upper extremity (5) AV fistula Status: Acute Current Visit: Yes (6) Abdominal cramping Status: Resolved Assessment and plan: Which could be from gas pain. Colonoscopy scheduled. Current Visit: Yes (7) Fever Status: Resolved Current Visit: Yes
[2017-01-31] MEDS: ALBUTEROL/IPRATROPIUM 3 ML NEB RESP TX SCH ×5 (03:03→19:41)
[2017-01-31] MEDS: ONDANSETRON 4 MG/2 ML VIAL IV PRN (05:32)
[2017-01-31 06:04] LABS: Basophils # 0.1 10*3/uL (0.0-0.2); Basophils % 0.6 % (0.0-0.8); Eosinophils # 0.4 10*3/uL (0.0-0.87); Eosinophils % 3.8 % (0.00-10.9); Hematocrit 26.3 VOL% (35.7-47.0); Hemoglobin 8.6 GM/DL (12.0-16.0); Lymphocytes # 2.5 10*3/uL (1.4-4.0); Lymphocytes % 24.5 % (21.3-54.2); Mean Corpuscular HGB Conc 32.7 GM/DL (32-36); Mean Corpuscular Hemoglobin 27 PG (27-34); Mean Corpuscular Volume 83.5 FL (87-102); Mean Platelet Volume 10.1 FL (9.6-12.0); Monocytes # 0.8 10*3/uL (0.11-0.8); Monocytes % 8.1 % (1.7-12.7); Neutrophils # 6.3 10*3/uL (1.4-7.4); Platelet Count 455 T/CUMM (130-400); Red Blood Count 3.15 MC/CUMM (3.8-5.5); Red Cell Distribution Width 15.9 % (9.3-17.3); White Blood Count 10.1 T/CUMM (4-12)
[2017-01-31 06:34] LABS: Calcium 8.4 MG/DL (8.5-10.1); Magnesium 3.5 MG/DL (1.8-2.4); Osmolality,Calculated 287.7 MOS/KG (273-304); Potassium 5.1 MMOL/L (3.5-5.1)
[2017-01-31] MEDS ORDERED: DEXTROSE 50% 25 GM/50 ML SYRINGE IV PRN (08:30)
[2017-01-31] MEDS: PANTOPRAZOLE 40 MG TABLET PO SCH ×2 (08:41→20:24)
[2017-01-31] MEDS: oxyCODONE IR 5 MG TABLET PO PRN ×2 (08:41→22:21)
[2017-01-31] MEDS: predniSONE 10 MG TABLET PO SCH ×2 (08:41→20:24)
[2017-01-31] MEDS: PREGABALIN 100 MG CAPSULE PO SCH ×2 (08:41→20:24)
[2017-01-31] MEDS: CALCIUM ACETATE 667 MG CAPSULE PO SCH ×3 (08:41→17:31)
[2017-01-31] MEDS: LOSARTAN 50 MG TABLET PO SCH ×2 (08:41→20:24)
[2017-01-31] MEDS: INSULIN NPH 100 UNIT/ML SUBCUT SCH ×3 (08:41→17:31)
[2017-01-31] MEDS: cloNIDine 0.1 MG TABLET PO SCH ×2 (08:41→20:24)
[2017-01-31] MEDS: INSULIN LISPRO 100 UNIT/ML SUBCUT SCH ×4 (08:42→22:26)
[2017-01-31] MEDS: POLYETHYLENE GLYCOL POWDER 17 GM PACK PO SCH (09:46)
--- NOTE | 2017-01-31 10:12 | Hospitalist Progress Note ---
Assessment and Plan (1) ESRD (end stage renal disease) Status: Chronic Assessment and plan: Nephrology managing Current Visit: Yes (2) Hypertension Status: Chronic Assessment and plan: Losartan and clonidine Current Visit: Yes Qualifiers: Hypertension type: essential hypertension Qualified Code(s): I10 - Essential (primary) hypertension (3) Diabetes Status: Chronic Assessment and plan: SSI Appetite has increased, added basal insulin, increasing a little today Current Visit: No Qualifiers: Diabetes mellitus type: type 2 Diabetes mellitus complication status: with kidney complications Chronic kidney disease stage: on chronic dialysis (4) Acute deep vein thrombosis (DVT) of right upper extremity Status: Acute Assessment and plan: Lovenox for now. She is doing better. Will start coumadin today Check INR in am Current Visit: Yes Qualifiers: Affected thrombotic vein of extremity: brachial Qualified Code(s): I82.621 - Acute embolism and thrombosis of deep veins of right upper extremity (5) Colitis Status: Ruled-out Assessment and plan: Stop flagyl Colonoscopy 01/23/17 was essentially normal Current Visit: Yes (6) Anemia Status: Acute Assessment and plan: Most likely of chronic disease 2/2 ESRD Stable Current Visit: Yes (7) Leukocytosis Status: Resolved Assessment and plan: Continues to improve Current Visit: Yes (8) Fever Status: Resolved Assessment and plan: Afebrile Current Visit: Yes (9) Weakness Status: Acute Assessment and plan: Generalized but with associated LLE pain Neurology was consulted, no evidence of stroke CRP has dropped from 12.7 to 1.71 ESR is essentially unchanged JEY earlier in admission was negative eeg and nerve conduction studies pending LP yesterday Being worked up for Churg Phyllis, ANCA pending Current Visit: Yes (10) Right-sided Krishnamurthy's palsy Status: Acute Current Visit: Yes (11) UTI (urinary tract infection) Status: Acute Assessment and plan: VRE On daptomycin ID assisting Current Visit: Yes Hospitalist: Subjective Interval history: No acute events overnight. Patient continues to complain of left leg pain, today she reports that the pain is located from her knee down, she reports pain with the slightest touch. Otherwise she continues to look better, awake and asking questions. Exam - Constitutional Vitals: Period Temp Pulse Resp BP Sys/[place] Pulse Ox Last 24 Hr 97.7 F-98.1 F 84-109 16-20 113-192/70-104 96-100 General appearance: over weight - Head Head exam: Present: normocephalic, atraumatic - Eye Eye exam: Present: EOMI Pupils: Present: VERO - ENT ENT exam: Present: normal exam - Neck Neck exam: Present: normal inspection - Respiratory Respiratory exam: Present: clear to auscultation bilaterally. Absent: wheezes - Cardiovascular Cardiovascular exam: Present: regular rate and rhythm - GI/Abdominal GI/Abdominal exam: Present: normal bowel sounds, soft. Absent: tenderness, rebound - Extremities Exam Extremities exam: Present: normal inspection - Back Exam Back exam: Present: normal inspection - Neurological Exam Neurological exam: Present: alert, oriented X3 - Psychiatric Psychiatric exam: Present: normal affect, normal mood - Skin Skin exam: Present: warm, intact Results - Labs CBC & BMP: 01/31/17 05:23 01/31/17 05:23
--- NOTE | 2017-01-31 10:17 | Dialysis Note ---
Dialysis Note - Dialysis Note Patient is seen on hemodialysis, physiologically she is tolerating the procedure well however she is continually complaining of leg pain. She just received some pain medicine prior to initiating dialysis.
[2017-01-31 11:01] LABS: PT Patient Result 10.1 SECS
--- NOTE | 2017-01-31 11:18 | Pathology Report from [facility] ---
[facility] ACCESSION # : [id number] PATIENT NAME : Jesus Slater ORDERING DR : Nasir Rutherford MD CLINICAL HX: Vasculitis POST-OP DX: Same SPECIMEN INFO: Fluid,CSF - 1 ml cear CLASS: I CLASS COMMENTS: No increased cellularity or atypia CLASS LEGEND: CLASS 0 Material inadequate for diagnosis because of (see comment) CLASS I Absence of atypical or abnormal cells CLASS II Atypical Cytology but no evidence of malignancy CLASS III Cytology suggestive of but not conclusive for malignancy CLASS IV Cytology strongly suggestive of malignancy CLASS V Cytology conclusive for malignancy COLLECTED DATE: 01/30/2017 [facility] REPORT DATE: 01/31/2017 ELECTRONICALLY SIGNED BY: Amaris Ramirez M.D. 01/31/2017 - 9:25:12 [facility]ITAL[facility]ney
--- NOTE | 2017-01-31 11:42 | Infectious Disease Progress ---
Assessment and Plan (1) Acute deep vein thrombosis (DVT) of right upper extremity Status: Acute Current Visit: Yes Qualifiers: Affected thrombotic vein of extremity: brachial Qualified Code(s): I82.621 - Acute embolism and thrombosis of deep veins of right upper extremity (2) Fever Status: Resolved Assessment and plan: resolved. Current Visit: Yes (3) ESRD (end stage renal disease) Status: Chronic Current Visit: Yes (4) Hypertension Status: Chronic Current Visit: Yes Qualifiers: Hypertension type: essential hypertension Qualified Code(s): I10 - Essential (primary) hypertension (5) Diabetes Status: Chronic Current Visit: No Qualifiers: Diabetes mellitus type: type 2 Diabetes mellitus complication status: with kidney complications Chronic kidney disease stage: on chronic dialysis (6) Oral candidiasis Status: Resolved Assessment and plan: Resolved. Current Visit: Yes (7) UTI (urinary tract infection) Status: Acute Assessment and plan: Due to VRE. Acute leukocytosis from yesterday has resolved today. Recommend agents: Continue daptomycin, 4 more days of therapy to go. Current Visit: Yes Infectious Disease - PN: Subj Interval history: Patient was getting dialysis on Friday, she complained of headache and also pain in her legs. She has not had fever. No new muscle aches since starting the daptomycin. Infectious Disease Exam (PN) - Constitutional Vitals: Temp Pulse Resp BP Pulse Ox 98.1 F 109 H 16 115/82 100 01/31/17 07:40 01/31/17 07:40 01/31/17 07:40 01/31/17 07:40 01/31/17 07:40 General appearance: over weight Exam: General appearance: Chronically ill looking, drowsy but arousable, right-sided facial weakness - Eye Eye exam: Present: EOMI. no icterus Pupils: Present: VERO - ENT ENT exam: No exudates orally - Respiratory Respiratory exam: vesicular BS, no crepitations or wheezes - Cardiovascular Cardiovascular exam: regular rate and rhythm, no murmurs - GI/Abdominal GI/Abdominal exam: normal bowel sounds, soft, non-tender, no organomegaly or mass, clear urine from Willett catheter - Extremities Exam Extremities exam: No leg edema - Skin Skin exam: no rash Results - Labs CBC & BMP: 01/31/17 05:23 01/31/17 05:23 Lab Results: I have reviewed the past 24 hour labs
--- NOTE | 2017-01-31 11:45 | Neurology Progress Note ---
Neurology - PN : Subjective Interval history: Patient is complaining of some headache since this morning. Spinal tap is completely unremarkable. No signs of infection or autoimmune etiology. She is still has pain in the left leg Exam (Progress Note) - Constitutional Vitals: Period Temp Pulse Resp BP Sys/[place] Pulse Ox Last 24 Hr 97.7 F-98.1 F 87-109 16-20 113-192/70-104 96-100 Exam: GENERAL: Patient is in no acute distress. NECK: Neck is supple. There is no JVD. No carotid bruits present. No thyroid masses. CVS: First and second heart sounds are normal. There is no S3 present. Regular rate and rhythm. RESPIRATORY: Lungs are clear to auscultation without any rales or rhonchi. ABDOMEN: Soft and non-tender. Bowel sounds are present. There is no hepatosplenomegaly. EXT: There is no palpable edema. Peripheral pulses are present. Skin: No rashes Central Nervous system: General: Alert, awake and Oriented x 3 Speech: Fluent Comprehension: Intact and normal Facial expressions: Normal Cranial Nerves: CN1/Olfactory: Normal CN II/ Optic: Normal, Visual Mcguire unreliable CN III, and : VERO & EOMI CN V: Normal & intact CN VII: Right lower motor neuron type facial weak CNVIII: Normal CN XI/X/XI/XII: Intact and Normal Motor: Bulk and Tone is normal. Strength in the right 2-3/5 Strength in the left 2-3/5 Sensory: Cannot be assessed with the reliability Reflexes: 2+ and symmetrical Cerebellar function: Cannot be assessed Toes: Equivocal Gait: Cannot be assessed Results - Labs CBC & BMP: 01/31/17 05:23 01/31/17 05:23 Assessment and Plan (1) Generalized weakness Status: Acute Assessment and plan: Continue Lyrica at the same dose NCS/EMG is pending Can try Toradol 60 mg IM 1 dose Current Visit: Yes (2) Right-sided Krishnamurthy's palsy Status: Acute Assessment and plan: No evidence of autoimmune disorder. It is very well be secondary to viral infection Continue current management Current Visit: Yes
[2017-01-31] MEDS ORDERED: KETOROLAC 60 MG/2 ML VIAL IM ONE ×2 (15:12→16:00)
--- NOTE | 2017-01-31 15:12 | Ultrasound Report ---
Exam: US venous doppler LE LT Indication: Pain prolonged hospitalization bed rest Date: 01/31/2017 10:08 AM Findings: Grayscale color flow duplex/Doppler imaging and spectral analysis waveform imaging was performed with real-time ultrasound with image stored and captured. The left common femoral, superficial femoral, popliteal saphenous veins are patent with normal augmentation and compression. There is no evidence of popliteal or Massey's cyst. Normal wave form analysis present. Normal color flow Impression: 1. No DVT PROCEDURE INTERPRETED AT [facility] DEPARTMENT OF RADIOLOGY Final Report Signed by: Dr. Miki Balderrama
[2017-01-31] MEDS ORDERED: KETOROLAC 30 MG/1 ML VIAL IM ONE ×3 (15:30→16:00)
[2017-01-31] MEDS: WARFARIN 5 MG TABLET PO SCH (17:31)
[2017-01-31 18:26] LABS: TB Ag minue Nil Result 0 IU/mL
[2017-01-31] MEDS: PROMETHAZINE 25 MG/1 ML VIAL IM PRN (23:12)
[2017-02-01] MEDS: ALBUTEROL/IPRATROPIUM 3 ML NEB RESP TX SCH ×6 (00:06→19:48)
[2017-02-01 06:34] LABS: PT Patient Result 10.3 SECS
[2017-02-01 06:58] LABS: Magnesium 3.2 MG/DL (1.8-2.4); Osmolality,Calculated 287.5 MOS/KG (273-304); Potassium 5.8 MMOL/L (3.5-5.1)
[2017-02-01] MEDS: INSULIN NPH 100 UNIT/ML SUBCUT SCH ×2 (07:57→16:09)
[2017-02-01] MEDS: INSULIN LISPRO 100 UNIT/ML SUBCUT SCH ×5 (07:57→21:23)
[2017-02-01 08:32] LABS: Basophils % 0.2 % (0.0-0.8); Eosinophils # 0.1 10*3/uL (0.0-0.87); Eosinophils % 0.8 % (0.00-10.9); Hematocrit 21.9 VOL% (35.7-47.0); Hemoglobin 7.4 GM/DL (12.0-16.0); Immature Granulocytes % 1.6 %; Immature Granulocytes Absolute 0.16 #; Lymphocytes # 1.7 10*3/uL (1.4-4.0); Lymphocytes % 16.6 % (21.3-54.2); Mean Corpuscular HGB Conc 33.8 GM/DL (32-36); Mean Corpuscular Hemoglobin 28 PG (27-34); Mean Platelet Volume 10.4 FL (9.6-12.0); Monocytes # 0.9 10*3/uL (0.11-0.8); Monocytes % 8.5 % (1.7-12.7); Neutrophils # 7.4 10*3/uL (1.4-7.4); Neutrophils % 72.3 % (38.7-73.9); Platelet Count 330 T/CUMM (130-400); Red Blood Count 2.64 MC/CUMM (3.8-5.5); Red Cell Distribution Width 15.9 % (9.3-17.3); White Blood Count 10.3 T/CUMM (4-12)
--- NOTE | 2017-02-01 09:19 | Hospitalist Progress Note ---
Assessment and Plan (1) UTI (urinary tract infection) Status: Acute Assessment and plan: Impression: 1. UTI with VRE 2. Right upper extremity DVT 3. Type II DM 4. End-stage renal disease, likely due to #3 5. Hypertension 6. Left leg pain, etiology not known Plan: Continue current antibiotics. Discontinue Willett catheter. Continue anticoagulant. Continue dialysis. Neurology is evaluating the left leg. She will be ready for discharge once she has completed her course of antibiotics. This note was completed using [email or web address] voice recognition software. There may be farmworker cranberry errors as a result. Current Visit: Yes Qualifiers: Indwelling urinary catheter type: indwelling urethral catheter Encounter type: initial encounter Hospitalist: Subjective Interval history: Follow-up for urinary tract infection with VRE, type II DM, end-stage renal disease, hypertension, Krishnamurthy's palsy, left leg pain The patient continues to complain of left leg pain. Neurology is evaluating. She continues on IV antibiotics for the VRE urinary infection. She had dialysis yesterday. It appears that she has been accepted to a senior care once her course of daptomycin is complete. Exam - Constitutional Vitals: Period Temp Pulse Resp BP Sys/[place] Pulse Ox Last 24 Hr 97.2 F-98.8 F 95-107 16-22 124-143/71-86 93-100 Vital signs are noted above. Heart is regular with distant tones. Chest is fairly clear. No wheezes noted. Abdomen is soft without mass. She is wearing bilateral heel protectors and NOA hose. She is awake and conversant Results - Labs CBC & BMP: 02/01/17 05:00 02/01/17 05:00 Lab Results: I have reviewed the past 24 hour labs (Hemoglobin has dropped a bit. This may be related to her kidney disease)
[2017-02-01] MEDS: POLYETHYLENE GLYCOL POWDER 17 GM PACK PO SCH (10:00)
[2017-02-01] MEDS: CALCIUM ACETATE 667 MG CAPSULE PO SCH ×3 (10:01→16:10)
[2017-02-01] MEDS: LOSARTAN 50 MG TABLET PO SCH ×2 (10:01→21:08)
[2017-02-01] MEDS: predniSONE 10 MG TABLET PO SCH ×2 (10:02→21:08)
[2017-02-01] MEDS: PANTOPRAZOLE 40 MG TABLET PO SCH ×2 (10:02→21:08)
[2017-02-01] MEDS: cloNIDine 0.1 MG TABLET PO SCH ×2 (10:02→21:08)
[2017-02-01 11:41] LABS: VDRL Spinal Fluid Negative (Negative)
--- NOTE | 2017-02-01 13:04 | Nephrology Progress Note ---
Nephrology - PN: Subj Interval history: She denies shortness of breath or pain. Exam (PN)-Nephrology - Vital Signs Vital signs: Period Temp Pulse Resp BP Sys/[place] Pulse Ox Last 24 Hr 97.2 F-98.8 F 95-107 16-22 118-143/71-86 92-100 Exam: ENT: Normal Cardiovascular: Regular rate and rhythm. No murmur rub or gallop Lungs: Clear Extremities: No lower extremity edema - Lab 02/01/17 05:00 02/01/17 05:00 Most recent lab results Calcium 8.0 MG/DL (8.5-10.1) L 02/01/17 05:00 Magnesium 3.2 MG/DL (1.8-2.4) H 02/01/17 05:00 Assessment and Plan (1) ESRD (end stage renal disease) on dialysis Status: Acute Assessment and plan: 41-year-old woman with: * ESRD. Dialyzed yesterday * DVT, right arm. Continue Coumadin * Diabetes mellitus * UTI Current Visit: Yes (2) Acute deep vein thrombosis (DVT) of right upper extremity Status: Acute Current Visit: Yes Qualifiers: Affected thrombotic vein of extremity: brachial Qualified Code(s): I82.621 - Acute embolism and thrombosis of deep veins of right upper extremity (3) UTI (urinary tract infection) Status: Acute Current Visit: Yes Qualifiers: Indwelling urinary catheter type: indwelling urethral catheter Encounter type: initial encounter (4) Hypertension Status: Chronic Current Visit: Yes Qualifiers: Hypertension type: essential hypertension Qualified Code(s): I10 - Essential (primary) hypertension (5) Diabetes Status: Chronic Current Visit: No Qualifiers: Diabetes mellitus type: type 2 Diabetes mellitus complication status: with kidney complications Chronic kidney disease stage: on chronic dialysis
[2017-02-01] MEDS: WARFARIN 5 MG TABLET PO SCH (17:07)
[2017-02-01] MEDS: oxyCODONE IR 5 MG TABLET PO PRN (21:08)
[2017-02-01] MEDS: LACTULOSE 20 GM/30 ML UDCUP PO PRN (21:09)
[2017-02-02] MEDS: ALBUTEROL/IPRATROPIUM 3 ML NEB RESP TX SCH ×8 (00:08→23:46)
[2017-02-02] MEDS: INSULIN LISPRO 100 UNIT/ML SUBCUT SCH ×4 (09:13→22:08)
[2017-02-02] MEDS: INSULIN NPH 100 UNIT/ML SUBCUT SCH ×2 (09:13→17:24)
[2017-02-02] MEDS: LOSARTAN 50 MG TABLET PO SCH ×2 (09:15→22:08)
[2017-02-02] MEDS: cloNIDine 0.1 MG TABLET PO SCH ×2 (09:15→22:09)
[2017-02-02] MEDS: CALCIUM ACETATE 667 MG CAPSULE PO SCH ×3 (09:15→17:25)
[2017-02-02] MEDS: PANTOPRAZOLE 40 MG TABLET PO SCH ×2 (09:15→22:09)
[2017-02-02] MEDS: POLYETHYLENE GLYCOL POWDER 17 GM PACK PO SCH (09:15)
[2017-02-02] MEDS: predniSONE 10 MG TABLET PO SCH ×2 (09:15→22:09)
--- NOTE | 2017-02-02 09:17 | Hospitalist Progress Note ---
Assessment and Plan (1) UTI (urinary tract infection) Status: Acute Assessment and plan: Impression: 1. UTI with VRE 2. Right upper extremity DVT 3. Type II DM 4. End-stage renal disease, likely due to #3 5. Hypertension 6. Left leg pain, etiology not known Plan: Continue current antibiotics. Continue anticoagulant. Continue dialysis. She will be ready for discharge once she has completed her course of antibiotics. This note was completed using [employer] voice recognition software. There may be systems software manager errors as a result. Current Visit: Yes Qualifiers: Indwelling urinary catheter type: indwelling urethral catheter Encounter type: initial encounter Hospitalist: Subjective Interval history: Follow-up type II DM with ESRD, DVT of upper extremity related to vascular access device, left leg pain, and urinary tract infection. The patient continues to tolerate the daptomycin for her VRE urinary infection. We discontinued her catheter yesterday. She continues on dialysis under the direction of nephrology. Her main complaint continues to be left leg pain. This is poorly described. She was not able to localize the pain very well, and changed her story several times while I was discussing the pain with her. She says that it hurts to bear weight, and she is unstable when she tries to get up. At various times, she says that the pain is centered in the hip, knee, or leo. She also told me that her right leg hurts on occasion as well. She says that the pain is constant. Neurology is evaluating this. Exam - Constitutional Vitals: Period Temp Pulse Resp BP Sys/[place] Pulse Ox Last 24 Hr 97.0 F-98.0 F 97-105 16-20 111-141/72-82 92-100 Vital signs are noted above. Heart is regular with a 2/6 systolic ejection murmur. Lungs are clear with no rales or wheezes. Examination of lower extremities reveals excellent pedal pulses bilaterally. The left knee is a bit warm, but there is no obvious joint effusion. She is able to move both lower extremities, but will not lift either off the bed. There may be a beat of ankle clonus, but she is not hyperreflexic otherwise. She is awake and alert. She was talking on the phone when I entered the room. Results - Labs CBC & BMP: 02/01/17 05:00 02/01/17 05:00
[2017-02-02 11:46] LABS: Toxoplasma IgG Value < 3 IU/mL
[2017-02-02] MEDS: WARFARIN 5 MG TABLET PO SCH (17:25)
[2017-02-02] MEDS: oxyCODONE IR 5 MG TABLET PO PRN (17:25)
--- NOTE | 2017-02-02 21:39 | Nephrology Progress Note ---
Nephrology - PN: Subj Interval history: She denies shortness of breath. No GI symptoms Exam (PN)-Nephrology - Vital Signs Vital signs: Period Temp Pulse Resp BP Sys/[place] Pulse Ox Last 24 Hr 97.0 F-98.0 F 78-105 16-20 128-159/74-97 94-100 Exam: ENT: Normal Cardiovascular: Regular rate and rhythm. No murmur rub or gallop Lungs: Clear Extremities: No edema - Lab 02/01/17 05:00 02/01/17 05:00 Most recent lab results Calcium 8.0 MG/DL (8.5-10.1) L 02/01/17 05:00 Magnesium 3.2 MG/DL (1.8-2.4) H 02/01/17 05:00 Assessment and Plan (1) ESRD (end stage renal disease) on dialysis Status: Acute Assessment and plan: 41-year-old woman with: * ESRD. Dialysis tomorrow * DVT, right arm. Continue Coumadin * Diabetes mellitus * UTI Current Visit: Yes (2) Acute deep vein thrombosis (DVT) of right upper extremity Status: Acute Current Visit: Yes Qualifiers: Affected thrombotic vein of extremity: brachial Qualified Code(s): I82.621 - Acute embolism and thrombosis of deep veins of right upper extremity (3) UTI (urinary tract infection) Status: Acute Current Visit: Yes Qualifiers: Indwelling urinary catheter type: indwelling urethral catheter Encounter type: initial encounter (4) Hypertension Status: Chronic Current Visit: Yes Qualifiers: Hypertension type: essential hypertension Qualified Code(s): I10 - Essential (primary) hypertension (5) Diabetes Status: Chronic Current Visit: No Qualifiers: Diabetes mellitus type: type 2 Diabetes mellitus complication status: with kidney complications Chronic kidney disease stage: on chronic dialysis
[2017-02-03] MEDS: oxyCODONE IR 5 MG TABLET PO PRN ×2 (02:05→12:53)
[2017-02-03] MEDS: ALBUTEROL/IPRATROPIUM 3 ML NEB RESP TX SCH ×6 (03:08→23:58)
[2017-02-03] MEDS: cloNIDine 0.1 MG TABLET PO SCH ×2 (08:25→21:12)
[2017-02-03] MEDS: LOSARTAN 50 MG TABLET PO SCH ×2 (08:25→21:12)
[2017-02-03] MEDS: CALCIUM ACETATE 667 MG CAPSULE PO SCH ×3 (08:25→16:35)
[2017-02-03] MEDS: PANTOPRAZOLE 40 MG TABLET PO SCH ×2 (08:25→21:12)
[2017-02-03] MEDS: POLYETHYLENE GLYCOL POWDER 17 GM PACK PO SCH (08:29)
[2017-02-03] MEDS: INSULIN LISPRO 100 UNIT/ML SUBCUT SCH ×4 (08:31→21:23)
[2017-02-03] MEDS: INSULIN NPH 100 UNIT/ML SUBCUT SCH ×2 (08:32→15:49)
[2017-02-03 09:05] LABS: Hematocrit 26.1 VOL% (35.7-47.0); Hemoglobin 8.9 GM/DL (12.0-16.0)
[2017-02-03] MEDS: predniSONE 10 MG TABLET PO SCH ×2 (09:29→21:12)
[2017-02-03] MEDS: NIFEdipine 10 MG CAPSULE PO PRN (12:25)
--- NOTE | 2017-02-03 12:36 | Infectious Disease Progress ---
Assessment and Plan (1) Acute deep vein thrombosis (DVT) of right upper extremity Status: Acute Current Visit: Yes Qualifiers: Affected thrombotic vein of extremity: brachial Qualified Code(s): I82.621 - Acute embolism and thrombosis of deep veins of right upper extremity (2) Fever Status: Resolved Assessment and plan: resolved. Current Visit: Yes (3) ESRD (end stage renal disease) Status: Chronic Current Visit: Yes (4) Hypertension Status: Chronic Current Visit: Yes Qualifiers: Hypertension type: essential hypertension Qualified Code(s): I10 - Essential (primary) hypertension (5) Diabetes Status: Chronic Current Visit: No Qualifiers: Diabetes mellitus type: type 2 Diabetes mellitus complication status: with kidney complications Chronic kidney disease stage: on chronic dialysis (6) Oral candidiasis Status: Resolved Assessment and plan: Resolved. Current Visit: Yes (7) UTI (urinary tract infection) Status: Acute Assessment and plan: Due to VRE. Acute leukocytosis from last week has resolved. Recommend agents: Today she will get her last dose of daptomycin to complete a total of 7 days therapy. I will sign off. Call again as needed. Current Visit: Yes Qualifiers: Indwelling urinary catheter type: indwelling urethral catheter Encounter type: initial encounter Infectious Disease - PN: Subj Interval history: Patient says she feels a little better with less pain in her legs. No acute issues over the weekend. She has been afebrile. Infectious Disease Exam (PN) - Constitutional Vitals: Temp Pulse Resp BP Pulse Ox 96.8 F L 82 18 181/94 99 02/03/17 07:35 02/03/17 11:41 02/03/17 11:41 02/03/17 07:35 02/03/17 11:41 General appearance: over weight Exam: General appearance: Chronically ill looking, drowsy but arousable, right-sided facial weakness - Eye Eye exam: Present: EOMI. no icterus Pupils: Present: VERO - ENT ENT exam: No exudates orally - Respiratory Respiratory exam: vesicular BS, no crepitations or wheezes - Cardiovascular Cardiovascular exam: regular rate and rhythm, no murmurs - GI/Abdominal GI/Abdominal exam: Increased abdominal distention, normal bowel sounds, soft, non-tender - Extremities Exam Extremities exam: No leg edema - Skin Skin exam: no rash Results - Labs CBC & BMP: 02/03/17 08:44 02/01/17 05:00 Lab Results: I have reviewed the past 24 hour labs
--- NOTE | 2017-02-03 13:58 | Hospitalist Progress Note ---
Assessment and Plan (1) Colitis Status: Ruled-out Assessment and plan: I saw her a couple of weeks ago. 1)VRE UTI- treated 2)HD- continue usual schedule 3)clot in fistula- resolved, on coumadin 4)T2DM 5)HTN 6)left leg pain- unknown etiology. EMG today. 7)dispo- swing bed tomorrow. Current Visit: Yes (2) Acute deep vein thrombosis (DVT) of right upper extremity Status: Acute Current Visit: Yes Qualifiers: Affected thrombotic vein of extremity: brachial Qualified Code(s): I82.621 - Acute embolism and thrombosis of deep veins of right upper extremity (3) ESRD (end stage renal disease) Status: Chronic Current Visit: Yes (4) Hypertension Status: Chronic Current Visit: Yes Qualifiers: Hypertension type: essential hypertension Qualified Code(s): I10 - Essential (primary) hypertension (5) Diabetes Status: Chronic Current Visit: No Qualifiers: Diabetes mellitus type: type 2 Diabetes mellitus complication status: with kidney complications Chronic kidney disease stage: on chronic dialysis Hospitalist: Subjective Interval history: Mrs Slater is doing about the same today. She is to have dialysis then EMG. Plan is for her to go to swing bed tomorrow. She has completed antibiotics for her VRE UTI. Her left leg is hurting. Exam - Constitutional Vitals: Period Temp Pulse Resp BP Sys/[place] Pulse Ox Last 24 Hr 96.8 F-97.8 F 75-101 14-22 149-181/80-99 92-100 General appearance: normal weight, mild distress (tearful) - Respiratory Respiratory exam: Present: clear to auscultation bilaterally - Cardiovascular Cardiovascular exam: Present: regular rate and rhythm - GI/Abdominal GI/Abdominal exam: Present: normal bowel sounds, soft. Absent: tenderness - Extremities Exam Extremities exam: Absent: edema Results - Labs CBC & BMP: 02/03/17 08:44 02/01/17 05:00 Lab Results: I have reviewed the past 24 hour labs
--- NOTE | 2017-02-03 15:21 | Neurology Progress Note ---
Neurology - PN : Subjective Interval history: Patient seems to be doing about the same. No new problems reported. Is still extremely weak and hurting in the left leg. Nerve conduction study and EMG reveals severe peripheral neuropathy but no signs of myopathy or myositis Exam (Progress Note) - Constitutional Vitals: Period Temp Pulse Resp BP Sys/[place] Pulse Ox Last 24 Hr 96.8 F-97.8 F 75-101 14-22 149-181/80-99 92-100 Exam: GENERAL: Patient is in no acute distress. NECK: Neck is supple. There is no JVD. No carotid bruits present. No thyroid masses. CVS: First and second heart sounds are normal. There is no S3 present. Regular rate and rhythm. RESPIRATORY: Lungs are clear to auscultation without any rales or rhonchi. ABDOMEN: Soft and non-tender. Bowel sounds are present. There is no hepatosplenomegaly. EXT: There is no palpable edema. Peripheral pulses are present. Skin: No rashes Central Nervous system: General: Alert, awake and Oriented x 3 Speech: Fluent Comprehension: Intact and normal Facial expressions: Normal Cranial Nerves: CN1/Olfactory: Normal CN II/ Optic: Normal, Visual Mcguire unreliable CN III, and : VERO & EOMI CN V: Normal & intact CN VII: Right lower motor neuron type facial weak CNVIII: Normal CN XI/X/XI/XII: Intact and Normal Motor: Bulk and Tone is normal. Strength in the right 2-3/5 Strength in the left 2-3/5 Sensory: Cannot be assessed with the reliability Reflexes: 2+ and symmetrical Cerebellar function: Cannot be assessed Toes: Equivocal Gait: Cannot be assessed Results - Labs CBC & BMP: 02/03/17 08:44 02/01/17 05:00 Assessment and Plan (1) Generalized weakness Status: Acute Assessment and plan: Continue Lyrica at the same dose Current Visit: Yes (2) Right-sided Krishnamurthy's palsy Status: Acute Assessment and plan: No evidence of autoimmune disorder. It is very well be secondary to viral infection Continue current management No further intervention/recommendations from neuro standpoint Okay to go to swing bed when okay with PCP Sign off please call as needed Current Visit: Yes
[2017-02-03] MEDS: WARFARIN 5 MG TABLET PO SCH (21:12)
[2017-02-04] MEDS: ALBUTEROL/IPRATROPIUM 3 ML NEB RESP TX SCH ×3 (03:34→11:27)
--- NOTE | 2017-02-04 07:20 | Discharge Summary ---
<Derek Valentino - Last Filed: 02/04/17 09:28> Hospital Course - Hospital Course Hospital Course: Patient is a 41-year-old black female patient who presented to the ED on 01/06 with complaints of right arm graft site pain after having dialysis performed. Patient reported that she been having site pain for the last 6-7 months under the supervision of Dr. De Leon. She has had a protracted 29 day stay and her diagnoses have included clotted fistula, GIB, stroke like symptoms v [place] palsy v neuropathy, ESRD on HD, VRE UTI (antibiotics completed), DM. She is transferring to a swing bed and her family is going to transport her to her dialysis facility in [place] because they want her to be at that [facility] here in town. She has left leg neuropahtic pain controlled with several modalities including oxycodone. She will see Dr Pierce and her nephrologists after discharge as well as her PCP. Specialty Discharge - Follow Up or Referrals Follow up with: Danis Pierce MD [Physician] - 03/13/17 9:45 am Senthil Alexander MD [Physician] - 1 Week (Follow up with Dialysis as scheduled) Discharge Plan - Discharge Data Disposition: Disch/Xfer to Snf - Discharge Medications New Acetaminophen Tab [Tylenol Tab] 650 mg PO Q4H PRN tablet PRN Reason: Fever, Headache, Mild Pain Glucagon 1 mg IM PRN PRN vial PRN Reason: Hypoglycemia w/o IV access Hyoscyamine Tab [Levsin Tab] 0.125 mg PO QID PRN tablet PRN Reason: Abdominal Pain Insulin NPH [HumuLIN N] 10 unit SUBCUT BIDAC unit Lactulose Liquid [Chronulac] 20 gm PO Q4H PRN PRN Reason: Constipation Lidocaine/Prilocaine Cream [Emla] 1 applic TOP PRN PRN applic PRN Reason: Dialysis Polyethylene Glycol Powder [Miralax] 17 gm PO DAILY predniSONE TAB [PredniSONE] 10 mg PO BID tablet Warfarin [Coumadin] 5 mg PO DAILY@1800 tablet oxyCODONE IR [Roxicodone] 5 mg PO Q6H #60 tablet Albuterol/Ipratropium Neb [Duoneb] 3 ml RESP TX RT Q4H Insulin Lispro [HumaLOG] See Protocol SUBCUT ACHS unit Pantoprazole Tab [Protonix Tab] 40 mg PO BID tablet Continue cloNIDine TAB [Catapres Tab] 0.1 mg PO BID #90 tablet Calcium Acetate [Phoslo] 667 mg PO TID Losartan/Hydrochlorothiazide [Losartan-Hctz 100-12.5 mg Tab] 100 mg PO DAILY - Follow Up or Referral Follow Up: Danis Pierce MD [Physician] - 03/13/17 9:45 am Senthil Alexander MD [Physician] - 1 Week (Follow up with Dialysis as scheduled) - Forms/Instructions Instructions: Dialysis Diet (DC), Weakness (GEN), End-Stage Kidney Disease (DC) Exam - Constitutional Vitals: Period Temp Pulse Resp BP Sys/[place] Pulse Ox Last 24 Hr 97.5 F-97.9 F 82-106 15-22 116-170/73-99 93-100 Discharge Results Procedures and tests throughout hospitalization: Pending Orders 01/29/17 JEY CSF([facility] – [place], [place] [facility]) Routine Angiotensin Convert Enzyme CSF IN AM Cryptococcal Antigen IN AM Fungal Culture w/ Prep IN AM Herpes Simplex Virus,PCR,CSF IN AM Cinthya Ink IN AM VDRL Spinal Fluid Routine Viral Culture, Non-Respiratory Routine 01/29/17 04:00 Cytology Request IN AM 01/29/17 08:15 Oligoclonal Banding Routine QuantiFERON-TB Gold In-Tube, B Routine West Nile Virus Ab (IgG/M),CSF Routine 01/30/17 AFB Culture/Smears Labs on day of discharge: Labs from last 24 hours 02/03/17 02/03/17 02/03/17 21:17 15:38 12:21 POC Glucose 238 H 302 H 267 H DS: Provider Date of admission: 01/06/17 14:11 Primary care physician: Elver Mariee Attending physician on admission: Saskia Graham MD Consults: 01/06/17 02:23 Consult to Physician [CONS] Routine Comment: DVT arm, ESRD Consulting Provider: Andreas Hollingsworth When should Consulting Provider be notified: Now When should Consulting Provider be notified: Now Person Notified: YONNY Date Notified: 01/06/17 Time Notified: 09:19 01/06/17 03:38 Consult to Physician [CONS] Routine Comment: RUE DVT- ESRD with Shunt Consulting Provider: Jeffrey De Leon When should Consulting Provider be notified: Now When should Consulting Provider be notified: Now Person Notified: STEPHANIE Date Notified: 01/06/17 Time Notified: 09:06 01/11/17 08:27 Consult to Physician [CONS] Routine Comment: abd pain, abnl ct Consulting Provider: Medardo Pinedo V 01/12/17 18:53 Consult to Pharmacy [CONS] Routine Reason for Pharmacy Consult: Adjust Meds Renal Funct 01/14/17 13:29 Consult to Physician [CONS] Routine Comment: fever, av fistula clot Consulting Provider: Emely Nava Consulting Provider Notified: Yes When should Consulting Provider be notified: Now Consult to Specialist Group: Infectious Disease When should Consulting Provider be notified: Now Person Notified: LOU Date Notified: 01/14/17 Time Notified: 08:38 01/17/17 09:14 Consult to Physical Therapy [CONS] Routine Reason for Physical Therapy: Weakness Evaluate and Treat Start Therapy: Today 01/20/17 13:40 Consult to Case Mgmt/Social Srvs [CONS] Routine Reason for Case Mgmt/Social Srvs: Swingbed/SNF/Penitentiary Consult Comment: SB VS ACUTE CARE REHAB FOR LOWER EXTREMITY WEAKNESS 01/21/17 09:26 Consult to Occupational Therapy [CONS] Routine Reason for Occupational Therapy: Evaluate and Treat Start Therapy: Today 01/23/17 12:13 Consult to Physician [CONS] Routine Comment: remove hd catheter tomorrow Consulting Provider: Jeffrey De Leon Person Notified: GLORY Date Notified: 01/23/17 Time Notified: 12:36 01/23/17 13:02 Consult to Physician [CONS] Routine Comment: slightly swollen and warm left knee, possible tap Consulting Provider: Fredy Hogue Jr. Person Notified: Odalis Date Notified: 01/23/17 Time Notified: 14:29 01/24/17 10:48 Consult to Physician [CONS] Routine Comment: Evaluate progressive weakness in pt. with fever Consulting Provider: Danis Pierce Person Notified: [email or web address] Date Notified: 01/24/17 Time Notified: 11:46 Consult Notification Comment: 01/24/17 10:53 Consult to Pharmacy [CONS] Routine Reason for Pharmacy Consult: Dose/Manage Vancomycin Comment: ESRD pt. dosed with 1 gram vanc IV yesterday, please manage subsequent dose 01/28/17 10:13 Consult to Wound Care - [place] [CONS] Routine Reason for Wound Care: Wound Care Management Discharging clinician: Derek Valentino NP <Coleen Begum - Last Filed: 02/04/17 16:51> Hospital Course - Time spent with patient Time with patient DS: Greater than 30 minutes (chart review, exam, care coordination, discharge planning conversations, medicine reconciliation took 40 minutes.) Diagnosis - Discharge Diagnosis (1) Acute deep vein thrombosis (DVT) of right upper extremity Status: Resolved (2) ESRD (end stage renal disease) Status: Chronic (3) Hypertension Status: Chronic (4) Diabetes Status: Chronic (5) UTI (urinary tract infection) due to Enterococcus Status: Acute (6) VRE (vancomycin resistant enterococcus) culture positive Status: Acute (7) GIB (gastrointestinal bleeding) Status: Acute (8) Krishnamurthy's palsy Status: Acute (9) Peripheral neuropathy Status: Acute Discharge Plan - Discharge Data Condition at Discharge: Stable Discharge Diet: diabetic diet, heart healthy Activity: resume usual activities as tolerated, as per physical therapy Exam - Constitutional General appearance: no acute distress, over weight - Head Head exam: Present: normocephalic, atraumatic - Eye Eye exam: Present: EOMI. Absent: scleral icterus - Respiratory Respiratory exam: Present: clear to auscultation bilaterally - Cardiovascular Cardiovascular exam: Present: regular rate and rhythm - GI/Abdominal GI/Abdominal exam: Present: normal bowel sounds, soft. Absent: tenderness - Extremities Exam Extremities exam: Absent: edema - Neurological Exam Neurological exam: Present: alert, oriented X3, motor sensory deficit ( decreased sensation left leg, neuropathic pain in left leg). Absent: CN II-XII intact (left face droop due to Krishnamurthy's palsy)
[2017-02-04] MEDS: LOSARTAN 50 MG TABLET PO SCH (08:44)
[2017-02-04] MEDS: POLYETHYLENE GLYCOL POWDER 17 GM PACK PO SCH (08:44)
[2017-02-04] MEDS: CALCIUM ACETATE 667 MG CAPSULE PO SCH ×2 (08:44→12:50)
[2017-02-04] MEDS: cloNIDine 0.1 MG TABLET PO SCH (08:45)
[2017-02-04] MEDS: PANTOPRAZOLE 40 MG TABLET PO SCH (08:45)
[2017-02-04] MEDS: predniSONE 10 MG TABLET PO SCH (08:45)
[2017-02-04] MEDS: INSULIN NPH 100 UNIT/ML SUBCUT SCH (09:12)
[2017-02-04] MEDS: INSULIN LISPRO 100 UNIT/ML SUBCUT SCH ×2 (09:12→12:50)
[2017-02-04] MEDS: oxyCODONE IR 5 MG TABLET PO PRN (09:21)
[2017-02-04 11:44] VITALS: BP 140/90
[2017-02-04 11:46] LABS: Albumin, Serum 2770 mg/dL; IgG, CSF 2.9 mg/dL (<=8.1); IgG/Albumin Ratio, CSF 0.32 (<=0.21); Synthesis Rate, CSF 0 mg/24 h (<=12)
== END 2017-02-04 14:08 | DRG 252 ==
LOC: EDUNIT# → EDBD → N.ED 23:44 → N.EDINP 23:44 → SUATTDRO 01-06 02:23 → N.4E 01-06 02:42 → SUATTDRO 01-06 14:11 → N.CC 01-16 11:20 → N.5E 01-21 18:15
PROVIDERS: ADMIT Family Medicine; ATTEND Internal Medicine